=== PATIENT | female | born 1935 | race Caucasian/White ===

== ENCOUNTER 2017-11-06 09:04 | Inpatient (IN) | payer MEDICARE, OTHER, SELFPAY ==
[2017-11-06 09:06] VITALS: BP 115/71; PULSE 88; RESP 14; TEMP 36.4; O2SAT 100; BMI 20.5
--- NOTE | 2017-11-06 09:24 | US_ITS ---
STUDY: ABDOMINAL ULTRASOUND - RIGHT UPPER QUADRANT REASON FOR VISIT: Female, 82 years old. Epigastric pain. TECHNIQUE: Ultrasound evaluation of the right upper quadrant was performed with real-time and static spence-scale imaging. TECHNICAL QUALITY: Adequate. COMPARISON: Comparison is made with prior examination dated May 26, 2017. FINDINGS: Liver: The liver measures 14.2 cm. There is increased echogenicity consistent with fatty infiltration. The bile ducts are within normal limits. There is hepatic color flow. The direction of portal flow is hepatopetal. There is no demonstrated mass lesion. Gallbladder: Normal distended gallbladder. The gallbladder wall measures 1.8 mm. There is a negative sonographic Dahl's sign. There is no pericholecystic fluid. There are no gallstones. Common Bile Duct (C.B.D.): The common bile duct measures 2.1 mm. Pancreas: Normal size of the head, body and tail of the pancreas. There is normal echogenicity of the pancreas. There is no demonstrated pancreatic mass or cyst. Right Kidney: Normal size of the right kidney. The right kidney measures 10.2 cm x 4.7 cm x 4.2 cm. There is mild thinning of the renal cortex. The right cortex measures 0.9 cm. There is no demonstrated renal mass or cyst. There is no right hydronephrosis. US/Gallbladder IMPRESSION: Fatty infiltration of the liver. Electronically Signed: Clint Patrick MD at 10:41 EDT Tel [phone], Service support ,
--- NOTE | 2017-11-06 09:33 | ED.DCSUM_ITS ---
- ER Visit Summary Date of Service: 11/06/17 Chief Complaint: Abdominal pain History of Present Illness: The patient is a 82 F with epigastric and right upper quadrant abdominal pain for the past 3 weeks. Patient states she had similar episode last May and at that time she had multiple workups and was found to have mildly elevated lipase. Patient followed up with Dr. Cramer and it was felt that she likely had passed a small gallstone. Patient states symptoms recurred 3 weeks ago and had been waxing and waning since that time. She has had no vomiting or change in her stool. She has had no fever. She was seen by her PCP 4 days ago and states that her lipase was very mildly elevated at that time. She was advised that if she was not feeling better she should come to the emergency room for evaluation. Patient has had prior appendectomy and hysterectomy does still have her gallbladder. She has been seen by Dr. Adair in the past for EGD as well. Physical Examination: Vital signs are unremarkable. Patient is in no acute distress and is nontoxic appearing. Head and neck examination is unremarkable. Heart is regular rate and rhythm. Lung sounds are clear. Abdomen is soft with tenderness in the epigastric and right upper quadrant region. There is no rebound. She has hypoactive but present bowel sounds. There is no CVA tenderness. Test Results: CBC is unremarkable. Chemistry studies are significant for a BUN of 53 and a creatinine of 2.81. It appears her baseline creatinine is around 1.4. LFTs are unremarkable but lipase is elevated at 1033. Right upper quadrant ultrasound shows fatty infiltration of the liver. Normal gallbladder. Emergency Department Course and Treatment: Patient declined anything for pain or nausea here. She was given IV fluids. She will be admitted for further treatment and evaluation. Treatment Plan: [] Disposition: Admit Impression: 1. Pancreatitis 2. Acute on chronic renal failure This note was generated with [employer] dictation software. It may contain incorrect words, spelling, and punctuation that were not noted in review of the chart prior to signing ED Disposition - Plan for ED Patient: Chief Complaint: Abd Pain Referrals: Ngoc Bowling MD [Primary Care Provider] -
--- NOTE | 2017-11-06 09:38 | NURSING ---
NO LW OR POA
[2017-11-06 09:46] LABS: Absolute Neutrophil Count 6.9 X10^3/uL (2.0-7.7); Basophil# 0.03 X10^3/uL; Basophil% 0.3 % (0-1); Eosinophil# 0.49 X10^3/uL; Eosinophils% 5.1 % (0-5); Hematocrit 34.8 % (37-47); Hemoglobin 12.1 g/dl (12.0-15.0); Lymphocyte % 13.6 % (19-41); Mean Corp Hgb Conc 34.8 g/gl (32-36); Mean Corpuscular Hgb 31.8 pg (27.0-32.0); Mean Corpuscular Volume 91.6 fL (81-99); Mean Platelet Vol. 9.3 fl (6.2-12.0); Monocyte# 0.81 X10^3/uL; Monocyte% 8.5 % (0-10); Neutrophil # 6.94 X10^3/uL (2.7-7.7); Neutrophil % 72.4 % (47-70); POSITIVE COUNT NO; POSITIVE DIFFERENTIAL NO; POSITIVE MORPHOLOGY NO; Platelet Count 270 K/mm3 (150-450); RBC Distribution Width CV 12.9 % (11.6-14.6); RBC Distribution Width SD 42.7 fl (35.1-43.9); White Blood Count 9.6 K/mm3 (4.4-11.0)
[2017-11-06] MEDS: 0.9% Normal Saline 1,000 ML 150 ML IV ×3 (09:47→20:52)
[2017-11-06 10:01] LABS: AST(SGOT) 17 U/L (15-37); Alanine Aminotransfer ALT/SGPT 21 U/L (13-56); Albumin, Serum 4.2 g/dL (3.2-5.0); Alkaline Phosphatase 98 U/L (45-117); Anion Gap 12 (5-15); BUN 53 mg/dL (7-18); BUN/Creat Ratio 18.9 RATIO (10-20); Calcium,Total 9.3 mg/dL (8.5-10.1); Chloride 106 mmol/L (98-107); Creatinine, Serum 2.81 mg/dL (0.55-1.02); EST Glomerular Filtration Rate 17 mL/min (>60); Est Glom Filt Rate - Afr Amer 21 mL/min (>60); Estimated Creatinine Clearance 14.52 ml/min; Globulin 4.1 g/dL (2.2-4.2); Glucose 99 mg/dL (74-106); Lipase 1033 U/L (73-393); Potassium 4.6 mmol/L (3.5-5.1); Protein, Total 8.3 g/dL (6.4-8.2); Sodium Level 138 mmol/L (136-145)
[2017-11-06 11:09] VITALS: BP 128/60; PULSE 74; RESP 18; O2SAT 100
--- NOTE | 2017-11-06 11:09 | NURSING ---
DR YORK FOR DR THAKKAR
--- NOTE | 2017-11-06 11:21 | HP.PCM_ITS ---
Problem List (1) Recurrent acute pancreatitis Status: Acute (2) Acute on chronic renal failure Status: Acute (3) Prothrombin gene mutation Status: Chronic (4) Hyperhomocystinemia Status: Chronic (5) Hypothyroidism Status: Chronic (6) HTN (hypertension) Status: Chronic History of Present Illness Date of Admission: 11/06/17 Chief Complaint: abdominal pain The patient is a 82 year old F with a past medical history of pancreatitis, chronic renal failure, prothrombin gene mutation, hyper homocystinemia, hypothyroidism and hypertension who presented to the [facility] emergency department on 11/06/2017 complaining of abdominal pain. The pain started during the night and she tells me it is located in the RQ of the abd and the mid epigastric area. She had not been feeling well for the past 3 weeks and had no appetite and poor intake. She has lost about 7 pounds in the past 3 weeks. She recently saw Dr. Bowling in the office and her BP was low so the antihypertensives were decreased. She has not had any vomiting. She has never had PUD. She takes Advil sometimes at night. She was admitted to the hospital in May of [address] scan of the abdomen/ pelvis at that time showed no abnormalities other than mild diverticulosis of the distal colon. Vital signs in the ED were temperature 97.6, pulse rate 88, pressure 115/71, respiratory rate 14 and she was 100% saturated on room air. Blood cell count and differential were normal. Hemoglobin and platelets were normal. The CO2 was low at 20 and the BUN is 53 with a creatinine of 2.81. The baseline creatinine over the past 2 years has ranged from 1.26-1.49. She has been taking spironolactone. Lipase was elevated at 1033 and triglycerides are 95. The LFTs are unremarkable. A RUQ ultrasound showed fatty infiltration of the liver with a normal gallbladder, normal pancreas and no gallstones. She denies ETOH use. she has not taken any new medications recently and she has not been on any antibiotics. She was admitted to the hospital with a dx of recurrent acute pancreatitis. Past Medical History Past Medical History (Chronic Problems): Chronic Problems Prothrombin gene mutation (Chronic) Hyperhomocystinemia (Chronic) Hypothyroidism (Chronic) HTN (hypertension) (Chronic) Allergies diltiazem HCl [From Cardizem] Allergy (Verified 11/06/17 09:07) Itching miconazole nitrate [From Neosporin AF] Allergy (Verified 11/06/17 09:07) Laryngospasms morphine Allergy (Verified 11/06/17 09:07) Other MAKES ME CRAZY nitrofurantoin [From Macrobid] Allergy (Verified 11/06/17 09:07) Rash nitrofurantoin macrocrystalline [From Macrobid] Allergy (Verified 11/06/17 09:07 ) Rash bacitracin Adverse Reaction (Verified 11/06/17 09:07) Other codeine Adverse Reaction (Verified 11/06/17 09:07) Chest tightness lisinopril Adverse Reaction (Verified 11/06/17 09:07) Other loratadine [From Claritin] Adverse Reaction (Verified 11/06/17 09:07) Other Home Medications: Ambulatory Orders Medication Instructions Recorded Levothyroxine [Synthroid] 88 mcg PO DAILY 05/26/13 Losartan Potassium [Cozaar] 25 mg PO DAILY 05/26/13 Spironolactone [Aldactone] 50 mg PO DAILY 05/26/13 Timolol 0.5% [Timoptic] 1 drop EACH EYE QHS 09/27/15 Ascorbic Acid [Vitamin C] 1,000 mg PO DAILY 11/06/17 Omeprazole [Omeprazole] 20 mg PO DAILY 11/06/17 Surgical History: colectomy - for diverticular disease, hysterectomy - for DUB Psychiatric History: No pertinent psych hx 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 Denies: Chills, Fever Eyes: Denies: Blurred vision, Vision Change HEENT: Denies: Difficulty Swallowing, Head Aches, Sinus Congestion, Sinus Drainage Cardiovascular: Reports: Light Headedness. Denies: Chest Pain, Edema, Orthopnea , Palpitations, Syncope Respiratory: Denies: Cough, Shortness of Breath Gastrointestinal: Reports: Abdominal Pain - in the mid-epigastric and RUQ, Nausea. Denies: Diarrhea, Hematemesis, Hematochezia, Melena, Vomiting Genitourinary: Denies: Dysuria Gynecological: Denies: Vaginal discharge Musculoskeletal: Denies: Joint Pain, Joint Tenderness Skin: Denies: Jaundice, Rash, Wounds Neurological: Denies: Numbness, Tingling, Focal weakness Psychiatric: Denies: Anxiety, Depression, Homicidal Ideations, Suicidal Ideations Endocrine: Reports: Change in Body Habitus - has lost 7 lbs in the past 2 weeks Hematologic/ Lymphatic: Denies: Hx of blood clot VTE Information - Inpt Only VTE Present on Admission: No VTE Mechan Device Prophylaxis: SCD's, Knee High BEA Hose VTE Pharm Prophylaxis ordered?: Yes Patient Problems: Active and Suspected Problems Recurrent acute pancreatitis (Acute) Acute on chronic renal failure (Acute) - Physical Exam General: Alert, Oriented x3, Cooperative, No apparent distress, Well developed HEENT: Atraumatic, PERRLA, EOMI, Normocephalic Oral: No Gingival or Mucosal Lesions/ Ulcerations, Dry Mucosa Neck: Supple, No JVD, Negative Carotid Bruits, No Nodes, No Nuchal Rigidity, Trachea Midline Lungs: Clear to auscultation, Normal air movement Cardiovascular: Regular rate, Regular Rhythm, Normal S1, Normal S2, No murmurs, No Ectopic Activity, No rub noted, No Gallop Abdomen: Bowel Sounds Present, Soft, Non-Distended, No Hepato-splenomegaly, Tender - mostly oin the epigastric area and over the r lower ribs Extremities: No clubbing, No cyanosis, No edema, No Calf Tenderness Skin: No rashes, No breakdown Musculoskeletal: Arthritic Changes Neurological: Cranial nerves II-XII grossly intact, Neuro grossly intact Psych/Mental Status: Normal Affect, Appropriate Vital Signs Temp Pulse Resp BP Pulse Ox 97.6 F L 74 18 128/60 H 100 11/06/17 09:06 11/06/17 11:09 11/06/17 11:09 11/06/17 11:09 11/06/17 11:09 Oxygen Delivery Method Room Air Weight: 126 lb 15.78 oz Body Mass Index (BMI) 20.5 Laboratory Tests Past 24 Hrs 11/06/17 11/06/17 09:35 09:35 WBC 9.6 RBC 3.80 L Hgb 12.1 Hct 34.8 L MCV 91.6 MCH 31.8 MCHC 34.8 RDW 12.9 RDW Differential 42.7 Plt Count 270 MPV 9.3 Immature Gran % (Auto) 0.100 Neut % (Auto) 72.4 H Lymph % (Auto) 13.6 L [place] % (Auto) 8.5 Eos % (Auto) 5.1 H Baso % (Auto) 0.3 Absolute Neuts (auto) 6.9 Absolute Lymphs (auto) 1.30 Total Counted Not Reportable Sodium 138 Potassium 4.6 Chloride 106 Carbon Dioxide 20.0 L Anion Gap 12 BUN 53 H Creatinine 2.81 H Estim Creat Clear Calc 14.52 Est GFR (MDRD) Af Amer 21 L Est GFR (MDRD) Non-Af 17 L BUN/Creatinine Ratio 18.9 Glucose 99 Calcium 9.3 Total Bilirubin 0.30 Direct Bilirubin 0.10 AST 17 ALT 21 Alkaline Phosphatase 98 Total Protein 8.3 H Albumin 4.2 Globulin 4.1 Lipase 1033 H Assessment/Plan Active and Suspected Problems Recurrent acute pancreatitis (Acute) Acute on chronic renal failure (Acute) Impressions 1. acute recurrent pancreatitis in a pt with a normal GB and biliary tract and no ETOH consumption. Pancreatitis in May 2017 resolved very quickly and Dr. Cramer felt she likely passed a small stone. I am concerned about the loss of appetite and weight loss recently. will check an MRCP of the pancreas. If this is unremarkable consider a HIDA scan to evaluate for GB dysfunction 2. Acute kidney injury on chronic renal failure stage III 3. Dehydration 4. History of hypertension 5. Mild metabolic acidosis-likely secondary to acute on chronic renal failure 6. Prothrombin gene mutation history 7. Diverticulosis-status post partial colectomy 8. Hyperhomocystinemia 9. Hypothyroidism MRCP today Hydrate sips and chips only Pepcid 20 mg IV BID for GI prophylaxis Hold antihypertensives and spironolactone Heparin 5000 units subcu every 12 hours for DVT prophylaxis along with SCDs and BEA gooden Recheck lab in the a.m. Code Visit Inpatient E&M: 79851 Init Hosp L2
[2017-11-06 11:40] VITALS: BMI 20.5
[2017-11-06 12:07] LABS: Triglycerides 95 mg/dL
[2017-11-06 12:28] VITALS: BP 116/55; PULSE 80; RESP 16; TEMP 36.8; O2SAT 97
[2017-11-06 12:50] VITALS: O2SAT 100
--- NOTE | 2017-11-06 14:19 | MRI_ITS ---
STUDY: MR CHOLANGIOPANCREATOGRAPHY (MRCP) REASON FOR EXAM: Female, 82 years old. RUQ tenderness, H/O PANCREATITIS, RENAL FAILURE TECHNIQUE: Standard MRCP technique was utilized. COMPARISON: ct 05.24.17 FINDINGS: There are calcifications of the abdominal aorta. This is consistent for atherosclerotic disease. There is no abdominal aortic aneurysm. 6.6 mm T2 hyperintensity in the left kidney. Gall Bladder: Normal with no distention or demonstrated fixed intraluminal filling defect. Cystic duct: Normal with no demonstrated fixed filling defect. Intrahepatic ducts: Normal visualized intrahepatic ducts with no demonstrated fixed filling defect, dilation or stricture. Common hepatic duct: Normal with no demonstrated fixed filling defect, dilation or stricture. Common bile duct: Normal with no demonstrated fixed filling defect, dilation or stricture. Pancreatic duct: Normal with no demonstrated fixed filling defect, dilation or stricture. MRI/MRCP Abdomen without Contrast IMPRESSION: Normal MR Cholangiopancreatography (MRCP). Left renal cyst. Electronically Signed: Tushar Wilkinson MD at 22:30 EDT , Service support ,
[2017-11-06] MEDS: Acetaminophen 500 MG Tablet 1000 MG PO ×2 (14:41→21:41)
[2017-11-06 17:23] VITALS: BP 115/49; PULSE 77; RESP 16; TEMP 36.6; O2SAT 100
[2017-11-06] MEDS: 0.9% NaCl Peripheral Flush Adult/Peds IV (17:33)
[2017-11-06 21:26] VITALS: BP 125/61; PULSE 71; RESP 16; TEMP 36.8; O2SAT 100
[2017-11-06] MEDS: Heparin Injection (Vial) 5,000 UNIT/ML VIAL 5000 UNIT SC (21:40)
[2017-11-06] MEDS: Timolol 0.5% 5ML OPTH.BTL 1 DRP EACH EYE (21:41)
[2017-11-07] MEDS: 0.9% Normal Saline 1,000 ML 150 ML IV (03:41)
[2017-11-07 03:42] VITALS: BP 114/65; PULSE 65; RESP 16; TEMP 36.4; O2SAT 100
[2017-11-07] MEDS: Acetaminophen 500 MG Tablet 1000 MG PO (06:02)
[2017-11-07] MEDS: Levothyroxine 88 MCG Tablet PO (06:03)
[2017-11-07 06:13] LABS: Absolute Lymphocyte Count 1.56 X10^3/ul (0.83-4.51); Absolute Neutrophil Count 3.7 X10^3/uL (2.0-7.7); Basophil# 0.02 X10^3/uL; Basophil% 0.3 % (0-1); Eosinophil# 0.37 X10^3/uL; Eosinophils% 5.9 % (0-5); Hematocrit 27.3 % (37-47); Hemoglobin 9.3 g/dl (12.0-15.0); Lymphocyte # 1.56 X10^3/ul (4.0); Lymphocyte % 24.8 % (19-41); Mean Corp Hgb Conc 34.1 g/gl (32-36); Mean Corpuscular Hgb 32.3 pg (27.0-32.0); Mean Corpuscular Volume 94.8 fL (81-99); Mean Platelet Vol. 9.8 fl (6.2-12.0); Monocyte# 0.69 X10^3/uL; Neutrophil # 3.65 X10^3/uL (2.7-7.7); Platelet Count 197 K/mm3 (150-450); RBC Distribution Width CV 12.5 % (11.6-14.6); RBC Distribution Width SD 41.4 fl (35.1-43.9); Red Blood Count 2.88 M/mm3 (4.2-5.4); White Blood Count 6.3 K/mm3 (4.4-11.0)
[2017-11-07 06:18] LABS: POSITIVE COUNT NO; POSITIVE DIFFERENTIAL NO; POSITIVE MORPHOLOGY NO
[2017-11-07 06:35] LABS: ALB/GLOB Ratio 1.1 RATIO (0.9-2.4); AST(SGOT) 11 U/L (15-37); Alanine Aminotransfer ALT/SGPT 15 U/L (13-56); Albumin, Serum 3.1 g/dL (3.2-5.0); Alkaline Phosphatase 75 U/L (45-117); Anion Gap 11 (5-15); BUN 40 mg/dL (7-18); BUN/Creat Ratio 19.3 RATIO (10-20); Calcium,Total 8.3 mg/dL (8.5-10.1); Chloride 119 mmol/L (98-107); Cholesterol 105 mg/dL (200); Creatinine, Serum 2.07 mg/dL (0.55-1.02); EST Glomerular Filtration Rate 24 mL/min (>60); Est Glom Filt Rate - Afr Amer 30 mL/min (>60); Estimated Creatinine Clearance 19.71 ml/min; Globulin 2.9 g/dL (2.2-4.2); Glucose 75 mg/dL (74-106); High Density Lipoprotein 30 mg/dL; Lipase 625 U/L (73-393); Magnesium 1.8 mg/dL (1.6-2.6); Phosphorus 3.4 mg/dL (2.5-4.9); Potassium 4.6 mmol/L (3.5-5.1); Sodium Level 145 mmol/L (136-145); Triglycerides 86 mg/dL; Very Low Density Lipoprotein 17 mg/dL (5-40)
--- NOTE | 2017-11-07 06:39 | PCM.PROGNOTE ---
Subjective: 82-year-old female admitted to the hospital on 11/06/2017 with recurrent acute pancreatitis. Events of the past 24 hours have been reviewed. Afebrile since admission. Signs are stable. Balance since admission is +1798. She has had 680 cc of urine since admission. White blood cell count is again normal at 6.3 with a normal differential except for mildly increased eosinophils at 5.9. Hemoglobin is 9.3, down from 12.2 at admission. Platelets are within normal limits. Serum bicarb is decreased to 15 with a potassium of 4.6. BUN is down to 40 from 53 and the creatinine is 2.07 today, down from 2.81 at admission. Magnesium and phosphorus are within normal limits. Triglycerides were 86. Lipase today is 625, down from 1033 at admission. LDL is 58 with an HDL of 30. MRCP was normal. Objective: - Physical Exam General: Alert, Oriented x3, Cooperative, No apparent distress, Well developed, sitting in a chair when I entered the room and looks comfortable HEENT: Atraumatic, PERRLA, EOMI, Normocephalic Oral: No Gingival or Mucosal Lesions/ Ulcerations, Dry Mucosa Neck: Supple, No JVD, Negative Carotid Bruits, No Nodes, No Nuchal Rigidity, Trachea Midline Lungs: Clear to auscultation, Normal air movement Cardiovascular: Regular rate, Regular Rhythm, Normal S1, Normal S2, No murmurs, No Ectopic Activity, No rub noted, No Gallop Abdomen: Bowel Sounds Present, Soft, Non-Distended, No Hepato-splenomegaly, Tender - mostly in the epigastric area and over the r lower ribs Extremities: No clubbing, No cyanosis, No edema, No Calf Tenderness Skin: No rashes, No breakdown Musculoskeletal: Arthritic Changes Neurological: Cranial nerves II-XII grossly intact, Neuro grossly intact Psych/Mental Status: Normal Affect, Appropriate - Physical Exam Vital Signs Temp Pulse Resp BP Pulse Ox 97.6 F L 65 16 114/65 100 11/07/17 03:42 11/07/17 03:42 11/07/17 03:42 11/07/17 03:42 11/07/17 03:42 Oxygen Delivery Method Room Air Weight: 126 lb 15.78 oz Body Mass Index (BMI) 20.5 Intake and Output for Last 24 Hours 11/05/17 11/06/17 11/07/17 23:59 23:59 23:59 Intake Total 728 / 728 1900 / 1900 Output Total 550 / 550 280 / 280 Balance 178 / 178 1620 / 1620 Laboratory Tests Past 24 Hrs 11/07/17 11/07/17 05:30 05:30 WBC 6.3 RBC 2.88 L Hgb 9.3 L Hct 27.3 L MCV 94.8 MCH 32.3 H MCHC 34.1 RDW 12.5 RDW Differential 41.4 Plt Count 197 MPV 9.8 Immature Gran % (Auto) 0.000 Neut % (Auto) 58.0 Lymph % (Auto) 24.8 [place] % (Auto) 11.0 H Eos % (Auto) 5.9 H Baso % (Auto) 0.3 Absolute Neuts (auto) 3.7 Absolute Lymphs (auto) 1.56 Total Counted Not Reportable Sodium 145 Potassium 4.6 Chloride 119 H Carbon Dioxide 15.0 L Anion Gap 11 BUN 40 H Creatinine 2.07 H Estim Creat Clear Calc 19.71 Est GFR (MDRD) Af Amer 30 L Est GFR (MDRD) Non-Af 24 L BUN/Creatinine Ratio 19.3 Glucose 75 Calcium 8.3 L Phosphorus 3.4 Magnesium 1.8 Total Bilirubin 0.30 AST 11 L ALT 15 Alkaline Phosphatase 75 Total Protein 6.0 L Albumin 3.1 L Globulin 2.9 Albumin/Globulin Ratio 1.1 Triglycerides 86 Cholesterol 105 LDL Cholesterol 58 VLDL Cholesterol 17 HDL Cholesterol 30 L Lipase 625 H Medical Necessity - Tobacco Use Smoking Status: Never smoker Tobacco Use: Non-smoker Assessment/Plan Impressions 1. acute recurrent pancreatitis in a pt with a normal GB and biliary tract and no ETOH consumption. Pancreatitis in May 2017 resolved very quickly and Dr. Cramer felt she likely passed a small stone. I am concerned about the loss of appetite and weight loss recently. will check an MRCP of the pancreas. If this is unremarkable consider a HIDA scan to evaluate for GB dysfunction 2. Acute kidney injury on chronic renal failure stage III 3. Dehydration 4. History of hypertension 5. Mild metabolic acidosis-likely secondary to acute on chronic renal failure 6. Prothrombin gene mutation history 7. Diverticulosis-status post partial colectomy 8. Hyperhomocystinemia 9. Hypothyroidism HIDA IgG subclass 4 recheck lab in the AM continue hydration Consult Dr. Cramer Code Visit Inpatient E&M: 54965 Subs Hosp L2
--- NOTE | 2017-11-07 06:42 | NM_ITS ---
CLINICAL: 82-year-old female with reported history of right upper quadrant abdominal pain. RADIONUCLIDE HEPATOBILIARY SCINTIGRAPHY COMPARISON: Abdominal ultrasound report 11/06/2017, MRI of the abdomen report 11/06/2017 FINDINGS: Following the intravenous administration of 5.2 mCi of 99m Tc Mebrofenin, hepatobiliary images reveal: 1. Relatively prompt and homogeneous radiopharmaceutical concentration is noted by a normal sized liver. No parenchymal defects are identified. 2. Gallbladder activity is identified at 15 minutes post radiopharmaceutical administration. 3. Small intestinal tract is observed at 30 minutes following tracer injection. 4. Washout of the radiopharmaceutical by the hepatic parenchyma appears qualitatively normal. The patient was administered a fatty meal (8 ounces BOOST-30 grams fat). The post fatty meal consumption gallbladder ejection fraction calculated at 60 minutes was noted to be 41.0 % (normal greater than 30%). NM/Hepatobilliary Img w/Pharm Int IMPRESSION: 1. NORMAL 99m Tc Mebrofenin hepatobiliary imaging examination with fatty meal ingestion. A. A gallbladder ejection fraction calculated to be greater than 30% following the administration of a consumed fatty meal makes the probability of functional hepatobiliary disease (gallbladder and/or sphincter of Oddi dyskinesia) and/or organic hepatobiliary disease (chronic acalculous cholecystitis and/or cystic duct syndrome) to be low. (Katelyn and Fabricio, J Nucl Med 43: 1603, 2002). Electronically Signed: Ishan Alba DO at 9:27 EDT Tel , Service support ,
[2017-11-07 07:41] VITALS: BP 100/76; PULSE 74; RESP 16; TEMP 36.4; O2SAT 99
--- NOTE | 2017-11-07 11:57 | CON.PCM_ITS ---
- Consult Date of Consult: 11/07/17 - Reason for Consult Chief Complaint: abdominal pain, elevated lipase Gail Ramos is a 82 year old female is well known to me. She presents with findings of elevated serum lipase and history of epigastric abdominal pain. Workup of US gallbladder, MRCP, HIDA scan, all essentially negative. Denies fevers. Patient presently feels much improved. Denies abdominal pain. PAST MEDICAL HISTORY Allergic rhinitis, cause unspecified Allergic rhinitis Disorder of bone and cartilage, unspecified Diverticulosis of colon (without mention of hemorrhage) External hemorrhoids without mention of complication Internal hemorrhoids without mention of complication Moderate persistent asthma without complication 11/17/2015 + ISSA: 28% drop in FEV1 at 10 mg/mL of Methacholine. Other and unspecified hyperlipidemia Rosacea Sciatica Unspecified essential hypertension Unspecified hypothyroidism PAST SURGICAL HISTORY COLONOSCOP W/ OR W/O [facility] SPEC 06/11/12 Colonoscopy repeat 10 years EXCISION OF SKIN GRAFT 2002 [facility] skin excision LAP, SURG MOBIL SPLENIC FL DUR PTL COLECTOMY 06-05-13 LAPAROSCOPIC HEMICOLECTOMY 06-05-13 PAST SURGICAL HISTORY OF 06/01/15 and 07/07/15 bilateral cataract surgery TOTAL ABDOM HYSTERECTOMY 1981 and appe Hysterectomy, [facility] MEDICATIONS: omeprazole (PRILOSEC) 20 mg capsule Take 1 capsule by mouth daily before breakfast. 1/2 hr before meal. levothyroxine (SYNTHROID) 88 mcg tablet Take 1 tablet by mouth once daily. losartan (COZAAR) 25 mg tablet Take 1 tablet by mouth once daily. spironolactone (ALDACTONE) 25 mg tablet Take 1 tablet by mouth twice daily. fluticasone (FLONASE) 50 mcg/actuation nasal spray Use 1-2 Sprays in each nostril once daily. levobunolol 0.5 % ophthalmic solution Use 1 Drop in both eyes daily at bedtime. Biotin 5 mg ORAL Cap Take one(1) tablet daily. (Dr. Chambers) ALLERGIES: Bactrim [Sulfamethoxazole-Trimethoprim]; Cardizem [Diltiazem Hcl]; Claritin [Loratadine]; Codeine; Lisinopril; Macrobid [Nitrofurantoin Monohyd/M- Cryst]; Morphine; Neosporin [Ujziwugm-Iimpbzqsir-Zxdslkzge]; Environmental [ Other] PERSONAL HISTORY: Social History Marital status: Spouse name: Years of education: Number of children: Occupational History Occupation Employer Comment [employer]. [employer]. Retired 2011 Social History Main Topics Smoking status: Never Smoker Smokeless status: Never Used Comment: Parents and spouse smoked in home. Spouse quit years ago. Alcohol use: No Drug use: No FAMILY HISTORY Heart Mother CHF Cancer Maternal Grandmother Stomach Hypertension Brother 2 brothers Cancer Brother Throat cancer, smoker REVIEW OF SYSTEMS: General - denies fevers Cardiovascular - denies chest pain Pulmonary - denies shortness of breath Gastrointestinal - denies abdominal pain at present, see HPI, had colonoscopy in 2013, does have acid reflux occasionally Neurological - denies seizures Genitourinary - denies burning with urination Hematological - denies spontaneous/prolonged bleeding Skin - denies nonhealing skin wounds Musculoskeletal - denies chronic joint/back pain Endocrine - denies diabetes Psychological denies hallucinations PHYSICAL EXAMINATION: General: The patient is 82 year old female, well nourished, well hydrated in no acute distress. The patient is oriented to time, place, and person. VITALS: Blood pressure 114/54, pulse 84, weight 58.5 kg (129 lb). Body mass index is 21.23 kg/(m^2). Head Normocephalic. EOM intact with sclera clear and no icterus noted. Mouth with mucus membranes moist. Neck - supple with no jugular venous distention noted. Trachea is midline. Lungs clear to auscultation. Normal breath sounds. No rales/rhonchi/wheezing noted. No labored breathing noted, such as retractions. Heart normal S1 and S2 auscultated. No rubs/clicks/murmurs noted. Regular rate. Abdomen soft and benign. Normal bowel sounds. No abdominal bruits noted. No distention or tympany noted. No masses noted. Extremities no calf tenderness noted. Skin normal skin integrity. Neurological gait normal, no focal deficits noted. Psych calm and appropriate LABORATORY VALUES: As Noted RADIOLOGIC STUDIES: As Noted IMPRESSION: elevated serum lipase, abdominal pain Discussion/Plan: I have discussed the above with the patient. Can consider lap jeanette as outpatient in future. Patient feeling hungry and much improved. will start regular diet can d/c to home wiht follow up with me as outpatient I have answered all questions to the patients satisfaction and the patient has no further questions. Greater than 50% of this patient encounter was dedicated to face to face discussion with the patient.
--- NOTE | 2017-11-07 12:36 | CASEMGMT ---
See RN CM Assessment link for details. DC Plan: home on discharge. -Intro role of CM to patient. Pt does not use DME, is independent, drives. No dc concerns identified or voiced by pt. Dorinda RAHMANN RN ACM
[2017-11-07 15:04] VITALS: BP 118/48; PULSE 77; RESP 16; TEMP 36.8; O2SAT 100
--- NOTE | 2017-11-07 15:55 | DCINST_ITS ---
- Discharge Diagnoses Current Active Problems: Current Active and Chronic Problems Recurrent acute pancreatitis (Acute) Acute on chronic renal failure (Acute) You will use the following diet at home:: Other - low fat diet Your food should be the consistency of: Regular Your liquids should be the consistency of: Regular/Thin Discharge Activity: - - take it easy for a few days and do not over do! Call your doctor if you observe: Fever of 101 or Higher, - - nausea, recurrent abdominal pain, vomiting Additional Instructions: You had acute on chronic kidney failure at admisison to the hospital. the kidney function is better today but, not back to baseline. Do NOT take spironolactone. It is a diuretic and it is likely that dehydration lead to the acute kidney failure. You should be drinking enough water to keep your urine a pale yellow. I think you should have repeat lab work in the next 5-7 days to make sure the kidney function is back to normal. The blood pressure at the time of DC from the hospital is 118/48. We have not been giving you any hypertensives so I think you should stay off the BP meds until you see Dr. Bowling again. Pending Tests on Discharge: IgG subclass 4 (this is a test for autoimmune hepatitis) Allergies/Adverse Reactions: Allergies diltiazem HCl [From Cardizem] Allergy (Verified 11/06/17 09:07) Itching miconazole nitrate [From Neosporin AF] Allergy (Verified 11/06/17 09:07) Laryngospasms morphine Allergy (Verified 11/06/17 09:07) Other MAKES ME CRAZY nitrofurantoin [From Macrobid] Allergy (Verified 11/06/17 09:07) Rash nitrofurantoin macrocrystalline [From Macrobid] Allergy (Verified 11/06/17 09:07 ) Rash bacitracin Adverse Reaction (Verified 11/06/17 09:07) Other codeine Adverse Reaction (Verified 11/06/17 09:07) Chest tightness lisinopril Adverse Reaction (Verified 11/06/17 09:07) Other loratadine [From Claritin] Adverse Reaction (Verified 11/06/17 09:07) Other Medications to take at Discharge Levothyroxine [Synthroid] 88 mcg PO DAILY 05/26/13 Losartan Potassium [Cozaar] 25 mg PO DAILY 11/25/13 Timolol 0.5% [Timoptic] 1 drop EACH EYE QHS 09/27/15 Ascorbic Acid [Vitamin C] 1,000 mg PO DAILY 11/06/17 Omeprazole 20 mg PO DAILY 11/06/17 Primary Care Physician: Ngoc Bowling MD [Primary Care Provider] - Please follow up with your Primary Care Physician in: 5 days Please Follow Up With: Puja Cramer MD When: call her for an appt or to schedule the surgery Proposed Discharge Date: 11/07/17
--- NOTE | 2017-11-07 16:06 | PCM.DC.SUM ---
Discharge Date and Diagnosis Date of Admission: 11/06/17 Date of Discharge: 11/07/17 - Primary Discharge Diagnosis Active and Suspected Problems Recurrent acute pancreatitis (Acute) Acute on chronic renal failure (Acute) Dehydration - Secondary Discharge Diagnosis Chronic Problems Glaucoma (Chronic) Prothrombin gene mutation (Chronic) Hyperhomocystinemia (Chronic) Hypothyroidism (Chronic) HTN (hypertension) (Chronic) Hospital Course and Treatment Imaging Results: Clinical Impression(s) from Imaging Studies Gallbladder Ultrasound 11/06/17 09:24 IMPRESSION: Fatty infiltration of the liver. Electronically Signed: Clint Patrick MD at 10:41 EDT Tel [phone], Service support , MRCP 11/06/17 14:19 IMPRESSION: Normal MR Cholangiopancreatography (MRCP). Left renal cyst. Electronically Signed: Tushar Wilkinson MD at 22:30 EDT , Service support , Laboratory Results - last 24 hr 11/07/17 11/07/17 05:30 05:30 WBC 6.3 RBC 2.88 L Hgb 9.3 L Hct 27.3 L MCV 94.8 MCH 32.3 H MCHC 34.1 RDW 12.5 RDW Differential 41.4 Plt Count 197 MPV 9.8 Immature Gran % (Auto) 0.000 Neut % (Auto) 58.0 Lymph % (Auto) 24.8 [place] % (Auto) 11.0 H Eos % (Auto) 5.9 H Baso % (Auto) 0.3 Absolute Neuts (auto) 3.7 Absolute Lymphs (auto) 1.56 Total Counted Not Reportable Sodium 145 Potassium 4.6 Chloride 119 H Carbon Dioxide 15.0 L Anion Gap 11 BUN 40 H Creatinine 2.07 H Estim Creat Clear Calc 19.71 Est GFR (MDRD) Af Amer 30 L Est GFR (MDRD) Non-Af 24 L BUN/Creatinine Ratio 19.3 Glucose 75 Calcium 8.3 L Phosphorus 3.4 Magnesium 1.8 Total Bilirubin 0.30 AST 11 L ALT 15 Alkaline Phosphatase 75 Total Protein 6.0 L Albumin 3.1 L Globulin 2.9 Albumin/Globulin Ratio 1.1 Triglycerides 86 Cholesterol 105 LDL Cholesterol 58 VLDL Cholesterol 17 HDL Cholesterol 30 L Lipase [address] Puja Cramer - [facility] General Surgery Operations: None, - - Laparoscopic sigmoid colectomy with mobilization of the splenic flexure Procedures: None Summary of Care Provided: The patient is an 82 year old F with a past medical history of pancreatitis, chronic renal failure, prothrombin gene mutation, hyperhomocystinemia, hypothyroidism and hypertension who presented to the [facility] emergency department on 11/06/2017 complaining of abdominal pain. The pain started during the night and she tells me it is located in the RUQ of the abd and the mid epigastric area. She had not been feeling well for the past 3 weeks and had no appetite and poor intake. She had lost about 7 pounds in the past 3 weeks. She recently saw Dr. Bowling in the office and her BP was low so the antihypertensives were decreased. She has not had any vomiting. She has never had PUD. She takes Advil sometimes at night. She was admitted to the hospital in May of 2017 for acute [address]. CT scan of the abdomen/pelvis at that time showed no abnormalities other than mild diverticulosis of the distal colon. She was seen by Dr. Cramer at that visit and Dr. Cramer felt that she likely passed a small stone. Vital signs in the ED were temperature 97.6, pulse rate 88, pressure 115/71, respiratory rate 14 and she was 100% saturated on room air. White blood cell count and differential were normal. Hemoglobin and platelets were normal. The CO2 was low at 20 and the BUN was 53 with a creatinine of 2.81. The baseline creatinine over the past 2 years has ranged from 1.26-1.49. She had been taking spironolactone. Lipase was elevated at 1033 and triglycerides were 95. The LFTs were unremarkable. A RUQ ultrasound showed fatty infiltration of the liver with a normal gallbladder, normal pancreas and no gallstones. She denied ETOH use. She had not taken any new medications recently and she had not been on any antibiotics. She was admitted to the hospital with a dx of recurrent acute pancreatitis. She was made NPO and IV fluids were ordered. A HIDA scan was done and was unremarkable. MRCP was normal. She does have a left renal cyst. IgG subclass 4 was within normal limits making autoimmune pancreatitis unlikely. On 11/07/2017 she denied nausea and had scant abdominal pain. Her diet was advanced to regular by Dr. Cramer which she tolerated without recurrence of abdominal pain, nausea or emesis. She was discharged home and will follow up with Dr. Cramer as an outpatient for becky reid. She was instructed to follow-up with Dr. Bowling in 5 days. She will resume her previous medications with the exception of Spironolactone which was discontinued due to acute renal failure at admission. On the date of discharge her serum creatinine was 2.07 and she was instructed to increase her fluid intake. LFTs were normal and the lipase had decreased to 625. Would recheck a BMP at the time of her next office visit to insure that the creatinine has returned to baseline. HGB dropped to 9.3 with hydration so would also consider a CBC at that time. This note was generated with [employer] software. It may contain incorrect words, spelling, and punctuation that were not noted in checking the note before signing. Discharge Activity: - - take it easy for a few days and do not over do! Call your doctor if you observe: Fever of 101 or Higher, - - nausea, recurrent abdominal pain, vomiting Home Medications: Medications to take at Discharge Levothyroxine [Synthroid] 88 mcg PO DAILY 05/26/13 Losartan Potassium [Cozaar] 25 mg PO DAILY 05/26/13 Timolol 0.5% [Timoptic] 1 drop EACH EYE QHS 09/27/15 Ascorbic Acid [Vitamin C] 1,000 mg PO DAILY 11/06/17 Omeprazole 20 mg PO DAILY 11/06/17 Biotin 5 mg PO DAILY 11/13/17 Cholecalciferol (Vitamin D3) [Vitamin D3] 2,000 unit PO DAILY 11/13/17 Primary Care Physician: Ngoc Bowling MD [Primary Care Provider] - Please follow up with your Primary Care Physician in: 5 days Please Follow Up With: Puaj Cramer MD When: call her for an appt or to schedule the surgery Disposition: Home Minutes spent on discharge:: 30 Patient Condition:: Good Medical Necessity - Tobacco Use Smoking Status: Never smoker Tobacco Use: Non-smoker Meaningful Use Info Meaningful Use Diagnoses (Choose all that apply): None applicable
--- NOTE | 2017-11-07 16:09 | DS.PCM_ITS ---
Discharge Date and Diagnosis Date of Admission: 11/06/17 Date of Discharge: 11/07/17 - Primary Discharge Diagnosis Active and Suspected Problems Recurrent acute pancreatitis (Acute) Acute on chronic renal failure (Acute) Dehydration - Secondary Discharge Diagnosis Chronic Problems Glaucoma (Chronic) Prothrombin gene mutation (Chronic) Hyperhomocystinemia (Chronic) Hypothyroidism (Chronic) HTN (hypertension) (Chronic) Hospital Course and Treatment Imaging Results: Clinical Impression(s) from Imaging Studies Gallbladder Ultrasound 11/06/17 09:24 IMPRESSION: Fatty infiltration of the liver. Electronically Signed: Clint Patrick MD at 10:41 EDT Tel [phone], Service support , MRCP 11/06/17 14:19 IMPRESSION: Normal MR Cholangiopancreatography (MRCP). Left renal cyst. Electronically Signed: Tushar Wilkinson MD at 22:30 EDT , Service support , Laboratory Results - last 24 hr 11/07/17 11/07/17 05:30 05:30 WBC 6.3 RBC 2.88 L Hgb 9.3 L Hct 27.3 L MCV 94.8 MCH 32.3 H MCHC 34.1 RDW 12.5 RDW Differential 41.4 Plt Count 197 MPV 9.8 Immature Gran % (Auto) 0.000 Neut % (Auto) 58.0 Lymph % (Auto) 24.8 [place] % (Auto) 11.0 H Eos % (Auto) 5.9 H Baso % (Auto) 0.3 Absolute Neuts (auto) 3.7 Absolute Lymphs (auto) 1.56 Total Counted Not Reportable Sodium 145 Potassium 4.6 Chloride 119 H Carbon Dioxide 15.0 L Anion Gap 11 BUN 40 H Creatinine 2.07 H Estim Creat Clear Calc 19.71 Est GFR (MDRD) Af Amer 30 L Est GFR (MDRD) Non-Af 24 L BUN/Creatinine Ratio 19.3 Glucose 75 Calcium 8.3 L Phosphorus 3.4 Magnesium 1.8 Total Bilirubin 0.30 AST 11 L ALT 15 Alkaline Phosphatase 75 Total Protein 6.0 L Albumin 3.1 L Globulin 2.9 Albumin/Globulin Ratio 1.1 Triglycerides 86 Cholesterol 105 LDL Cholesterol 58 VLDL Cholesterol 17 HDL Cholesterol 30 L Lipase [address] Puja Cramer - [facility] General Surgery Operations: None, - - Laparoscopic sigmoid colectomy with mobilization of the splenic flexure Procedures: None Summary of Care Provided: The patient is an 82 year old F with a past medical history of pancreatitis, chronic renal failure, prothrombin gene mutation, hyperhomocystinemia, hypothyroidism and hypertension who presented to the [facility] emergency department on 11/06/2017 complaining of abdominal pain. The pain started during the night and she tells me it is located in the RUQ of the abd and the mid epigastric area. She had not been feeling well for the past 3 weeks and had no appetite and poor intake. She had lost about 7 pounds in the past 3 weeks. She recently saw Dr. Bowling in the office and her BP was low so the antihypertensives were decreased. She has not had any vomiting. She has never had PUD. She takes Advil sometimes at night. She was admitted to the hospital in May of 2017 for acute pancreatitis. CT scan of the abdomen/ pelvis at that time showed no abnormalities other than mild diverticulosis of the distal colon. She was seen by Dr. Cramer at that visit and Dr. Cramer felt that she likely passed a small stone. Vital signs in the ED were temperature 97.6, pulse rate 88, pressure 115/71, respiratory rate 14 and she was 100% saturated on room air. White blood cell count and differential were normal. Hemoglobin and platelets were normal. The CO2 was low at 20 and the BUN was 53 with a creatinine of 2.81. The baseline creatinine over the past 2 years has ranged from 1.26-1.49. She had been taking spironolactone. Lipase was elevated at 1033 and triglycerides were 95. The LFTs were unremarkable. A RUQ ultrasound showed fatty infiltration of the liver with a normal gallbladder, normal pancreas and no gallstones. She denied ETOH use. She had not taken any new medications recently and she had not been on any antibiotics. She was admitted to the hospital with a dx of recurrent acute pancreatitis. She was made NPO and IV fluids were ordered. A HIDA scan was done and was unremarkable. MRCP was normal. She does have a left renal cyst. IgG subclass 4 was within normal limits making autoimmune pancreatitis unlikely. On 11/07/2017 she denied nausea and had scant abdominal pain. Her diet was advanced to regular by Dr. Cramer which she tolerated without recurrence of abdominal pain, nausea or emesis. She was discharged home and will follow up with Dr. Cramer as an outpatient for becky reid. She was instructed to follow-up with Dr. Bowling in 5 days. She will resume her previous medications with the exception of Spironolactone which was discontinued due to acute renal failure at admission. On the date of discharge her serum creatinine was 2.07 and she was instructed to increase her fluid intake. LFTs were normal and the lipase had decreased to 625. Would recheck a BMP at the time of her next office visit to insure that the creatinine has returned to baseline. HGB dropped to 9.3 with hydration so would also consider a CBC at that time. This note was generated with [employer] software. It may contain incorrect words, spelling, and punctuation that were not noted in checking the note before signing. Discharge Activity: - - take it easy for a few days and do not over do! Call your doctor if you observe: Fever of 101 or Higher, - - nausea, recurrent abdominal pain, vomiting Home Medications: Medications to take at Discharge Levothyroxine [Synthroid] 88 mcg PO DAILY 05/26/13 Losartan Potassium [Cozaar] 25 mg PO DAILY 05/26/13 Timolol 0.5% [Timoptic] 1 drop EACH EYE QHS 09/27/15 Ascorbic Acid [Vitamin C] 1,000 mg PO DAILY 11/06/17 Omeprazole 20 mg PO DAILY 11/06/17 Biotin 5 mg PO DAILY 11/13/17 Cholecalciferol (Vitamin D3) [Vitamin D3] 2,000 unit PO DAILY 11/13/17 Primary Care Physician: Ngoc Bowling MD [Primary Care Provider] - Please follow up with your Primary Care Physician in: 5 days Please Follow Up With: Puja Cramer MD When: call her for an appt or to schedule the surgery Disposition: Home Minutes spent on discharge:: 30 Patient Condition:: Good Medical Necessity - Tobacco Use Smoking Status: Never smoker Tobacco Use: Non-smoker Meaningful Use Info Meaningful Use Diagnoses (Choose all that apply): None applicable
[2017-11-09 03:08] LABS: IgG, Quant 879 mg/dL (700-1600); Immunoglobulin G, Subclass 1 538 mg/dL (248-810); Immunoglobulin G, Subclass 2 221 mg/dL (130-555); Immunoglobulin G, Subclass 3 68 mg/dL (15-102)
[2017-11-09 11:30] LABS: Immunoglobulin G, Subclass 4 49 mg/dL (2-96)
== END 2017-11-07 16:19 | disposition home or self-care (01) | DRG 439 ==
LOC: ED 09:36 → MS2 11:23
PROVIDERS: Admitting Provider Internal Medicine; Emergency Provider Emergency Medicine; Family Provider Internal Medicine; PCP Internal Medicine; Visit Provider Internal Medicine
DX: K85.90 Acute pancreatitis without necrosis or infection, unspecified (principal); D68.52 Prothrombin gene mutation; N17.9 Acute kidney failure, unspecified; E03.9 Hypothyroidism, unspecified; I12.9 Hypertensive chronic kidney disease with stage 1 through stage 4 chronic kidney disease, or unspecified chronic kidney disease; N18.3 Chronic kidney disease, stage 3 (moderate)
CPT/HCPCS: 36415; 74181; 76705; 78227; 80048; 80053; 80061; 80076; 82784; 82787; 83690; 83735; 84100; 84478; 85025; 97802; 99284; A9537; J7030; J7040; A4216

== ENCOUNTER → 2017-11-13 10:54 | Outpatient (CLI) | payer MEDICARE, OTHER, SELFPAY ==
[2017-11-13 11:12] LABS: Lipase 656 U/L (73-393)
== END ==
PROVIDERS: Family Provider Internal Medicine; PCP Internal Medicine; Visit Provider Internal Medicine
DX: K85.00 Idiopathic acute pancreatitis without necrosis or infection (principal)
CPT/HCPCS: 83690

== ENCOUNTER 2017-11-14 06:01 | Day surgery (SDC) | payer MEDICARE, OTHER, SELFPAY ==
--- NOTE | 2017-11-14 06:09 | EKG12_ITS ---
Test Reason : PRE OP Blood Pressure : / mmHG Vent. 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
[2017-11-14 06:22] VITALS: BP 115/68; PULSE 71; RESP 16; TEMP 37.2; O2SAT 99; BMI 20.9
--- NOTE | 2017-11-14 07:14 | PCM.IMDPSTOP ---
Immediate Post-Op Note Date of Procedure: 11/14/17 Primary Surgeon/Physician: Puja Cramer quick service technician: Ana Maria Garcia Pre-Operative Diagnosis: intermittant elevated lipase, intermittant epigastric abdominal pain Post-Operative Diagnosis: same Surgery/Procedure Performed:: laparoscopic cholecystectomy with cholangiograms Description of Surgical Findings:: normal intraoperative cholangiogram, some omental adhesions to free surface of gallbladder Estimated Blood Loss: < 5 ml Specimen's removed: gallbladder and contents Type of Anesthesia:: General ASA Class: ASA2 Mod Systematic Disease - Admit VTE Documentation VTE Present on Admission: Yes VTE Mechan Device Prophylaxis: SCD's
--- NOTE | 2017-11-14 07:16 | PCM.DC.GB ---
Discharge Diet: No Restrictions - drink plenty of fluids, avoid carbonated beverages for a couple of days Discharge Activity: Return to Normal Activity, May not drive while taking narcotic pain medications. Lifting Restrictions: no lifting greater than 20 pounds for 2 weeks Call your doctor if your incision/area has: Continuous Slow Oozing, Foul Smelling Discharge Call your doctor if you observe: Fever of 101 or Higher Additional Dressing/Incision Instructions:: Leave dressings in place. May get wet in shower. Do not soak- no tub baths/swimming Allergies/Adverse Reactions: Allergies diltiazem HCl [From Cardizem] Allergy (Verified 11/13/17 11:46) Itching miconazole nitrate [From Neosporin AF] Allergy (Verified 11/13/17 11:46) Laryngospasms morphine Allergy (Verified 11/13/17 11:46) Other MAKES ME CRAZY nitrofurantoin [From Macrobid] Allergy (Verified 11/13/17 11:46) Rash nitrofurantoin macrocrystalline [From Macrobid] Allergy (Verified 11/13/17 11:46) Rash bacitracin Adverse Reaction (Verified 11/13/17 11:46) Other codeine Adverse Reaction (Verified 11/13/17 11:46) Chest tightness lisinopril Adverse Reaction (Verified 11/13/17 11:46) Other loratadine [From Claritin] Adverse Reaction (Verified 11/13/17 11:46) Other Medications to take at Discharge Levothyroxine [Synthroid] 88 mcg PO DAILY 05/26/13 Losartan Potassium [Cozaar] 25 mg PO DAILY 05/26/13 Timolol 0.5% [Timoptic] 1 drop EACH EYE QHS 09/27/15 Ascorbic Acid [Vitamin C] 1,000 mg PO DAILY 11/06/17 Omeprazole 20 mg PO DAILY 11/06/17 Biotin 5 mg PO DAILY 11/13/17 Cholecalciferol (Vitamin D3) [Vitamin D3] 2,000 unit PO DAILY 11/13/17 Hydrocodone Bitart/Apap 5-325 [[place] 5MG-325MG] 1 tab PO Q6H PRN PRN 3 Days #12 tab 11/14/17 traMADol [Ultram] 50 mg PO Q6H PRN PRN #10 tab 05/16/18 The following prescriptions were given: Hydrocodone Bitart/Apap 5-325 [[place] 5MG-325MG] 1 tab PO Q6H PRN PRN 3 Days #12 tab PRN Reason: Pain traMADol [Ultram] 50 mg PO Q6H PRN PRN #10 tab PRN Reason: Pain Please Follow Up With: Puja Cramer MD - call When: to be see in 7-10 days, please call for date and time, thank you
--- NOTE | 2017-11-14 07:30 | RAD_ITS ---
STUDY: INTRAOPERATIVE CHOLANGIOGRAM. REASON FOR EXAM: Female, 82 years old. Laparoscopic cholecystectomy. FLUOROSCOPY TIME (if supplied): (0:06) minutes/seconds TECHNIQUE: An intraoperative cholangiogram was performed by the surgeon. Imaging was submitted. COMPARISON: None. FINDINGS: The common bile duct is opacified. No intraluminal filling defect is seen. There is free flow of contrast into the duodenum. RAD/Cholangiogram/ O R,Initial IMPRESSION: Unremarkable intraoperative cholangiogram. Electronically Signed: Clint Patrick MD at 9:25 EDT Tel [phone], Service support ,
--- NOTE | 2017-11-14 07:30 | GALL_PTH ---
PATIENT: BHASKAR FREY LOC: [facility] U#:[id number] AGE/SX: 82/F ROOM: RE11/14/[address]: Dr. Puja Cramer MD : [id number] BED: DIS: 11/14/2017 SPEC #: [id number] RECD: 11/14/17 08:10 STATUS: JAGRUTI FLORES #: [id number] TRISTON: 11/14/17 07:[address]: Puja Cramer DEPT: SURGICAL PATHOLOGY RECD BY: Gabriel Chavez ENTERED: 11/14/17 09:01 SP TYPE: KASH MEDINA DR: Dr. Ngoc Bowling MD Tissues: Gallbladder, NOS Procedures: Surgery Specimen Level III HEADER OPERATION: Laparoscopic cholecystectomy with intraoperative cholangiogram PRE-OP DIAGNOSIS: Intermittently elevated serum lipase, episodes of epigastric abdominal pain TISSUE SUBMITTED: Gallbladder MICROSCOPIC DIAGNOSIS Gallbladder: Chronic cholecystitis and cholesterolosis. No stones are identified in the container or in the gallbladder. KEVYN:maurilio 11/15/17 MICROSCOPIC DESCRIPTION Slides are reviewed. GROSS DESCRIPTION Received is one container labeled with the patient's name and designated gallbladder. The specimen consists of a gallbladder measuring 6.5 cm in length and up to 3 cm in diameter. The external surface is pink-richards, smooth and glistening for the most part. Focally it is granular, hemorrhagic and contains cautery artifact. The gallbladder contains green-yellow mucoid bile. No stones are identified in the container or in the gallbladder. The mucosa is bile-stained and without any mass lesions. The gallbladder wall measures 0.2 cm in thickness. The mucosa also shows several yellowish streaks consistent with cholesterolosis. Hedis Analyst sections from the gallbladder and the cystic duct are submitted in one cassette. / KEVYN:maurilio 11/14/17 TC:3 CPT: 08510
[2017-11-14] MEDS: Ondansetron 4 MG/2 ML Vial (08:00)
--- NOTE | 2017-11-14 08:02 | OP.PCM_ITS ---
Report of Operation Date of Procedure: 11/14/17 Pre-Operative Diagnosis: intermittant elevated lipase, intermittant epigastric abdominal pain Post-Operative Diagnosis: same Surgery/Procedure Performed:: laparoscopic cholecystectomy with cholangiograms Description of Surgical Findings:: normal intraoperative cholangiogram, some omental adhesions to free surface of gallbladder racetrack steward: Ana Maria Garcia Type of Anesthesia:: General Anesthesiologist: Arthur Bates Specimen's removed: gallbladder and contents Estimated Blood Loss (mL): < 5 ml Fluids Replaced: 1000 ml RL Description of Procedure: After informed consent was given, the patient was brought to the Operating Room and placed in the supine position. Appropriate time out protocol was followed. The patient was then placed under general endotracheal anesthesia. The abdomen was then prepped with a sterile surgical skin preparation and sterile surgical drapes were placed. The infraumbilical skin fold was grasped with penetrating clamps and the skin and subcutaneous tissues were infiltrated with local anesthetic. A skin incision was then made with a 15 blade scalpel. The anterior abdominal wall was elevated and a Veress needle was carefully inserted into the intraabdominal cavity. It was checked to be in the proper position with a normal saline drop test. A CO2 pneumoperitoneum was then created. Once this was achieved, then the Veress needle was removed and an 11mm trocar was placed in its stead. A 10mm laparoscope was then inserted into the trocar and careful attention was directed to the intraabdominal contents. There was no evidence of injury to any intraabdominal organs from insertion of the Veress needle or the trocar. Under direct visualization, a 5mm subxiphoid trocar and two lateral 5mm right subcostal trocars were placed. The skin and subcutaneous tissues at these sites were infiltrated with local anethetic prior to placement of these trocars. Attention was then directed to the right upper quadrant of the abdomen. Graspers were placed in the lateral trocars to grasp the distal aspect of the gallbladder and direct it cephalad and to grasp the gallbladder at Jones?s pouch and direct it laterally. There were omental adhesions to the free surface of the gallbladder. These were taken down by electrocautery. Dissection then began on the proximal gallbladder continuing down to the area of the triangle of Calot to bluntly dissect out the cystic duct. The neck of the gallbladder was identified and blunt dissection continued to dissect out a segment of the cystic duct. A clip was then placed on the neck of the gallbladder. A small ductotomy was then made. A Ranfac catheter was brought in through a separate skin incision and placed into the cystic duct. An intraoperative cholangiogram was performed under fluoroscopy. The xray revealed no lesions in the common bile duct, arborization of the biliary tree, and good flow into the duodenum. The Ranfac catheter was then removed and two clips were placed proximal to the ductotomy and the cystic duct was then transected. The cystic artery was visualized and bluntly isolated and then two clips were placed proximally and one clip distally and then it was transected between the proximal and distal clips. The gallbladder was then from the liver bed using electrocautery and thus able to be brought out of the umbilical port. It was then forwarded to pathology for analysis. The liver bed was carefully examined. There was no evidence of bile leakage or bleeding. The cystic duct stump and cystic artery stump had their clips intact and there was no evidence of bile leakage or bleeding. The remainder of the abdomen was grossly normal. The CO2 was released and all trocars removed intact. The periumbilical fascia was approximated with a [id number] 0 vicryl suture. All skin incision were closed with 4-0 monocryl in a subdermal fashion. Cavilol and Steristrips were used to reinforce the skin closure. Sterile dressings were applied to all wounds. The patient was extubated and brought to the Recovery Room in stable condition. - Complications none noted - Admit VTE Documentation VTE Present on Admission: Yes VTE Mechan Device Prophylaxis: SCD's
[2017-11-14 08:24] VITALS: BP 115/68; BP 160/82; PULSE 79; RESP 18; TEMP 36.8; O2SAT 100
[2017-11-14 08:30] VITALS: BP 115/68; BP 146/76; PULSE 71; RESP 18; O2SAT 100
[2017-11-14 08:45] VITALS: BP 115/68; BP 125/83; PULSE 72; RESP 18; TEMP 36.9; O2SAT 99
[2017-11-14 09:19] VITALS: BP 115/68
== END 2017-11-14 10:37 | disposition home or self-care (01) ==
LOC: SDC 06:02 → AC 06:03
PROVIDERS: Family Provider Internal Medicine; PCP Internal Medicine; Visit Provider Surgery
PROC: (CPT 47610; principal; 2017-11-14 07:10)
DX: K81.1 Chronic cholecystitis (principal); R74.8 Abnormal levels of other serum enzymes; R10.13 Epigastric pain; K66.0 Peritoneal adhesions (postprocedural) (postinfection); I10 Essential (primary) hypertension; E78.5 Hyperlipidemia, unspecified; E03.9 Hypothyroidism, unspecified
CPT/HCPCS: 00790; 47563; 74300; 76000; 88304; 93005; J7050; J7120; J2405

== ENCOUNTER → 2018-01-09 12:37 | Outpatient (CLI) | payer MEDICARE, OTHER, SELFPAY ==
--- NOTE | 2018-01-09 12:41 | US_ITS ---
STUDY: RENAL ULTRASOUND - COMPLETE REASON FOR EXAM: Female, 82 years old. Stage V chronic kidney disease. TECHNIQUE: Ultrasound evaluation of the kidneys was performed with real-time and static horowitz-scale imaging. COMPARISON: None. FINDINGS: RIGHT KIDNEY: with mild renal atrophy. The right kidney measures 7.7 cm x 4.5 cm x 3.6 cm. There is diffuse thinning of the renal cortex. The renal cortex measures 0.8 cm. There is no right renal mass or cyst. There are no right renal calculi. There is no right hydronephrosis. DISTAL RIGHT URETER: There is non-visualization of the distal right ureter. There is no demonstrated right ureterovesical junction calculus. There is no demonstrated right ureteral jet. LEFT KIDNEY: Normal location of the left kidney, which is normal in size. The left kidney measures 10.2 cm x 4.8 cm x 4.3 cm. There is a normal cortex of the left kidney. The renal cortex measures 1.3 cm. There is no left renal mass or cyst. There are no left renal calculi. There is no left hydronephrosis. DISTAL LEFT URETER: There is non-visualization of the distal left ureter. There is no demonstrated left ureterovesical junction calculus. There is no demonstrated left ureteral jet. BLADDER: The distended urinary bladder has a volume of 50 ml. There is a normal wall thickness of the distended urinary bladder. There is no demonstrated mass within the urinary bladder. There are no demonstrated bladder calculi. US/Kidney and Bladder IMPRESSION: Atrophy of the right kidney. Electronically Signed: Clint Patrick MD at 14:12 EDT Tel [phone], Service support ,
[2018-01-09 13:09] LABS: Bacteria 0 SEEN /hpf (None Seen); Mucous, Urine 0 SEEN /hpf (<or=2+); Red Blood Cells-Urine 0 SEEN /hpf (0-5); Squamous Epithelial Cells - UA 0 SEEN /hpf (5-10); White Blood Cells 0 SEEN /hpf (0-5)
[2018-01-09 14:10] LABS: Albumin, Serum 4.2 g/dL (3.2-5.0); BUN 27 mg/dL (7-18); Calcium,Total 9.5 mg/dL (8.5-10.1); Chloride 103 mmol/L (98-107); Creatinine, Serum 2.08 mg/dL (0.55-1.02); EST Glomerular Filtration Rate 24 mL/min (>60); Est Glom Filt Rate - Afr Amer 29 mL/min (>60); Glucose 85 mg/dL (74-106); Phosphorus 3.1 mg/dL (2.5-4.9); Sodium Level 136 mmol/L (136-145)
[2018-01-09 14:12] LABS: Color, Urine Straw (Yellow); Glucose, Dipstick Normal (Normal); Ketone-Dipstick Negative (Negative); Leukocyte Esterase-Dipstick Negative /ul (Negative); Nitrite-Dipstick Negative (Negative); Occult Blood-Urine Negative /ul (Negative); Protein-Dipstick Negative (Negative); Specific Gravity, Urine 1.005 (1.002-1.030); Urine Bilirubin Dipstick Negative (Negative); Urine Clarity Clear (Clear); Urine Urobilinogen Normal (Normal)
[2018-01-09 14:39] LABS: Microalbumin,Random Urine 16.5 mg/L (NO RANGE EST.); Microalbumin:Creatinine Ratio 99.4 mg/g CRE (<30 mg/g CRE); Protein, Urine (Random) < 6.0 mg/dL (<11.9)
[2018-01-10 14:55] LABS: ANTINUCLEAR ANTIBODIES DIRECT Negative (Negative)
[2018-01-11 14:09] LABS: Cytoplasmic Ab (C-ANCA) <1:20 titer (Neg:<1:20); PROEL- A/G Ratio 1.4 (0.7-1.7); PROEL- Albumin 4.1 g/dL (2.9-4.4); PROEL- Alpha-1 Globulin 0.2 g/dL (0.0-0.4); PROEL- Alpha-2 Globulin 0.7 g/dL (0.4-1.0); PROEL- Beta Globulin 1.1 g/dL (0.7-1.3); PROEL- TOTAL PROTEIN 7.1 g/dL (6.0-8.5)
[2018-01-11 14:23] LABS: Complement C3 103 mg/dL (82-167); Perinuclear Ab (P-ANCA) <1:20 titer (Neg:<1:20)
[2018-01-11 16:11] LABS: PROELU- Albumin, Urine 53.6 % (.); PROELU- Alpha-1-Globulin,Ur 1.5 % (.); PROELU- Alpha-2-Globulin,Ur 6.9 % (.); PROELU- Beta Globulin, Ur 21.3 % (.); PROELU- Gamma Globulin, Ur 16.6 % (.); Total Protein, Ur 4.1 mg/dL (Not Estab.)
== END ==
PROVIDERS: Family Provider Internal Medicine; PCP Internal Medicine; Visit Provider Internal Medicine Nephrology
DX: N18.5 Chronic kidney disease, stage 5 (principal); E21.3 Hyperparathyroidism, unspecified
CPT/HCPCS: 36415; 76770; 80069; 81001; 82043; 82570; 83970; 84156; 84165; 84166; 86038; 86160; 86256

== ENCOUNTER → 2018-03-18 09:58 | Outpatient (CLI) | payer MEDICARE, OTHER, SELFPAY ==
--- NOTE | 2018-03-18 10:00 | ECHOD_ITS ---
Reason For Study: Palpitations Procedure This was a 2D Doppler, Color Flow transthoracic echocardiogram. Exam performed in department. Left Ventricle Normal LV size. Left ventricular systolic function is normal. The estimated ejection fraction is 65 %. Transmitral diastolic flow velocities suggest moderate (stage 2) diastolic dysfunction (pseudonormal pattern). No regional wall motion abnormalities noted. Right Ventricle Normal RV size. Normal systolic function. Atria Normal left atrium. Normal right atrium. No doppler evidence for ASD. Mitral Valve There is no mitral annular calcification. Anterior leaflet diffuse mitral valve thickening. Trivial mitral valve insufficiency. Tricuspid Valve Normal tricuspid valve. Mild tricuspid valve insufficiency. Right ventricular systolic pressure estimated to be 40 mmHg. Aortic Valve Trisinus/trileaflet aortic valve. Normal aortic valve. Pulmonic Valve The pulmonic valve is not well visualized. Trivial pulmonic valve insufficiency. Great Vessels Normal sized aortic root. Pericardium/Pleural No pericardial effusion. MMode/2D Measurements & Calculations LVIDd: 3.6 cm IVSd: 1.1 cm Ao root diam: 3.3 cm LVIDs: 1.9 cm LVPWd: 0.88 cm LA dimension: 3.1 cm RVDd: 3.6 cm FS: 48.6 % LAV(MOD-sp4): 32.0 ml LA A4 area: 14.4 cm2 RA A4 area: 15.6 cm2 Time Measurements MV dec time: 0.23 sec Doppler Measurements & Calculations MV E max jacinto: 85.1 cm/sec Lat Peak E' Jacinto: 9.2 cm/sec Med Peak E' Jacinto: 8.4 cm/sec MV A max jacinto: 63.7 cm/sec E/E' lat: 9.3 E/E' med: 10.1 MV E/A: 1.3 MV V2 max: 125.2 cm/sec MV P1/2t max jacinto: 125.2 cm/sec Ao V2 max: 111.6 cm/sec MV max P.3 mmHg MV P1/2t: 111.4 msec Ao max P.0 mmHg MV V2 mean: 67.4 cm/sec MV dec slope: 329.2 cm/sec2 Ao V2 mean: 74.5 cm/sec MV mean P.2 mmHg MVA(P1/2t): 2.0 cm2 Ao mean P.6 mmHg MV V2 VTI: 34.6 cm Ao V2 VTI: 24.6 cm LV V1 max: 92.9 cm/sec PA V2 max: 95.3 cm/sec TR max jacinto: 303.9 cm/sec LV V1 max P.4 mmHg TR max P.9 mmHg LV V1 mean P.7 mmHg LV V1 mean: 61.4 cm/sec LV V1 VTI: 20.7 cm Interpretation Summary Left ventricular systolic function is normal. The estimated ejection fraction is 65 %. Anterior leaflet diffuse mitral valve thickening. Trivial mitral valve insufficiency. Mild tricuspid valve insufficiency. Trivial pulmonic valve insufficiency. Right ventricular systolic pressure estimated to be 40 mmHg. Transmitral diastolic flow velocities suggest diastolic dysfunction (pseudonormal pattern). Ordering Physician: Irvin Cavazos Referring Physician: Irvin Cavazos Performed By: Ross Joseph RCS
== END ==
PROVIDERS: Family Provider Internal Medicine; PCP Internal Medicine; Visit Provider Internal Medicine Cardiovascular Disease
DX: R00.2 Palpitations (principal)
CPT/HCPCS: 93306

== ENCOUNTER → 2018-04-03 13:21 | Outpatient (CLI) | payer MEDICARE, OTHER, SELFPAY ==
[2018-04-03 17:26] LABS: Albumin, Serum 4.3 g/dL (3.2-5.0); BUN 38 mg/dL (7-18); BUN/Creat Ratio 19.5 RATIO (10-20); Calcium,Total 9.9 mg/dL (8.5-10.1); Chloride 100 mmol/L (98-107); Creatinine, Serum 1.95 mg/dL (0.55-1.02); EST Glomerular Filtration Rate 26 mL/min (>60); Est Glom Filt Rate - Afr Amer 32 mL/min (>60); Glucose 79 mg/dL (74-106); Phosphorus 3.4 mg/dL (2.5-4.9); Potassium 4.5 mmol/L (3.5-5.1); Sodium Level 136 mmol/L (136-145)
== END ==
PROVIDERS: Family Provider Internal Medicine; PCP Internal Medicine; Visit Provider Internal Medicine Nephrology
DX: N18.4 Chronic kidney disease, stage 4 (severe) (principal)
CPT/HCPCS: 36415; 80069

== ENCOUNTER → 2018-05-20 12:59 | Outpatient (CLI) | payer MEDICARE, OTHER, SELFPAY ==
[2018-05-20 14:07] LABS: Hematocrit 35.3 % (37-47); Hemoglobin 11.8 g/dl (12.0-15.0); Mean Corp Hgb Conc 33.4 g/gl (32-36); Mean Corpuscular Volume 95.7 fL (81-99); Mean Platelet Vol. 10.3 fl (6.2-12.0); Platelet Count 239 K/mm3 (150-450); RBC Distribution Width SD 43.1 fl (35.1-43.9); Red Blood Count 3.69 M/mm3 (4.2-5.4); White Blood Count 9.3 K/mm3 (4.4-11.0)
[2018-05-20 14:08] LABS: Scan Indicated on CBC? Y/N NO
[2018-05-20 14:30] LABS: Albumin, Serum 4.2 g/dL (3.2-5.0); BUN 36 mg/dL (7-18); BUN/Creat Ratio 19.5 RATIO (10-20); Calcium,Total 9.5 mg/dL (8.5-10.1); Chloride 103 mmol/L (98-107); Creatinine, Serum 1.85 mg/dL (0.55-1.02); EST Glomerular Filtration Rate 28 mL/min (>60); Est Glom Filt Rate - Afr Amer 34 mL/min (>60); Glucose 79 mg/dL (74-106); Phosphorus 3.7 mg/dL (2.5-4.9); Potassium 4.2 mmol/L (3.5-5.1); Sodium Level 139 mmol/L (136-145)
[2018-05-20 14:39] LABS: PTHIN 102.9 pg/mL (18.4-80.1)
== END ==
PROVIDERS: Family Provider Internal Medicine; PCP Internal Medicine; Referring Provider Internal Medicine Nephrology; Visit Provider Internal Medicine Nephrology
DX: N18.4 Chronic kidney disease, stage 4 (severe) (principal); E83.52 Hypercalcemia
CPT/HCPCS: 36415; 80069; 83970; 85027

== ENCOUNTER → 2018-08-27 10:31 | Outpatient (CLI) | payer MEDICARE, OTHER, SELFPAY ==
[2018-04-26 14:06] VITALS: BMI 21.1
[2018-08-27 11:15] LABS: Hematocrit 38.1 % (37-47); Hemoglobin 12.2 g/dl (12.0-15.0); Mean Corpuscular Hgb 30.7 pg (27.0-32.0); Mean Platelet Vol. 10.1 fl (6.2-12.0); Platelet Count 222 K/mm3 (150-450); RBC Distribution Width CV 12.9 % (11.6-14.6); RBC Distribution Width SD 44.3 fl (35.1-43.9); Red Blood Count 3.97 M/mm3 (4.2-5.4); Scan Indicated on CBC? Y/N NO; White Blood Count 7.4 K/mm3 (4.4-11.0)
[2018-08-27 11:45] LABS: Albumin, Serum 3.9 g/dL (3.2-5.0); BUN 37 mg/dL (7-18); BUN/Creat Ratio 20.9 RATIO (10-20); Calcium,Total 9.2 mg/dL (8.5-10.1); Chloride 104 mmol/L (98-107); Creatinine, Serum 1.77 mg/dL (0.55-1.02); EST Glomerular Filtration Rate 29 mL/min (>60); Est Glom Filt Rate - Afr Amer 35 mL/min (>60); Glucose 92 mg/dL (74-106); Phosphorus 3.9 mg/dL (2.5-4.9); Potassium 4.5 mmol/L (3.5-5.1); Sodium Level 136 mmol/L (136-145)
[2018-08-27 11:54] LABS: PTHIN 101.2 pg/mL (18.4-80.1)
[2018-08-27 12:31] LABS: Creat.Clear Total Volume 1950 mL; Creatinine Clearance 22 ml/min (100-200); Creatinine Serum Creat 1.8 mg/dL (0.6-1.0); Creatinine Urine 29.2 mg/dL (NO RANGE EST.); EST Glomerular Filtration Rate 29 mL/min (>60); Est Glom Filt Rate - Afr Amer 35 mL/min (>60)
[2018-08-27 12:32] LABS: 24HR. UA Prot. Total Volume 1950 mL; Urine Protein (24 Hour) < 6.0 mg/dL (<11.9)
== END ==
LOC: LABSPEC 10:36 → LAB 10:44
PROVIDERS: Family Provider Internal Medicine; PCP Internal Medicine; Referring Provider Internal Medicine Nephrology; Visit Provider Internal Medicine Nephrology
DX: N17.9 Acute kidney failure, unspecified (principal)
CPT/HCPCS: 80069; 82575; 83970; 84156; 85027

== ENCOUNTER → 2018-10-11 13:57 | Outpatient (CLI) | payer MEDICARE, OTHER, SELFPAY | PROVIDERS: Family Provider Internal Medicine; PCP Internal Medicine; Referring Provider Nurse Practitioner Family; Visit Provider Nurse Practitioner Family | DX: R00.2 Palpitations (principal) | CPT/HCPCS: 93225; 93226 ==

== ENCOUNTER → 2018-12-30 09:18 | Outpatient (CLI) | payer MEDICARE, OTHER, SELFPAY ==
[2018-12-30 10:13] LABS: Hematocrit 37.7 % (37-47); Hemoglobin 12.9 g/dl (12.0-15.0); Mean Corp Hgb Conc 34.2 g/gl (32-36); Mean Corpuscular Hgb 31.2 pg (27.0-32.0); Mean Corpuscular Volume 91.3 fL (81-99); Platelet Count 229 K/mm3 (150-450); RBC Distribution Width CV 12.7 % (11.6-14.6); RBC Distribution Width SD 41.5 fl (35.1-43.9); Red Blood Count 4.13 M/mm3 (4.2-5.4); White Blood Count 7.7 K/mm3 (4.4-11.0)
[2018-12-30 10:15] LABS: Scan Indicated on CBC? Y/N NO
[2018-12-30 10:31] LABS: Albumin, Serum 4.2 g/dL (3.2-5.0); BUN 28 mg/dL (7-18); BUN/Creat Ratio 17.4 RATIO (10-20); Calcium,Total 9.5 mg/dL (8.5-10.1); Chloride 101 mmol/L (98-107); Creatinine, Serum 1.61 mg/dL (0.55-1.02); EST Glomerular Filtration Rate 33 mL/min (>60); Est Glom Filt Rate - Afr Amer 39 mL/min (>60); Glucose 91 mg/dL (74-106); Phosphorus 3.5 mg/dL (2.5-4.9); Sodium Level 135 mmol/L (136-145)
[2018-12-30 10:48] LABS: PTHIN 121.5 pg/mL (18.4-80.1)
[2018-12-30 10:49] LABS: Vitamin D,25 Hydroxy 23.4 ng/mL (29.95-100.01)
== END ==
PROVIDERS: Family Provider Internal Medicine; PCP Internal Medicine; Referring Provider Internal Medicine Nephrology; Visit Provider Internal Medicine Nephrology
DX: N18.4 Chronic kidney disease, stage 4 (severe) (principal)
CPT/HCPCS: 36415; 80069; 82306; 83970; 85027

== ENCOUNTER 2019-05-13 08:49 | Observation (INO) | payer MEDICARE, OTHER, SELFPAY ==
[2019-05-13] VITALS (14 sets, daily range): BP systolic 100–188; BP diastolic 59–88; PULSE 54–75; RESP 16–18; TEMP 36.4–36.8; O2SAT 95–100; BMI 22.1; BMI 21.8
--- NOTE | 2019-05-13 08:56 | CT_ITS ---
STUDY: CTA CHEST REASON FOR EXAM: Female, 84 years old. Chest pain. History of prior pulmonary emboli. RADIATION DOSAGE (If Supplied By Facility): CTDIvol = ( 5.81 ) mGy, DLP = ( 149.62 ) mGycm TECHNIQUE: The examination was performed with the intravenous administration of IV Isovue 300 75CC. Post-processing of the angiographic images was performed, with multiplanar reformation and 3D reconstruction. Individualized dose optimization techniques were used for this CT. COMPARISON: Comparison is made with prior examination dated September 27, 2015. FINDINGS: Normal enhancement of the main pulmonary artery and right and left pulmonary arteries. Normal enhancement of the bilateral peripheral pulmonary arteries. There is no demonstrated pulmonary embolism. There is atherosclerotic calcification of the aortic arch and descending thoracic aorta. There is no demonstrated aortic dissection. Normal heart and pericardium. Normal mediastinum. Normal hilar regions. Normal visualized trachea and bronchi. The lungs are well expanded. Stable calcified granuloma in the right lower lobe. Once again, linear scarring is seen in the lingular segment of the left upper lobe. Normal pleura. Normal chest wall structures. There are degenerative changes of thoracic spine. Normal visualized upper abdomen. CT/CTA Chest W/WO Contrast IMPRESSION: Stable calcified granuloma in the right lower lobe. Stable scarring in the lingular segment of the left upper lobe. There is no evidence of pulmonary embolism. Electronically Signed: Clint Patrick, at 9:59 EST , Service support ,
--- NOTE | 2019-05-13 08:56 | EKG12_ITS ---
Test Reason : AM EKG Blood Pressure : / mmHG Vent. Rate : 057 BPM Atrial Rate : 057 BPM P-R Int : 214 ms QRS Dur : 072 ms QT Int : 426 ms P-R-T Axes : 083 -41 085 degrees QTc Int : 414 ms Sinus bradycardia with 1st degree A-V block Left axis deviation Septal infarct , age undetermined Abnormal ECG When compared with ECG of 13-MAY-2019 11:35, MANUAL COMPARISON REQUIRED, DATA IS UNCONFIRMED Confirmed by SILVIO DURHAM, JOHN ([id number]), sound editor VELASQUEZ CURRY ([id number]) on 05/20/2019 1:40:21 PM Referred By: GABRIELA Confirmed By:HINA ANGUIANO MD
--- NOTE | 2019-05-13 09:01 | ED.DCSUM_ITS ---
- ER Visit Summary Date of Service: 05/13/19 Chief Complaint: Chest pain History of Present Illness: The patient is a 84 F who complains of retrosternal chest pain. The pain started around 2 AM. It woke her up. She thought it might be acid reflux and took some Tums, it helped somewhat, but she continues to feel not normal. No other associated symptoms. She was told that she had a heart attack remotely based on her EKG, but never underwent further testing. She also reports a history of PEs which were provoked by surgery. She is not currently on anticoagulation. Denies any history of aortic disease. She has not taken her morning medication. Physical Examination: Afebrile and vital signs unremarkable except blood pressure 188/88. Patient is alert and oriented. No acute distress. Skin normal in color without diaphoresis or pallor. Heart regular rate and rhythm. Lungs clear. Pulses strong and equal. Calves soft and supple. Test Results: EKG shows sinus rhythm. Age-indeterminate changes concerning for prior septal infarct. Nothing acute. Labs and CTA pending. Emergency Department Course and Treatment: Patient treated with GI cocktail and aspirin while awaiting results. Will monitor. Will recheck blood pressure. EKG as above. Will proceed with imaging, CTA given her history. We will also check labs. Labs are all fairly unremarkable. CTA shows stable chronic changes. No evide nce of PE. Aorta shows calcifications. Patient has a heart score of 4. Will contact the hospitalist for admission. Treatment Plan: As above Disposition: PCU observation. Impression: 1. Chest pain This note was generated with Smart[employer] dictation software. It may contain incorrect words, spelling, and punctuation that were not noted in review of the chart prior to signing ED Disposition - Plan for ED Patient: Referrals: Ngoc Bowling MD [Primary Care Provider] -
[2019-05-13 09:06] LABS: Absolute Lymphocyte Count 2.19 X10^3/uL (0.83-4.51); Absolute Neutrophil Count 5.6 X10^3/uL (2.0-7.7); Basophil# 0.06 X10^3/uL; Basophil% 0.6 % (0-1); Eosinophil# 0.42 X10^3/uL; Eosinophils% 4.5 % (0-5); Hemoglobin 13.2 g/dL (12.0-15.0); Lymphocyte # 2.19 X10^3/ul (4.0); Lymphocyte % 23.6 % (19-41); Mean Corpuscular Hgb 31.2 pg (27.0-32.0); Mean Corpuscular Volume 94.6 fL (81-99); Mean Platelet Vol. 9.9 fl (6.2-12.0); Monocyte# 1.04 X10^3/uL; Monocyte% 11.2 % (0-10); NRBC Flagged by Analyzer 0 % (0-5); Neutrophil # 5.55 X10^3/uL (2.7-7.7); Neutrophil % 59.9 % (47-70); Platelet Count 231 K/mm3 (150-450); RBC Distribution Width CV 13.2 % (11.6-14.6); RBC Distribution Width SD 44.9 fl (35.1-43.9); Red Blood Count 4.23 M/mm3 (4.2-5.4); White Blood Count 9.3 K/mm3 (4.4-11.0)
[2019-05-13] MEDS: Mag Hydrox/Al Hydrox/Simeth 30 ML UDC PO (09:08)
[2019-05-13 09:24] LABS: Anion Gap 4 (5-15); BUN 23 mg/dL (7-18); BUN/Creat Ratio 14.9 RATIO (10-20); Calcium,Total 9.7 mg/dL (8.5-10.1); Chloride 103 mmol/L (98-107); Creatinine, Serum 1.54 mg/dL (0.55-1.02); EST Glomerular Filtration Rate 34 mL/min (>60); Est Glom Filt Rate - Afr Amer 41 mL/min (>60); Estimated Creatinine Clearance 26.37 ml/min; Glucose 107 mg/dL (74-106); Potassium 3.9 mmol/L (3.5-5.1); Sodium Level 136 mmol/L (136-145)
--- NOTE | 2019-05-13 11:09 | HP.PCM_ITS ---
Problem List (1) CKD (chronic kidney disease) stage 4, GFR 15-29 ml/min Status: Chronic (2) Essential hypertension Status: Chronic (3) Hypothyroidism Status: Chronic History of Present Illness Date of Admission: 05/13/19 Chief Complaint: Chest pain. The patient is a 84 year old F with past medical history as mentioned above presented to the emergency room because of chest pain. Her symptoms started around 2 AM this morning awakened her up from sleep, started having chest pain, retrosternal pain, described as burning pain, 9 out of 10 in severity, radiates to her back, somewhat relieved by Tums and there was no aggravating or relieving factors. Her pain improved and she was able to go back to sleep. She woke up again at 7 AM and she was having the same pain and she decided to come to the emergency department. She does have a history of GERD and she used to take Prilosec which was discontinued by her doctor. She denies associated shortness of breath, palpitation, dizziness, lightheadedness, syncope or presyncope. She denies nausea or vomiting. She denied hematemesis, hematochezia or melena. In the emergency department, her blood pressure was slightly elevated but improved, other vital signs were stable. Her routine blood work was remarkable for BUN of 23, creatinine of 1.54, otherwise normal. Troponin was negative. EKG revealed normal sinus rhythm without evidence of acute ischemic changes. CTA chest showed no PE or dissection, no other acute findings. She is being admitted for chest pain for evaluation. Past Medical History Past Medical History (Chronic Problems): Chronic Problems (Last Updated 05/13/19 @ 11:09 by Irene Rivera MD) CKD (chronic kidney disease) stage 4, GFR 15-29 ml/min (Chronic) Essential hypertension (Chronic) CKD (chronic kidney disease) (Chronic) Glaucoma (Chronic) Prothrombin gene mutation (Chronic) Hyperhomocystinemia (Chronic) Hypothyroidism (Chronic) Medical History: Medical History (Last Updated 05/13/19 @ 11:09 by Irene Rivera MD) Essential hypertension (Chronic) I10 CKD (chronic kidney disease) (Chronic) N18.9 Glaucoma (Chronic) H40.9 Prothrombin gene mutation (Chronic) D68.59 Hyperhomocystinemia (Chronic) E72.11 Hypothyroidism (Chronic) E03.9 Asthma J45.909 Allergies diltiazem HCl [From Cardizem] Allergy (Verified 05/13/19 08:52) Itching miconazole nitrate [From Neosporin AF] Allergy (Verified 05/13/19 08:52) Laryngospasms morphine Allergy (Verified 05/13/19 08:52) Other MAKES ME CRAZY nitrofurantoin [From Macrobid] Allergy (Verified 05/13/19 08:52) Rash nitrofurantoin macrocrystalline [From Macrobid] Allergy (Verified 05/13/19 08:52) Rash bacitracin Adverse Reaction (Verified 05/13/19 08:52) Other codeine Adverse Reaction (Verified 05/13/19 08:52) Chest tightness lisinopril Adverse Reaction (Verified 05/13/19 08:52) Other loratadine [From Claritin] Adverse Reaction (Verified 05/13/19 08:52) Other Home Medications: Ambulatory Orders Medication Instructions Recorded Levothyroxine [Synthroid] 88 mcg PO DAILY 05/26/13 Timolol 0.5% [Timoptic] 1 drp EACH EYE QHS 16 Cholecalciferol (Vitamin D3) 1,000 unit PO DAILY 05/13/19 [Vitamin D3] Metoprolol Tartrate [Lopressor 25 mg PO BID 05/13/19 (Beta Gloria)] Surgical History: Surgical History (Last Reviewed 02/27/18 @ 11:23 by Juana Baldwin) History of cholecystectomy Z90.49 History of colectomy Z90.49 History of total hysterectomy Z90.710 Surgical History: cholecystectomy, colectomy - for diverticular disease, hysterectomy - for DUB Psychiatric History: No pertinent psych hx [employer] OFFICER History: No pertinent [employer] OFFICER history Lives: Spouse/ Significant Other Smoking Status: Never smoker Alcohol: None Drugs: None - *Family History Maternal Family History: Family History (Last Reviewed 02/27/18 @ 11:23 by Juana Baldwin) Mother Heart disease Father Heart disease History Items: Heart Disease Paternal Family History: Family History (Last Reviewed 02/27/18 @ 11:23 by Juana Baldwin) Mother Heart disease Father Heart disease History Items: Heart Disease Review of Systems Constitutional: Denies: Anorexia, Chills, Fever, Weakness Eyes: Denies: Blurred vision, Double vision, Drainage, Redness HEENT: Denies: Difficulty Hearing, Ear Pain, Eye Pain, Nasal Congestion, Sore Throat Cardiovascular: Reports: Chest Pain. Denies: Chest Pressure, Edema, Heaviness, Light Headedness, Orthopnea, Paroxysmal Noc. Dyspnea, Syncope Respiratory: Denies: Cough, Pleuritic Pain, Shortness of Breath, Sputum production Gastrointestinal: Reports: Dyspepsia. Denies: Abdominal Pain, Constipation, Diarrhea, Hematochezia, Nausea, Melena, Vomiting Genitourinary: Denies: Dysuria, Frequency, Hematuria Musculoskeletal: Denies: Arm Pain, Back Pain, Foot Pain Skin: Denies: Dryness, Rash Neurological: Denies: Balance problems, Double vision, Slurred speech, Confusion, Headaches, Incoordination Psychiatric: Denies: Anxiety, Depression Endocrine: Denies: Change in Body Habitus, Polydipsia, Polyuria VTE Information - Inpt Only VTE Present on Admission: No VTE Mechan Device Prophylaxis: None VTE Pharm Prophylaxis ordered?: Yes - Physical Exam Vitals/I&O's: Vital Signs Temp Pulse Resp BP Pulse Ox 97.9 F 57 L 17 136/62 H 97 05/13/19 08:53 05/13/19 10:17 05/13/19 10:17 05/13/19 10:17 05/13/19 10:17 Oxygen Delivery Method Room Air Weight: 137 lb 9.095 oz Body Mass Index (BMI) 22.1 General: Alert, Oriented x3, Cooperative, No apparent distress HEENT: Atraumatic, PERRLA, EOMI, Normocephalic Oral: Moist Mucosa, No Gingival or Mucosal Lesions/ Ulcerations Neck: Supple, No JVD, Negative Carotid Bruits, Trachea Midline, Thyroid Normal Size and Texture Lungs: Clear to auscultation, Normal air movement, No rhonchi, No wheeze, No rales Cardiovascular: Regular rate, Regular Rhythm, Normal S1, Normal S2, PMI Normal Abdomen: Bowel Sounds Present, Soft, Non-Distended, No Hepato-splenomegaly, - - Epigastric tenderness. Extremities: No clubbing, No cyanosis, No edema Skin: No rashes, No breakdown Lymphatic: No Cervical, Supraclavicular, or Inguinal Adenopathy Neurological: Cranial nerves II-XII grossly intact, Motor Exam 5/5 strength throughout Psych/Mental Status: Normal Affect, Appropriate, Alert and oriented to time, place, person, mood and affect Laboratory Results 05/13/19 08:26: WBC 9.3, RBC 4.23, Hgb 13.2, Hct 40.0, MCV 94.6, MCH 31.2, MCHC 33.0, RDW Std Deviation 44.9 H, RDW Coeff of Joaquin 13.2, Plt Count 231, MPV 9.9, Immature Gran % (Auto) 0.200, Neut % (Auto) 59.9, Lymph % (Auto) 23.6, [place] % (Auto) 11.2 H, Eos % (Auto) 4.5, Baso % (Auto) 0.6, Absolute Neuts (auto) 5.6, Absolute Lymphs (auto) 2.19, Nucleated RBC % 0 05/13/19 08:26: Sodium 136, Potassium 3.9, Chloride 103, Carbon Dioxide 29.0, Anion Gap 4 L, BUN 23 H, Creatinine 1.54 H, Estim Creat Clear Calc 26.37, Est GFR (MDRD) Af Amer 41 L, Est GFR (MDRD) Non-Af 34 L, BUN/Creatinine Ratio 14.9, Glucose 107 H, Calcium 9.7, Troponin I < 0.015 Clinical Impression(s) from Imaging Studies Chest CTA 05/13/19 08:56 IMPRESSION: Stable calcified granuloma in the right lower lobe. Stable scarring in the lingular segment of the left upper lobe. There is no evidence of pulmonary embolism. Electronically Signed: Clint Darnell, at 9:59 EST , Service support , Assessment/Plan This is an 84 years old female patient presented to the emergency room because of atypical chest pain and she is being admitted for evaluation. #1 atypical chest pain: According to the patient, her pain is atypical and could be due to GERD. Risk factors are age, hypertension and family history of CAD. No premature family history of CAD. EKG revealed no acute ischemic changes. First troponin is negative. CTA chest was negative for PE or dissection, no acute findings. Plan: Admit to PCU for observation, cardiac monitoring, serial cardiac enzymes, repeat EKG tomorrow morning, will check serum lipase and LFT as patient has a history of pancreatitis and her pain is radiating to her back, IV fluids for hydration, start Protonix twice daily and Mylanta as needed, nuclear stress test tomorrow morning if cardiac enzymes are negative, repeat BMP, liver profile tomorrow morning. #2 hypertension: Blood pressure stable, continue metoprolol. #3 stage IV chronic kidney disease: Baseline creatinine has been fluctuating anywhere between 1.4 to 2 mg/dL. Admission creatinine is 1.54, stable at baseline. Plan for gentle IV fluids for hydration, repeat BMP tomorrow morning. #5 hypothyroidism: Stable, continue levothyroxine. #6 glaucoma: Continue timolol eyedrops. #7 DVT prophylaxis: Subcu heparin. This note was generated with [employer] dictation software. It may contain incorrect words, spelling, and punctuation that were not noted in checking the note before signing. Code Visit OBSV E&M: 96511 Initial observation care L2
--- NOTE | 2019-05-13 11:30 | EKG12_ITS ---
Test Reason : CP ADMISSION Blood Pressure : / mmHG Vent. Rate : 058 BPM Atrial Rate : 058 BPM P-R Int : 206 ms QRS Dur : 074 ms QT Int : 412 ms P-R-T Axes : 088 -38 089 degrees QTc Int : 404 ms Sinus bradycardia Left axis deviation Septal infarct , age undetermined Abnormal ECG Confirmed by SILVIO DURHAM, JOHN ([id number]), copy editor VELASQUEZ CURRY ([id number]) on 05/20/2019 1:39:42 PM Referred By: JESICA Confirmed By:HINA ANGUIANO MD
[2019-05-13 11:53] LABS: AST(SGOT) 20 U/L (15-37); Alanine Aminotransfer ALT/SGPT 21 U/L (13-56); Albumin, Serum 4.2 g/dL (3.2-5.0); Alkaline Phosphatase 86 U/L (45-117); Bilirubin, Direct 0.12 mg/dL (0.00-0.30); Globulin 3.6 g/dL (2.2-4.2); Lipase 302 U/L (73-393); Protein, Total 7.8 g/dL (6.4-8.2)
[2019-05-13] MEDS: 0.9% Normal Saline 1,000 ML 75 ML IV (11:56)
--- NOTE | 2019-05-13 12:12 | CASEMGMT ---
Patient has a Healthcare POA and Healthcare LW in e-chart. SW printed documents and placed them in patient's paper chart. Thao DHILLON MSW
[2019-05-13] MEDS: Pantoprazole Sodium 40 MG Tablet PO ×2 (12:55→21:02)
[2019-05-13] MEDS: Metoprolol Tartrate 25 MG Tablet PO ×2 (12:55→21:02)
[2019-05-13] MEDS: Heparin Injection (Vial) 5,000 UNIT/ML VIAL 5000 UNIT SC ×2 (14:35→21:02)
--- NOTE | 2019-05-13 15:45 | NURSING ---
This RN taking over care at this time.
[2019-05-13] MEDS: Timolol 0.5% 5ML OPTH.BTL 1 DRP EACH EYE (21:01)
[2019-05-14 03:07] VITALS: PULSE 58
[2019-05-14 03:30] VITALS: BP 118/50; PULSE 59; RESP 12; TEMP 36.7; O2SAT 95
[2019-05-14] MEDS: 0.9% Saline Lock 10 ML Syringe IV (04:57)
[2019-05-14] MEDS: Aspirin E.C. 81 MG Tablet PO (05:00)
[2019-05-14] MEDS: Levothyroxine 88 MCG Tablet PO (05:00)
--- NOTE | 2019-05-14 05:55 | EKG12_ITS ---
Test Reason : CP Blood Pressure : / mmHG Vent. Rate : 064 BPM Atrial Rate : 064 BPM P-R Int : 206 ms QRS Dur : 072 ms QT Int : 386 ms P-R-T Axes : 074 -47 086 degrees QTc Int : 398 ms Normal sinus rhythm Left axis deviation Septal infarct (cited on or before 26-MAY-2013) Abnormal ECG Confirmed by JACK CARMICHAEL ([id number]), desk editor FÉLIX ARIZA ([id number]) on 05/16/2019 11:22:20 AM Referred By: TABATHA Confirmed By:JACK CARMICHAEL
[2019-05-14 06:12] LABS: Anion Gap 7 (5-15); BUN 37 mg/dL (7-18); BUN/Creat Ratio 18.6 RATIO (10-20); Calcium,Total 8.8 mg/dL (8.5-10.1); Chloride 108 mmol/L (98-107); Cholesterol 213 mg/dL (200); Creatinine, Serum 1.99 mg/dL (0.55-1.02); EST Glomerular Filtration Rate 26 mL/min (>60); Est Glom Filt Rate - Afr Amer 31 mL/min (>60); Glucose 94 mg/dL (74-106); High Density Lipoprotein 46 mg/dL; Potassium 4.5 mmol/L (3.5-5.1); Sodium Level 141 mmol/L (136-145); Triglycerides 139 mg/dL; Very Low Density Lipoprotein 28 mg/dL (5-40)
[2019-05-14 08:14] VITALS: PULSE 73
[2019-05-14 09:19] VITALS: BP 136/62; PULSE 61
[2019-05-14] MEDS: Metoprolol Tartrate 25 MG Tablet PO (09:19)
[2019-05-14] MEDS: Pantoprazole Sodium 40 MG Tablet PO (09:19)
[2019-05-14 09:22] VITALS: BP 136/62; PULSE 61; RESP 18; TEMP 36.6; O2SAT 100
--- NOTE | 2019-05-14 10:07 | STRESSREP ---
Stress Test Report Date: 05-14-19 Procedure: Pharmacologic stress nuclear imaging study Indications: Chest pain Consent: Per the patient Procedure: The patient underwent pharmacologic (Regadenoson) evaluation with a peak heart rate of 102 beats per minute (73 %predicted maximal heart rate) and a peak blood pressure of 162/80 mmHg. The baseline ECG demonstrated normal sinus rhythm. The peak pharmacologic ECG demonstrated no obvious ECG changes. There were no cardiac dysrhythmias pretest, during pharmacologic infusion, or recovery. There was no complaint of chest discomfort during pharmacologic infusion or recovery. The examination was discontinued secondary to completion of protocol. Impression: 1. Pharmacologic (Regadenoson) evaluation 2. Peak pharmacologic ECG with no obvious ECG changes. 3. There were no cardiac dysrhythmias pretest, during pharmacologic infusion, or recovery. 4. Nuclear images pending Myocardial perfusion imaging study: Technique: The patient was injected with 12.0 millicuries of technetium 99m Cardiolite and subsequently rest SPECT Cardiolite nuclear imaging was obtained in the horizontal long, vertical long, and short axis views. The patient underwent pharmacologic (Regadenoson) evaluation with a peak heart rate of 102 beats per minute (73 % percent predicted maximal heart rate) and a peak blood pressure of 162/80 mmHg. The patient was injected with 36.0 millicuries of technetium 99m Cardiolite and subsequently stress SPECT Cardiolite nuclear imaging was obtained in the horizontal long, vertical long, and short axis views. A gated Cardiolite study at peak stress was obtained. Interpretation: Rest and stress SPECT Cardiolite nuclear imaging status post realignment, normalization, and attenuation correction demonstrate relative uniform tracer uptake and myocardial perfusion appearing within normal limits. There is end systolic thickening and brightening. The gated Cardiolite study demonstrates myocardial thickening and inward wall motion. The reported LVEF is 94 %. Impression: 1. Rest and stress SPECT Cardiolite nuclear imaging demonstrate relative uniform tracer uptake and myocardial perfusion appearing within normal limits. 2. The gated Cardiolite study reports an LVEF of 94 %. This note was generated with [employer] software. It may contain incorrect words, spelling, and punctuation that were not noted in checking the note before signing.
--- NOTE | 2019-05-14 10:37 | DCINST_ITS ---
You will use the following diet at home:: Cardiac Your food should be the consistency of: Regular Discharge Activity: Return to Normal Activity Weight Bearing Status: Weight bearing as tolerated Call your doctor if you observe: Fever of 101 or Higher, Shortness of breath, Dizziness, Fainting spells, Chest pain, Increased palpitations (irregular heartbeat), Uncontrolled pain Instructions: Gastroesophageal Reflux Disease (GERD) Allergies/Adverse Reactions: Allergies diltiazem HCl [From Cardizem] Allergy (Verified 05/13/19 08:52) Itching miconazole nitrate [From Neosporin AF] Allergy (Verified 05/13/19 08:52) Laryngospasms morphine Allergy (Verified 05/13/19 08:52) Other MAKES ME CRAZY nitrofurantoin [From Macrobid] Allergy (Verified 05/13/19 08:52) Rash nitrofurantoin macrocrystalline [From Macrobid] Allergy (Verified 05/13/19 08:52) Rash bacitracin Adverse Reaction (Verified 05/13/19 08:52) Other codeine Adverse Reaction (Verified 05/13/19 08:52) Chest tightness lisinopril Adverse Reaction (Verified 05/13/19 08:52) Other loratadine [From Claritin] Adverse Reaction (Verified 05/13/19 08:52) Other Medications to take at Discharge Levothyroxine [Synthroid] 88 mcg PO DAILY 05/26/13 Timolol 0.5% [Timoptic] 1 drp EACH EYE QHS 16 Cholecalciferol (Vitamin D3) [Vitamin D3] 1,000 unit PO DAILY 05/13/19 Metoprolol Tartrate [Lopressor (beta jolly)] 25 mg PO BID 05/13/19 Pantoprazole Sodium [Protonix] 40 mg PO DAILY #30 tab 05/14/19 The following prescriptions were given: Pantoprazole Sodium [Protonix] 40 mg PO DAILY #30 tab Transmission Status: Pending to [id number] Primary Care Physician: Ngoc Bowling MD [Primary Care Provider] - Please follow up with your Primary Care Physician in: 2-4 weeks. Test Results: Test results from this visit will be discussed in further detail at your follow- up appointment, if applicable.
--- NOTE | 2019-05-14 11:00 | PHA.DC.MC ---
Pharmacy Service has performed discharge medication reconciliation and counseling for this patient. 1. PANTOPRAZOLE 40MG PO DAILY The patient's discharge medication list was reviewed for discrepancies and discrepancies were resolved. Home Medications Levothyroxine [Synthroid] 88 mcg PO DAILY 05/26/13 Timolol 0.5% [Timoptic] 1 drp EACH EYE QHS 09/27/15 Cholecalciferol (Vitamin D3) [Vitamin D3] 1,000 unit PO DAILY 05/13/19 Metoprolol Tartrate [Lopressor (beta jolly)] 25 mg PO BID 05/13/19 Pantoprazole Sodium [Protonix] 40 mg PO DAILY #30 tab 05/14/19 The patient was counseled on the following discharge medications and changes in medications for homegoing were reviewed. The Reason for Use, instructions for use, and potential side effects were reviewed for all new medications. The patient's questions regarding all of their medications were answered. The patient was able to verbally demonstrate an understanding of their discharge medications.
--- NOTE | 2019-05-14 11:12 | PCM.DC.SUM ---
Discharge Date and Diagnosis Date of Admission: 05/13/19 Date of Discharge: 05/14/19 - Primary Discharge Diagnosis Atypical chest pain, ACS ruled out, attributed to GERD. - Secondary Discharge Diagnosis Chronic Problems (Last Updated 05/13/19 @ 11:09 by Irene Rivera MD) CKD (chronic kidney disease) stage 4, GFR 15-29 ml/min (Chronic) Essential hypertension (Chronic) CKD (chronic kidney disease) (Chronic) Glaucoma (Chronic) Prothrombin gene mutation (Chronic) Hyperhomocystinemia (Chronic) Hypothyroidism (Chronic) Hospital Course and Treatment Imaging Results: 05/14/19 05:55 Nuclear Stress Test - Chemical [NM] AM (NON MEDS) Clinical Impression(s) from Imaging Studies Chest CTA 05/13/19 08:56 IMPRESSION: Stable calcified granuloma in the right lower lobe. Stable scarring in the lingular segment of the left upper lobe. There is no evidence of pulmonary embolism. Electronically Signed: Clint Patrick, at 9:59 EST , Service support , Operations: None, - - Laparoscopic sigmoid colectomy with mobilization of the splenic flexure Procedures: EKG, Stress test Summary of Care Provided: Patient seen and examined on the day of discharge and appeared to be stable to be discharged home. She denies any more chest pain. She underwent nuclear stress test this morning. Her vital signs are stable. The patient is a 84 year old F patient presented to the emergency room because of atypical chest pain and she was admitted for evaluation. Patient did have a history of significant GERD and she was on PPI but she was taken off PPI in the last several months. Her risk factors were age, hypertension and family history of CAD although there was no family history of premature CAD. Her EKG revealed no acute ischemic changes. Troponin was negative x3. CTA chest done and that was negative for PE or dissection. Because she had a history of pancreatitis, LFT and lipase were done and were normal. Patient was treated with Protonix and Mylanta which seemed to help. She underwent nuclear stress test that was negative for stress-induced myocardial ischemia. ACS ruled out. Her symptoms attributed to GERD. Patient did have a history of hiatal hernia as well. Patient discharged home in a stable medical condition, discharged on Protonix 40 mg p.o. daily, continued on her previous home medications without any changes, recommended follow-up with PCP in 2 to 4 weeks and recommended follow-up with Dr. Cramer as outpatient who has been seeing her for her hiatal hernia. - Physical Exam Vitals/I&O's: Vital Signs Temp Pulse Resp BP Pulse Ox 97.8 F 61 18 136/62 H 100 05/14/19 09:22 05/14/19 09:22 05/14/19 09:22 05/14/19 09:22 05/14/19 09:22 Oxygen Delivery Method Room Air Weight: 135 lb 2.294 oz Body Mass Index (BMI) 21.8 Intake and Output for Last 24 Hours 05/12/19 05/13/19 05/14/19 23:59 23:59 23:59 Intake Total 680 / 680 1022.5 / 1022.5 Balance 680 / 680 1022.5 / 1022.5 General: Alert, Oriented x3, Cooperative, No apparent distress HEENT: Atraumatic, PERRLA, EOMI, Normocephalic Oral: Moist Mucosa, No Gingival or Mucosal Lesions/ Ulcerations Neck: Supple, No JVD, Negative Carotid Bruits, Trachea Midline, Thyroid Normal Size and Texture Lungs: Clear to auscultation, Normal air movement, No rhonchi, No wheeze, No rales Cardiovascular: Regular rate, Regular Rhythm, Normal S1, Normal S2 Abdomen: Bowel Sounds Present, Soft, Non Tender, Non-Distended, No Hepato-splenomegaly Extremities: No clubbing, No cyanosis, No edema Skin: No rashes, No breakdown Lymphatic: No Cervical, Supraclavicular, or Inguinal Adenopathy Neurological: Cranial nerves II-XII grossly intact, Neuro grossly intact Psych/Mental Status: Normal Affect, Appropriate Laboratory Results 05/13/19 08:26: Total Bilirubin 0.70, Direct Bilirubin 0.12, AST 20, ALT 21, Alkaline Phosphatase 86, Total Protein 7.8, Albumin 4.2, Globulin 3.6, Lipase 302 05/13/19 11:52: Troponin I < 0.015 05/13/19 14:15: Troponin I < 0.015 05/14/19 05:30: Sodium 141, Potassium 4.5, Chloride 108 H, Carbon Dioxide 26.0, Anion Gap 7, BUN 37 H, Creatinine 1.99 H, Estim Creat Clear Calc 20.40, Est GFR (MDRD) Af Amer 31 L, Est GFR (MDRD) Non-Af 26 L, BUN/Creatinine Ratio 18.6, Glucose 94, Calcium 8.8, Triglycerides 139, Cholesterol 213 H, LDL Cholesterol 139 H, VLDL Cholesterol 28, HDL Cholesterol 46 Current Medications Acetaminophen (Tylenol) 650 mg PO Q6H PRN PRN PRN Reason: Pain Score 1-3/Temp > 100.7 F Al Hydroxide/Mg Hydroxide (Mylanta Ii) 30 ml PO Q6H PRN PRN PRN Reason: Heartburn, indigestion Aspirin (Ecotrin) 81 mg PO DAILY@0800 [facility] Last Admin: 05/14/19 05:00 Dose: 81 mg Documented by: Heparin Sodium (Porcine) (Heparin Na) 5,000 unit SC Q8 [facility] Last Admin: 05/14/19 00:53 Dose: Not Given Documented by: Sodium Chloride () 250 mls @ 15 mls/hr IV .[id number] PRN PRN Reason: Saline Flush Levothyroxine Sodium (Synthroid) 88 mcg PO DAILY@0600 [facility] Last Admin: 05/14/19 05:00 Dose: 88 mcg Documented by: Metoprolol Tartrate (Lopressor (Beta Gloria)) 25 mg PO BID [facility] Last Admin: 05/14/19 09:19 Dose: 25 mg Documented by: Nitroglycerin (Nitrostat) 0.4 mg SUBLINGUAL Q5M PRN PRN Reason: CHEST PAIN Ondansetron HCl (Zofran) 4 mg IV Q8H PRN PRN PRN Reason: NAUSEA/VOMITING Pantoprazole Sodium (Protonix) 40 mg PO BID [facility] Last Admin: 05/14/19 09:19 Dose: 40 mg Documented by: Sodium Chloride () 10 - 40 ml IV UD PRN PRN Reason: SALINE FLUSH Last Admin: 05/14/19 04:57 Dose: 10 ml Documented by: Timolol Maleate (Timoptic) 1 drop EACH EYE QHS [facility] Last Admin: 05/13/19 21:01 Dose: 1 drop Documented by: Discharge Activity: Return to Normal Activity Weight Bearing Status: Weight bearing as tolerated Call your doctor if you observe: Fever of 101 or Higher, Shortness of breath, Dizziness, Fainting spells, Chest pain, Increased palpitations (irregular heartbeat), Uncontrolled pain Home Medications: Medications to take at Discharge Levothyroxine [Synthroid] 88 mcg PO DAILY 05/26/13 Timolol 0.5% [Timoptic] 1 drp EACH EYE QHS 09/27/15 Cholecalciferol (Vitamin D3) [Vitamin D3] 1,000 unit PO DAILY 05/13/19 Metoprolol Tartrate [Lopressor (beta gloria)] 25 mg PO BID 05/13/19 Pantoprazole Sodium [Protonix] 40 mg PO DAILY #30 tab 05/14/19 Following Prescrptions Were Given to Patient: Pantoprazole Sodium [Protonix] 40 mg PO DAILY #30 tab [id number] Primary Care Physician: Ngoc Bowling MD [Primary Care Provider] - Please follow up with your Primary Care Physician in: 2-4 weeks. Patient Instructions: Gastroesophageal Reflux Disease (GERD) Disposition: Home Minutes spent on discharge:: 25 Patient Condition:: Stable Medical Necessity - Tobacco Use Smoking Status: Never smoker Meaningful Use Info Meaningful Use Diagnoses (Choose all that apply): None applicable Code Visit OBSV E&M: 55508 Observation care discharge
--- NOTE | 2019-05-14 13:31 | NURSING ---
Read and reviewed SN documentation
== END 2019-05-14 10:38 | disposition home or self-care (01) ==
LOC: ED 09:13 → PCU 11:03
PROVIDERS: Admitting Provider Hospitalist; Emergency Provider Emergency Medicine; Family Provider Internal Medicine; PCP Internal Medicine; Visit Provider Hospitalist
DX: R07.89 Other chest pain (principal); E03.9 Hypothyroidism, unspecified; I12.9 Hypertensive chronic kidney disease with stage 1 through stage 4 chronic kidney disease, or unspecified chronic kidney disease; N18.4 Chronic kidney disease, stage 4 (severe); K21.9 Gastro-esophageal reflux disease without esophagitis; D68.52 Prothrombin gene mutation; J45.909 Unspecified asthma, uncomplicated; H40.9 Unspecified glaucoma; K44.9 Diaphragmatic hernia without obstruction or gangrene; Z86.718 Personal history of other venous thrombosis and embolism; Z79.899 Other long term (current) drug therapy
CPT/HCPCS: 36415; 71275; 78452; 80048; 80061; 80076; 83690; 84484; 85025; 93005; 93017; 96360; 96361; 96372; 97802; 99218; 99285; A9500; J7030; Q9967; A4216; G0378; J2785

== ENCOUNTER 2019-05-27 10:30 | Outpatient (RCR) | payer MEDICARE, OTHER, SELFPAY ==
[2019-05-20 08:27] VITALS: BMI 22.1
[2019-05-20 09:22] VITALS: BP 144/75; PULSE 61; RESP 16; TEMP 36.9; BMI 21.7
--- NOTE | 2019-05-20 13:22 | PCM.WC.HP ---
(1) Leg wound, left Status: Acute Current Visit: Yes Qualifiers: Encounter type: initial encounter Qualified Code(s): S81.802A - Unspecified open wound, left lower leg, initial encounter Code(s): S81.802A - Unspecified open wound, left lower leg, initial encounter (2) Squamous cell carcinoma of left lower leg Status: Acute Current Visit: Yes Code(s): C44.729 - Squamous cell carcinoma of skin of left lower limb, including hip (3) Diverticular disease Status: Chronic Current Visit: No Code(s): K57.90 - Diverticulosis of intestine, part unspecified, without perforation or abscess without bleeding (4) GERD (gastroesophageal reflux disease) Status: Chronic Current Visit: No Code(s): K21.9 - Gastro-esophageal reflux disease without esophagitis (5) Hiatal hernia Status: Acute Current Visit: Yes Code(s): K44.9 - Diaphragmatic hernia without obstruction or gangrene (6) Nonhealing surgical wound Status: Acute Current Visit: Yes Qualifiers: Encounter type: initial encounter Qualified Code(s): T81.89XA - Other complications of procedures, not elsewhere classified, initial encounter Code(s): T81.89XA - Other complications of procedures, not elsewhere classified, initial encounter (7) CKD (chronic kidney disease) stage 4, GFR 15-29 ml/min Status: Chronic Current Visit: No Code(s): N18.4 - Chronic kidney disease, stage 4 (severe) (8) Essential hypertension Status: Chronic Current Visit: No Code(s): I10 - Essential (primary) hypertension (9) Glaucoma Status: Chronic Current Visit: No Code(s): H40.9 - Unspecified glaucoma (10) Prothrombin gene mutation Status: Chronic Current Visit: No Code(s): D68.59 - Other primary thrombophilia (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 Tyrel Avila. 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 The patient underwent reexcision on May 01, 2019. The excisional site has failed to heal. She has been using Vaseline topically. She was referred to our wound healing facility for definitive care. The patient denies swelling in her lower extremities. She claims to be active. It appears as though the squamous cell cancer has been completely excised with margins. Incidentally, the patient has recently been admitted to [facility] overnight 1 week ago for assessment of atypical chest pain. Records have been reviewed. After thorough evaluation, it was concluded that her chest pain was due to gastroesophageal reflux disease. A stress test performed during that hospitalization was negative for stress-induced myocardial ischemia. She was discharged on Protonix 40 mg p.o. daily. Past Medical History Past Medical History: Chronic Problems (Last Updated 05/13/19 @ 11:09 by Irene Rivera MD) CKD (chronic kidney disease) stage 4, GFR 15-29 ml/min (Chronic) Diverticular disease (Chronic) GERD (gastroesophageal reflux disease) (Chronic) Essential hypertension (Chronic) CKD (chronic kidney disease) (Chronic) Glaucoma (Chronic) Prothrombin gene mutation (Chronic) Hyperhomocystinemia (Chronic) Hypothyroidism (Chronic) Past Medical History: Patient's history is negative for diabetes mellitus, cerebrovascular accident, and congestive heart failure. She has a history of chronic kidney disease, stage IV. She suffers from asthma, hypertension, glaucoma, hypothyroidism, prothrombin gene mutation, and hyper homocystinemia. She also has a remote history of myocardial infarction. Patient suffered a pulmonary embolism following colectomy for diverticular disease. She also has a history of basal cell cancer excision from her face in the past. Surgical History: cholecystectomy, colectomy - for diverticular disease, hysterectomy - for DUB, - - The patient is a G1, P1 Ab0 Allergies/Adverse Reactions: Allergies diltiazem HCl [From Cardizem] Allergy (Verified 05/13/19 08:52) Itching miconazole nitrate [From Neosporin AF] Allergy (Verified 05/13/19 08:52) Laryngospasms morphine Allergy (Verified 05/13/19 08:52) Other MAKES ME CRAZY nitrofurantoin [From Macrobid] Allergy (Verified 11/12/19 08:52) Rash nitrofurantoin macrocrystalline [From Macrobid] Allergy (Verified 05/13/19 08:52) Rash bacitracin Adverse Reaction (Verified 05/13/19 08:52) Other codeine Adverse Reaction (Verified 05/13/19 08:52) Chest tightness lisinopril Adverse Reaction (Verified 05/13/19 08:52) Other loratadine [From Claritin] Adverse Reaction (Verified 05/13/19 08:52) Other Home Medications: Ambulatory Orders Medication Instructions Recorded Levothyroxine [Synthroid] 88 mcg PO DAILY 05/26/13 Timolol 0.5% [Timoptic] 1 drp EACH EYE QHS 09/27/15 Cholecalciferol (Vitamin D3) 1,000 unit PO DAILY 05/13/19 [Vitamin D3] Metoprolol Tartrate [Lopressor 25 mg PO BID 05/13/19 (beta jolly)] Pantoprazole Sodium [Protonix] 40 mg PO DAILY #30 tab 05/14/19 - Family History Maternal Family History: Family History (Last Reviewed 02/27/18 @ 11:23 by Juana Baldwin) Mother Heart disease Father Heart disease Heart Disease Paternal Family History: Family History (Last Reviewed 02/27/18 @ 11:23 by Juana Baldwin) Mother Heart disease Father Heart disease Heart Disease Social History: The patient is a . She denies use of alcohol and tobacco products. 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 Lives: Alone Smoking Status: Never smoker Tobacco Use: Non-smoker Alcohol: None Drugs: None Review of Systems Constitutional: Denies: Chills, Fever, Weight Change Eyes: Denies: Pain, Vision Change HEENT: Denies: Difficulty Hearing, Difficulty Swallowing, Sinus Congestion Cardiovascular: Denies: Chest Pain, Palpitations Respiratory: Denies: Cough, Shortness of Breath Gastrointestinal: Denies: Diarrhea, Nausea, Vomiting Genitourinary: Denies: Dysuria, Hematuria Endocrine: Denies: Heat/ Cold Intolerance, Polydipsia, Polyuria Hematologic/ Lymphatic: Denies: Easy Bruising, Easy Bleeding - Physical Exam Vital Signs Temp Pulse Resp BP 98.4 F 61 16 144/75 H 05/20/19 09:22 05/20/19 09:22 05/20/19 09:22 05/20/19 09:22 General: Alert, Oriented x3, Cooperative, No apparent distress, Well developed, Well nourished HEENT: Atraumatic, PERRLA, EOMI, Normocephalic Oral: Moist Mucosa Neck: Supple, No JVD, Negative Carotid Bruits, Negative Hepatojugular Reflux, No Nodes, No Nuchal Rigidity, Trachea Midline Lungs: Clear to auscultation, Normal air movement, No rhonchi, No wheeze, No rales Cardiovascular: Regular rate, Regular Rhythm, Normal S1, Normal S2, No murmurs Abdomen: Soft, Non Tender, Non-Distended Extremities: No clubbing, No cyanosis, No edema, No Calf Tenderness, - - An open wound is noted on the left medial supra-malleolar area. This is a non-healing surgical wound, the site of a recent squamous cell cancer excision, thought to have been completely excised. There is no sign of infection or cellulitis. Dimensions are documented elsewhere. There is a mild to moderate amount of bioburden and nonviable tissue present. Skin: No rashes Wound Measurements and Assessment WC - Nurse 1 - General Ulcer Measurement Start: 05/20/19 09:02 Freq: Status: Active Protocol: Activity Type Activity Date Activity User E-Sign Co-Sign Detail Recorded Client Recorded Date Recorded By Document 05/20/19 09:22 DV [id number] 05/20/19 09:35 DV 05/20/19 09:22 Wound Center Nurse 1 [Ulcer Assessment] #1 Medial Left Ankle -Combined with other wound No -Current Size (cm) - Length 1.0 -Current Size (cm) - Width 1.0 -Current Size (cm) - Depth 0.1 -Total Square Cm 1.00 -Date of Last Picture (Recall this 05/20/19 field) -Photo Taken Yes -Epithelialization None Present -Tunneling No -Undermining/Tunneling No -Circular Undermining No -Classification - Thickness Full Thickness without Exposed Support Structure -Exudate Amt Medium -Exudate Type Serosanguineous -Wound Margin Flat & Intact -Granulation Amt Small (1-33%) -Granulation Quality Portis -Slough/Fibrin Yes -Necrosis Amt Large (67-100%) -Necrotic Tissue Type Adherent Slough -Structure Exposed None/Limited to Skin Breakdown -Texture (Patricia-wound Skin Appearance) Assessed, Scarring -Moisture (Patricia-wound Skin Appearance Assessed, ) Maceration, Weeping -Color (Patricia-wound Skin Appearance) Assessed, Erythema -Temperature (Patricia-wound Skin No Abnormality Appearance) (Pt Warm) -Tenderness on Palpation (Patricia-wound Yes Skin Appearance) -Ulcer Cleansing Rinsed/ Irrigated with Saline -Foul Odor after Cleansing No -Anesthetic Used 4% Lidocaine Solution [Edema Assessment] -Lower Limb Edema Present No -Right Calf (cm) 32.0 -Right Ankle (cm) 20.9 -Left Calf (cm) 33.0 -Left Ankle (cm) 21.2 WC - Nurse 2 - General Ulcer CM Notes Start: 05/20/19 09:02 Freq: Status: Active Protocol: Activity Type Activity Date Activity User E-Sign Co-Sign Detail Recorded Client Recorded Date Recorded By Document 05/20/19 10:11 [id number] 05/20/19 10:27 05/20/19 10:11 Wound Center Nurse 2 [Procedure/Treatment] #1 Medial Left Ankle -Time 10:25 -Correct Patient Yes -Correct Side, Site, Position Yes -Correct Procedure Yes -Procedure Performed Yes -Type of Procedure Debridement -Clinical Debridement Subcutaneous -Post Debridement Size (cm) - Length 1 -Post Debridement Size (cm) - Width 0.6 -Post Debridement Size (cm) - Depth 0.1 -Total Square Cm 0.6 -Wound/Ulcer Outcome Not Healed -Ulcer Cleansing Rinsed/ Irrigated with Saline -Foul Odor after Cleansing No -Bioengineered Tissue No -Bleeding Controlled with Pressure -Treatment Response Procedure Tolerated Well [See Physician Procedure note for Specifics] Musculoskeletal: No Muscle Wasting Neurological: Cranial nerves II-XII grossly intact, Neuro grossly intact Psych/Mental Status: Normal Affect, Appropriate, Alert and oriented to time, place, person, mood and affect Debridement Note Post-Debridement Measurements/Treatment WC - Nurse 2 - General Ulcer CM Notes Start: 05/20/19 09:02 Freq: Status: Active Protocol: Activity Type Activity Date Activity User E-Sign Co-Sign Detail Recorded Client Recorded Date Recorded By Document 05/20/19 10:11 [id number] 05/20/19 10:27 05/20/19 10:11 Wound Center Nurse 2 #1 Medial Left Ankle -Time 10:25 -Correct Patient Yes -Correct Side, Site, Position Yes -Correct Procedure Yes -Procedure Performed Yes -Type of Procedure Debridement -Clinical Debridement Subcutaneous -Post Debridement Size (cm) - Length 1 -Post Debridement Size (cm) - Width 0.6 -Post Debridement Size (cm) - Depth 0.1 -Total Square Cm 0.6 -Wound/Ulcer Outcome Not Healed -Ulcer Cleansing Rinsed/ Irrigated with Saline -Foul Odor after Cleansing No -Bioengineered Tissue No -Bleeding Controlled with Pressure -Treatment Response Procedure Tolerated Well Laterality: Left - Medial supra-malleolar area Type of Debridement: Excisional debridement Anesthesia Used: 5% Lidocaine Gel Depth: Down to and including healthy tissue, in the subcutaneous layer Percentage of wound debrided: 100 Instrument Used: 5mm curette Tissue Removed: Bioburden and nonviable tissue Severity: Fat Layer Exposed Amount of bleeding with debridement: Mild Bleeding Controlled with: Compression and gauze Patient tolerated procedure well Assessment/Plan Active Problems (Last Updated 05/13/19 @ 11:09 by Irene Rivera MD) Leg wound, left (Acute) Squamous cell carcinoma of left lower leg (Acute) Hiatal hernia (Acute) Nonhealing surgical wound (Acute) Assessment: This is an 84-year-old female who presents status-post excision of a squamous cell carcinoma from the distal aspect of her left medial calf. The excisional site has failed to heal appropriately. It appears as though the squamous cell carcinoma has been completely excised. The patient has been using Vaseline topically on her open wound. She suffers from multiple pre-existing medical problems, which are detailed above. Laboratory studies were obtained at the patient's recent inpatient hospitalization, 1 week ago, and are as follows: White blood count 9.3, hemoglobin 13.2, hematocrit 40.0, platelets 231,000, sodium 141, potassium 4.5, chloride 108, BUN 37, creatinine 1.99, glucose 94, calcium 8.8, total bilirubin 0.70, AST 20, ALT 21, alkaline phosphatase 86, total protein 7.8, albumin 4.2. Plan: We are to implement the use of Analilia applied topically to the patient's open surgical wound. This will be applied topically on a daily basis. The patient has been instructed in the appropriate means of application. Patient's laboratory results do not suggest any impediments to healing. Nutritionally, she appears to be adequate. Patient has been encouraged to take a well-balanced diet. We will obtain a noninvasive lower extremity arterial study, to assess the arterial status of the patient's lower extremities. Patient is to follow-up in 1 week for reassessment. Influenza vaccine was not administered today. The patient is not a smoker. Patient weighs 135 pounds. She stands 5 feet 6 inches tall. Her BMI is 21.7, which is normal.
--- NOTE | 2019-05-27 09:03 | ART_ITS ---
Reason For Study: PVD Procedure A bilateral lower extremity continuous wave Doppler with analog waveform analysis,segmental pressures,and ankle brachial indexes without exercise. Left Segmental Pressures Left brachial= 143mmHg. Left posterior tibial artery = 166mmHg. Left dorsalis pedis artery = 161mmHg. Left digit = 117 mmHg. The left dorsalis pedis waveforms are triphasic. The left posterior tibial artery waveforms are triphasic. Right Segmental Pressures Right brachial= 143mmHg. Right posterior tibial artery = 167mmHg. Right dorsalis pedis artery = 159mmHg. Right digit = 118 mmHg. The right dorsalis pedis waveforms are triphasic. The right posterior tibial artery waveforms are triphasic. Indices The right ankle brachial index by the dorsalis pedis is 1.11. The right ankle brachial index by the posterior tibial artery is 1.17. The right digital-brachial index is .83. The left ankle brachial index by the dorsalis pedis is 1.13. The left ankle brachial index by the posterior tibial artery is 1.16. The left digital-brachial index is .82. Interpretation Summary Triphasic Doppler waveforms are noted at ankle level bilaterally. Pulse-volume recordings appear satisfactory at all levels bilaterally. Resting ankle-brachial indices are normal bilaterally. Digital-brachial indices are normal bilaterally. There is no evidence of significant arterial occlusive disease in the lower extremities bilaterally. Ordering Physician: Remi Singh Performed By: [facility]ANNAH WATTS [facility]
[2019-05-27 11:06] VITALS: BP 142/82; PULSE 64; RESP 16; TEMP 36.6; BMI 21.7
== END 2019-05-31 23:59 ==
LOC: WC 10:30
PROVIDERS: Family Provider Internal Medicine; PCP Internal Medicine; Referring Provider Surgery; Visit Provider Surgery
DX: I73.9 Peripheral vascular disease, unspecified (principal); K21.9 Gastro-esophageal reflux disease without esophagitis; C44.729 Squamous cell carcinoma of skin of left lower limb, including hip; N18.4 Chronic kidney disease, stage 4 (severe); I12.9 Hypertensive chronic kidney disease with stage 1 through stage 4 chronic kidney disease, or unspecified chronic kidney disease; D68.52 Prothrombin gene mutation; E03.9 Hypothyroidism, unspecified; Z79.899 Other long term (current) drug therapy; J45.909 Unspecified asthma, uncomplicated; T81.89XA Other complications of procedures, not elsewhere classified, initial encounter; Y83.8 Other surgical procedures as the cause of abnormal reaction of the patient, or of later complication, without mention of misadventure at the time of the procedure
CPT/HCPCS: 11042; 93923; 99212; G0463

== ENCOUNTER 2019-06-10 11:00 | Outpatient (RCR) | payer MEDICARE, OTHER, SELFPAY ==
[2019-06-01 01:19] VITALS: BP 142/82; PULSE 64; RESP 16; TEMP 36.6
[2019-06-03 09:22] VITALS: BP 128/68; PULSE 64; RESP 18; TEMP 36.3; BMI 21.7
--- NOTE | 2019-06-03 10:47 | HP.PCM_ITS ---
(1) CKD (chronic kidney disease) stage 4, GFR 15-29 ml/min Status: Chronic Current Visit: No Code(s): N18.4 - Chronic kidney disease, stage 4 (severe) (2) Leg wound, left Status: Acute Current Visit: Yes Qualifiers: Encounter type: subsequent encounter Qualified Code(s): S81.802D - Unspecified open wound, left lower leg, subsequent encounter Code(s): S81.802A - Unspecified open wound, left lower leg, initial encounter (3) Squamous cell carcinoma of left lower leg Status: Acute Current Visit: Yes Code(s): C44.729 - Squamous cell carcinoma of skin of left lower limb, including hip (4) Diverticular disease Status: Chronic Current Visit: No Code(s): K57.90 - Diverticulosis of intestine, part unspecified, without perforation or abscess without bleeding (5) GERD (gastroesophageal reflux disease) Status: Chronic Current Visit: No Code(s): K21.9 - Gastro-esophageal reflux disease without esophagitis (6) Hiatal hernia Status: Acute Current Visit: No Code(s): K44.9 - Diaphragmatic hernia without obstruction or gangrene (7) Nonhealing surgical wound Status: Acute Current Visit: Yes Qualifiers: Encounter type: subsequent encounter Qualified Code(s): T81.89XD - Other complications of procedures, not elsewhere classified, subsequent encounter Code(s): T81.89XA - Other complications of procedures, not elsewhere classified, initial encounter (8) Essential hypertension Status: Chronic Current Visit: No Code(s): I10 - Essential (primary) hypertension (9) CKD (chronic kidney disease) Status: Chronic Current Visit: No Code(s): N18.9 - Chronic kidney disease, unspecified (10) Glaucoma Status: Chronic Current Visit: No Code(s): H40.9 - Unspecified glaucoma (11) Prothrombin gene mutation Status: Chronic Current Visit: No Code(s): D68.59 - Other primary thrombophilia (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 Tyrel Avila. 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 The patient underwent reexcision on May 01, 2019. The excisional site has failed to heal. She had been using Vaseline topically. She was referred to our wound healing facility for definitive care. The patient denies swelling in her lower extremities. She claims to be active. It appears as though the squamous cell cancer has been completely excised with margins. Incidentally, the patient has recently been admitted to [facility] overnight 1 week ago for assessment of atypical chest pain. Records have been reviewed. After thorough evaluation, it was concluded that her chest pain was due to gastroesophageal reflux disease. A stress test performed during that hospitalization was negative for stress-induced myocardial ischemia. She was discharged on Protonix 40 mg p.o. daily. Past Medical History Past Medical History: Chronic Problems (Last Updated 05/13/19 @ 11:09 by Irene Rivera MD) CKD (chronic kidney disease) stage 4, GFR 15-29 ml/min (Chronic) Diverticular disease (Chronic) GERD (gastroesophageal reflux disease) (Chronic) Essential hypertension (Chronic) CKD (chronic kidney disease) (Chronic) Glaucoma (Chronic) Prothrombin gene mutation (Chronic) Hyperhomocystinemia (Chronic) Hypothyroidism (Chronic) Surgical History: cholecystectomy, colectomy - for diverticular disease, hysterectomy - for DUB, - - The patient is a G1, P1 Ab0 Allergies/Adverse Reactions: Allergies diltiazem HCl [From Cardizem] Allergy (Verified 05/13/19 08:52) Itching miconazole nitrate [From Neosporin AF] Allergy (Verified 05/13/19 08:52) Laryngospasms morphine Allergy (Verified 05/13/19 08:52) Other MAKES ME CRAZY nitrofurantoin [From Macrobid] Allergy (Verified 05/13/19 08:52) Rash nitrofurantoin macrocrystalline [From Macrobid] Allergy (Verified 05/13/19 08:52) Rash bacitracin Adverse Reaction (Verified 05/13/19 08:52) Other codeine Adverse Reaction (Verified 05/13/19 08:52) Chest tightness lisinopril Adverse Reaction (Verified 05/13/19 08:52) Other loratadine [From Claritin] Adverse Reaction (Verified 05/13/19 08:52) Other Home Medications: Ambulatory Orders Medication Instructions Recorded Levothyroxine [Synthroid] 88 mcg PO DAILY 05/26/13 Timolol 0.5% [Timoptic] 1 drp EACH EYE QHS 09/27/15 Cholecalciferol (Vitamin D3) 1,000 unit PO DAILY 05/13/19 [Vitamin D3] Metoprolol Tartrate [Lopressor 25 mg PO BID 05/13/19 (beta jolly)] Pantoprazole Sodium [Protonix] 40 mg PO DAILY #30 tab 05/14/19 - Family History Maternal Family History: Family History (Last Reviewed 02/27/18 @ 11:23 by Juana Baldiwn) Mother Heart disease Father Heart disease Heart Disease Paternal Family History: Family History (Last Reviewed 02/27/18 @ 11:23 by Juana Baldwin) Mother Heart disease Father Heart disease Heart Disease Smoking Status: Never smoker Tobacco Use: Non-smoker Review of Systems Constitutional: Denies: Chills, Fever, Weight Change Eyes: Denies: Pain, Vision Change HEENT: Denies: Difficulty Hearing, Difficulty Swallowing, Sinus Congestion Cardiovascular: Denies: Chest Pain, Palpitations Respiratory: Denies: Cough, Shortness of Breath Gastrointestinal: Denies: Diarrhea, Nausea, Vomiting Genitourinary: Denies: Dysuria, Hematuria Endocrine: Denies: Heat/ Cold Intolerance, Polydipsia, Polyuria Hematologic/ Lymphatic: Denies: Easy Bruising, Easy Bleeding - Physical Exam Vital Signs Temp Pulse Resp BP 97.3 F L 64 18 128/68 H 06/03/19 09:22 06/03/19 09:22 06/03/19 09:22 06/03/19 09:22 General: Alert, Oriented x3, Cooperative, No apparent distress, Well developed, Well nourished HEENT: Atraumatic, PERRLA, EOMI, Normocephalic Oral: Moist Mucosa Neck: No JVD Lungs: Normal air movement Abdomen: Non-Distended Extremities: No clubbing, No cyanosis, No edema, No Calf Tenderness, - - There is no significant swelling or edema in the left lower extremity. The surgical wound in the left medial supramalleolar area is markedly improved, and smaller in size. Dimensions are documented elsewhere. There is no sign of infection or cellulitis. There is a small amount of bioburden. Skin: No rashes Wound Measurements and Assessment WC - Nurse 1 - General Ulcer Measurement Start: 06/03/19 09:22 Freq: Status: Active Protocol: Activity Type Activity Date Activity User E-Sign Co-Sign Detail Recorded Client Recorded Date Recorded By Document 06/03/19 09:22 DL [id number] 06/03/19 09:26 DL 06/03/19 09:22 Wound Center Nurse 1 [Ulcer Assessment] #1 Medial Left Ankle -Current Size (cm) - Length 0.3 -Current Size (cm) - Width 0.4 -Current Size (cm) - Depth 0.1 -Total Square Cm 0.12 -Photo Taken No -Exudate Amt None Present -Wound Margin Thickened -Granulation Amt Small (1-33%) -Granulation Quality [place] -Necrosis Amt Small (1-33%) -Necrotic Tissue Type Adherent Slough -Structure Exposed N/A -Texture (Patricia-wound Skin Appearance) No Abnormality -Moisture (Patricia-wound Skin Appearance No Abnormality ) -Color (Patricia-wound Skin Appearance) No Abnormality -Temperature (Patricia-wound Skin No Abnormality Appearance) (Pt Warm) -Tenderness on Palpation (Patricia-wound No Skin Appearance) -Ulcer Cleansing Rinsed/ Irrigated with Saline -Foul Odor after Cleansing No -Anesthetic Used 4% Lidocaine Solution WC - Nurse 2 - General Ulcer CM Notes Start: 06/03/19 09:22 Freq: Status: Active Protocol: Activity Type Activity Date Activity User E-Sign Co-Sign Detail Recorded Client Recorded Date Recorded By Document 06/03/19 10:34 DV [id number] 06/03/19 10:37 DV 06/03/19 10:34 Wound Center Nurse 2 [Procedure/Treatment] -Time 10:35 -Correct Patient Yes -Correct Side, Site, Position Yes -Correct Procedure Yes -Procedure Performed Yes -Type of Procedure Debridement -Clinical Debridement Subcutaneous -Post Debridement Size (cm) - Length 0.5 -Post Debridement Size (cm) - Width 0.1 -Post Debridement Size (cm) - Depth 0.1 -Total Square Cm 0.05 -Wound/Ulcer Outcome Not Healed [See Physician Procedure note for Specifics] Musculoskeletal: No Muscle Wasting Neurological: Cranial nerves II-XII grossly intact, Neuro grossly intact Psych/Mental Status: Normal Affect, Appropriate, Alert and oriented to time, place, person, mood and affect Debridement Note Post-Debridement Measurements/Treatment WC - Nurse 2 - General Ulcer CM Notes Start: 06/03/19 09:22 Freq: Status: Active Protocol: Activity Type Activity Date Activity User E-Sign Co-Sign Detail Recorded Client Recorded Date Recorded By Document 06/03/19 10:34 DV [id number] 06/03/19 10:37 DV 06/03/19 10:34 Wound Center Nurse 2 #1 Medial Left Ankle -Time 10:35 -Correct Patient Yes -Correct Side, Site, Position Yes -Correct Procedure Yes -Procedure Performed Yes -Type of Procedure Debridement -Clinical Debridement Subcutaneous -Post Debridement Size (cm) - Length 0.5 -Post Debridement Size (cm) - Width 0.1 -Post Debridement Size (cm) - Depth 0.1 -Total Square Cm 0.05 -Wound/Ulcer Outcome Not Healed Laterality: Left - Medial supramalleolar area Type of Debridement: Excisional debridement Anesthesia Used: 5% Lidocaine Gel Depth: Down to and including healthy tissue, in the subcutaneous layer Percentage of wound debrided: 100 Instrument Used: 5mm curette Tissue Removed: Bioburden and nonviable tissue Severity: Fat Layer Exposed Amount of bleeding with debridement: Mild Bleeding Controlled with: Compression and gauze Patient tolerated procedure well Assessment/Plan Active Problems (Last Updated 05/13/19 @ 11:09 by Irene Rivera MD) Leg wound, left (Acute) Squamous cell carcinoma of left lower leg (Acute) Nonhealing surgical wound (Acute) Assessment: This is an 84-year-old female who presented status-post excision of a squamous cell carcinoma from the distal aspect of her left medial calf. The excisional site has failed to heal appropriately. It appears as though the squamous cell carcinoma has been completely excised. The patient had been using Vaseline topically on her open wound. She suffers from multiple pre-existing medical problems, which are detailed above. Laboratory studies were obtained at the patient's recent inpatient hospitalization, 1 week ago, and are as follows: White blood count 9.3, hemoglobin 13.2, hematocrit 40.0, platelets 231,000, sodium 141, potassium 4.5, chloride 108, BUN 37, creatinine 1.99, glucose 94, calcium 8.8, total bilirubin 0.70, AST 20, ALT 21, alkaline phosphatase 86, total protein 7.8, albumin 4.2. Recent noninvasive lower extremity arterial study reveals no evidence of significant arterial occlusive disease in either lower extremity. Plan: We are to incision to the use of collagen hydrogel topically on a daily basis. Patient has shown significant improvement up until this date. The patient is to be instructed in the appropriate means of applying the collagen hydrogel. This will be applied topically on a daily basis. The patient's laboratory results do not suggest any impediments to healing. Nutritionally, she appears to be adequate. Patient has been encouraged to take a well-balanced diet. Patient is to follow-up in 1 week for reassessment. Influenza vaccine was not administered today. The patient is not a smoker. Patient weighs 135 pounds. She stands 5 feet 6 inches tall. Her BMI is 21.7, which is normal.
[2019-06-10 11:03] VITALS: BP 128/74; PULSE 66; RESP 16; TEMP 35.4; BMI 21.7
--- NOTE | 2019-06-10 13:09 | PCM.WC.HP ---
(1) CKD (chronic kidney disease) stage 4, GFR 15-29 ml/min Status: Chronic Current Visit: No Code(s): N18.4 - Chronic kidney disease, stage 4 (severe) (2) Leg wound, left Status: Acute Current Visit: Yes Qualifiers: Encounter type: subsequent encounter Qualified Code(s): S81.802D - Unspecified open wound, left lower leg, subsequent encounter Code(s): S81.802A - Unspecified open wound, left lower leg, initial encounter (3) Squamous cell carcinoma of left lower leg Status: Acute Current Visit: Yes Code(s): C44.729 - Squamous cell carcinoma of skin of left lower limb, including hip (4) Diverticular disease Status: Chronic Current Visit: No Code(s): K57.90 - Diverticulosis of intestine, part unspecified, without perforation or abscess without bleeding (5) GERD (gastroesophageal reflux disease) Status: Chronic Current Visit: No Code(s): K21.9 - Gastro-esophageal reflux disease without esophagitis (6) Hiatal hernia Status: Acute Current Visit: No Code(s): K44.9 - Diaphragmatic hernia without obstruction or gangrene (7) Nonhealing surgical wound Status: Acute Current Visit: Yes Qualifiers: Encounter type: subsequent encounter Qualified Code(s): T81.89XD - Other complications of procedures, not elsewhere classified, subsequent encounter Code(s): T81.89XA - Other complications of procedures, not elsewhere classified, initial encounter (8) Essential hypertension Status: Chronic Current Visit: No Code(s): I10 - Essential (primary) hypertension (9) CKD (chronic kidney disease) Status: Chronic Current Visit: No Code(s): N18.9 - Chronic kidney disease, unspecified (10) Glaucoma Status: Chronic Current Visit: No Code(s): H40.9 - Unspecified glaucoma (11) Prothrombin gene mutation Status: Chronic Current Visit: No Code(s): D68.59 - Other primary thrombophilia (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 Tyrel Avila. 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 The patient underwent reexcision on May 01, 2019. The excisional site has failed to heal. She had been using Vaseline topically. She was referred to our wound healing facility for definitive care. The patient denies swelling in her lower extremities. She claims to be active. It appears as though the squamous cell cancer has been completely excised with margins. Incidentally, the patient has recently been admitted to [facility] overnight 1 week ago for assessment of atypical chest pain. Records have been reviewed. After thorough evaluation, it was concluded that her chest pain was due to gastroesophageal reflux disease. A stress test performed during that hospitalization was negative for stress-induced myocardial ischemia. She was discharged on Protonix 40 mg p.o. daily. Past Medical History Past Medical History: Chronic Problems (Last Updated 05/13/19 @ 11:09 by Irene Rivera MD) CKD (chronic kidney disease) stage 4, GFR 15-29 ml/min (Chronic) Diverticular disease (Chronic) GERD (gastroesophageal reflux disease) (Chronic) Essential hypertension (Chronic) CKD (chronic kidney disease) (Chronic) Glaucoma (Chronic) Prothrombin gene mutation (Chronic) Hyperhomocystinemia (Chronic) Hypothyroidism (Chronic) Surgical History: cholecystectomy, colectomy - for diverticular disease, hysterectomy - for DUB, - - The patient is a G1, P1 Ab0 Allergies/Adverse Reactions: Allergies diltiazem HCl [From Cardizem] Allergy (Verified 05/13/19 08:52) Itching miconazole nitrate [From Neosporin AF] Allergy (Verified 05/13/19 08:52) Laryngospasms morphine Allergy (Verified 05/13/19 08:52) Other MAKES ME CRAZY nitrofurantoin [From Macrobid] Allergy (Verified 05/13/19 08:52) Rash nitrofurantoin macrocrystalline [From Macrobid] Allergy (Verified 05/13/19 08:52) Rash bacitracin Adverse Reaction (Verified 05/13/19 08:52) Other codeine Adverse Reaction (Verified 05/13/19 08:52) Chest tightness lisinopril Adverse Reaction (Verified 05/13/19 08:52) Other loratadine [From Claritin] Adverse Reaction (Verified 05/13/19 08:52) Other Home Medications: Ambulatory Orders Medication Instructions Recorded Levothyroxine [Synthroid] 88 mcg PO DAILY 05/26/13 Timolol 0.5% [Timoptic] 1 drp EACH EYE QHS 09/27/15 Cholecalciferol (Vitamin D3) 1,000 unit PO DAILY 05/13/19 [Vitamin D3] Metoprolol Tartrate [Lopressor 25 mg PO BID 05/13/19 (beta jolly)] Pantoprazole Sodium [Protonix] 40 mg PO DAILY #30 tab 05/14/19 - Family History Maternal Family History: Family History (Last Reviewed 02/27/18 @ 11:23 by Juana Baldwin) Mother Heart disease Father Heart disease Heart Disease Paternal Family History: Family History (Last Reviewed 02/27/18 @ 11:23 by Juana Baldwin) Mother Heart disease Father Heart disease Heart Disease Smoking Status: Never smoker Tobacco Use: Non-smoker Review of Systems Constitutional: Denies: Chills, Fever, Weight Change Eyes: Denies: Pain, Vision Change HEENT: Denies: Difficulty Hearing, Difficulty Swallowing, Sinus Congestion Cardiovascular: Denies: Chest Pain, Palpitations Respiratory: Denies: Cough, Shortness of Breath Gastrointestinal: Denies: Diarrhea, Nausea, Vomiting Genitourinary: Denies: Dysuria, Hematuria Endocrine: Denies: Heat/ Cold Intolerance, Polydipsia, Polyuria Hematologic/ Lymphatic: Denies: Easy Bruising, Easy Bleeding - Physical Exam Vital Signs Temp Pulse Resp BP 95.7 F L 66 16 128/74 H 06/10/19 11:03 06/10/19 11:03 06/10/19 11:03 06/10/19 11:03 General: Alert, Oriented x3, Cooperative, No apparent distress, Well developed, Well nourished HEENT: Atraumatic, PERRLA, EOMI, Normocephalic Oral: Moist Mucosa Neck: No JVD Lungs: Normal air movement Abdomen: Non-Distended Extremities: No clubbing, No cyanosis, No edema, Capillary Refill Less than 3 Seconds, No Calf Tenderness, - - The surgical excisional site on the medial aspect of the left supramalleolar area is now completely healed and epithelialized. Skin: No rashes, No breakdown Wound Measurements and Assessment WC - Nurse 1 - General Ulcer Measurement Start: 06/03/19 09:22 Freq: Status: Active Protocol: Activity Type Activity Date Activity User E-Sign Co-Sign Detail Recorded Client Recorded Date Recorded By Document 06/10/19 11:03 [facility] [id number] 06/10/19 11:06 [facility] 06/10/19 11:03 Wound Center Nurse 1 [Ulcer Assessment] #1 Medial Left Ankle -Combined with other wound No -Current Size (cm) - Length 0.1 -Current Size (cm) - Width 0.1 -Current Size (cm) - Depth 0.1 -Total Square Cm 0.01 -Epithelialization Large 67-100% -Tunneling No -Undermining/Tunneling No -Circular Undermining No -Texture (Patricia-wound Skin Appearance) Assessed, Scarring -Moisture (Patricia-wound Skin Appearance Assessed,Dry/ ) Scaly -Color (Patricia-wound Skin Appearance) Assessed -Temperature (Patricia-wound Skin No Abnormality Appearance) (Pt Warm) -Tenderness on Palpation (Patricia-wound No Skin Appearance) -Ulcer Cleansing Rinsed/ Irrigated with Saline -Foul Odor after Cleansing No WC - Nurse 2 - General Ulcer CM Notes Start: 06/03/19 09:22 Freq: Status: Active Protocol: Activity Type Activity Date Activity User E-Sign Co-Sign Detail Recorded Client Recorded Date Recorded By Document 06/10/19 11:40 [id number] 06/10/19 11:42 06/10/19 11:40 Wound Center Nurse 2 [Procedure/Treatment] -Time 11:40 -Correct Patient Yes -Correct Side, Site, Position Yes -Correct Procedure No -Procedure Performed No -Post Debridement Size (cm) - Length 0 -Post Debridement Size (cm) - Width 0 -Post Debridement Size (cm) - Depth 0 -Total Square Cm 0 -Wound/Ulcer Outcome Healed- Epithelialized [See Physician Procedure note for Specifics] Pain Scale: 0-10 Numeric [Pain] -Is Patient Pain Free? Yes Musculoskeletal: No Muscle Wasting Neurological: Cranial nerves II-XII grossly intact, Neuro grossly intact Psych/Mental Status: Normal Affect, Appropriate, Alert and oriented to time, place, person, mood and affect Debridement Note Post-Debridement Measurements/Treatment WC - Nurse 2 - General Ulcer CM Notes Start: 06/03/19 09:22 Freq: Status: Active Protocol: Activity Type Activity Date Activity User E-Sign Co-Sign Detail Recorded Client Recorded Date Recorded By Document 06/03/19 10:34 DV [id number] 06/03/19 10:37 DV Document 06/10/19 11:40 DV [id number] 06/10/19 11:42 DV 06/03/19 06/10/19 10:34 11:40 Wound Center Nurse 2 #1 Medial Left Ankle -Time 10:35 11:40 -Correct Patient Yes Yes -Correct Side, Site, Position Yes Yes -Correct Procedure Yes No -Procedure Performed Yes No -Type of Procedure Debridement -Clinical Debridement Subcutaneous -Post Debridement Size (cm) - Length 0.5 0 -Post Debridement Size (cm) - Width 0.1 0 -Post Debridement Size (cm) - Depth 0.1 0 -Total Square Cm 0.05 0 -Wound/Ulcer Outcome Not Healed Healed- Epithelialized Pain Scale: 0-10 Numeric Is Patient Pain Free? Yes No debridement was completed today - The patient's wound is completely healed and epithelialized. Assessment/Plan Active Problems (Last Updated 05/13/19 @ 11:09 by Irene Rivera MD) Leg wound, left (Acute) Squamous cell carcinoma of left lower leg (Acute) Nonhealing surgical wound (Acute) Assessment: This is an 84-year-old female who presented status-post excision of a squamous cell carcinoma from the distal aspect of her left medial calf. The excisional site has failed to heal appropriately. It appears as though the squamous cell carcinoma has been completely excised. The patient had been using Vaseline topically on her open wound. She suffers from multiple pre-existing medical problems, which are detailed above. Laboratory studies were obtained at the patient's recent inpatient hospitalization, 1 week ago, and are as follows: White blood count 9.3, hemoglobin 13.2, hematocrit 40.0, platelets 231,000, sodium 141, potassium 4.5, chloride 108, BUN 37, creatinine 1.99, glucose 94, calcium 8.8, total bilirubin 0.70, AST 20, ALT 21, alkaline phosphatase 86, total protein 7.8, albumin 4.2. Recent noninvasive lower extremity arterial study reveals no evidence of significant arterial occlusive disease in either lower extremity. Plan: The patient appears to be completely healed and epithelialized. Therefore, she will be discharged at this time. She will follow-up henceforth on an as-needed basis. Influenza vaccine was not administered today. The patient is not a smoker. Patient weighs 135 pounds. She stands 5 feet 6 inches tall. Her BMI is 21.7, which is normal.
== END 2019-07-01 23:59 ==
LOC: WC 11:00
PROVIDERS: Family Provider Internal Medicine; PCP Internal Medicine; Referring Provider Surgery; Visit Provider Surgery
DX: I73.9 Peripheral vascular disease, unspecified (principal); C44.729 Squamous cell carcinoma of skin of left lower limb, including hip; T81.89XA Other complications of procedures, not elsewhere classified, initial encounter; I12.9 Hypertensive chronic kidney disease with stage 1 through stage 4 chronic kidney disease, or unspecified chronic kidney disease; K21.9 Gastro-esophageal reflux disease without esophagitis; N18.4 Chronic kidney disease, stage 4 (severe); Y83.8 Other surgical procedures as the cause of abnormal reaction of the patient, or of later complication, without mention of misadventure at the time of the procedure; D68.52 Prothrombin gene mutation; E03.9 Hypothyroidism, unspecified; Z79.899 Other long term (current) drug therapy
CPT/HCPCS: 11042; 99212; G0463

== ENCOUNTER → 2019-07-22 11:29 | Outpatient (CLI) | payer MEDICARE, OTHER, SELFPAY ==
[2019-07-22 12:44] LABS: Hematocrit 32.1 % (37-47); Hemoglobin 10.7 g/dL (12.0-15.0); Mean Corp Hgb Conc 33.3 g/dL (32-36); Mean Corpuscular Hgb 31.2 pg (27.0-32.0); Mean Corpuscular Volume 93.6 fL (81-99); Mean Platelet Vol. 10.6 fl (6.2-12.0); Platelet Count 206 K/mm3 (150-450); RBC Distribution Width CV 13.2 % (11.6-14.6); RBC Distribution Width SD 44.2 fl (35.1-43.9); Red Blood Count 3.43 M/mm3 (4.2-5.4); White Blood Count 8.2 K/mm3 (4.4-11.0)
[2019-07-22 13:06] LABS: Albumin, Serum 3.9 g/dL (3.2-5.0); BUN 36 mg/dL (7-18); BUN/Creat Ratio 12.1 RATIO (10-20); Chloride 110 mmol/L (98-107); Creatinine, Serum 2.97 mg/dL (0.55-1.02); EST Glomerular Filtration Rate 16 mL/min (>60); Est Glom Filt Rate - Afr Amer 19 mL/min (>60); Glucose 130 mg/dL (74-106); Phosphorus 3.5 mg/dL (2.5-4.9); Potassium 3.3 mmol/L (3.5-5.1); Sodium Level 136 mmol/L (136-145)
[2019-07-22 13:13] LABS: PTHIN 199.2 pg/mL (18.4-80.1)
== END ==
LOC: LAB.FUTURE 11:34 → LAB 11:36
PROVIDERS: Family Provider Internal Medicine; PCP Internal Medicine; Referring Provider Internal Medicine Nephrology; Visit Provider Internal Medicine Nephrology
DX: N18.4 Chronic kidney disease, stage 4 (severe) (principal)
CPT/HCPCS: 36415; 80069; 83970; 85027

== ENCOUNTER → 2019-07-29 13:35 | Outpatient (CLI) | payer MEDICARE, OTHER, SELFPAY ==
[2019-07-29 17:05] LABS: Albumin, Serum 3.9 g/dL (3.2-5.0); BUN 29 mg/dL (7-18); BUN/Creat Ratio 11.4 RATIO (10-20); Calcium,Total 9.1 mg/dL (8.5-10.1); Chloride 110 mmol/L (98-107); Creatinine, Serum 2.55 mg/dL (0.55-1.02); EST Glomerular Filtration Rate 19 mL/min (>60); Est Glom Filt Rate - Afr Amer 23 mL/min (>60); Glucose 112 mg/dL (74-106); Phosphorus 2.9 mg/dL (2.5-4.9); Potassium 3.6 mmol/L (3.5-5.1); Sodium Level 138 mmol/L (136-145)
== END ==
PROVIDERS: PCP Internal Medicine; Visit Provider Internal Medicine Nephrology
DX: N17.9 Acute kidney failure, unspecified (principal)
CPT/HCPCS: 36415; 80069

== ENCOUNTER → 2019-08-20 09:35 | Outpatient (CLI) | payer MEDICARE, OTHER, SELFPAY ==
[2019-08-20 10:29] LABS: Hematocrit 35.6 % (37-47); Hemoglobin 11.5 g/dL (12.0-15.0); Mean Corp Hgb Conc 32.3 g/dL (32-36); Mean Corpuscular Hgb 31.1 pg (27.0-32.0); Mean Corpuscular Volume 96.2 fL (81-99); Mean Platelet Vol. 10.1 fl (6.2-12.0); Platelet Count 268 K/mm3 (150-450); RBC Distribution Width CV 13.4 % (11.6-14.6); RBC Distribution Width SD 46.5 fl (35.1-43.9); White Blood Count 8.9 K/mm3 (4.4-11.0)
[2019-08-20 11:17] LABS: Albumin, Serum 4.2 g/dL (3.2-5.0); BUN 26 mg/dL (7-18); BUN/Creat Ratio 13.8 RATIO (10-20); Calcium,Total 10.2 mg/dL (8.5-10.1); Chloride 106 mmol/L (98-107); Creatinine, Serum 1.89 mg/dL (0.55-1.02); EST Glomerular Filtration Rate 27 mL/min (>60); Est Glom Filt Rate - Afr Amer 33 mL/min (>60); Ferritin 196 ng/mL (8-252); Glucose 97 mg/dL (74-106); Iron 102 ug/dL (50-170); Iron Binding Capacity,Total 306 ug/dL (250-450); Phosphorus 3.5 mg/dL (2.5-4.9); Potassium 4.3 mmol/L (3.5-5.1); Sodium Level 137 mmol/L (136-145)
[2019-08-20 11:39] LABS: PTHIN 165.9 pg/mL (18.4-80.1)
== END ==
PROVIDERS: PCP Internal Medicine; Referring Provider Internal Medicine Nephrology; Visit Provider Internal Medicine Nephrology
DX: N18.4 Chronic kidney disease, stage 4 (severe) (principal); N25.81 Secondary hyperparathyroidism of renal origin; D64.9 Anemia, unspecified
CPT/HCPCS: 36415; 80069; 82728; 83540; 83550; 83970; 85027

== ENCOUNTER → 2020-03-17 10:24 | Outpatient (CLI) | payer MEDICARE, OTHER, SELFPAY ==
[2020-03-12 08:13] VITALS: BMI 21.7
[2020-03-17 11:35] LABS: Hematocrit 36.1 % (37-47); Hemoglobin 11.8 g/dL (12.0-15.0); Mean Corp Hgb Conc 32.7 g/dL (32-36); Mean Corpuscular Hgb 31.1 pg (27.0-32.0); Mean Corpuscular Volume 95.3 fL (81-99); Mean Platelet Vol. 10.1 fl (6.2-12.0); Platelet Count 222 K/mm3 (150-450); RBC Distribution Width SD 44.2 fl (35.1-43.9); Red Blood Count 3.79 M/mm3 (4.2-5.4); White Blood Count 7.9 K/mm3 (4.4-11.0)
[2020-03-17 11:46] LABS: BUN 26 mg/dL (7-18); BUN/Creat Ratio 15.2 RATIO (10-20); Calcium,Total 9.3 mg/dL (8.5-10.1); Chloride 102 mmol/L (98-107); Creatinine, Serum 1.71 mg/dL (0.55-1.02); EST Glomerular Filtration Rate 30 mL/min (>60); Est Glom Filt Rate - Afr Amer 37 mL/min (>60); Glucose 98 mg/dL (74-106); Potassium 3.8 mmol/L (3.5-5.1); Sodium Level 136 mmol/L (136-145)
== END ==
PROVIDERS: PCP Internal Medicine; Visit Provider Internal Medicine Nephrology
DX: D64.9 Anemia, unspecified (principal); N17.9 Acute kidney failure, unspecified; E55.9 Vitamin D deficiency, unspecified
CPT/HCPCS: 36415; 80069; 82306; 85027

== ENCOUNTER → 2020-04-06 08:53 | Outpatient (CLI) | payer MEDICARE, OTHER, SELFPAY ==
[2020-03-12 08:13] VITALS: BMI 21.7
[2020-03-31 10:59] VITALS: BMI 21.7
--- NOTE | 2020-04-06 08:54 | RDU_ITS ---
Reason For Study: Atrophy of kidney Right Renal Artery Left Renal Artery Right renal artery ostium Left renal artery ostium 60.9/13 214.1/35.3 RSV/EDV. PSV/EDV. Right renal artery proximal Left renal artery proximal PSV/EDV 273.1/65.1 PSV/EDV. 75.7/13 . Right renal artery mid 221.9/48.2 Left renal artery mid 86.7/16.7 PSV/EDV. PSV/EDV . Right renal artery distal Left renal artery distal 56.4/14.6 136.3/30.3 PSV/EDV. PSV/EDV. Right RAR 3.20. Left RAR 1.02. Right Renal Parenchyma Left Renal Parenchyma Upper Pole Medula 21.1/5 PSV/EDV. Left upper pole medulla 22/6.1 Right upper pole medulla EDR 0.24 . PSV/EDV . Right upper pole medulla R.I. Left upper pole medulla EDR 0.28 . 0.76 . Left upper pole medulla R.I. 0.72 . Upper Tommy Cortx 16.3/5 PSV/EDV. UP Cortex 16.5/6.1 PSV/EDV. Right upper pole cortex EDR 0.31 . Left upper pole cortex EDR 0.37 . Right upper pole cortex R.I. 0.69 . Left upper pole cortex R.I. 0.63 . Right lower Pole medulla 19.7/6 Left lower Pole medulla 19.6/6.1 PSV/EDV . PSV/EDV . Right lower pole medulla EDR 0.30 . Left lower pole medulla EDR 0.31 . Right lower pole medulla R.I. Left lower pole medulla R.I. 0.69 . 0.70 . Lower Pole Cortx 13.5/4.9 PSV/EDV. Lower Pole Cortex 13/4.5 PSV/EDV. Left lower pole cortex EDR 0.36 . Right lower pole cortex EDR 0.35 . Left lower pole cortex R.I. 0.64 . Right lower pole cortex R.I. 0.65 . Left Renal Hilar Right Renal Hilar LT Hilar avg 26.3/7.3 PSV/EDV . Right Hilar avg 26.3/6.4 PSV/EDV. Left hilar acceleration time 50 Right hilar acceleration time 60 m/sec. m/sec. Left Renal Dimensions Right Renal Dimensions Left kidney size 9.58 cm . Right kidney size 8.4 cm . Left cortical dimension 0.74 cm . Right cortical dimension 0.71 cm . Aorta Proximal abdominal aorta 1.46 x 1.46 cm . Proximal abdominal aorta peak systolic velocity is 42.4 cm/sec . Distal abdominal aorta 1.23 x 1.23 cm . Distal abdominal aorta peak systolic velocity is 85.3 cm/sec . 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
== END ==
PROVIDERS: PCP Internal Medicine; Referring Provider Internal Medicine Nephrology; Visit Provider Internal Medicine Nephrology
DX: I70.1 Atherosclerosis of renal artery (principal); N26.1 Atrophy of kidney (terminal)
CPT/HCPCS: 93975

== ENCOUNTER 2020-07-22 09:00 | Outpatient (RCR) | payer MEDICARE, OTHER, SELFPAY ==
[2020-06-22 10:05] VITALS: BMI 22.2
== END 2020-07-22 23:59 ==
LOC: IMMUN 09:00
PROVIDERS: PCP Internal Medicine; Visit Provider Family Medicine
DX: Z23 Encounter for immunization (principal)
CPT/HCPCS: 0011A; 0012A; 91301

== ENCOUNTER → 2020-09-01 12:25 | Outpatient (CLI) | payer MEDICARE, OTHER, SELFPAY ==
[2020-06-22 10:05] VITALS: BMI 22.2
--- NOTE | 2020-09-01 12:28 | EKG12_ITS ---
Test Reason : ARRHYTHMIA Blood Pressure : / mmHG Vent. 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
== END ==
PROVIDERS: PCP Internal Medicine; Referring Provider Internal Medicine; Visit Provider Internal Medicine
DX: I49.9 Cardiac arrhythmia, unspecified (principal)
CPT/HCPCS: 93005

== ENCOUNTER → 2020-10-01 09:16 | Outpatient (CLI) | payer MEDICARE, OTHER, SELFPAY ==
[2020-06-22 10:05] VITALS: BMI 22.2
[2020-10-01 12:06] LABS: Absolute Lymphocyte Count 2.03 X10^3/uL (0.83-4.51); Basophil# 0.06 X10^3/uL; Basophil% 0.7 % (0-1); Eosinophil# 0.42 X10^3/uL; Eosinophils% 4.9 % (0-5); Hematocrit 41.2 % (37-47); Hemoglobin 13.4 g/dL (12.0-15.0); Lymphocyte # 2.03 X10^3/ul (4.0); Lymphocyte % 23.9 % (19-41); Mean Corp Hgb Conc 32.5 g/dL (32-36); Mean Corpuscular Hgb 31.7 pg (27.0-32.0); Mean Corpuscular Volume 97.4 fL (81-99); Mean Platelet Vol. 10.4 fl (6.2-12.0); Monocyte# 0.98 X10^3/uL; Monocyte% 11.5 % (0-10); NRBC Flagged by Analyzer 0 % (0-5); Neutrophil # 4.98 X10^3/uL (2.7-7.7); Neutrophil % 58.6 % (47-70); Platelet Count 266 K/mm3 (150-450); RBC Distribution Width CV 13.2 % (11.6-14.6); RBC Distribution Width SD 45.7 fl (35.1-43.9); Red Blood Count 4.23 M/mm3 (4.2-5.4); White Blood Count 8.5 K/mm3 (4.4-11.0)
[2020-10-01 12:31] LABS: Vitamin D,25 Hydroxy 35.8 ng/mL
[2020-10-01 12:40] LABS: ALB/GLOB Ratio 1.2 RATIO (0.9-2.4); AST(SGOT) 17 U/L (15-37); Alanine Aminotransfer ALT/SGPT 27 U/L (13-56); Albumin, Serum 4.2 g/dL (3.2-5.0); Alkaline Phosphatase 86 U/L (45-117); Anion Gap 4 (5-15); BUN 30 mg/dL (7-18); BUN/Creat Ratio 19.9 RATIO (10-20); Calcium,Total 9.6 mg/dL (8.5-10.1); Chloride 103 mmol/L (98-107); Cholesterol 233 mg/dL (200); Creatinine, Serum 1.51 mg/dL (0.55-1.02); EST Glomerular Filtration Rate 35 mL/min (>60); Est Glom Filt Rate - Afr Amer 42 mL/min (>60); Globulin 3.5 g/dL (2.2-4.2); Glucose 98 mg/dL (74-106); High Density Lipoprotein 50 mg/dL; Potassium 4.6 mmol/L (3.5-5.1); Protein, Total 7.7 g/dL (6.4-8.2); Sodium Level 135 mmol/L (136-145); Triglycerides 146 mg/dL; Very Low Density Lipoprotein 29 mg/dL (5-40)
== END ==
PROVIDERS: PCP Internal Medicine; Referring Provider Internal Medicine; Visit Provider Internal Medicine
DX: N18.4 Chronic kidney disease, stage 4 (severe) (principal); I12.9 Hypertensive chronic kidney disease with stage 1 through stage 4 chronic kidney disease, or unspecified chronic kidney disease; K21.9 Gastro-esophageal reflux disease without esophagitis; E03.9 Hypothyroidism, unspecified; E55.9 Vitamin D deficiency, unspecified; R09.89 Other specified symptoms and signs involving the circulatory and respiratory systems
CPT/HCPCS: 36415; 80053; 80061; 82306; 84443; 85025

== ENCOUNTER → 2021-03-31 12:21 | Outpatient (CLI) | payer MEDICARE, OTHER, SELFPAY ==
[2021-03-31 15:14] LABS: Absolute Lymphocyte Count 1.82 X10^3/uL (0.83-4.51); Absolute Neutrophil Count 6.4 X10^3/uL (2.0-7.7); Basophil# 0.05 X10^3/uL; Basophil% 0.5 % (0-1); Eosinophil# 0.52 X10^3/uL; Eosinophils% 5.3 % (0-5); Hematocrit 39.2 % (37-47); Hemoglobin 12.9 g/dL (12.0-15.0); Lymphocyte # 1.82 X10^3/ul (0.83-4.51); Lymphocyte % 18.4 % (19-41); Mean Corp Hgb Conc 32.9 g/dL (32-36); Mean Corpuscular Hgb 31.9 pg (27.0-32.0); Mean Platelet Vol. 10.1 fl (6.2-12.0); Monocyte# 1.07 X10^3/uL; Monocyte% 10.8 % (0-10); NRBC Flagged by Analyzer 0 % (0-5); Neutrophil # 6.39 X10^3/uL (2.7-7.7); Neutrophil % 64.8 % (47-70); Platelet Count 281 K/mm3 (150-450); RBC Distribution Width CV 12.9 % (11.6-14.6); RBC Distribution Width SD 45.3 fl (35.1-43.9); Red Blood Count 4.04 M/mm3 (4.2-5.4); White Blood Count 9.9 K/mm3 (4.4-11.0)
[2021-03-31 15:36] LABS: ALB/GLOB Ratio 1.1 RATIO (0.9-2.4); AST(SGOT) 20 U/L (15-37); Alanine Aminotransfer ALT/SGPT 23 U/L (13-56); Albumin, Serum 4.2 g/dL (3.2-5.0); Alkaline Phosphatase 83 U/L (45-117); Anion Gap 6 (5-15); BUN 22 mg/dL (7-18); BUN/Creat Ratio 14.8 RATIO (10-20); Calcium,Total 10.2 mg/dL (8.5-10.1); Chloride 101 mmol/L (98-107); Creatinine, Serum 1.49 mg/dL (0.55-1.02); EST Glomerular Filtration Rate 35 mL/min (>60); Est Glom Filt Rate - Afr Amer 43 mL/min (>60); Globulin 3.7 g/dL (2.2-4.2); Glucose 92 mg/dL (74-106); Potassium 4.6 mmol/L (3.5-5.1); Protein, Total 7.9 g/dL (6.4-8.2); Sodium Level 135 mmol/L (136-145); Thyroid Stim Hormone (TSH) 4.13 uIU/mL (0.358-3.74)
[2021-03-31 15:37] LABS: Vitamin D,25 Hydroxy 30.6 ng/mL
[2021-04-01 09:53] LABS: PTHIN 43.2 pg/mL (18.4-80.1)
[2021-04-01 16:20] LABS: Free T3 2.5 pg/mL (2.18-3.98); T4 Free Direct 1.25 ng/dL (0.76-1.46)
== END ==
PROVIDERS: PCP Internal Medicine; Referring Provider Internal Medicine; Visit Provider Internal Medicine
DX: I12.9 Hypertensive chronic kidney disease with stage 1 through stage 4 chronic kidney disease, or unspecified chronic kidney disease (principal); N18.4 Chronic kidney disease, stage 4 (severe); E78.5 Hyperlipidemia, unspecified; E03.9 Hypothyroidism, unspecified
CPT/HCPCS: 36415; 80053; 82306; 83970; 84439; 84443; 84481; 85025

== ENCOUNTER → 2021-04-02 08:39 | Outpatient (CLI) | payer MEDICARE, OTHER, SELFPAY | PROVIDERS: PCP Internal Medicine; Referring Provider Physician Assistant Surgical; Visit Provider Physician Assistant Surgical | DX: R30.0 Dysuria (principal) | CPT/HCPCS: 87077; 87086; 87088; 87186 ==

== ENCOUNTER → 2021-04-28 10:40 | Outpatient (CLI) | payer MEDICARE, OTHER, SELFPAY | PROVIDERS: PCP Internal Medicine; Referring Provider Dermatology; Visit Provider Dermatology | DX: L30.9 Dermatitis, unspecified (principal); Z48.02 Encounter for removal of sutures | CPT/HCPCS: 36415 ==

== ENCOUNTER → 2021-06-01 09:33 | Outpatient (CLI) | payer MEDICARE, OTHER, SELFPAY ==
[2021-06-01 11:18] LABS: Free T3 2.1 pg/mL (2.18-3.98); Lipase 294 U/L (73-393); T4 Free Direct 1.21 ng/dL (0.76-1.46); Thyroid Stim Hormone (TSH) 4.27 uIU/mL (0.358-3.74)
== END ==
PROVIDERS: PCP Internal Medicine; Referring Provider Internal Medicine; Visit Provider Internal Medicine
DX: R79.89 Other specified abnormal findings of blood chemistry (principal); K85.90 Acute pancreatitis without necrosis or infection, unspecified; E03.9 Hypothyroidism, unspecified
CPT/HCPCS: 36415; 83690; 84439; 84443; 84481

== ENCOUNTER 2021-08-30 10:41 | Outpatient (CLI) | payer MEDICARE, OTHER, SELFPAY ==
[2021-08-30 13:13] LABS: Free T3 1.9 pg/mL (2.18-3.98); T4 Free Direct 1.34 ng/dL (0.76-1.46); Thyroid Stim Hormone (TSH) 2.24 uIU/mL (0.358-3.74)
== END 2021-08-30 23:59 | disposition home or self-care (01) ==
LOC: BIMLAB 10:43
PROVIDERS: PCP Internal Medicine; Referring Provider Internal Medicine; Visit Provider Internal Medicine
DX: E03.9 Hypothyroidism, unspecified (principal)
CPT/HCPCS: 36415; 84439; 84443; 84481

== ENCOUNTER 2021-09-16 18:17 | Outpatient (CLI) | payer MEDICARE, OTHER, SELFPAY ==
[2021-09-16 18:18] LABS: Mucous, Urine 0 SEEN /hpf (<or=2+); Squamous Epithelial Cells - UA 0 SEEN /hpf (5-10)
[2021-09-16 18:23] LABS: Color, Urine Yellow (Yellow); Glucose, Dipstick Normal (Normal); Ketone-Dipstick Negative (Negative); Leukocyte Esterase-Dipstick 500 /ul (Negative); Nitrite-Dipstick Negative (Negative); Occult Blood-Urine 150 /ul (Negative); Protein-Dipstick 15 mg/dl (Negative); Urine Bilirubin Dipstick Negative (Negative); Urine Clarity Clear (Clear); Urine Urobilinogen Normal (Normal)
[2021-09-16 18:31] LABS: Bacteria 1+ /hpf (None Seen)
[2021-09-16 18:32] LABS: Red Blood Cells-Urine 0-5 SEEN /hpf (0-5); White Blood Cells 50-100 SEEN /hpf (0-5)
[2021-09-16 18:33] LABS: Transitional Epithelial - Ur 0-5 SEEN /hpf (0-5)
== END 2021-09-16 23:59 | disposition home or self-care (01) ==
PROVIDERS: PCP Internal Medicine; Visit Provider Physician Assistant Surgical
DX: N39.0 Urinary tract infection, site not specified (principal)
CPT/HCPCS: 81001; 87077; 87086; 87088; 87186

== ENCOUNTER 2021-09-29 11:38 | Outpatient (CLI) | payer MEDICARE, OTHER, SELFPAY ==
[2021-09-29 12:39] LABS: Absolute Lymphocyte Count 1.43 X10^3/uL (0.83-4.51); Absolute Neutrophil Count 6.6 X10^3/uL (2.0-7.7); Basophil# 0.04 X10^3/uL; Basophil% 0.4 % (0-1); Eosinophils% 2.2 % (0-5); Hematocrit 39.2 % (37-47); Hemoglobin 13.1 g/dL (12.0-15.0); Lymphocyte # 1.43 X10^3/ul (0.83-4.51); Lymphocyte % 15.7 % (19-41); Mean Corp Hgb Conc 33.4 g/dL (32-36); Mean Corpuscular Hgb 31.6 pg (27.0-32.0); Mean Corpuscular Volume 94.5 fL (81-99); Mean Platelet Vol. 10.1 fl (6.2-12.0); Monocyte# 0.79 X10^3/uL; Monocyte% 8.7 % (0-10); NRBC Flagged by Analyzer 0 % (0-5); Neutrophil % 72.7 % (47-70); Platelet Count 247 K/mm3 (150-450); RBC Distribution Width CV 12.8 % (11.6-14.6); RBC Distribution Width SD 43.2 fl (35.1-43.9); Red Blood Count 4.15 M/mm3 (4.2-5.4); White Blood Count 9.1 K/mm3 (4.4-11.0)
[2021-09-29 12:40] LABS: Erythrocyte Sedimentation Rate 12 mm/hr (0-30)
[2021-09-29 13:00] LABS: ALB/GLOB Ratio 1.3 RATIO (0.9-2.4); AST(SGOT) 36 U/L (15-37); Alanine Aminotransfer ALT/SGPT 34 U/L (13-56); Albumin, Serum 4.2 g/dL (3.2-5.0); Alkaline Phosphatase 76 U/L (45-117); Anion Gap 5 (5-15); BUN 17 mg/dL (7-18); BUN/Creat Ratio 11.9 RATIO (10-20); CRP 4.88 mg/L (0.0-3.0); Calcium,Total 9.1 mg/dL (8.5-10.1); Chloride 101 mmol/L (98-107); Creatinine, Serum 1.43 mg/dL (0.55-1.02); EST Glomerular Filtration Rate 37 mL/min (>60); Est Glom Filt Rate - Afr Amer 45 mL/min (>60); Globulin 3.2 g/dL (2.2-4.2); Glucose 105 mg/dL (74-106); Potassium 4.2 mmol/L (3.5-5.1); Protein, Total 7.4 g/dL (6.4-8.2); Sodium Level 131 mmol/L (136-145)
== END 2021-09-29 23:59 | disposition home or self-care (01) ==
LOC: BIMLAB 11:43
PROVIDERS: PCP Internal Medicine; Referring Provider Internal Medicine; Visit Provider Internal Medicine
DX: K57.92 Diverticulitis of intestine, part unspecified, without perforation or abscess without bleeding (principal); E03.9 Hypothyroidism, unspecified
CPT/HCPCS: 36415; 80053; 85025; 85652; 86140

== ENCOUNTER 2021-09-29 11:58 | Outpatient (CLI) | payer MEDICARE, OTHER, SELFPAY ==
--- NOTE | 2021-09-29 14:32 | CT_ITS ---
STUDY: CT ABDOMEN AND PELVIS WITHOUT CONTRAST REASON FOR EXAM: Female, 86 years old. Diverticulitis. RADIATION DOSAGE (If Supplied By Facility): CTDIvol = ( 6.86 ) mGy, DLP = ( 322.30 ) mGycm TECHNIQUE: Transaxial images were obtained from the dome of the diaphragm to the symphysis pubis without oral contrast, and without intravenous contrast. Sagittal and coronal images were reconstructed. Individualized dose optimization techniques were used for this CT. COMPARISON: Comparison is made with prior examination dated 05/24/2017. FINDINGS: Stable minimal scarring/atelectasis of the lung bases. The visualized portions of the heart are within normal limits. Normal liver. There are surgical clips in the gallbladder fossa consistent with a prior cholecystectomy. Normal spleen. Normal pancreas. Normal bilateral adrenal glands. Normal right kidney. Normal left kidney. There is a small hiatal hernia. Normal small intestine. There are scattered colonic diverticula consistent with diverticulosis. The appendix is visualized and appears normal. There is diffuse atherosclerotic calcification of the abdominal aorta and its major visceral branches, without a demonstrated aneurysm. Normal inferior vena cava. Normal retroperitoneum. Normal urinary bladder. There is absence of the uterus consistent with a prior hysterectomy. Normal abdominal wall. There are mild degenerative changes of the visualized lumbar spine. CT/Abdomen/Pel W ORAL Cont Only IMPRESSION: No acute sigmoid diverticulitis is seen. Small hiatal hernia. Electronically Signed: Clint Patirck MD at 14:53 EDT ,
== END 2021-09-29 23:59 | disposition home or self-care (01) ==
PROVIDERS: PCP Internal Medicine; Referring Provider Internal Medicine; Visit Provider Internal Medicine
DX: K57.92 Diverticulitis of intestine, part unspecified, without perforation or abscess without bleeding (principal); E03.9 Hypothyroidism, unspecified
CPT/HCPCS: 36415; 74176; 80053; 85025; 85652; 86140

== ENCOUNTER 2021-10-18 20:49 | Emergency (ER) | payer MEDICARE, OTHER, SELFPAY ==
[2021-10-18 20:51] VITALS: BP 227/110; PULSE 72; RESP 14; TEMP 36.8; O2SAT 98; BMI 22.2
[2021-10-18 21:11] VITALS: BP 163/120; PULSE 75; RESP 15; O2SAT 99
--- NOTE | 2021-10-18 21:18 | EDS_ITS ---
HPI History of Present Illness Chief Complaint: Hypertension Informant: patient Onset/Context/Timing Onset: Weeks (1) Context: Gradual Onset Timing: Intermittent Quality: elevated BP, see below Current Severity: Severe Maximum Severity: Severe Worsened by: unk Relieved by: nothing Associated Symptoms Associated Symptoms: nervous and feeling hyper Narrative Narrative: Patient states she periodically checks her blood pressure as she did last week and it was in the 160s which is not uncommon for her. She had a couple readings in the 140s and today it was 191 which is what made her concerned enough to come to the emergency department. She actually saw her PCP today, she usually is on losartan 25 mg daily, they increased her losartan to 50 mg twice daily and ordered fasting blood work to be obtained tomorrow morning. States she has been feeling hyper off and on lately which she attributes to her blood pressure being up, she denies any illness, injury, or any focal symptoms. No chest pain, shortness of breath, lightheadedness, palpitations, heat intolerance, diarrhea, or abnormal urine output. She has been compliant with her medication and has not missed any doses. [facility] Medical History Asthma Bruit of right carotid artery CKD (chronic kidney disease) Essential hypertension GERD (gastroesophageal reflux disease) Glaucoma History of skin cancer HLD (hyperlipidemia) Hyperhomocystinemia Hypothyroidism Pancreatitis Premature atrial contraction Premature ventricular contraction Prothrombin gene mutation Pruritus of skin Right carotid bruit Home Medications timolol maleate 1 drp EACH EYE QHS 09/27/15 [History Last Taken 05/12/19] multivitamin 1 tab PO DAILY 06/22/20 [History Last Taken Unknown] levothyroxine 100 mcg tablet 100 mcg PO DAILY #90 tab 06/03/21 [Rx Last Taken Unknown] famotidine 20 mg tablet 20 mg PO DAILY #90 tab 09/07/21 [Rx Last Taken Unknown] losartan 50 mg tablet 50 mg PO BID #60 tab 10/18/21 [Rx Last Taken Unknown] vit C 250 mg-vit E 90 mg-zinc 40 mg-copper 1 gl-ddiaym-jniauk capsule 1 tab PO BID 10/18/21 [History Last Taken Unknown] Allergy/AdvReac Type Severity Reaction Status Date / Time ceramide combination no.1 Allergy Intermediate rash Verified 10/18/21 20:50 (1,3,6-II) [From CeraVe] diltiazem HCl [From Cardizem] Allergy Itching Verified 10/18/21 20:50 miconazole nitrate Allergy Laryngospas Verified 10/18/21 20:50 [From Neosporin AF] ms morphine Allergy Other Verified 10/18/21 20:50 nitrofurantoin Allergy Rash Verified 10/18/21 20:50 [From Macrobid] nitrofurantoin Allergy Rash Verified 10/18/21 20:50 macrocrystalline [From Macrobid] bacitracin AdvReac Other Verified 10/18/21 20:50 codeine AdvReac Chest Verified 10/18/21 20:50 tightness lisinopril AdvReac Other Verified 10/18/21 20:50 loratadine [From Claritin] AdvReac Other Verified 10/18/21 20:50 Family History Mother Heart disease Father Heart disease Brother Heart disease Hypertension Cancer Surgical History History of bilateral cataract extraction History of cholecystectomy History of colectomy History of total hysterectomy S/P laparoscopic cholecystectomy Social History Smoking Status: Never smoker alcohol intake: never substance use type: does not use caffeine: No what type of physical activity do you participate in: yoga frequency: 3-4 times per week ROS ROS ED Constitutional Constitutional ED: Denies chills or fever(s) Eyes Eyes: Denies change in vision or diplopia ENT ENT ED: Denies rhinorrhea or sore throat Cardiovascular Cardiovascular: Denies chest pain or palpitations Respiratory/Chest Respiratory/Chest: Denies cough or dyspnea Gastrointestinal Gastrointestinal: Denies abdominal pain, diarrhea, nausea or vomiting Genitourinary Genitourinary ED: Denies dysuria or hematuria Musculoskeletal Musculoskeletal: Denies back pain or neck pain Integumentary Denies abscess or rash Neurologic Neurologic: Denies headache(s), paresthesias or weakness Psychiatric Psychiatric: Reports anxiety; Denies suicidal thoughts EXAM Physical Exam Const Vital Signs: 10/18/21 20:51 10/18/21 21:11 10/18/21 21:54 Temperature 98.2 F Temperature Source Temporal Pulse Rate 72 75 65 Respiratory Rate 14 15 19 H Respiratory Effort Normal Respiratory Pattern Normal Blood Pressure 227/110 H 163/120 H 189/87 H Blood Pressure Mean 149 134 121 Pulse Ox 98 99 99 Oxygen Delivery Method Room Air Room Air Positive well nourished and well developed General Appearance ED: well developed and NAD HEENT Reports moist mucous membranes normocephalic and atraumatic Eyes PERRL and EOMs intact bilaterally Neck full ROM and supple Resp normal respiratory effort and clear to auscultation bilaterally Cardio regular rate, regular rhythm and no murmurs Rate: Negative for tachycardic GI non-tender and non-distended Auscultation: normoactive bowel sounds Palpation: soft Back/Spine no CVA tenderness General Back: other FROM Extremity normal to inspection General Extremety ED: Negative for edema, pulses abnormal or tenderness General Extremity: Negative for edema or pulses abnormal Neuro oriented x3, CN's II-XII intact bilaterally and no sensory deficits noted Sensorium / Orientation: awake and alert Motor Exam: strength 5/5 throughout Psych mental status grossly normal, thought process normal, cooperative, affect normal and speech normal Skin no rashes or lesions noted and no wounds MDM MDM MDM Narrative Medical decision making narrative: BMP was obtained, creatinine similar to prior readings, she was given IV hydralazine 10 mg in addition to clonidine 0.1 mg orally. She was observed for a while and on reevaluation her pressure gradually came down to 143/69. She feels well and does not feel lightheaded or near syncopal. She is reassured, I think she can continue to follow-up and take the new dosing of her losartan, we discussed reasons to return she is comfortable with that plan. Lab Data Attestation: I reviewed the patient's lab results. Labs: Laboratory Results - last 24 hr 10/18/21 21:26 Sodium 137 Potassium 3.7 Chloride 105 Carbon Dioxide 27.0 Anion Gap 5 BUN 18 Creatinine 1.40 H Estim Creat Clear Calc 28.00 Est GFR (MDRD) Af Amer 46 L Est GFR (MDRD) Non-Af 38 L BUN/Creatinine Ratio 12.9 Glucose 123 H Calcium 9.6 Discharge Plan Triage Chief Complaint: Hypertension ED Provider: Flash Chew Dx/Rx/DC Orders Clinical Impression: Accelerated hypertension Instructions: Controlling High Blood Pressure, Blood Pressure Check Steps Prescriptions: Continued multivitamin Tablet 1 tab PO DAILY RF: 0 PreserVision AREDS-2 250-90-40-1 mg capsule 1 tab PO BID RF: 0 losartan 50 mg tablet 50 mg PO BID Qty: 60 RF: 6 timolol maleate 1 DROP drops 1 drp EACH EYE QHS RF: 0 levothyroxine 100 mcg tablet 100 mcg PO DAILY Qty: 90 RF: 1 famotidine 20 mg tablet 20 mg PO DAILY Qty: 90 RF: 3 Primary Care Provider: Cat Artis Referrals: Cat Artis MD [Primary Care Provider] - 3-5 Days if not improving Disposition Disposition: Home, Self Care
[2021-10-18] MEDS: cloNIDine HCl 0.1 MG Tablet PO (21:53)
[2021-10-18] MEDS: hydrALAZINE 20 MG/ML Vial 10 MG IV (21:53)
[2021-10-18 21:54] VITALS: BP 189/87; PULSE 65; RESP 19; O2SAT 99
[2021-10-18 21:55] LABS: Anion Gap 5 (5-15); BUN 18 mg/dL (7-18); BUN/Creat Ratio 12.9 RATIO (10-20); Calcium,Total 9.6 mg/dL (8.5-10.1); Chloride 105 mmol/L (98-107); EST Glomerular Filtration Rate 38 mL/min (>60); Est Glom Filt Rate - Afr Amer 46 mL/min (>60); Glucose 123 mg/dL (74-106); Potassium 3.7 mmol/L (3.5-5.1); Sodium Level 137 mmol/L (136-145)
[2021-10-18 23:40] VITALS: BP 146/68; PULSE 74; RESP 16
== END 2021-10-18 23:45 | disposition home or self-care (01) ==
PROVIDERS: Emergency Provider Emergency Medicine; PCP Internal Medicine; Visit Provider Emergency Medicine
DX: I12.9 Hypertensive chronic kidney disease with stage 1 through stage 4 chronic kidney disease, or unspecified chronic kidney disease (principal); E78.5 Hyperlipidemia, unspecified; N18.9 Chronic kidney disease, unspecified; E03.9 Hypothyroidism, unspecified; K21.9 Gastro-esophageal reflux disease without esophagitis
CPT/HCPCS: 80048; 99283; A4216

== ENCOUNTER 2021-10-19 10:09 | Outpatient (CLI) | payer MEDICARE, OTHER, SELFPAY ==
[2021-10-19 11:11] LABS: AST(SGOT) 19 U/L (15-37); Alanine Aminotransfer ALT/SGPT 24 U/L (13-56); Albumin, Serum 4.1 g/dL (3.2-5.0); Alkaline Phosphatase 77 U/L (45-117); Anion Gap 5 (5-15); BUN 15 mg/dL (7-18); BUN/Creat Ratio 11.3 RATIO (10-20); Bilirubin, Direct 0.17 mg/dL (0.00-0.30); Calcium,Total 9.9 mg/dL (8.5-10.1); Chloride 107 mmol/L (98-107); Cholesterol 220 mg/dL (200); Creatinine, Serum 1.33 mg/dL (0.55-1.02); EST Glomerular Filtration Rate 40 mL/min (>60); Est Glom Filt Rate - Afr Amer 49 mL/min (>60); Free T3 2.7 pg/mL (2.18-3.98); Globulin 3.4 g/dL (2.2-4.2); Glucose 101 mg/dL (74-106); High Density Lipoprotein 51 mg/dL; Protein, Total 7.5 g/dL (6.4-8.2); Sodium Level 141 mmol/L (136-145); T4 Free Direct 1.42 ng/dL (0.76-1.46); Thyroid Stim Hormone (TSH) 0.76 uIU/mL (0.358-3.74); Triglycerides 111 mg/dL; Very Low Density Lipoprotein 22 mg/dL (5-40)
== END 2021-10-19 23:59 | disposition home or self-care (01) ==
PROVIDERS: PCP Internal Medicine; Referring Provider Nurse Practitioner Gerontology; Visit Provider Nurse Practitioner Gerontology
DX: I10 Essential (primary) hypertension (principal); R00.2 Palpitations; E78.5 Hyperlipidemia, unspecified
CPT/HCPCS: 36415; 80048; 80061; 80076; 84439; 84443; 84481

== ENCOUNTER → 2021-11-03 | Outpatient (CLI) | payer MEDICARE, OTHER, SELFPAY ==
--- NOTE | 2021-11-03 08:57 | RDU_ITS ---
Reason For Study: Elevated BP Right Renal Artery Left Renal Artery Right renal artery ostium Left renal artery ostium 106.4/15.8 209.9/35.2 RSV/EDV. PSV/EDV. Right renal artery proximal Left renal artery proximal PSV/EDV 239/70.2 PSV/EDV. 1711.1/32 . Right renal artery mid 270.4/50.6 Left renal artery mid 145.2/25.6 PSV/EDV. PSV/EDV . Right renal artery distal Left renal artery distal 114.6/26.8 131.5/26.1 PSV/EDV. PSV/EDV. Right Renal Parenchyma Left Renal Parenchyma Upper Pole Medula 17.7/7.3 PSV/EDV. Left upper pole medulla 21.6/6.9 Right upper pole medulla EDR 0.41 . PSV/EDV . Right upper pole medulla R.I. Left upper pole medulla EDR 0.32 . 0.59 . Left upper pole medulla R.I. 0.68 . Upper Tommy Cortx 12/4.9 PSV/EDV. UP Cortex 13.8/4.5 PSV/EDV. Right upper pole cortex EDR 0.41 . Left upper pole cortex EDR 0.33 . Right upper pole cortex R.I. 0.59 . Left upper pole cortex R.I. 0.67 . Right lower Pole medulla 19.2/6.5 Left lower Pole medulla 18.2/5.6 PSV/EDV . PSV/EDV . Right lower pole medulla EDR 0.34 . Left lower pole medulla EDR 0.31 . Right lower pole medulla R.I. Left lower pole medulla R.I. 0.69 . 0.66 . Lower Pole Cortx 12.7/5.1 PSV/EDV. Lower Pole Cortex 15.9/5.4 PSV/EDV. Left lower pole cortex EDR 0.40 . Right lower pole cortex EDR 0.34 . Left lower pole cortex R.I. 0.60 . Right lower pole cortex R.I. 0.66 . Left Renal Hilar Right Renal Hilar LT Hilar avg 55.2/14.5 PSV/EDV . Right Hilar avg 39.5/14.2 PSV/EDV. Left hilar acceleration time 50 Right hilar acceleration time 50 m/sec. m/sec. Left Renal Dimensions Right Renal Dimensions Left kidney size 9.6 cm . Right kidney size 8.39 cm . Left cortical dimension 1.09 cm . Right cortical dimension 1.01 cm . Aorta Proximal abdominal aorta 1.72 x 1.74 cm . Proximal abdominal aorta peak systolic velocity is 62.5 cm/sec . Distal abdominal aorta 1.10 x 1.08 cm . Distal abdominal aorta peak systolic velocity is 113.1 cm/sec . VL/Renal Artery Duplex Ultrasound Interpretation Summary Maximal aortic diameter proximally at 1.72 x 1.74 cm in diameter with normal fl ow rate of 62.5 cm/s Findings suggest greater than 60% stenosis of the right mid renal artery Right renal length diminished at 8.39 cm Less than 60% stenosis left renal artery Left renal length maintained at 9.6 cm Findings seem similar to the previous examination of April 06, 2020 Ordering Physician: Cat Artis Referring Physician: Cat Artis Performed By: Regine Funez RVT
== END | disposition home or self-care (01) ==
LOC: CVS 08:55
PROVIDERS: PCP Internal Medicine; Referring Provider Internal Medicine; Visit Provider Internal Medicine
DX: I12.9 Hypertensive chronic kidney disease with stage 1 through stage 4 chronic kidney disease, or unspecified chronic kidney disease (principal); N18.4 Chronic kidney disease, stage 4 (severe)
CPT/HCPCS: 93975

== ENCOUNTER → 2021-12-22 | Outpatient (CLI) | payer MEDICARE, OTHER, SELFPAY ==
[2021-12-22 16:09] LABS: Bacteria 0 SEEN /hpf (None Seen); Mucous, Urine 0 SEEN /hpf (<or=2+); Red Blood Cells-Urine 0 SEEN /hpf (0-5); Squamous Epithelial Cells - UA 0 SEEN /hpf (5-10)
[2021-12-22 16:56] LABS: Absolute Lymphocyte Count 1.79 X10^3/uL (0.83-4.51); Absolute Neutrophil Count 8.7 X10^3/uL (2.0-7.7); Basophil# 0.05 X10^3/uL; Basophil% 0.4 % (0-1); Eosinophil# 0.26 X10^3/uL; Eosinophils% 2.2 % (0-5); Hemoglobin 12.1 g/dL (12.0-15.0); Lymphocyte # 1.79 X10^3/ul (0.83-4.51); Lymphocyte % 15.1 % (19-41); Mean Corp Hgb Conc 32.7 g/dL (32-36); Mean Corpuscular Hgb 31.4 pg (27.0-32.0); Mean Corpuscular Volume 96.1 fL (81-99); Mean Platelet Vol. 10.2 fl (6.2-12.0); Monocyte# 1.05 X10^3/uL; Monocyte% 8.9 % (0-10); NRBC Flagged by Analyzer 0 % (0-5); Neutrophil # 8.68 X10^3/uL (2.7-7.7); Neutrophil % 73.1 % (47-70); Platelet Count 224 K/mm3 (150-450); RBC Distribution Width CV 12.9 % (11.6-14.6); RBC Distribution Width SD 44.2 fl (35.1-43.9); Red Blood Count 3.85 M/mm3 (4.2-5.4); White Blood Count 11.9 K/mm3 (4.4-11.0)
[2021-12-22 17:09] LABS: Color, Urine Yellow (Yellow); Glucose, Dipstick Normal (Normal); Ketone-Dipstick Negative (Negative); Leukocyte Esterase-Dipstick 500 /ul (Negative); Nitrite-Dipstick Negative (Negative); Occult Blood-Urine 10 /ul (Negative); Protein-Dipstick Negative (Negative); Urine Bilirubin Dipstick Negative (Negative); Urine Clarity Clear (Clear); Urine Urobilinogen Normal (Normal); Urine pH 6.5 (5.0 - 8.0)
[2021-12-22 17:17] LABS: White Blood Cells 0-5 SEEN /hpf (0-5)
[2021-12-22 17:30] LABS: ALB/GLOB Ratio 1.1 RATIO (0.9-2.4); AST(SGOT) 20 U/L (15-37); Alanine Aminotransfer ALT/SGPT 20 U/L (13-56); Albumin, Serum 3.8 g/dL (3.2-5.0); Alkaline Phosphatase 75 U/L (45-117); Anion Gap 6 (5-15); BUN 23 mg/dL (7-18); BUN/Creat Ratio 16.1 RATIO (10-20); Calcium,Total 9.1 mg/dL (8.5-10.1); Chloride 101 mmol/L (98-107); Creatinine, Serum 1.43 mg/dL (0.55-1.02); EST Glomerular Filtration Rate 37 mL/min (>60); Est Glom Filt Rate - Afr Amer 45 mL/min (>60); Globulin 3.4 g/dL (2.2-4.2); Glucose 147 mg/dL (74-106); Potassium 3.8 mmol/L (3.5-5.1); Protein, Total 7.2 g/dL (6.4-8.2); Sodium Level 133 mmol/L (136-145)
== END | disposition home or self-care (01) ==
PROVIDERS: PCP Internal Medicine; Referring Provider Physician Assistant; Visit Provider Physician Assistant
DX: R35.0 Frequency of micturition (principal); R10.9 Unspecified abdominal pain
CPT/HCPCS: 36415; 80053; 81001; 85025; 87086

== ENCOUNTER → 2021-12-26 | Outpatient (CLI) | payer MEDICARE, OTHER, SELFPAY ==
[2021-12-26 15:05] LABS: Mucous, Urine 0 SEEN /hpf (<or=2+); Red Blood Cells-Urine 0 SEEN /hpf (0-5); Squamous Epithelial Cells - UA 0 SEEN /hpf (5-10); White Blood Cells 0 SEEN /hpf (0-5)
[2021-12-26 15:28] LABS: Color, Urine Straw (Yellow); Glucose, Dipstick Normal (Normal); Ketone-Dipstick Negative (Negative); Leukocyte Esterase-Dipstick Negative /ul (Negative); Nitrite-Dipstick Negative (Negative); Occult Blood-Urine Negative /ul (Negative); Protein-Dipstick Negative (Negative); Urine Bilirubin Dipstick Negative (Negative); Urine Clarity Clear (Clear); Urine Urobilinogen Normal (Normal); Urine pH 6.5 (5.0 - 8.0)
[2021-12-26 15:37] LABS: Bacteria RARE /hpf (None Seen)
== END | disposition home or self-care (01) ==
LOC: LABSPEC 15:04
PROVIDERS: PCP Internal Medicine; Referring Provider Internal Medicine; Visit Provider Internal Medicine
DX: R35.0 Frequency of micturition (principal)
CPT/HCPCS: 81001

== ENCOUNTER → 2022-03-17 | Outpatient (CLI) | payer MEDICARE, OTHER, SELFPAY ==
[2022-03-17 12:19] LABS: Erythrocyte Sedimentation Rate 15 mm/hr (0-30)
[2022-03-17 12:22] LABS: Absolute Lymphocyte Count 1.29 X10^3/uL (0.83-4.51); Absolute Neutrophil Count 6.2 X10^3/uL (2.0-7.7); Basophil# 0.04 X10^3/uL; Basophil% 0.5 % (0-1); Eosinophil# 0.23 X10^3/uL; Eosinophils% 2.7 % (0-5); Hematocrit 39.8 % (37-47); Hemoglobin 13.2 g/dL (12.0-15.0); Lymphocyte # 1.29 X10^3/ul (0.83-4.51); Lymphocyte % 15.2 % (19-41); Mean Corp Hgb Conc 33.2 g/dL (32-36); Mean Corpuscular Hgb 32.1 pg (27.0-32.0); Mean Corpuscular Volume 96.8 fL (81-99); Monocyte# 0.78 X10^3/uL; Monocyte% 9.2 % (0-10); NRBC Flagged by Analyzer 0 % (0-5); Neutrophil # 6.15 X10^3/uL (2.7-7.7); Neutrophil % 72.2 % (47-70); Platelet Count 248 K/mm3 (150-450); RBC Distribution Width CV 12.6 % (11.6-14.6); RBC Distribution Width SD 43.8 fl (35.1-43.9); Red Blood Count 4.11 M/mm3 (4.2-5.4); White Blood Count 8.5 K/mm3 (4.4-11.0)
[2022-03-17 13:08] LABS: ALB/GLOB Ratio 1.1 RATIO (0.9-2.4); AST(SGOT) 21 U/L (15-37); Alanine Aminotransfer ALT/SGPT 22 U/L (13-56); Alkaline Phosphatase 77 U/L (45-117); Anion Gap 10 (5-15); BUN 20 mg/dL (7-18); BUN/Creat Ratio 14.7 RATIO (10-20); CRP 4.92 mg/L (0.0-3.0); Calcium,Total 9.8 mg/dL (8.5-10.1); Chloride 102 mmol/L (98-107); Creatinine, Serum 1.36 mg/dL (0.55-1.02); EST Glomerular Filtration Rate 39 mL/min (>60); Est Glom Filt Rate - Afr Amer 48 mL/min (>60); Globulin 3.5 g/dL (2.2-4.2); Glucose 97 mg/dL (74-106); Potassium 4.1 mmol/L (3.5-5.1); Protein, Total 7.5 g/dL (6.4-8.2); Sodium Level 137 mmol/L (136-145)
== END | disposition home or self-care (01) ==
LOC: BIMLAB 10:47
PROVIDERS: PCP Internal Medicine; Referring Provider Physician Assistant; Visit Provider Physician Assistant
DX: K57.92 Diverticulitis of intestine, part unspecified, without perforation or abscess without bleeding (principal)
CPT/HCPCS: 36415; 80053; 85025; 85652; 86140

== ENCOUNTER 2022-04-28 06:25 | Day surgery (SDC) | payer MEDICARE, OTHER, SELFPAY ==
[2022-04-28] MEDS: Lactated Ringers 1,000 ML 15 ML IV (06:50)
--- NOTE | 2022-04-28 06:50 | HP.PCM_ITS ---
History and Physical Date of Admission: 04/28/22 Visit Reasons:?DIVERTICULITIS Chief Complaint: diverticulitis Oracle R12 Developer Required: No Is patient in pain?: No Allergies ceramide combination no.1 (1,3,6-II) [From CeraVe] Allergy (Intermediate, Verified 04/12/22 13:53) rashdiltiazem HCl [From Cardizem] Allergy (Verified 04/12/22 13:53) Itchingmiconazole nitrate [From Neosporin AF] Allergy (Verified 04/12/22 13:53) Laryngospasmsmorphine Allergy (Verified 04/12/22 13:53) Othernitrofurantoin [From Macrobid] Allergy (Verified 04/12/22 13:53) Rashnitrofurantoin macrocrystalline [From Macrobid] Allergy (Verified 04/12/22 13:53) Rashbacitracin Adverse Reaction (Verified 04/12/22 13:53) Othercodeine Adverse Reaction (Verified 04/12/22 13:53) Chest tightnesslisinopril Adverse Reaction (Verified 04/12/22 13:53) Otherloratadine [From Claritin] Adverse Reaction (Verified 04/12/22 13:53) Othermetoprolol Adverse Reaction (Verified 04/12/22 13:53) fatigue Medications timolol maleate 0.5 % eye drops 1 drp [facility] 09/27/15 [History Confirmed 04/12/22] multivitamin 1 tab PO DAILY 06/22/20 [History Confirmed 04/12/22] famotidine 20 mg tablet 20 mg PO DAILY #90 tabs 09/07/21 [Rx Confirmed 04/12/22] vit C 250 mg-vit E 90 mg-zinc 40 mg-copper 1 [id number] capsule (PreserVision AREDS-2) 1 tab PO BID 10/18/21 [History Confirmed 04/12/22] levothyroxine 100 mcg tablet 100 mcg PO DAILY #90 tabs 11/22/21 [Rx Confirmed 04/12/22] losartan 50 mg tablet 25 mg PO ONCE 12/22/21 [History Confirmed 04/12/22] [facility] Medical History? Asthma Bruit of right carotid artery CKD (chronic kidney disease) Essential hypertension GERD (gastroesophageal reflux disease) Glaucoma History of skin cancer HLD (hyperlipidemia) Hyperhomocystinemia Hypothyroidism Leg wound, left Nonhealing surgical wound Pancreatitis Premature atrial contraction Premature ventricular contraction Prothrombin gene mutation Pruritus of skin Right carotid bruit Squamous cell carcinoma of left lower leg Urinary tract infection Surgical History? History of bilateral cataract extraction History of cholecystectomy History of colectomy History of total hysterectomy S/P laparoscopic cholecystectomy Family History? Mother Heart diseaseFather Heart diseaseBrother Heart disease Hypertension Cancer Social History? Smoking Status:? Never smoker alcohol intake:? never substance use type:? does not use caffeine:? No what type of physical activity do you participate in:? yoga frequency:? 3-4 times per week HPI HPI HPI: 87-year-old female who is being referred by Dr. Cat Artis for surgical consultation regarding suspected recurrent sigmoid diverticulitis.? A written compromise surgical consult and recommendations will return to him.? There is concern that she has had 3 bouts of diverticulitis over the past year.? She is required 3 courses of antibiotics.? I had assisted the patient on June 05, 2013 with a laparoscopic sigmoid colectomy for recurrent diverticular disease.? The pathology at that time demonstrated a 17 cm length of bowel with diverticular disease.? No other pathology.? Multiple diverticula were iden tified.? Her most recent imaging that I can review is September 29, 2021 which was a abdominal pelvic CT scan without contrast.? This suggested surgical clips in the gallbladder fossa with absent gallbladder.? Scattered colonic diverticula consistent with diverticulosis.? Appendix appeared to be normal.? There was no evidence of that time of acute sigmoid diverticulitis.? Small hiatal hernia noted. I have additional notation from a previous CT scan done May 24, 2017.? That also was done at the [facility] for complaint of abdominal pain.? No acute pathology was identified at that time either On March 17, 2022 her white blood cell count was 8.5 with 72% neutrophils.? On December 22, 2021 her white blood cell count was 11.9 with 73% neutrophils. Urine culture from December 22, 2021 was negative.? Urine culture from September 16, 2021 had Proteus species greater than 100,000 and urine culture from April 02, 2021 had E. coli with greater than 100,000 The patient states that from 2012 perhaps as long as exchanged 2016 that she was well with no abdominal pain.? She states about 2017 she was seen in the ER and thinks it was close that times that she had an elevated lipase level and therefore underwent laparoscopic cholecystectomy by Dr. Puja Cramer.? The patient states that she has not had any pancreatitis at that time. The episodes of pain that she has is a low suprapubic pain.? She states that she becomes distended and has gas.? No fever but feels chilly.? She uses a hot water bottle that makes things better.? 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 As noted above she has had 2 documented urinary tract infections but she states that she was treated with appropriate antibiotic for those without resolution and only had resolution when she was placed on ciprofloxacin and metronidazole. She states that the only imaging study she would have had would be now at the [facility].? She does not believe that she had previous imaging per Dr. Ngoc Bowling at the [facility]. She has forwarded the ongoing diagnosis of diverticulitis based upon abdominal pain bloating and distention but we do not have imaging that has confirmed this.? She states that she continues to pass stool and sometimes has somewhat explosive gas and stool.? No blood or mucus. She did denies pneumaturia or any feculent urinary material ROS General General: No weight change, appetite, fatigue, colon cancer, breast cancer or weakness HEENT HEENT: No difficulty swallowing, eye injury, eye surgery, swollen glands or hoarseness Endo Endocrine: Yes thyroid disease; No diabetes mellitus, thyroid cancer, Hair loss, heat intolerance or cold intolerance Skin Skin: No rash or changing moles Breast Breast: No left breast lump, right breast lump, nipple discharge, breast pain, abnormal mammogram, abnormal US or breast enlargement Musc Musculoskeletal: No back problems, arthritis, rheumatoid arthritis, gout or joint pain Cardio Cardiovascular: Yes high blood pressure; No murmur, pacemaker, heart disease, atrial fibrillation, heart attack, heart stent, palpitations, shortness of breat with exertion or chest pain Psych Psychiatric: No depression, anxiety or hearing voices Resp Respiratory: No shortness of breath, No sleep apnea, No cough, No COPD, No asthma, No emphysema and No wheezing Gastro Gastrointestinal: No abdominal pain, No nausea or vomiting, No diarrhea, No constipation, No blood in stool, Yes acid reflux, No hemorrhoids, No ulcers, No gallbladder problem and No black,tarry stools Froy Hematologic: No blood thinners, No blood disorders, No bleeding, No anemia and No blood clots Neuro Neurologic: No system reviewed and no additional complaints, except as documented, No as per HPI, No abnormal gait, No abnormal hearing, No abnormal movements, No abnormal speech, No behavioral changes, No burning sensations, No confusion, No convulsions, No disequilibrium, No dizziness, No localized weakness, No frequent falls, No headache(s), No lack of coordination, No loss of vision, No memory loss, No numbness, No other visual disturbances, No radicular pain, No restless legs, No sensory deficit, No syncope, No tingling, No tremor(s), No weakness and No other Exam Const General: cooperative, healthy appearing, comfortable and no acute distress [facility] Head: normal to inspection Eyes General: appearance normal, both eyes and all related structures Neck Neck: normal visual inspection Chest Chest palpation & inspection: normal inspection of the chest Resp Effort & Inspection: normal respiratory effort Auscultation: clear to auscultation bilaterally Cardio Rate: regular rate Rhythm: regular rhythm GI Inspection: normal to inspection Palpation: no hepatosplenomegaly Auscultation: normal bowel sounds Other: Nontender, no mass, normal bowel sounds Musc Cervical Spine: normal cervical lordosis Skin General: no rashes or lesions noted Neuro General: patient alert, patient awake and patient oriented x3 Extrem General: no calf tenderness Psych Appearance: grossly normal Assessment and Plan Assessment and Plan (1) Abdominal pain: ?Status:?Acute ?Plan: 87-year-old female who has had repetitive bouts of abdominal pain.? She is convinced that this represents recurrent diverticulitis.? We have no imaging however that documents this.? As noted above the imaging that we have available included a CAT scan May 24, 2017 and a more recent CAT scan of September 29, 2021 neither which demonstrates acute sigmoid diverticulitis.? The patient has had documented urinary tract infections 1 with Proteus and 1 with E. coli.? She complains of a low retropubic pain.? She complains of abdominal distention and gas cramping with sometimes forceful flatus expulsion.? I have described to her that although this could represent recurrent diverticulitis that she could have other colitis or urinary tract infection with subsequent ileus or partial small bowel obstruction.? It is not immediately definitive to me that we have proven that she has recurrent sigmoid diverticulitis With that in mind I do recommend to her a colonoscopy with possible biopsy or polypectomy as indicated. I have also recommended to her that on the next occasion of pain that she immediately drop back to a clear liquid diet and that she notify this office as soon as possible so we can get a fully orally contrasted and rectally contrasted CT scan.? Appropriate laboratory including a complete metabolic profile, lipase amylase, CBC with differential, and urinalysis and culture if appropriate be obtained at that same setting.? The patient claims that she is previously always been placed on a course of antibiotics prior to proceeding with imaging. She has had an opportunity to ask and have questions answered.? I appreciate the opportunity of assisting with her surgical care. Copy: Dr. Cat Julian M.D., F.A.C.S. I have examined the patient and the H&P has been reviewed. There are no clinical changes since date of exam. David Julian M.D., F.A.C.S.
[2022-04-28 06:52] VITALS: BP 152/76; PULSE 79; RESP 17; TEMP 36.9; O2SAT 98; BMI 20.7
[2022-04-28 07:50] VITALS: BP 115/92; BP 152/76; PULSE 66; RESP 14; TEMP 36.7; O2SAT 99
--- NOTE | 2022-04-28 07:52 | OP.COLON_ITS ---
Patient Name: Gail Ramos Procedure Date: 04/28/2022 7:25 AM Date of : 1935 Age: 87 Procedure: Colonoscopy Indications: Abdominal pain in the left lower quadrant Providers: David Julian MD Medicines: See the Anesthesia note for documentation of the administered medications Patient Profile: Last Colonoscopy: 2012. Complications: No immediate complications. Procedure: Pre-Anesthesia Assessment: - Prior to the procedure, a History and Physical was performed, and patient medications and allergies were reviewed. The patient's tolerance of previous anesthesia was also reviewed. The risks and benefits of the procedure and the sedation options and risks were discussed with the patient. All questions were answered, and informed consent was obtained. Prior Anticoagulants: The patient has taken no previous anticoagulant or antiplatelet agents. ASA Grade Assessment: II - A patient with mild systemic disease. After reviewing the risks and benefits, the patient was deemed in satisfactory condition to undergo the procedure. After I obtained informed consent, the scope was passed under direct vision. Throughout the procedure, the patient's blood pressure, pulse, and oxygen saturations were monitored continuously. The colonoscope was introduced through the anus and advanced to the cecum, identified by appendiceal orifice and ileocecal valve. The colonoscopy was performed without difficulty. The patient tolerated the procedure well. The quality of the bowel preparation was good. The ileocecal valve was photographed. Scope In: 7:33:54 AM Scope Withdrawal Time 0 hours 5 minutes 31 seconds Scope Out: 7:45:07 AM Total Procedure Duration Time 0 hours 11 minutes 13 seconds Findings: Hemorrhoids were found on perianal exam. Scattered diverticula were found in the sigmoid colon. There was evidence of a prior end-to-end colo-rectal anastomosis in the recto-sigmoid colon. This was patent and was characterized by healthy appearing mucosa. The exam was otherwise without abnormality. Impression: - Hemorrhoids found on perianal exam. - Diverticulosis in the sigmoid colon. Remaining sigmoid/descending colon very supple with no signs of inflammation - Patent end-to-end colo-rectal anastomosis, characterized by healthy appearing mucosa. Approximately 10cm. - The examination was otherwise normal. - No specimens collected. Recommendation: - Discharge patient to home. - Resume previous diet. - Continue present medications. - Repeat colonoscopy is not recommended due to current age (66 years or older) for screening purposes. No findings to suggest stricture or acute inflammation or induration or fistula Recommend CT imaging at next time of patient abdominal pain complaint Procedure Code(s): --- Professional --- 33733, Colonoscopy, flexible; diagnostic, including collection of specimen(s) by brushing or washing, when performed (separate procedure) Diagnosis Code(s): --- Professional --- K64.9, Unspecified hemorrhoids Z98.0, Intestinal bypass and anastomosis status R10.32, Left lower quadrant pain K57.30, Diverticulosis of large intestine without perforation or abscess without bleeding CPT copyright 2017 [employer]. All rights reserved. The codes documented in this report are preliminary and upon regional maintenance manager review may be revised to meet current compliance requirements. David Julian MD 04/28/2022 7:52:14 AM This report has been signed electronically. Number of Addenda: 0 Note Initiated On: 04/28/2022 7:25 AM
--- NOTE | 2022-04-28 07:53 | OP.CCLET_ITS ---
04/28/2022 Cat Artis [facility] [address] [place] [address] Re : Colonoscopy procedure for Gail Ramos Dear Dr. Artis This procedure was performed on Thursday, April 28, 2022. My impressions and recommendations are as follows: Impressions : - Hemorrhoids found on perianal exam. - Diverticulosis in the sigmoid colon. Remaining sigmoid/descending colon very supple with no signs of inflammation - Patent end-to-end colo-rectal anastomosis, characterized by healthy appearing mucosa. Approximately 10cm. - The examination was otherwise normal. - No specimens collected. Recommendations : - Discharge patient to home. - Resume previous diet. - Continue present medications. - Repeat colonoscopy is not recommended due to current age (66 years or older) for screening purposes. No findings to suggest stricture or acute inflammation or induration or fistula Recommend CT imaging at next time of patient abdominal pain complaint My findings are described in the full procedure note, which is enclosed. If I can be of further assistance, please feel free to contact me at Doctor phone number(s): Work: . Sincerely, David Julian MD 04/28/2022 7:52:14 AM This report has been signed electronically.
[2022-04-28 07:55] VITALS: BP 107/55; BP 152/76; PULSE 68; RESP 14; O2SAT 96
[2022-04-28 08:00] VITALS: BP 117/70; BP 152/76; PULSE 70; RESP 14; O2SAT 99
[2022-04-28 08:04] VITALS: BP 148/69; BP 152/76; PULSE 66; RESP 14; TEMP 36.3; O2SAT 100
[2022-04-28 08:22] VITALS: BP 152/76
== END 2022-04-28 08:31 | disposition home or self-care (01) ==
LOC: EN 06:26 → AC 06:27
PROVIDERS: PCP Internal Medicine; Referring Provider Internal Medicine; Visit Provider Surgery
PROC: 0DJD8ZZ Inspection of Lower Intestinal Tract, Via Natural or Artificial Opening Endoscopic (ICD-10-PCS; CPT 45378; principal; 2022-04-28 07:25)
DX: R10.32 Left lower quadrant pain (principal); Z90.49 Acquired absence of other specified parts of digestive tract; K44.9 Diaphragmatic hernia without obstruction or gangrene; K64.9 Unspecified hemorrhoids; K57.30 Diverticulosis of large intestine without perforation or abscess without bleeding; E03.9 Hypothyroidism, unspecified; E78.5 Hyperlipidemia, unspecified; I12.9 Hypertensive chronic kidney disease with stage 1 through stage 4 chronic kidney disease, or unspecified chronic kidney disease; N18.9 Chronic kidney disease, unspecified; K21.9 Gastro-esophageal reflux disease without esophagitis
CPT/HCPCS: 45378; J7120

== ENCOUNTER → 2022-08-21 | Outpatient (CLI) | payer MEDICARE, OTHER, SELFPAY ==
[2022-08-21 12:44] LABS: Anion Gap 6 (5-15); BUN 32 mg/dL (7-18); BUN/Creat Ratio 18.5 RATIO (10-20); Calcium,Total 10.4 mg/dL (8.5-10.1); Chloride 92 mmol/L (98-107); Creatinine, Serum 1.73 mg/dL (0.55-1.02); EST Glomerular Filtration Rate 30 mL/min (>60); Est Glom Filt Rate - Afr Amer 36 mL/min (>60); Glucose 101 mg/dL (74-106); Magnesium 2.2 mg/dL (1.6-2.6); Potassium 4.2 mmol/L (3.5-5.1); Sodium Level 130 mmol/L (136-145)
== END | disposition home or self-care (01) ==
LOC: BIMLAB 09:13
PROVIDERS: PCP Internal Medicine; Referring Provider Internal Medicine; Visit Provider Internal Medicine
DX: N18.4 Chronic kidney disease, stage 4 (severe) (principal)
CPT/HCPCS: 36415; 80048; 83735

== ENCOUNTER 2022-08-28 10:50 | Emergency (ER) | payer MEDICARE, OTHER, SELFPAY ==
[2022-08-28 10:51] VITALS: BP 190/92; PULSE 72; RESP 18; TEMP 35.7; O2SAT 100; BMI 22.1
--- NOTE | 2022-08-28 11:20 | EKG12_ITS ---
Test Reason : Blood Pressure : / mmHG Vent. Rate : 068 BPM Atrial Rate : 068 BPM P-R Int : 192 ms QRS Dur : 088 ms QT Int : 396 ms P-R-T Axes : 083 -49 090 degrees QTc Int : 421 ms Normal sinus rhythm Left axis deviation Septal infarct , age undetermined Abnormal ECG Confirmed by TASHA DURHAM, SILVIA ([id number]), pictures editor SELWYN GARCIA ([id number]) on 08/29/2022 9:55:11 AM Referred By: DIMITRI Confirmed By:SILVIA CORDOVA MD
--- NOTE | 2022-08-28 11:21 | RAD_ITS ---
STUDY: X-RAY CHEST REASON FOR EXAM: Female, 87 years old. Chest pain TECHNIQUE: Single AP portable view of the chest. COMPARISON: Comparison is made with prior study dated 08/22/2013. FINDINGS: EKG electrodes are seen. Hyperinflation. The lungs are clear. There is no demonstrated pleural abnormality. Normal size heart. Normal mediastinum and kiel. Normal visualized pulmonary arteries. There is atherosclerotic calcification of the aortic arch with tortuosity. Normal visualized thoracic spine. Normal visualized ribs, clavicles, and shoulders. There is no demonstrated abnormality of the visualized soft tissue structures of the upper abdomen. RAD/Chest 1 View (Portable) IMPRESSION: Hyperinflation. The lungs are clear. Electronically Signed: Clint Patrick MD at 11:32 EST ,
[2022-08-28 11:33] LABS: Absolute Neutrophil Count 6.7 X10^3/uL (2.0-7.7); Basophil# 0.05 X10^3/uL; Basophil% 0.5 % (0-1); Eosinophil# 0.25 X10^3/uL; Eosinophils% 2.7 % (0-5); Hematocrit 36.4 % (37-47); Hemoglobin 12.4 g/dL (12.0-15.0); Lymphocyte % 16.1 % (19-41); Mean Corp Hgb Conc 34.1 g/dL (32-36); Mean Corpuscular Hgb 31.6 pg (27.0-32.0); Mean Corpuscular Volume 92.9 fL (81-99); Mean Platelet Vol. 9.6 fl (6.2-12.0); Monocyte# 0.82 X10^3/uL; Monocyte% 8.8 % (0-10); NRBC Flagged by Analyzer 0 % (0-5); Neutrophil # 6.68 X10^3/uL (2.7-7.7); Neutrophil % 71.7 % (47-70); Platelet Count 226 K/mm3 (150-450); RBC Distribution Width CV 12.4 % (11.6-14.6); RBC Distribution Width SD 41.6 fl (35.1-43.9); Red Blood Count 3.92 M/mm3 (4.2-5.4); White Blood Count 9.3 K/mm3 (4.4-11.0)
[2022-08-28 11:55] LABS: Anion Gap 7 (5-15); BUN 23 mg/dL (7-18); BUN/Creat Ratio 17.7 RATIO (10-20); Calcium,Total 10.5 mg/dL (8.5-10.1); Chloride 95 mmol/L (98-107); EST Glomerular Filtration Rate 41 mL/min (>60); Est Glom Filt Rate - Afr Amer 50 mL/min (>60); Estimated Creatinine Clearance 28.47 ml/min; Glucose 124 mg/dL (74-106); Potassium 3.6 mmol/L (3.5-5.1); Sodium Level 132 mmol/L (136-145); Troponin-I HS 9 pg/mL (3.0-54.0)
--- NOTE | 2022-08-28 11:57 | EDS_ITS ---
HPI History of Present Illness Chief Complaint: Chest Pain Detail of Chief Complaint: Epigastric abdominal pain and mid back pain. Informant: patient Onset/Context/Timing Onset: Today Activity at onset: sudden Quality: Positive for Aching Current Severity: Mild Maximum Severity: Mild Worsened By: Movement of Torso Relieved By: Nothing Associated Symptoms: Negative for Nausea, Vomiting, Diaphoresis, Dyspnea, Cough, Fever, Lightheadedness, Acid Reflux or Palpitations Narrative Narrative: 87-year-old female history of chronic kidney disease, hypertension, pancreatitis and prior cholecystectomy. Said around 3:00 this morning she was awoken from sleep with epigastric abdominal pain eventually radiated into her back. She thought it might be reflux or something associated with her hiatal hernia history. She took 2 Tums walked around she said the abdominal pain got better she still has the back pain which she states is reproducible. She denies any weakness to her arms or legs. No chest pain or shortness of breath. No dysuria. No change in her bowel movements. No nausea, vomiting, diarrhea fever or chills. Prior Similar Symptoms: No Recent Illness/Hospitalization: No CVD Risk Factors: Positive for Hypertension PE Risk Factors: Negative for Recent Travel/Surgery, Recent Immobilization, Prior DVT or PE, Cancer or OCP + Smoking + >/=35 TAD Risk Factors: Negative for Marfan's Syndrome [facility] Medical History Asthma Bruit of right carotid artery Cancer Cardiology follow-up encounter CKD (chronic kidney disease) Essential hypertension Gastric reflux GERD (gastroesophageal reflux disease) Glaucoma History of diverticulitis History of echocardiogram History of hiatal hernia History of Holter monitoring History of skin cancer History of stress test HLD (hyperlipidemia) Hyperhomocystinemia Hypothyroidism Leg wound, left Nonhealing surgical wound Pancreatitis Post-menopausal Premature atrial contraction Premature ventricular contraction Prothrombin gene mutation Pruritus of skin Pulmonary embolism Right carotid bruit Squamous cell carcinoma of left lower leg Thyroid disease Urinary tract infection Wears contact lenses Wears glasses Home Medications timolol maleate 0.5 % eye drops 1 drp EACH EYE [facility] eye health 09/27/15 [History Last Taken 05/12/19] multivitamin 1 tab PO DAILY 06/22/20 [History Last Taken Unknown] vit C 250 mg-vit E 90 mg-zinc 40 mg-copper 1 [id number] capsule (PreserVision AREDS-2) 1 tab PO BID 10/18/21 [History Last Taken Unknown] famotidine 20 mg tablet 20 mg PO DAILY #90 tabs 07/31/22 [Rx Last Taken Unknown] losartan 50 mg tablet 25 mg PO ONCE #45 tabs 07/31/22 [Rx Last Taken Unknown] levothyroxine 100 mcg tablet 100 mcg PO DAILY #90 tabs 08/02/22 [Rx Last Taken Unknown] hydrochlorothiazide 12.5 mg tablet 12.5 mg PO DAILY #30 tabs 08/21/22 [Rx Last Taken Unknown] Allergy/AdvReac Type Severity Reaction Status Date / Time ceramide combination no.1 Allergy Intermediate rash Verified 08/28/22 10:51 (1,3,6-II) [From CeraVe] diltiazem HCl [From Cardizem] Allergy Itching Verified 08/28/22 10:51 miconazole nitrate Allergy Laryngospas Verified 08/28/22 10:51 [From Neosporin AF] ms morphine Allergy Other Verified 08/28/22 10:51 nitrofurantoin Allergy Rash Verified 08/28/22 10:51 [From Macrobid] nitrofurantoin Allergy Rash Verified 08/28/22 10:51 macrocrystalline [From Macrobid] bacitracin AdvReac Other Verified 08/28/22 10:51 codeine AdvReac Chest Verified 08/28/22 10:51 tightness lisinopril AdvReac Other Verified 08/28/22 10:51 loratadine [From Claritin] AdvReac Other Verified 08/28/22 10:51 metoprolol AdvReac fatigue Verified 08/28/22 10:51 Family History Mother Heart disease Father Heart disease Brother Heart disease Hypertension Cancer Surgical History History of bilateral cataract extraction History of cholecystectomy History of colectomy History of total hysterectomy Social History Smoking Status: Never smoker alcohol intake: never substance use type: does not use caffeine: No what type of physical activity do you participate in: yoga frequency: 3-4 times per week ROS ROS ED ROS Narrative Epigastric pain resolved. Back pain. Review of Systems ROS Unobtainable: Denies due to encephalopathy Constitutional Constitutional ED: Denies chills or fever(s) Eyes Eyes: Reports none ENT ENT ED: Denies ear pain Cardiovascular Cardiovascular: Denies as per HPI, chest pain or palpitations Respiratory/Chest Respiratory/Chest: Denies cough or dyspnea Gastrointestinal Gastrointestinal: Reports abdominal pain; Denies constipation, diarrhea, melena, nausea or vomiting Genitourinary Genitourinary ED: Denies dysuria or hematuria Musculoskeletal Musculoskeletal: Denies arthralgias Integumentary Denies abscess Neurologic Neurologic: Denies headache(s) Psychiatric Psychiatric: Denies anxiety Endocrine Endocrinology: Denies cold intolerance Hematologic/Lymphatic Hematologic/Lymphatic: Denies easy bleeding Allergic/Immunologic Allergic/Immunologic ED: Denies mouth swelling or tongue swelling EXAM Physical Exam Narrative Exam Narrative: 87-year-old female no acute distress. Vital signs stable afebrile. Initial blood pressure 190/92. Pulse ox 100% room air no signs hypoxia. She is in no distress. Sitting upright in bed. H EENT exam unremarkable. Neck nontender. Lungs clear to auscultation bilaterally. Heart regular rate and rhythm rate ab out 70 no murmur. Abdomen is soft, nontender, nondistended normal bowel sounds no peritoneal signs. No pulsatile mass. Right upper and right lower quadrants are unremarkable. There is no reproducible abdominal pain. Moving all 4 extremities. Neurovascular intact. 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 Dorsi plantarflexion intact. Normal sensation. Back she has reproducible parathoracic soft tissue tenderness on the left midportion of her back. There is no ecchymosis or bruising or signs of trauma. No redness or warmth. The spine itself is nontender. This is parathoracic. Neurologically she is awake alert with no focal motor deficits. Benign exam. Const Vital Signs: 08/28/22 10:51 08/28/22 10:57 08/28/22 11:21 Temperature 96.2 F L Temperature Source Temporal Pulse Rate 72 Respiratory Rate 18 Respiratory Effort Normal Non-Labored Respiratory Pattern Normal Blood Pressure 190/92 H Blood Pressure Mean 124 Pulse Ox 100 Oxygen Delivery Method Room Air Room Air 08/28/22 12:05 08/28/22 13:15 Temperature Temperature Source Pulse Rate 62 60 Respiratory Rate 14 14 Respiratory Effort Respiratory Pattern Blood Pressure 140/87 H 132/74 H Blood Pressure Mean 104 93 Pulse Ox 98 98 Oxygen Delivery Method Room Air Positive well nourished and well developed; Negative for obese, cachectic, contractures or unkempt General Appearance ED: well developed and NAD; Negative for unkempt, cachectic, contractures or pallor Nutritional Appearance: Negative for cachectic or obese HEENT Reports moist mucous membranes normocephalic and atraumatic; Negative for trauma or tenderness Eyes PERRL and EOMs intact bilaterally General Eye ED: Negative for pale conjunctiva, scleral icterus or other Neck no lymphadenopathy, supple and no JVD General: Negative for tenderness Chest Wall inspection of chest normal and palpation of chest normal Chest: Negative for tenderness Resp normal respiratory effort and clear to auscultation bilaterally Effort and Inspection: Negative for respiratory distress Auscultation: Negative for rales, rhonchi or wheezes Cardio regular rate, regular rhythm, S1 normal heart sound, S2 normal heart sound and no murmurs Rate: Negative for bradycardia, tachycardic or other Rhythm: Negative for abnormal rhythm Peripheral Pulses: pulses 2+ throughout GI normal to inspection, nondistended, normoactive bowel sounds, soft to palpation, non-tender, non-distended and no masses Auscultation: Negative for hyperactive bowel sounds Palpation: Negative for splenomegaly or mass Back/Spine no CVA tenderness and no thoracic nor lumbar tenderness Back/Spine Narrative: Left knee mid parathoracic soft tissue tenderness. No signs of trauma. No redness or warmth. No spine tenderness. General Back: Negative for CVA tenderness Cervical Spine: Negative for cervical spine tenderness Extremity normal to inspection General Extremety ED: Negative for edema or pulses abnormal General Extremity: Negative for edema or pulses abnormal Neuro oriented x3 and CN's II-XII intact bilaterally Sensorium / Orientation: awake, alert, oriented to person and oriented to place; Negative for oriented to time, confused, lethargic or stuporous Motor Exam: strength 5/5 throughout Psych mental status grossly normal Appearance: Negative for unkempt Attitude: No agitated Mood & Affect: Negative for depressed, anxious or tearful Skin no rashes or lesions noted and no wounds General Skin Exam: Negative for jaundice or pallor Rashes: No rashes noted Trauma: Negative for abrasion or laceration MDM MDM MDM Narrative Medical decision making narrative: 87-year-old with left parathoracic soft tissue tenderness and epigastric pain that is resolved. Differential includes pancreatitis clinically and only because of the dissection. Atypical chest pain which I do not think this is cardiac. She has no falls or trauma. This could be secondary to reflux but the reproducible back pain seems more like musculoskeletal etiology. She has had no trauma at all, I do not think she needs imaging at this time. Repeat exam patient is doing well at 2 PM. Her abdomen is completely benign. She has similar parathoracic reproducible soft tissue tenderness. Its not red, warm nor there are any signs of trauma. She and I went over all of her test results. She has 0 abdominal pain at this time and no reproducible abdominal pain. Comfortable with her being discharged home. We discussed but she deferred on a muscle relaxant which I think is very reasonable. Tylenol and Motrin for pain. Hot shower, warm bath and massage. Follow-up with her doctor if not improving or return if worse. Lab Data Attestation: I reviewed the patient's lab results. Lab results narrative: CBC White count 9.3. H&H 12.4 and 36. Platelets 226. Electrolytes sodium 132. Gap of 7. BUN 23 creatinine 1.3. Glucose 124. Troponin of 9. Chest x-ray no acute process. Normal cardiac silhouette and mediastinum. Liver enzymes are normal. Lipase is 285. Labs: Laboratory Results - last 24 hr 08/28/22 08/28/22 08/28/22 11:15 11:15 11:15 WBC 9.3 RBC 3.92 L Hgb 12.4 Hct 36.4 L MCV 92.9 MCH 31.6 MCHC 34.1 RDW Std Deviation 41.6 RDW Coeff of Joaquin 12.4 Plt Count 226 MPV 9.6 Immature Gran % (Auto) 0.200 Neut % (Auto) 71.7 H Lymph % (Auto) 16.1 L [place] % (Auto) 8.8 Eos % (Auto) 2.7 Baso % (Auto) 0.5 Absolute Neuts (auto) 6.7 Absolute Lymphs (auto) 1.50 Nucleated RBC % 0 Sodium 132 L Potassium 3.6 Chloride 95 L Carbon Dioxide 30.0 Anion Gap 7 BUN 23 H Creatinine 1.30 H Estim Creat Clear Calc 28.47 Est GFR (MDRD) Af Amer 50 L Est GFR (MDRD) Non-Af 41 L BUN/Creatinine Ratio 17.7 Glucose 124 H Calcium 10.5 H Total Bilirubin 0.70 Direct Bilirubin 0.15 AST 23 ALT 23 Alkaline Phosphatase 78 Troponin I High Sens 9 Total Protein 7.4 Albumin 4.1 Globulin 3.3 Lipase 08/28/22 11:15 WBC RBC Hgb Hct MCV MCH MCHC RDW Std Deviation RDW Coeff of Joaquin Plt Count MPV Immature Gran % (Auto) Neut % (Auto) Lymph % (Auto) [place] % (Auto) Eos % (Auto) Baso % (Auto) Absolute Neuts (auto) Absolute Lymphs (auto) Nucleated RBC % Sodium Potassium Chloride Carbon Dioxide Anion Gap BUN Creatinine Estim Creat Clear Calc Est GFR (MDRD) Af Amer Est GFR (MDRD) Non-Af BUN/Creatinine Ratio Glucose Calcium Total Bilirubin Direct Bilirubin AST ALT Alkaline Phosphatase Troponin I High Sens Total Protein Albumin Globulin Lipase 285 Radiography Chest X-Ray - ED: 1 View, Read by ED Physician, Read by Radiologist, Heart, Lungs, Mediastinum, Bony Structures, No Acute Disease and Chronic Changes Diagnostic Testing: Clinical Impression(s) from Imaging Studies Chest X-Ray 08/28/22 11:21 IMPRESSION: Hyperinflation. The lungs are clear. Electronically Signed: Clint Patrick MD at 11:32 EST , Chest x-ray, portable, single view shows no acute abnormality. Normal cardiac silhouette. Normal mediastinum. Rhythm Strip Rhythm Strip: Sinus Rhythm Rate: 68 Ectopy: None EKG Initial EKG: Attestation: I personally reviewed and interpreted this EKG as follows: Interpretation: Sinus Rhythm and No Acute Injury Pattern Comments: Normal sinus rhythm rate of 68 no acute signs of CO, ischemia or dysrhythmia. Prior EKG tracings: not available for review Discharge Plan Triage Chief Complaint: Chest Pain ED Provider: Yohannes Rincon Dx/Rx/DC Orders Clinical Impression: Back muscle spasm, History of hypertension, History of pancreatitis Instructions: ED Back Spasm, No Trauma Prescriptions: No Action multivitamin Tablet 1 tab PO DAILY Label Comments: 3 days a week PreserVision AREDS-2 250-90-40-1 mg capsule 1 tab PO BID timolol maleate 1 DROP drops 1 drp EACH EYE [facility] Label Comments: eye health losartan 50 mg tablet 25 mg PO ONCE Qty: 45 3RF famotidine 20 mg tablet 20 mg PO DAILY Qty: 90 3RF levothyroxine 100 mcg tablet 100 mcg PO DAILY Qty: 90 3RF hydrochlorothiazide 12.5 mg tablet 12.5 mg PO DAILY Qty: 30 3RF Rx Instructions: Take 1/2 tab to equal 6.25 mg daily Primary Care Provider: Cat Artis Referrals: Cat Artis MD [Primary Care Provider] - 3-5 Days if not improving Activity Restrictions/Additional Instructions: Hot shower, warm bath and massage. It appears you have some muscle spasm in the mid left side of your back. Have someone massage this to help relax the muscle. Motrin 400 mg twice a day. Tylenol for pain also. Follow-up with your doctor if not improving. Return if a lot worse or you develop chest or abdominal pain again. Disposition Disposition: Home, Self Care
[2022-08-28 12:05] VITALS: BP 140/87; PULSE 62; RESP 14; O2SAT 98
[2022-08-28 12:26] LABS: Lipase 285 U/L (73-393)
[2022-08-28 12:31] LABS: AST(SGOT) 23 U/L (15-37); Alanine Aminotransfer ALT/SGPT 23 U/L (13-56); Albumin, Serum 4.1 g/dL (3.2-5.0); Alkaline Phosphatase 78 U/L (45-117); Bilirubin, Direct 0.15 mg/dL (0.00-0.30); Globulin 3.3 g/dL (2.2-4.2); Protein, Total 7.4 g/dL (6.4-8.2)
[2022-08-28 13:15] VITALS: BP 132/74; PULSE 60; RESP 14; O2SAT 98
[2022-08-28 14:23] VITALS: BP 168/91; PULSE 68; RESP 18; O2SAT 98
== END 2022-08-28 14:24 | disposition home or self-care (01) ==
PROVIDERS: Emergency Provider Emergency Medicine; PCP Internal Medicine; Visit Provider Emergency Medicine
DX: M62.830 Muscle spasm of back (principal); R10.13 Epigastric pain; E78.5 Hyperlipidemia, unspecified; I12.9 Hypertensive chronic kidney disease with stage 1 through stage 4 chronic kidney disease, or unspecified chronic kidney disease; N18.9 Chronic kidney disease, unspecified; R07.9 Chest pain, unspecified; Z87.19 Personal history of other diseases of the digestive system
CPT/HCPCS: 71045; 80048; 80076; 83690; 84484; 85025; 93005; 99284; A4216

== ENCOUNTER → 2022-09-12 | Outpatient (CLI) | payer MEDICARE, OTHER, SELFPAY ==
[2022-09-12 12:34] LABS: Anion Gap 9 (5-15); BUN 27 mg/dL (7-18); BUN/Creat Ratio 17.6 RATIO (10-20); Calcium,Total 10.7 mg/dL (8.5-10.1); Chloride 97 mmol/L (98-107); Creatinine, Serum 1.53 mg/dL (0.55-1.02); EST Glomerular Filtration Rate 34 mL/min (>60); Est Glom Filt Rate - Afr Amer 41 mL/min (>60); Glucose 101 mg/dL (74-106); Magnesium 2.2 mg/dL (1.6-2.6); Potassium 3.9 mmol/L (3.5-5.1); Sodium Level 133 mmol/L (136-145)
== END | disposition home or self-care (01) ==
LOC: BIMLAB 09:34
PROVIDERS: PCP Internal Medicine; Referring Provider Internal Medicine; Visit Provider Internal Medicine
DX: I12.9 Hypertensive chronic kidney disease with stage 1 through stage 4 chronic kidney disease, or unspecified chronic kidney disease (principal); N18.4 Chronic kidney disease, stage 4 (severe)
CPT/HCPCS: 36415; 80048; 83735

== ENCOUNTER → 2022-09-30 | Outpatient (CLI) | payer MEDICARE, OTHER, SELFPAY ==
--- NOTE | 2022-09-30 09:42 | US_ITS ---
STUDY: ABDOMINAL ULTRASOUND - RIGHT UPPER QUADRANT REASON FOR VISIT: Female, 87 years old. ABDOMEN PAIN pain -- h/o pancreatitis. -- attention to common bile duct and pancreas TECHNIQUE: Ultrasound evaluation of the right upper quadrant was performed with real-time and static spence-scale imaging. Study performed 09.30.22 but is only now available for review. TECHNICAL QUALITY: Adequate. COMPARISON: 09.29.21 ct FINDINGS: Liver: There is normal echogenicity of the liver. The bile ducts are within normal limits. There is hepatic color flow. The direction of portal flow is hepatopetal. There is no demonstrated mass lesion. Gallbladder: The patient is status post cholecystectomy. Common Bile Duct (C.B.D.): The common bile duct measures ( in mm): 3 Pancreas: Normal size of the head, body of the pancreas. There is normal echogenicity of the pancreas. There is no demonstrated pancreatic mass or cyst. Right Kidney: Normal size of the right kidney. The right kidney measures 9.1 cm. . Normal renal cortex. There is no demonstrated renal mass or cyst. There is no right hydronephrosis. Aorta: It is not visualized. There is too much overlying bowel gas. . US/Abdomen Limited IMPRESSION: No acute findings. Note: Renal size measurements and size measurements of other organs etc may vary depending on modality and grapple skidder operator dependent variations in measurements. (i.e. Measuring a kidney on an US does not correlate with an exact same measurement on a CT.) Electronically Signed: Tushar Wilkinson MD at 14:48 EDT ,
== END | disposition home or self-care (01) ==
LOC: US 09:39
PROVIDERS: PCP Internal Medicine; Referring Provider Surgery; Visit Provider Surgery
DX: K21.9 Gastro-esophageal reflux disease without esophagitis (principal); K44.9 Diaphragmatic hernia without obstruction or gangrene; R10.9 Unspecified abdominal pain
CPT/HCPCS: 76705

== ENCOUNTER 2022-10-03 10:27 | Day surgery (SDC) | payer MEDICARE, OTHER, SELFPAY ==
[2022-10-03] VITALS (7 sets, daily range): BP systolic 111–148; BP diastolic 58–84; PULSE 68–79; RESP 16; TEMP 36.1–36.5; O2SAT 98–100; BMI 21.0
[2022-10-03] MEDS: Lactated Ringers 1,000 ML 15 ML IV (10:53)
--- NOTE | 2022-10-03 10:55 | HP.PCM_ITS ---
History and Physical Date of Admission: 10/03/22 Visit Reasons:?SELF REFERRED HIATAL HERNIA Chief Complaint: self referred hiatal hernia Is patient in pain?: No Allergies ceramide combination no.1 (1,3,6-II) [From CeraVe] Allergy (Intermediate, Verified 09/27/22 08:06) rashdiltiazem HCl [From Cardizem] Allergy (Verified 09/27/22 08:06) Itchingmiconazole nitrate [From Neosporin AF] Allergy (Verified 09/27/22 08:06) Laryngospasmsmorphine Allergy (Verified 09/27/22 08:06) Othernitrofurantoin [From Macrobid] Allergy (Verified 09/27/22 08:06) Rashnitrofurantoin macrocrystalline [From Macrobid] Allergy (Verified 09/27/22 08:06) Rashbacitracin Adverse Reaction (Verified 09/27/22 08:06) Othercodeine Adverse Reaction (Verified 09/27/22 08:06) Chest tightnesslisinopril Adverse Reaction (Verified 09/27/22 08:06) Otherloratadine [From Claritin] Adverse Reaction (Verified 09/27/22 08:06) Othermetoprolol Adverse Reaction (Verified 09/27/22 08:06) fatigue Medications timolol maleate 0.5 % eye drops 1 drp EACH EYE [facility] eye health 09/27/15 [History Confirmed 08/02/22] multivitamin 1 tab PO DAILY 06/22/20 [History Confirmed 08/02/22] vit C 250 mg-vit E 90 mg-zinc 40 mg-copper 1 fs-[id number]-pvrool capsule (PreserVision AREDS-2) 1 tab PO BID 10/18/21 [History Confirmed 08/02/22] levothyroxine 100 mcg tablet 100 mcg PO DAILY #90 tabs 08/02/22 [Rx] hydrochlorothiazide 12.5 mg tablet 12.5 mg PO DAILY #30 tabs 08/21/22 [Rx] PFSH Medical History? Asthma Bruit of right carotid artery Cancer Cardiology follow-up encounter CKD (chronic kidney disease) Essential hypertension Gastric reflux GERD (gastroesophageal reflux disease) Glaucoma History of diverticulitis History of echocardiogram History of hiatal hernia History of Holter monitoring History of skin cancer History of stress test HLD (hyperlipidemia) Hyperhomocystinemia Hypothyroidism Leg wound, left Nonhealing surgical wound Pancreatitis Post-menopausal Premature atrial contraction Premature ventricular contraction Prothrombin gene mutation Pruritus of skin Pulmonary embolism Right carotid bruit Squamous cell carcinoma of left lower leg Thyroid disease Urinary tract infection Wears contact lenses Wears glasses Surgical History? History of bilateral cataract extraction History of cholecystectomy History of colectomy History of total hysterectomy Family History? Mother Heart diseaseFather Heart diseaseBrother Heart disease Hypertension Cancer Social History? Smoking Status:? Never smoker alcohol intake:? never substance use type:? does not use caffeine:? No what type of physical activity do you participate in:? yoga frequency:? 3-4 times per week HPI HPI HPI: 87-year-old female presents to discuss a hiatal hernia.? Her primary care physician is Dr. Cat Artis.? I have a report dated January 25, [address] Jerad Adair who performed an upper endoscopy at that time showing a small sliding hiatal hernia with no evidence of Boo's.? There is some erythema of the antrum noted.? The patient was to remain on proton pump inhibitors.? Pathology of the stomach showed gastritis.? It is noted that currently she is on famotidine 20 mg daily. I have helped her most recently April 28, 2022 with a colonoscopy with her concerns about left lower quadrant abdominal pain.Scattered diverticula were noted in the sigmoid colon there was evidence of a prior and an colorectal anastomosis.? This appeared to be patent.? All findings appear to be healthy and the patient was reassured.? If she were to have further bouts of abdominal pain then CT imaging would be recommended. The patient presents on her own volition.? She is complaining of now 2 episodes of severe epigastric pain with radiation to her back.? Prior to her remote cholecystectomy she had pancreatitis and Dr. Puja Cramer the laparoscopic cholecystectomy for her.? 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 The problem is that the patient has had now 2 episode of epi gastric retrosternal pain.? She went to the emergency room on August 28, 2022 because of this.? Liver function tests were normal at that time.? Lipase was elevated at 285.? Chest x-ray was obtained.? Hyperinflation clear lungs.? Abdominal imaging was not obtained. Incomplete diagnosis. Getting a clear history regarding the patient's reflux disease is very challe nging.? Going back to 2016 she had reflux disease was placed on initially pantoprazole by Dr. Adair before but that was switched at that time by Dr. Bowling to the omeprazole.? The patient was on omeprazole for an undetermined period of time and then parent was off of it for a while but then because of reflux symptoms was placed on famotidine per Dr. Cat Artis.? Timeline for that is unclear. The patient more recently has had skin disruptions that Dr. Tyrel Avila's been assisting from dermatology.? He initially had the patient's stop her losartan and then more recently asked her to stop the famotidine.? It is of note that the patient is still getting intermittent blister eruptions.? Etiology at this time has not been clarified.? Unfortunately 5 days ago she had onset again of a seco nd episode of epigastric pain with radiation to her back.? She cut down on her diet.? That pain lasted for 3 days prior to resolving.? She points to the high epigastric retrosternal area stating it went straight through to her back.? She did not return to the emergency room at that time and her primary care physician was not immediately available. She has made appointment to see me and an attempt to try to diagnose this discomfort. As best as I can decipher her first episode August 28 when she went to emergency room she was still on the famotidine.? Currently at Dr. Avila's recommendation she is off the famotidine.? There is concerned that this could be leading to her skin disruptions ROS General General: No weight change, appetite, fatigue, colon cancer, breast cancer or weakness HEENT HEENT: No difficulty swallowing, eye injury, eye surgery, swollen glands or hoarseness Endo Endocrine: Yes thyroid disease; No diabetes mellitus, thyroid cancer, Hair loss, heat intolerance or cold intolerance Skin Skin: No rash or changing moles Musc Musculoskeletal: No back problems, arthritis, rheumatoid arthritis, gout or joint pain Cardio Cardiovascular: Yes atrial fibrillation, high blood pressure and heart attack; No murmur, pacemaker, heart disease, heart stent, palpitations, shortness of breat with exertion or chest pain Psych Psychiatric: Yes anxiety; No depression or hearing voices Resp Respiratory: No shortness of breath, No sleep apnea, Yes cough, No COPD, No asthma, No emphysema and No wheezing Gastro Gastrointestinal: Yes abdominal pain, Yes nausea or vomiting, No diarrhea, No constipation, No blood in stool, Yes acid reflux, No hemorrhoids, No ulcers, No gallbladder problem and No black,tarry stools Froy Hematologic: No blood thinners, No blood disorders, No bleeding, No anemia and Yes blood clots Additional Details: h/o blood clots in lungs in 2013 Neuro Neurologic: No system reviewed and no additional complaints, except as documented, No as per HPI, No abnormal gait, No abnormal hearing, No abnormal movements, No abnormal speech, No behavioral changes, No burning sensations, No confusion, No convulsions, No disequilibrium, No dizziness, No localized weakness, No frequent falls, No headache(s), No lack of coordination, No loss of vision, No memory loss, No numbness, No other visual disturbances, No radicular pain, No restless legs, No sensory deficit, No syncope, No tingling, No tremor(s), No weakness and No other Exam Const General: cooperative, comfortable and no acute distress [facility] Head: normal to inspection Eyes General: appearance normal, both eyes and all related structures Neck Neck: normal visual inspection Chest Chest palpation & inspection: normal inspection of the chest Resp Effort & Inspection: normal respiratory effort Auscultation: clear to auscultation bilaterally Cardio Rate: regular rate Rhythm: regular rhythm GI Palpation: soft and no hepatosplenomegaly Auscultation: normal bowel sounds Musc Cervical Spine: normal cervical lordosis Skin General: no rashes or lesions noted Neuro General: patient alert and patient awake Extrem General: no calf tenderness Psych Appearance: grossly normal Assessment and Plan Assessment and Plan (1) GERD (gastroesophageal reflux disease): ?Status:?Chronic (2) Hiatal hernia: ?Status:?Acute ?Plan: It is not clear to me whether the patient August 28, 2022 he might of had about of microcrystalline or retained stone pancreatitis or whether that episode was reflux esophagitis.? Her current and second episode lasted 3 days.? Did not seem to be improved with food in fact she cut down on her diet.? She states that acetaminophen was not as assisting at all with the discomfort and she find the took Advil. At this point cannot decipher whether this is active gastritis or reflux disease or whether this potentially was an episode of acute pancreatitis I recommend to her a right upper quadrant ultrasound with attention to the common bile duct and pancreas.? I also recommend to that we will pursue an esophagogastroduodenoscopy with possible biopsy or polypectomy. The patient currently is not in distress so I do not believe that repeating laboratory or getting CT imaging at this very moment would be beneficial.? The patient has been instructed however that if she were to have recurrent pain that lab work and CT imaging of the abdomen would be pertinent at that time. She has had an opportunity to ask and have questions answered.? We will schedule and expedite her care. Copy: Dr. Cat Julian M.D., F.A.C.S I have examined the patient and the H&P has been reviewed. There are no clinical changes since date of exam. David Julian M.D., F.A.C.S.
--- NOTE | 2022-10-03 11:30 | IMM_PTH ---
PATIENT: BHASKAR FREY LOC: EN U#:[id number] AGE/SX: 87/F ROOM: RE10/03/[address]: Dr. David Julian MD : 1935 BED: DIS: 10/03/2022 SPEC #: [id number] RECD: 10/03/22 13:40 STATUS: JAGRUTI REScottie #: [id number] TRISTON: 10/03/22 11:[address]: David Julian DEPT: IMMUNOHISTOCHEMISTRY RECD BY: Yvrose Nava ENTERED: 10/03/22 13:41 SP TYPE: IMMUNO OTHR DR: Dr. Cat Artis MD Tissues: B - Stomach, NOS Procedures: H Pylori (initial) PHYSICIAN & [place] [id number] SPECIMEN INFORMATION: Tissue Source: B ? Gastric antrum biopsy Clinical Info: GERD, hiatal hernia Specimen Number: [id number] CPT code: 90802 METHODOLOGY: Deparaffinized sections of prefer/formalin-fixed tissue or PAP/DQ stained slides are incubated with monoclonal/polyclonal antibodies/oligonucleotide probes. Localization is made via biotin free immunoperoxidase method. Appropriate controls are performed and reacted as expected. Results on target cell population are indicated in the following table: RESULTS: ANTIBODY / CLONE RESULT Block B H Pylori (polyclonal) negative These tests were developed and their performance characteristics determined by [facility]. They may not have been cleared or approved by the U.S. Food and Drug Administration. The FDA has determined that such clearance or approval is not necessary. The above immunohistochemical/dualISH markers are ordered and reviewed by the Pathologist. INTERPRETATION: B. Gastric antrum, biopsy: Negative for Helicobacter pylori organisms. AM:maurilio 10/04/2022
--- NOTE | 2022-10-03 11:30 | EGD_PTH ---
PATIENT: BHASKAR FREY LOC: EN U#:[id number] AGE/SX: 87/F ROOM: RE10/03/[address]: Dr. David Julian MD : 1935 BED: DIS: 10/03/2022 SPEC #: [id number] RECD: 10/03/22 11:57 STATUS: JAGRUTI SANDRA #: [id number] TRISTON: 10/03/22 11:[address]: David Julian DEPT: SURGICAL PATHOLOGY RECD BY: Mary Johnston ENTERED: 10/03/22 12:44 SP TYPE: EGD BIOPSY OT DR: Dr. Cat Artis MD Tissues: A - Duodenum, NOS B - Gastric mucous membrane C - Esophagus, NOS Procedures: Special Stain Group II Surgery Specimen Level IV Alcian Blue/PAS (control) HEADER OPERATION: EGD ([facility]), biopsy PRE-OP DIAGNOSIS: GERD, hiatal hernia TISSUE SUBMITTED: A ? Biopsy duodenum, B ? Biopsy gastric antrum, H. pylori and path, C ? Biopsy distal esophagus MICROSCOPIC DIAGNOSIS A. Duodenum, biopsy: Mild nonspecific chronic inflammation. B. Gastric antrum, biopsy: Chronic gastritis. See comment. C. Distal esophagus, biopsy: Gastroesophageal junctional mucosa with chronic inflammation. No evidence of goblet cell metaplasia. See comment. AM:maurilio 10/04/2022 COMMENT B. The results of immunohistochemistry for Helicobacter pylori will be reported separately ([id number]). C. Alcian blue/PAS stain with matched control supports the above diagnosis. MICROSCOPIC DESCRIPTION Slides are reviewed. GROSS DESCRIPTION A - Received in fixative is one container labeled with the patient's name and designated biopsy duodenum. The specimen consists of two irregular fragments of light richards soft tissue that in aggregate measure 0.5 x 0.2 x 0.1 cm. The specimen is totally submitted in one cassette. B - Received in fixative is one container labeled with the patient's name and designated biopsy gastric antrum. The specimen consists of one irregular fragment of light richards soft tissue that measures 0.3 x 0.3 x 0.1 cm. The specimen is totally submitted in one cassette. C - Received in fixative is one container labeled with the patient's name and designated biopsy distal esophagus. The specimen consists of two irregular fragments of light richards soft tissue that in aggregate measure 0.8 x 0.5 x 0.1 cm. The specimen is totally submitted in one cassette. / SJ:rg 10/03/2022 TC:3 CPT: 73947 x3, 68516
--- NOTE | 2022-10-03 11:46 | OP.EGD_ITS ---
Patient Name: Gail Ramos Procedure Date: 10/03/2022 11:23 AM Date of : 1935 Age: 87 Procedure: Upper GI endoscopy Indications: Epigastric abdominal pain Providers: David Julian MD Medicines: See the Anesthesia note for documentation of the administered medications Complications: No immediate complications. Procedure: Pre-Anesthesia Assessment: - Prior to the procedure, a History and Physical was performed, and patient medications and allergies were reviewed. The patient's tolerance of previous anesthesia was also reviewed. The risks and benefits of the procedure and the sedation options and risks were discussed with the patient. All questions were answered, and informed consent was obtained. Prior Anticoagulants: The patient has taken no previous anticoagulant or antiplatelet agents. ASA Grade Assessment: II - A patient with mild systemic disease. After reviewing the risks and benefits, the patient was deemed in satisfactory condition to undergo the procedure. After obtaining informed consent, the endoscope was passed under direct vision. Throughout the procedure, the patient's blood pressure, pulse, and oxygen saturations were monitored continuously. The gastroscope was introduced through the mouth, and advanced to the second part of duodenum. The upper GI endoscopy was accomplished without difficulty. The patient tolerated the procedure well. Scope In: 11:34:07 AM Scope Out: 11:40:18 AM Total Procedure Duration Time 0 hours 6 minutes 11 seconds Findings: Esophagitis with no bleeding was found 36 cm from the incisors. Biopsies were taken with a cold forceps for histology. A small hiatal hernia was present. Diffuse mild inflammation was found in the gastric antrum. Biopsies were taken with a cold forceps for histology. Diffuse mildly erythematous mucosa without active bleeding and with no stigmata of bleeding was found in the duodenal bulb. Biopsies were taken with a cold forceps for histology. Impression: - Reflux esophagitis. Biopsied. - Small hiatal hernia. - Gastritis. Biopsied. - Erythematous duodenopathy. Biopsied. Recommendation: - Discharge patient to home. - Resume previous diet. - Continue present medications. - Use Prilosec (omeprazole) 20 mg PO daily. - Telephone my office for pathology results in 1 week. The degree of antral gastritis and duodenitis could correlate with the patient's complaint of epigastric pain. We will await pathology reports and provide additional recommendations. Procedure Code(s): --- Professional --- 63729, Esophagogastroduodenoscopy, flexible, transoral; with biopsy, single or multiple Diagnosis Code(s): --- Professional --- K21.0, Gastro-esophageal reflux disease with esophagitis K44.9, Diaphragmatic hernia without obstruction or gangrene K29.70, Gastritis, unspecified, without bleeding K31.89, Other diseases of stomach and duodenum R10.13, Epigastric pain CPT copyright 2017 [employer]. All rights reserved. The codes documented in this report are preliminary and upon improvement coordinator review may be revised to meet current compliance requirements. David Julian MD 10/03/2022 11:45:54 AM This report has been signed electronically. Number of Addenda: 0 Note Initiated On: 10/03/2022 11:23 AM
--- NOTE | 2022-10-03 11:47 | OP.CCLET_ITS ---
10/03/2022 Cat Artis [facility] [address] [place] [address] Re : Upper GI endoscopy procedure for Gail Ramos Dear Dr. Artis This procedure was performed on Monday, October 03, 2022. My impressions and recommendations are as follows: Impressions : - Reflux esophagitis. Biopsied. - Small hiatal hernia. - Gastritis. Biopsied. - Erythematous duodenopathy. Biopsied. Recommendations : - Discharge patient to home. - Resume previous diet. - Continue present medications. - Use Prilosec (omeprazole) 20 mg PO daily. - Telephone my office for pathology results in 1 week. The degree of antral gastritis and duodenitis could correlate with the patient's complaint of epigastric pain. We will await pathology reports and provide additional recommendations. My findings are described in the full procedure note, which is enclosed. If I can be of further assistance, please feel free to contact me at Doctor phone number(s): Work: . Sincerely, David Julian MD 10/03/2022 11:45:54 AM This report has been signed electronically.
== END 2022-10-03 12:38 | disposition home or self-care (01) ==
LOC: EN 10:29 → AC 10:30
PROVIDERS: PCP Internal Medicine; Referring Provider Surgery; Visit Provider Surgery
PROC: 0DJ08ZZ Inspection of Upper Intestinal Tract, Via Natural or Artificial Opening Endoscopic (ICD-10-PCS; CPT 43235; principal; 2022-10-03 11:25)
DX: K57.30 Diverticulosis of large intestine without perforation or abscess without bleeding (principal); K44.9 Diaphragmatic hernia without obstruction or gangrene; K21.00 Gastro-esophageal reflux disease with esophagitis, without bleeding; R74.8 Abnormal levels of other serum enzymes; K31.89 Other diseases of stomach and duodenum; R10.13 Epigastric pain; K29.50 Unspecified chronic gastritis without bleeding
CPT/HCPCS: 43239; 88305; 88313; 88342; J7120; J2405

== ENCOUNTER → 2022-10-26 | Outpatient (CLI) | payer MEDICARE, OTHER, SELFPAY ==
[2022-10-26 12:59] LABS: PTHIN 118.1 pg/mL (18.4-80.1)
[2022-10-26 13:08] LABS: Anion Gap 7 (5-15); BUN 81 mg/dL (7-18); BUN/Creat Ratio 18.2 RATIO (10-20); Chloride 103 mmol/L (98-107); Creatinine, Serum 4.46 mg/dL (0.55-1.02); EST Glomerular Filtration Rate 10 mL/min (>60); Est Glom Filt Rate - Afr Amer 12 mL/min (>60); Free T3 2.1 pg/mL (2.18-3.98); Glucose 110 mg/dL (74-106); Potassium 3.8 mmol/L (3.5-5.1); Sodium Level 131 mmol/L (136-145); T4 Free Direct 1.58 ng/dL (0.76-1.46); Thyroid Stim Hormone (TSH) 0.36 uIU/mL (0.358-3.74)
== END | disposition home or self-care (01) ==
LOC: LAB 12:23
PROVIDERS: PCP Internal Medicine; Referring Provider Internal Medicine; Visit Provider Internal Medicine
DX: I12.9 Hypertensive chronic kidney disease with stage 1 through stage 4 chronic kidney disease, or unspecified chronic kidney disease (principal); N18.4 Chronic kidney disease, stage 4 (severe); R10.13 Epigastric pain; K21.9 Gastro-esophageal reflux disease without esophagitis; E03.9 Hypothyroidism, unspecified
CPT/HCPCS: 36415; 80048; 83970; 84439; 84443; 84481

== ENCOUNTER → 2022-10-31 | Outpatient (CLI) | payer MEDICARE, OTHER, SELFPAY ==
[2022-10-31 10:00] LABS: Anion Gap 11 (5-15); BUN 60 mg/dL (7-18); BUN/Creat Ratio 20.5 RATIO (10-20); Calcium,Total 10.1 mg/dL (8.5-10.1); Chloride 103 mmol/L (98-107); Creatinine, Serum 2.93 mg/dL (0.55-1.02); EST Glomerular Filtration Rate 16 mL/min (>60); Est Glom Filt Rate - Afr Amer 20 mL/min (>60); Glucose 119 mg/dL (74-106); Potassium 3.4 mmol/L (3.5-5.1); Sodium Level 136 mmol/L (136-145)
== END | disposition home or self-care (01) ==
LOC: LAB 09:07
PROVIDERS: PCP Internal Medicine; Referring Provider Internal Medicine; Visit Provider Internal Medicine
DX: N18.4 Chronic kidney disease, stage 4 (severe) (principal)
CPT/HCPCS: 36415; 80048

== ENCOUNTER → 2022-11-07 | Outpatient (CLI) | payer MEDICARE, OTHER, SELFPAY ==
[2022-11-07 11:22] LABS: Hematocrit 35.7 % (37-47); Hemoglobin 11.9 g/dL (12.0-15.0); Mean Corp Hgb Conc 33.3 g/dL (32-36); Mean Corpuscular Hgb 31.8 pg (27.0-32.0); Mean Corpuscular Volume 95.5 fL (81-99); Platelet Count 267 K/mm3 (150-450); RBC Distribution Width CV 12.5 % (11.6-14.6); RBC Distribution Width SD 42.6 fl (35.1-43.9); Red Blood Count 3.74 M/mm3 (4.2-5.4); White Blood Count 10.7 K/mm3 (4.4-11.0)
[2022-11-07 11:58] LABS: Albumin, Serum 4.1 g/dL (3.2-5.0); BUN 34 mg/dL (7-18); Calcium,Total 9.8 mg/dL (8.5-10.1); Chloride 108 mmol/L (98-107); EST Glomerular Filtration Rate 25 mL/min (>60); Est Glom Filt Rate - Afr Amer 30 mL/min (>60); Glucose 95 mg/dL (74-106); Phosphorus 3.1 mg/dL (2.5-4.9); Potassium 3.9 mmol/L (3.5-5.1); Sodium Level 139 mmol/L (136-145)
== END | disposition home or self-care (01) ==
PROVIDERS: PCP Internal Medicine; Referring Provider Internal Medicine Nephrology; Visit Provider Internal Medicine Nephrology
DX: N17.9 Acute kidney failure, unspecified (principal); N18.4 Chronic kidney disease, stage 4 (severe)
CPT/HCPCS: 80069; 85027

== ENCOUNTER → 2022-12-14 | Outpatient (CLI) | payer MEDICARE, OTHER, SELFPAY ==
[2022-12-14 10:30] LABS: PTHIN 140.8 pg/mL (18.4-80.1)
[2022-12-14 10:33] LABS: Vitamin D,25 Hydroxy 39.6 ng/mL
[2022-12-14 10:53] LABS: BUN 30 mg/dL (7-18); BUN/Creat Ratio 19.1 RATIO (10-20); Calcium,Total 9.7 mg/dL (8.5-10.1); Chloride 107 mmol/L (98-107); Creatinine, Serum 1.57 mg/dL (0.55-1.02); EST Glomerular Filtration Rate 33 mL/min (>60); Est Glom Filt Rate - Afr Amer 40 mL/min (>60); Glucose 100 mg/dL (74-106); Phosphorus 3.7 mg/dL (2.5-4.9); Potassium 4.6 mmol/L (3.5-5.1); Sodium Level 137 mmol/L (136-145)
== END | disposition home or self-care (01) ==
LOC: LAB 09:20
PROVIDERS: PCP Internal Medicine; Referring Provider Internal Medicine Nephrology; Visit Provider Internal Medicine Nephrology
DX: N17.9 Acute kidney failure, unspecified (principal); N25.81 Secondary hyperparathyroidism of renal origin
CPT/HCPCS: 36415; 80069; 82306; 83970

== ENCOUNTER → 2022-12-22 | Outpatient (CLI) | payer MEDICARE, OTHER, SELFPAY ==
[2022-12-22 15:29] LABS: Absolute Lymphocyte Count 1.56 X10^3/uL (0.83-4.51); Absolute Neutrophil Count 9.6 X10^3/uL (2.0-7.7); Basophil# 0.05 X10^3/uL; Basophil% 0.4 % (0-1); Eosinophil# 0.14 X10^3/uL; Eosinophils% 1.1 % (0-5); Hematocrit 38.4 % (37-47); Hemoglobin 12.2 g/dL (12.0-15.0); Lymphocyte # 1.56 X10^3/ul (0.83-4.51); Lymphocyte % 12.4 % (19-41); Mean Corp Hgb Conc 31.8 g/dL (32-36); Mean Corpuscular Hgb 31.3 pg (27.0-32.0); Mean Corpuscular Volume 98.5 fL (81-99); Mean Platelet Vol. 10.8 fl (6.2-12.0); Monocyte# 1.17 X10^3/uL; Monocyte% 9.3 % (0-10); NRBC Flagged by Analyzer 0 % (0-5); Neutrophil % 76.3 % (47-70); Platelet Count 263 K/mm3 (150-450); RBC Distribution Width CV 14.1 % (11.6-14.6); RBC Distribution Width SD 50.3 fl (35.1-43.9); White Blood Count 12.6 K/mm3 (4.4-11.0)
[2022-12-22 15:39] LABS: ALB/GLOB Ratio 1.2 RATIO (0.9-2.4); AST(SGOT) 24 U/L (15-37); Alanine Aminotransfer ALT/SGPT 24 U/L (13-56); Albumin, Serum 4.3 g/dL (3.2-5.0); Alkaline Phosphatase 90 U/L (45-117); Anion Gap 8 (5-15); BUN 25 mg/dL (7-18); BUN/Creat Ratio 16.7 RATIO (10-20); Calcium,Total 9.8 mg/dL (8.5-10.1); Chloride 102 mmol/L (98-107); EST Glomerular Filtration Rate 35 mL/min (>60); Est Glom Filt Rate - Afr Amer 42 mL/min (>60); Globulin 3.6 g/dL (2.2-4.2); Glucose 94 mg/dL (74-106); Potassium 4.3 mmol/L (3.5-5.1); Protein, Total 7.9 g/dL (6.4-8.2); Sodium Level 135 mmol/L (136-145); Uric Acid 5.6 mg/dL (2.6-6.0)
[2022-12-22 16:52] LABS: CRYSTALS, BODY FLUID MONOSODIUM URATE; Source- Body Fluid SYNOVIAL
[2022-12-22 16:53] LABS: Body Fluid QC Type(s) BF3Q
[2022-12-25 12:53] LABS: Pathologist Review Reviewed
== END | disposition home or self-care (01) ==
PROVIDERS: PCP Internal Medicine; Referring Provider Podiatrist; Visit Provider Podiatrist
DX: M10.9 Gout, unspecified (principal)
CPT/HCPCS: 36415; 80053; 84550; 85025; 87070; 87075; 87205; 89060

== ENCOUNTER → 2023-04-12 | Outpatient (CLI) | payer MEDICARE, OTHER, SELFPAY ==
[2023-04-12 10:04] LABS: Absolute Neutrophil Count 5.8 X10^3/uL (2.0-7.7); Basophil# 0.04 X10^3/uL; Basophil% 0.5 % (0-1); Eosinophil# 0.34 X10^3/uL; Eosinophils% 4.1 % (0-5); Hematocrit 41.1 % (37-47); Hemoglobin 13.3 g/dL (12.0-15.0); Lymphocyte % 14.4 % (19-41); Mean Corp Hgb Conc 32.4 g/dL (32-36); Mean Corpuscular Hgb 31.3 pg (27.0-32.0); Mean Corpuscular Volume 96.7 fL (81-99); Mean Platelet Vol. 10.4 fl (6.2-12.0); Monocyte# 0.97 X10^3/uL; Monocyte% 11.6 % (0-10); NRBC Flagged by Analyzer 0 % (0-5); Neutrophil # 5.77 X10^3/uL (2.7-7.7); Neutrophil % 69.2 % (47-70); Platelet Count 227 K/mm3 (150-450); RBC Distribution Width CV 12.6 % (11.6-14.6); RBC Distribution Width SD 43.8 fl (35.1-43.9); Red Blood Count 4.25 M/mm3 (4.2-5.4); White Blood Count 8.3 K/mm3 (4.4-11.0)
[2023-04-12 10:16] LABS: Vitamin D,25 Hydroxy 28.1 ng/mL
[2023-04-12 10:34] LABS: ALB/GLOB Ratio 1.1 RATIO (0.9-2.4); AST(SGOT) 16 U/L (15-37); Alanine Aminotransfer ALT/SGPT 19 U/L (13-56); Alkaline Phosphatase 94 U/L (45-117); Anion Gap 4 (5-15); BUN 26 mg/dL (7-18); BUN/Creat Ratio 17.1 RATIO (10-20); Calcium,Total 9.9 mg/dL (8.5-10.1); Chloride 105 mmol/L (98-107); Cholesterol 219 mg/dL (200); Creatinine, Serum 1.52 mg/dL (0.55-1.02); EST Glomerular Filtration Rate 34 mL/min (>60); Est Glom Filt Rate - Afr Amer 42 mL/min (>60); Free T3 2.2 pg/mL (2.18-3.98); Globulin 3.6 g/dL (2.2-4.2); Glucose 108 mg/dL (74-106); High Density Lipoprotein 49 mg/dL; Magnesium 2.4 mg/dL (1.6-2.6); Potassium 4.5 mmol/L (3.5-5.1); Protein, Total 7.6 g/dL (6.4-8.2); Sodium Level 136 mmol/L (136-145); T4 Free Direct 1.28 ng/dL (0.76-1.46); Thyroid Stim Hormone (TSH) 2.27 uIU/mL (0.358-3.74); Triglycerides 136 mg/dL; Very Low Density Lipoprotein 27 mg/dL (5-40)
== END | disposition home or self-care (01) ==
LOC: LAB 09:23
PROVIDERS: PCP Internal Medicine; Referring Provider Internal Medicine; Visit Provider Internal Medicine
DX: E03.9 Hypothyroidism, unspecified (principal); N18.4 Chronic kidney disease, stage 4 (severe); R10.13 Epigastric pain; K21.9 Gastro-esophageal reflux disease without esophagitis; I12.9 Hypertensive chronic kidney disease with stage 1 through stage 4 chronic kidney disease, or unspecified chronic kidney disease
CPT/HCPCS: 36415; 80053; 80061; 82306; 83735; 84439; 84443; 84481; 85025

== ENCOUNTER → 2023-06-05 | Outpatient (CLI) | payer MEDICARE, OTHER, SELFPAY | END | disposition home or self-care (01) | PROVIDERS: PCP Internal Medicine; Referring Provider Dermatology; Visit Provider Dermatology | DX: L12.0 Bullous pemphigoid (principal) | CPT/HCPCS: 36415 ==

== ENCOUNTER → 2023-07-18 | Outpatient (CLI) | payer MEDICARE, OTHER, SELFPAY ==
--- OUTSIDE RECORDS SUMMARY | 2023-07-18 11:38 | XMS RPT_ITS | CCD ---
Author Name Unknown Address [address] [place], [place] [address] Organization [facility] Clinical Note 09-13-2021 Note Date & Type Note Facility 09-13-2021 Note Patient Outreach (IN TMWS) SHANTEBHASKAR ([id number]) 1935 F Date Time Provider Department 09/13/21 MARGY GALEANO INTTRESA During your visit today, we recorded the following information about you: Jose Enrique Jules Ma 09/13/2021 8:47 AM Signed Care Gap Reviewed: Follow-up appointment Phone call placed to patient. Pt identified by name and : YES, via phone Outreach Outcome/Action: Unable to reach patient: Left message, Need to confirm if still seeing Dr. Galeano as PCP and schedule if so Jose Enrique Jules Ma Allergies As of Date: 09/13/2021 Noted Allergy Reaction BACTRIM (SULFAMETHOXAZOLE-TRIMETH*05/12/2005 14 - Other: See Comments Comments: Generalized weakness. Resolved on cessation. CARDIZEM (DILTIAZEM HCL) 04/11/2005 9 - Itching CLARITIN (LORATADINE) 04/15/2010 5 - Intolerance Comments: Insomnia--keot her up; not sure if was plain or had decongestant CODEINE 08/29/2013 14 - Other: See Comments Comments: Rapid heart beat environmental [Other] 03/21/2005 LISINOPRIL 03/08/2010 5 - Intolerance Comments: Leg cramping, heaviness. Resolved on cessation. MACROBID (NITROFURANTOIN MONOHYD/*11/26/2008 2 - Rash Comments: Legs and thighs. MORPHINE 05/01/2014 1 - Mental Status Change 5 - Intolerance NEOSPORIN (INMSATBN-KZYTRAKVKW-SC*04/11/2005 2 - Rash Comments: Dermatitis at application site. Date Reviewed: 01/26/2020 Reviewed by: Ayla Browning LPN - Fully Assessed Reason for Visit: PHMA/Care Gap Outreach [3605] Prescriptions as of 09/13/2021 - pantoprazole DR (PROTONIX) 40 mg tablet Take 1 tablet by mouth once daily. - levothyroxine (SYNTHROID) 88 mcg tablet Take 1 tablet by mouth once daily. - Cholecalciferol, Vitamin D3, (VITAMIN D) 25 mcg (1,000 unit) cap Take 2 capsules by mouth once daily. - timolol maleate (TIMOPTIC) 0.5 % ophthalmic solution Use 1 Drop in both eyes once daily. 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] ACTINIC KERATOSIS [L57.0] 05/28/2006 CAPILLARY DIS NEC/NOS [I78.9] 05/28/2006 NEVUS, NON-NEOPLASTIC [I78.1] 05/28/2006 SCAR AND FIBROSIS OF SKIN [L90.5] 05/28/2006 PERS HX SKIN MALIGNANCY NEC [Z85.828] 05/28/2006 SEBORRHEIC KERATOSIS INFLAMED [L82.0] 05/13/2007 VIRAL WARTS NOS [B07.9] 05/13/2007 CHR SOLAR SKIN DAMAGE NOS [L57.8] 05/13/2007 DYSCHROMIA OTHER///solar lentigenes [L81.9] 06/09/2008 Trochanteric bursitis of right hip [M70.61] 08/29/2011 Trochanteric bursitis of left hip [M70.62] 08/29/2011 Pain in joint, pelvic region and thigh [M25.559]09/27/2011 Other seborrheic keratosis [L82.1] 10/25/2011 Actinic skin damage [L57.8] 10/25/2011 Solar lentigo [L81.4] 10/25/2011 Diverticulitis [K57.92] 05/12/2013 Other pulmonary embolism and infarction [I26.99]08/29/2013 04/03/2014 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] 05/08/2014 Moderate persistent asthma without complication*11/17/2015 Status post left hemicolectomy [Z90.49] 12/19/2016 CKD (chronic kidney disease) stage 3, GFR 30-59*12/15/2017 Anemia [D64.9] 12/15/2017 CKD (chronic kidney disease) stage 4, GFR 15-29*05/17/2018 Hyperparathyroidism (HCC) [E21.3] 11/30/2018 Symptomatic PVCs [I49.3] 11/30/2018 PAC (premature atrial contraction) [I49.1] 11/30/2018 Vitamin D deficiency [E55.9] 02/22/2020 IFG (impaired fasting glucose) [R73.01] 02/22/2020 Essential hypertension [I10] 02/22/2020 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 Author Type: ? Type: Progress Notes Filed: 09/13/2021 8:47 AM Note Text: Care Gap Reviewed: Follow-up appointment Phone call placed to patient. Pt identified by name and : YES, via phone Outreach Outcome/Action: Unable to reach patient: Left message, Need to confirm if still seeing Dr. Galeano as PCP and schedule if so Jose Enrique Jules Ma [facility] Summary Purpose Family History No Family History Records Found Advance Directives No Advanced Directives Records Found Additional Source Comments INFORMATION SOURCE (unrecogn ized section and content) FOR RECORDS PERTAINING TO PATIENTS WHO ARE OR HAVE BEEN ENROLLED IN A CHEMICAL DEPENDENCY/SUBSTANCEABUSE PROGRAM, SOME INFORMATION MAY BE OMITTED. This clinical summary was aggregated from multiple sources. Caution should be exercised in using it in the provision of clinical care. This summary normalizes information from multiple sources, and as a consequence, information in this document may materially change the coding, format and clinical context of patient data. In addition, data may be omitted in some cases. CLINICAL DECISIONS SHOULD BE BASED ON THE PRIMARY CLINICAL RECORDS. [facility] [employer] provides no warranty or guarantee of the accuracy or completeness of information in this document.
[2023-07-18 13:13] LABS: BUN 24 mg/dL (7-18); BUN/Creat Ratio 17.4 RATIO (10-20); Calcium,Total 9.7 mg/dL (8.5-10.1); Chloride 105 mmol/L (98-107); Creatinine, Serum 1.38 mg/dL (0.55-1.02); EST Glomerular Filtration Rate 39 mL/min (>60); Est Glom Filt Rate - Afr Amer 47 mL/min (>60); Glucose 105 mg/dL (74-106); Phosphorus 3.8 mg/dL (2.5-4.9); Potassium 3.9 mmol/L (3.5-5.1); Sodium Level 136 mmol/L (136-145)
== END | disposition home or self-care (01) ==
LOC: POLAB3 11:07
PROVIDERS: PCP Internal Medicine; Visit Provider Internal Medicine Nephrology
DX: N18.32 Chronic kidney disease, stage 3b (principal)
CPT/HCPCS: 36415; 80069

== ENCOUNTER → 2023-07-26 | Outpatient (CLI) | payer MEDICARE, OTHER, SELFPAY ==
[2023-07-26 10:21] LABS: Uric Acid 5.7 mg/dL (2.6-6.0)
== END | disposition home or self-care (01) ==
LOC: POLAB3 09:38
PROVIDERS: PCP Internal Medicine; Visit Provider Internal Medicine Nephrology
DX: M10.9 Gout, unspecified (principal)
CPT/HCPCS: 36415; 84550

== ENCOUNTER → 2023-09-06 | Outpatient (CLI) | payer MEDICARE, OTHER, SELFPAY ==
--- OUTSIDE RECORDS SUMMARY | 2023-09-06 09:27 | XMS RPT_ITS | CCD ---
Author Name Unknown Address [address] [place], [place] [id number] Organization [facility] [place] Clinical Note 09-13-2021 Note Date & Type Note Facility 09-13-2021 Note Patient Outreach (IN TMWS) SHANTEBHASKAR Najma ([id number]) 1935 F Date Time Provider Department 09/13/21 [...] Mental Status Change 5 - Intolerance NEOSPORIN ([id number]*04/11/2005 2 - Rash Comments: Dermatitis at application [...] by JOSE ENRIQUE JULES MA on 09/13/21 [facility] Progress note 09-13-2021 Note Date & Type Note Facility 09-13-2021 Note HNO ID: [id number] Author: Jose Enrique Jules Ma Service: ? [...] schedule if so Jose Enrique Jules Ma [facility] Summary Purpose Family History No Family [...] BE BASED ON THE PRIMARY CLINICAL RECORDS. [facility] [employer] provides no warranty or guarantee of the accuracy or completeness of information in this document.
[2023-09-06 10:17] LABS: Albumin, Serum 4.2 g/dL (3.2-5.0); BUN 27 mg/dL (7-18); BUN/Creat Ratio 17.9 RATIO (10-20); Chloride 103 mmol/L (98-107); Creatinine, Serum 1.51 mg/dL (0.55-1.02); EST Glomerular Filtration Rate 35 mL/min (>60); Est Glom Filt Rate - Afr Amer 42 mL/min (>60); Glucose 100 mg/dL (74-106); Phosphorus 3.6 mg/dL (2.5-4.9); Potassium 4.4 mmol/L (3.5-5.1); Sodium Level 137 mmol/L (136-145)
[2023-09-06 10:52] LABS: PTHIN 92.4 pg/mL (18.4-80.1)
== END | disposition home or self-care (01) ==
LOC: LAB 08:57
PROVIDERS: PCP Internal Medicine; Referring Provider Internal Medicine Nephrology; Visit Provider Internal Medicine Nephrology
DX: N18.32 Chronic kidney disease, stage 3b (principal); N25.81 Secondary hyperparathyroidism of renal origin
CPT/HCPCS: 36415; 80069; 83970

== ENCOUNTER → 2023-10-12 | Outpatient (CLI) | payer MEDICARE, OTHER, SELFPAY ==
[2023-10-12 09:52] LABS: Absolute Lymphocyte Count 1.58 X10^3/uL (0.83-4.51); Absolute Neutrophil Count 5.3 X10^3/uL (2.0-7.7); Basophil# 0.07 X10^3/uL; Basophil% 0.9 % (0-1); Eosinophil# 0.37 X10^3/uL; Eosinophils% 4.6 % (0-5); Hematocrit 38.9 % (37-47); Hemoglobin 12.5 g/dL (12.0-15.0); Lymphocyte # 1.58 X10^3/ul (0.83-4.51); Lymphocyte % 19.5 % (19-41); Mean Corp Hgb Conc 32.1 g/dL (32-36); Mean Corpuscular Hgb 30.9 pg (27.0-32.0); Monocyte# 0.83 X10^3/uL; Monocyte% 10.2 % (0-10); NRBC Flagged by Analyzer 0 % (0-5); Neutrophil # 5.25 X10^3/uL (2.7-7.7); Neutrophil % 64.7 % (47-70); Platelet Count 242 K/mm3 (150-450); RBC Distribution Width SD 44.8 fl (35.1-43.9); Red Blood Count 4.05 M/mm3 (4.2-5.4); White Blood Count 8.1 K/mm3 (4.4-11.0)
[2023-10-12 10:33] LABS: Vitamin D,25 Hydroxy 31.4 ng/mL
[2023-10-12 10:50] LABS: ALB/GLOB Ratio 1.2 RATIO (0.9-2.4); AST(SGOT) 20 U/L (15-37); Alanine Aminotransfer ALT/SGPT 20 U/L (13-56); Alkaline Phosphatase 76 U/L (45-117); Anion Gap 4 (5-15); BUN 24 mg/dL (7-18); BUN/Creat Ratio 17.3 RATIO (10-20); Calcium,Total 9.6 mg/dL (8.5-10.1); Chloride 105 mmol/L (98-107); Cholesterol 228 mg/dL (200); Creatinine, Serum 1.39 mg/dL (0.55-1.02); EST Glomerular Filtration Rate 38 mL/min (>60); Est Glom Filt Rate - Afr Amer 46 mL/min (>60); Free T3 2.5 pg/mL (2.18-3.98); Globulin 3.3 g/dL (2.2-4.2); Glucose 98 mg/dL (74-106); High Density Lipoprotein 49 mg/dL; Potassium 4.1 mmol/L (3.5-5.1); Protein, Total 7.3 g/dL (6.4-8.2); Sodium Level 135 mmol/L (136-145); T4 Free Direct 1.29 ng/dL (0.76-1.46); Thyroid Stim Hormone (TSH) 2.41 uIU/mL (0.358-3.74); Triglycerides 124 mg/dL; Very Low Density Lipoprotein 25 mg/dL (5-40)
== END | disposition home or self-care (01) ==
LOC: LAB 08:54
PROVIDERS: PCP Internal Medicine; Referring Provider Internal Medicine; Visit Provider Internal Medicine
DX: Z13.220 Encounter for screening for lipoid disorders (principal); I12.9 Hypertensive chronic kidney disease with stage 1 through stage 4 chronic kidney disease, or unspecified chronic kidney disease; K21.9 Gastro-esophageal reflux disease without esophagitis; E78.5 Hyperlipidemia, unspecified; E03.9 Hypothyroidism, unspecified; E55.9 Vitamin D deficiency, unspecified; N18.9 Chronic kidney disease, unspecified; H40.9 Unspecified glaucoma
CPT/HCPCS: 36415; 80053; 80061; 82306; 84439; 84443; 84481; 85025

== ENCOUNTER → 2023-11-19 | Outpatient (CLI) | payer MEDICARE, OTHER, SELFPAY ==
[2023-11-19 10:21] LABS: Anion Gap 4 (5-15); BUN 25 mg/dL (7-18); BUN/Creat Ratio 16.7 RATIO (10-20); Calcium,Total 9.5 mg/dL (8.5-10.1); Chloride 105 mmol/L (98-107); EST Glomerular Filtration Rate 35 mL/min (>60); Est Glom Filt Rate - Afr Amer 42 mL/min (>60); Glucose 101 mg/dL (74-106); Potassium 4.1 mmol/L (3.5-5.1); Sodium Level 136 mmol/L (136-145)
== END | disposition home or self-care (01) ==
LOC: LAB 09:12
PROVIDERS: PCP Internal Medicine; Visit Provider Internal Medicine
DX: I12.9 Hypertensive chronic kidney disease with stage 1 through stage 4 chronic kidney disease, or unspecified chronic kidney disease (principal); N18.4 Chronic kidney disease, stage 4 (severe); M10.9 Gout, unspecified
CPT/HCPCS: 36415; 80048; 84550

== ENCOUNTER → 2023-12-03 | Outpatient (CLI) | payer MEDICARE, OTHER, SELFPAY ==
[2023-12-03 09:52] LABS: Anion Gap 5 (5-15); BUN 22 mg/dL (7-18); BUN/Creat Ratio 16.5 RATIO (10-20); Calcium,Total 9.4 mg/dL (8.5-10.1); Chloride 106 mmol/L (98-107); Creatinine, Serum 1.33 mg/dL (0.55-1.02); EST Glomerular Filtration Rate 40 mL/min (>60); Est Glom Filt Rate - Afr Amer 49 mL/min (>60); Glucose 99 mg/dL (74-106); Potassium 3.9 mmol/L (3.5-5.1); Sodium Level 136 mmol/L (136-145); Uric Acid 4.7 mg/dL (2.6-6.0)
== END | disposition home or self-care (01) ==
LOC: LAB 08:51
PROVIDERS: PCP Internal Medicine; Referring Provider Internal Medicine; Visit Provider Internal Medicine
DX: M10.9 Gout, unspecified (principal); N18.4 Chronic kidney disease, stage 4 (severe)
CPT/HCPCS: 36415; 80048; 84550

== ENCOUNTER → 2024-01-08 | Outpatient (CLI) | payer MEDICARE, OTHER, SELFPAY ==
[2024-01-08 10:18] LABS: Anion Gap 6 (5-15); BUN 24 mg/dL (7-18); BUN/Creat Ratio 15.2 RATIO (10-20); Calcium,Total 9.5 mg/dL (8.5-10.1); Chloride 104 mmol/L (98-107); Creatinine, Serum 1.58 mg/dL (0.55-1.02); EST Glomerular Filtration Rate 33 mL/min (>60); Est Glom Filt Rate - Afr Amer 40 mL/min (>60); Glucose 99 mg/dL (74-106); Potassium 4.2 mmol/L (3.5-5.1); Sodium Level 136 mmol/L (136-145); Uric Acid 4.6 mg/dL (2.6-6.0)
== END | disposition home or self-care (01) ==
PROVIDERS: PCP Internal Medicine; Referring Provider Internal Medicine; Visit Provider Internal Medicine
DX: M10.9 Gout, unspecified (principal)
CPT/HCPCS: 36415; 80048; 84550

== ENCOUNTER → 2024-02-12 | Outpatient (CLI) | payer MEDICARE, OTHER, SELFPAY | END | disposition home or self-care (01) | LOC: LABSPEC 09:33 | PROVIDERS: PCP Internal Medicine; Referring Provider Physician Assistant; Visit Provider Physician Assistant | DX: R31.9 Hematuria, unspecified (principal) | CPT/HCPCS: 87086; 87088 ==

== ENCOUNTER → 2024-02-29 | Outpatient (CLI) | payer MEDICARE, OTHER, SELFPAY ==
[2024-02-29 10:40] LABS: Anion Gap 7 (5-15); BUN 26 mg/dL (7-18); BUN/Creat Ratio 17.8 RATIO (10-20); Calcium,Total 10.3 mg/dL (8.5-10.1); Chloride 105 mmol/L (98-107); Creatinine, Serum 1.46 mg/dL (0.55-1.02); EST Glomerular Filtration Rate 36 mL/min (>60); Est Glom Filt Rate - Afr Amer 44 mL/min (>60); Glucose 104 mg/dL (74-106); Potassium 4.2 mmol/L (3.5-5.1); Sodium Level 136 mmol/L (136-145); Uric Acid 5.6 mg/dL (2.6-6.0)
[2024-02-29 10:55] LABS: Erythrocyte Sedimentation Rate 5 mm/hr (0-30)
== END | disposition home or self-care (01) ==
LOC: MTLAB 08:54
PROVIDERS: PCP Internal Medicine; Referring Provider Internal Medicine; Visit Provider Internal Medicine
DX: M10.9 Gout, unspecified (principal); N18.4 Chronic kidney disease, stage 4 (severe)
CPT/HCPCS: 36415; 80048; 84550; 85652

== ENCOUNTER → 2024-03-25 | Outpatient (CLI) | payer MEDICARE, OTHER, SELFPAY ==
[2024-03-25 07:43] LABS: Bacteria 0 SEEN /hpf (None Seen); Mucous, Urine 0 SEEN /hpf (<or=2+); Red Blood Cells-Urine 0 SEEN /hpf (0-5)
[2024-03-25 07:51] LABS: Color, Urine Yellow (Yellow); Glucose, Dipstick Normal (Normal); Ketone-Dipstick Negative (Negative); Leukocyte Esterase-Dipstick 500 /ul (Negative); Nitrite-Dipstick Negative (Negative); Occult Blood-Urine 25 /ul (Negative); Protein-Dipstick Negative (Negative); Specific Gravity, Urine 1.005 (1.002-1.030); Urine Bilirubin Dipstick Negative (Negative); Urine Clarity Clear (Clear); Urine Urobilinogen Normal (Normal)
[2024-03-25 08:00] LABS: Squamous Epithelial Cells - UA 0-5 SEEN /hpf (5-10); White Blood Cells 0-5 SEEN /hpf (0-5)
== END | disposition home or self-care (01) ==
LOC: LABSPEC 07:42
PROVIDERS: PCP Internal Medicine; Visit Provider Internal Medicine
DX: N39.0 Urinary tract infection, site not specified (principal)
CPT/HCPCS: 81001; 87086; 87088

== ENCOUNTER → 2024-04-03 | Outpatient (CLI) | payer MEDICARE, OTHER, SELFPAY ==
--- NOTE | 2024-04-03 08:04 | CT_ITS ---
EXAM: CT ABDOMEN AND PELVIS WITHOUT INTRAVENOUS CONTRAST CLINICAL INDICATION: Diverticulitis TECHNIQUE: Helically acquired images were obtained of the abdomen and pelvis without intravenous contrast. This CT exam was performed using one or more of the following dose reduction techniques: automated exposure control, adjustment of the mA and/or kV according to patient size, and/or use of iterative reconstruction technique. CONTRAST: Oral Readi-Cat RADIATION DOSE: CTDIvol = 6.85 mGy, DLP = 327.07 mGy-cm COMPARISON: CTA chest with contrast 09/27/2015. FINDINGS: LOWER THORAX: Mild cardiomegaly. Normal pericardium. Minimal linear atelectatic changes in the lung bases. Dense calcified plaques in the lower thoracic aorta. ABDOMEN: LIVER: Unremarkable. Homogeneous. GALLBLADDER AND BILE DUCTS: Unremarkable. No visible gallbladder presumably from laparoscopic cholecystectomy. No intrahepatic or extrahepatic biliary ductal dilatation. PANCREAS: Unremarkable. No focal cystic mass. SPLEEN: Unremarkable. Normal size without focal cystic or solid mass. ADRENALS: Unremarkable. No nodules. KIDNEYS AND URETERS: Unremarkable. Normal renal size and position. No hydronephrosis. STOMACH AND BOWEL: No suspicious abnormality of the contrast-filled stomach, contrast-filled small bowel, contrast-filled cecum and ascending colon. Few diverticula in the sigmoid colon without diverticulitis. PELVIS: APPENDIX: Nonvisualization of the appendix but no secondary signs of acute appendicitis. BLADDER: Unremarkable. REPRODUCTIVE: Unremarkable as visualized. No mass. ABDOMEN and PELVIS: INTRAPERITONEAL SPACE: Unremarkable. No ascites or other fluid collection. No free air. BONES/JOINTS: Unremarkable. No suspicious lytic or blastic abnormality. SOFT TISSUES: Unremarkable. No discrete abdominal or pelvic wall hernia. VASCULATURE: Dense calcified plaques along the tortuous abdominal aorta and iliac arteries. LYMPH NODES: Unremarkable. No enlarged lymph nodes. CT/Abdomen/Pel W ORAL Cont Only IMPRESSION: 1. Few sigmoid diverticulosis without diverticulitis. 2. No acute abnormality in the abdomen and pelvis. Electronically Signed: Riley Keenan MD at 8:48 EDT ,
== END | disposition home or self-care (01) ==
PROVIDERS: PCP Internal Medicine; Referring Provider Internal Medicine; Visit Provider Internal Medicine
DX: N39.0 Urinary tract infection, site not specified (principal); K57.90 Diverticulosis of intestine, part unspecified, without perforation or abscess without bleeding; K57.92 Diverticulitis of intestine, part unspecified, without perforation or abscess without bleeding
CPT/HCPCS: 74176

== ENCOUNTER → 2024-04-10 | Outpatient (CLI) | payer MEDICARE, OTHER, SELFPAY ==
[2024-04-10 10:44] LABS: PTHIN 57.3 pg/mL (18.4-80.1)
[2024-04-10 11:05] LABS: ALB/GLOB Ratio 1.2 RATIO (0.9-2.4); AST(SGOT) 20 U/L (15-37); Alanine Aminotransfer ALT/SGPT 21 U/L (13-56); Alkaline Phosphatase 80 U/L (45-117); Anion Gap 6 (5-15); BUN 26 mg/dL (7-18); BUN/Creat Ratio 18.4 RATIO (10-20); Calcium,Total 10.2 mg/dL (8.5-10.1); Chloride 104 mmol/L (98-107); Cholesterol 208 mg/dL (200); Creatinine, Serum 1.41 mg/dL (0.55-1.02); EST Glomerular Filtration Rate 38 mL/min (>60); Est Glom Filt Rate - Afr Amer 45 mL/min (>60); Globulin 3.3 g/dL (2.2-4.2); Glucose 103 mg/dL (74-106); High Density Lipoprotein 49 mg/dL; Magnesium 2.2 mg/dL (1.6-2.6); Potassium 3.9 mmol/L (3.5-5.1); Protein, Total 7.3 g/dL (6.4-8.2); Sodium Level 136 mmol/L (136-145); Triglycerides 135 mg/dL; Very Low Density Lipoprotein 27 mg/dL (5-40)
== END | disposition home or self-care (01) ==
LOC: MTLAB 09:05
PROVIDERS: PCP Internal Medicine; Referring Provider Internal Medicine; Visit Provider Internal Medicine
DX: N39.0 Urinary tract infection, site not specified (principal); N18.4 Chronic kidney disease, stage 4 (severe); I12.9 Hypertensive chronic kidney disease with stage 1 through stage 4 chronic kidney disease, or unspecified chronic kidney disease; E03.9 Hypothyroidism, unspecified; Z13.220 Encounter for screening for lipoid disorders
CPT/HCPCS: 36415; 80053; 80061; 83735; 83970

== ENCOUNTER → 2024-05-09 | Outpatient (CLI) | payer MEDICARE, OTHER, SELFPAY ==
[2024-05-09 10:46] LABS: Albumin, Serum 4.2 g/dL (3.2-5.0); BUN 25 mg/dL (7-18); Calcium,Total 9.6 mg/dL (8.5-10.1); Chloride 104 mmol/L (98-107); Creatinine, Serum 1.47 mg/dL (0.55-1.02); EST Glomerular Filtration Rate 36 mL/min (>60); Est Glom Filt Rate - Afr Amer 43 mL/min (>60); Glucose 101 mg/dL (74-106); Phosphorus 3.4 mg/dL (2.5-4.9); Sodium Level 136 mmol/L (136-145); Uric Acid 4.7 mg/dL (2.6-6.0)
== END | disposition home or self-care (01) ==
LOC: MTLAB 08:42
PROVIDERS: PCP Internal Medicine; Referring Provider Internal Medicine Nephrology; Visit Provider Internal Medicine Nephrology
DX: N18.32 Chronic kidney disease, stage 3b (principal); M10.9 Gout, unspecified
CPT/HCPCS: 36415; 80069; 84550

== ENCOUNTER 2024-07-07 10:12 | Emergency (ER) | payer MEDICARE, OTHER, SELFPAY ==
[2024-07-07 10:13] VITALS: BP 244/121; PULSE 93; RESP 16; TEMP 36.5; O2SAT 95; BMI 22.1
--- NOTE | 2024-07-07 10:37 | EDS_ITS ---
HPI History of Present Illness Chief Complaint: Hypertension Informant: patient Onset/Context/Timing Onset: Weeks (1) Context: Gradual Onset Timing: Continuous Quality: Stiffness Location: Right side of neck and right trapezius area Worsened by: Movement Relieved by: Nothing Narrative Narrative: Patient presents with elevated blood pressure that has been getting worse over the past week. Patient states she was raking some leaves last week and started having some pain in her neck and right shoulder. Patient states that her pain has caused her blood pressure to increase. Patient states she has been taking her blood pressure medications as prescribed. Patient states that her pain feels like a stiffness over the right side of her neck. Patient states it is worse with movement. Patient states nothing seems to help with it. Patient states that she contacted her primary care physician today and was referred to the emergency department. [facility] Medical History Diverticulitis Urinary tract infection Hematuria Fixed drug eruption Wears glasses Wears contact lenses Post-menopausal Cancer Thyroid disease Pulmonary embolism History of hiatal hernia History of diverticulitis Gastric reflux History of Holter monitoring History of echocardiogram History of stress test Cardiology follow-up encounter HLD (hyperlipidemia) Bruit of right carotid artery Pruritus of skin History of skin cancer GERD (gastroesophageal reflux disease) Pancreatitis Premature ventricular contraction Premature atrial contraction Right carotid bruit Nonhealing surgical wound Squamous cell carcinoma of left lower leg Leg wound, left Essential hypertension CKD (chronic kidney disease) Asthma Glaucoma Prothrombin gene mutation Hyperhomocystinemia Hypothyroidism Home Medications ?Medication ?Instructions ?Recorded ?Last Taken ?Type timolol maleate 0.5 % eye drops 1 drp EACH EYE [facility] eye health 09/27/15 05/12/19 History vit C 250 mg-vit E 90 mg-zinc 40 1 tab PO BID 10/18/21 Unknown History mg-copper 1 [id number] capsule (PreserVision AREDS-2) levothyroxine 88 mcg tablet 88 mcg PO DAILY #90 tabs 01/09/24 Unknown Rx allopurinol 100 mg tablet 100 mg PO DAILY #90 tabs 06/19/24 Unknown Rx hydralazine 10 mg tablet 10 mg PO 4X/DAY High blood 07/07/24 Unknown Rx pressure #180 tabs Allergy/AdvReac Type Severity Reaction Status Date / Time ceramide combination no.1 Allergy Intermediate rash Verified 07/07/24 10:13 (1,3,6-II) (From CeraVe) diltiazem HCl (From Cardizem) Allergy Itching Verified 07/07/24 10:13 losartan Allergy Itching Verified 07/07/24 10:13 SEVERE AND BLISTER miconazole nitrate (From Allergy Laryngospas Verified 07/07/24 10:13 Neosporin AF) ms morphine Allergy Other Verified 07/07/24 10:13 nitrofurantoin (From Allergy Rash Verified 07/07/24 10:13 Macrobid) nitrofurantoin Allergy Rash Verified 07/07/24 10:13 macrocrystalline (From Macrobid) bacitracin AdvReac Other Verified 07/07/24 10:13 codeine AdvReac Chest Verified 07/07/24 10:13 tightness lisinopril AdvReac Other Verified 07/07/24 10:13 loratadine (From Claritin) AdvReac Other Verified 07/07/24 10:13 metoprolol AdvReac fatigue Verified 07/07/24 10:13 Family History Mother Heart disease Father Heart disease Brother Heart disease Hypertension Cancer Surgical History History of bilateral cataract extraction History of cholecystectomy History of colectomy History of total hysterectomy Social History Smoking Status: Never smoker alcohol intake: never substance use type: does not use caffeine: No what type of physical activity do you participate in: yoga frequency: 3-4 times per week ROS ROS ED Constitutional Constitutional ED: Denies chills or fever(s) Eyes Eyes: Denies blurry vision or change in vision ENT ENT ED: Denies rhinorrhea or sore throat Cardiovascular Cardiovascular: Denies chest pain or palpitations Respiratory/Chest Respiratory/Chest: Reports cough; Denies dyspnea Gastrointestinal Gastrointestinal: Denies nausea or vomiting Genitourinary Genitourinary ED: Denies dysuria or hematuria Musculoskeletal Musculoskeletal: Reports neck pain; Denies back pain Integumentary Denies abscess or rash Neurologic Neurologic: Denies headache(s) or weakness Allergic/Immunologic Allergic/Immunologic ED: Denies mouth swelling or urticaria EXAM Physical Exam Const Vital Signs: 07/07/24 10:13 07/07/24 12:07 07/07/24 14:00 Temperature 97.7 F L Temperature Source Oral Pulse Rate 93 74 79 Respiratory Rate 16 18 18 Blood Pressure 244/121 H 182/81 H 198/85 H Blood Pressure Mean 162 114 122 Pulse Ox 95 95 98 Oxygen Delivery Method Room Air Room Air Positive well nourished and well developed General Appearance ED: well developed and NAD HEENT Reports moist mucous membranes Neck supple and no JVD Neck Narrative: There is tenderness over the right cervical paraspinal muscles. There is mild midline tenderness. There is no bony crepitance or step-off. There is also tenderness and spasm of the right trapezius muscle. Range of motion was limited in all motions of the cervical spine secondary to pain. General: tenderness Chest Wall palpation of chest normal Resp normal respiratory effort and clear to auscultation bilaterally Cardio regular rate and regular rhythm GI non-tender and non-distended Palpation: soft Extremity normal to inspection General Extremety ED: Negative for edema or tenderness General Extremity: Negative for edema Neuro oriented x3, CN's II-XII intact bilaterally and no sensory deficits noted Sensorium / Orientation: alert Motor Exam: strength 5/5 throughout Psych mental status grossly normal MDM MDM MDM Narrative Medical decision making narrative: Differential diagnosis includes hypertensive urgency, hypertensive emergency, accelerated hypertension, cardiac dysrhythmia, cardiac ischemia, pneumonia, pneumothorax, cervical strain, spondylolisthesis, and anxiety. EKG will be obtained to assess for cardiac dysrhythmia and cardiac ischemia. CT scan of the cervical spine will be obtained to assess for spondylolisthesis and degenerative arthritis. Chest x-ray will be obtained to assess for pneumonia and widened mediastinum. CBC will be obtained to assess for leukocytosis and anemia. Basic metabolic profile will be obtained to assess for electrolyte abnormality and renal function. High-sensitivity troponin will be obtained to assess for cardiac ischemia. Lab Data Attestation: I reviewed the patient's lab results. Lab results narrative: CBC was reviewed and was within normal limits. Basic metabolic profile was reviewed. BUN was 30 and creatinine was 2.03. This was slightly increased from previous result. High-sensitivity troponin was reviewed and was normal at 16. Urinalysis was reviewed. There is no evidence of urinary tract infection or hematuria. Labs: Laboratory Results - last 24 hr 07/07/24 07/07/24 10:55 11:39 WBC 8.4 RBC 4.13 L Hgb 13.1 Hct 39.3 MCV 95.2 MCH 31.7 MCHC 33.3 RDW Std Deviation 47.4 H RDW Coeff of Joaquin 14.0 Plt Count 193 MPV 9.8 Immature Gran % (Auto) 0.400 Neut % (Auto) 74.9 H Lymph % (Auto) 13.4 L [place] % (Auto) 8.4 Eos % (Auto) 2.4 Baso % (Auto) 0.5 Absolute Neuts (auto) 6.3 Absolute Lymphs (auto) 1.12 Nucleated RBC % 0 Sodium 135 L Potassium 4.4 Chloride 102 Carbon Dioxide 27.0 Anion Gap 6 BUN 30 H Creatinine 2.03 H Estim Creat Clear Calc 17.57 Est GFR (MDRD) Af Amer 30 L Est GFR (MDRD) Non-Af 25 L BUN/Creatinine Ratio 14.8 Glucose 102 Calcium 10.1 Troponin I High Sens 16 Urine Color Yellow Urine Clarity Clear Urine pH 7.0 Ur Specific [place] 1.005 Urine Protein 100 H Urine Glucose (UA) Normal Urine Ketones Negative Urine Occult Blood Negative Urine Nitrite Negative Urine Bilirubin Negative Urine Urobilinogen Normal Ur Leukocyte Esterase Negative Urine RBC 0 SEEN Urine WBC 0 SEEN Ur Squamous Epith Cells 0 SEEN Urine Bacteria 0 SEEN Urine Mucus 0 SEEN Radiography Diagnostic Testing: Clinical Impression(s) from Imaging Studies Chest X-Ray 07/07/24 10:44 IMPRESSION: Hyperexpanded lungs, no superimposed acute pulmonary process Electronically Signed: Walker Perez MD at 12:04 EST , Cervical Spine CT 07/07/24 10:47 IMPRESSION: Multilevel degenerative changes, as described above. Electronically Signed: Walker Perez MD at 11:50 EST , PA and lateral chest x-ray was obtained. There are 2 views. On my independent interpretation, lung olivera are clear. There is normal cardiac silhouette. Bony thorax is normal. There is no acute process noted. Radiologist also interpreted the x-ray and agrees. CT scan of the cervical spine was obtained. There are degenerative changes. There is no acute fracture or spondylolisthesis. This was interpreted by the radiologist and was also independently reviewed by myself. EKG Initial EKG: Attestation: I personally reviewed and interpreted this EKG as follows: Interpretation: Sinus Rhythm (With first-degree AV block with a rate of 76) and Non-Specific ST Changes Comments: EKG was obtained. On my independent interpretation, shows a sinus rhythm with a first-degree AV block with a rate of 76. TX interval was prolonged at 214 ms. QRS interval was normal at 82 ms. QTc interval was normal at 456 ms. There is left axis deviation at -54. There are nonspecific ST-T wave changes. Prior EKG tracings: available for review Prior: Unchanged (08/28/2022) Management Discussion w/another healthcare provider: PCP Treatment and Re-Evaluation :: Patient was given a dose of labetalol here. Patient's blood pressure improved to 182/81. However, it started to go back up to 203 systolic. Patient was given a dose of hydralazine. Patient was given a dose of oxycodone here. Case was discussed with Dr. Guidry. They discussed the case with him. He is agreeable to adjusting the hydralazine. Patient states she has intolerances to several other blood pressure medications and has difficulty with them. He will follow-up with the patient as an outpatient. Patient understood and was agreeable with plan. All questions were answered. Discharge Plan Triage Chief Complaint: Hypertension ED Provider: Carson Medina Dx/Rx/DC Orders Clinical Impression: Hypertension, Acute cervical myofascial strain Instructions: ED Hypertension, Established, ED Neck Sprain or Strain Prescriptions: Changed hydralazine 10 mg tablet 10 mg PO 4X/DAY Qty: 180 1RF No Action PreserVision AREDS-2 250-90-40-1 mg capsule 1 tab PO BID timolol maleate 1 DROP drops 1 drp EACH EYE [facility] Patient Comments: eye health levothyroxine 88 mcg tablet 88 mcg PO DAILY Qty: 90 3RF allopurinol 100 mg tablet 100 mg PO DAILY Qty: 90 1RF Primary Care Provider: Cat Artis Referrals: Cat Artis MD [Primary Care Provider] - 5-7 Days Print Language: Nigerian Disposition Disposition: Home, Self Care
--- NOTE | 2024-07-07 10:44 | RAD_ITS ---
STUDY: X-RAY CHEST REASON FOR EXAM: Female, 89 years old. Chest pain, hypertension TECHNIQUE: PA and lateral views of the chest. COMPARISON: 08/28/2022 FINDINGS: EKG leads overlie the chest Lungs are hyperexpanded with chronic interstitial changes, no superimposed acute pulmonary process Normal size heart. Normal mediastinum and kiel. Normal visualized pulmonary arteries. Normal visualized aortic arch and descending thoracic aorta. Normal visualized thoracic spine. Normal visualized ribs, clavicles, and shoulders. There is no demonstrated abnormality of the visualized soft tissue structures of the upper abdomen. RAD/Chest PA and Lateral IMPRESSION: Hyperexpanded lungs, no superimposed acute pulmonary process Electronically Signed: Walker Perez MD at 12:04 EST ,
--- NOTE | 2024-07-07 10:47 | CT_ITS ---
STUDY: CT CERVICAL SPINE WITHOUT CONTRAST REASON FOR EXAM: Female, 89 years old. Neck pain and headache RADIATION DOSAGE (If Supplied By Facility): CTDIvol = ( 12.60 ) mGy, DLP = ( 284.08 ) mGycm TECHNIQUE: High resolution transaxial imaging was performed without contrast material. Sagittal and coronal images were reconstructed. Individualized dose optimization techniques were used for this CT. COMPARISON: None FINDINGS: Normal craniovertebral junction. Normal anterior atlantoaxial articulation. Normal odontoid process. There is straightening of the normal cervical lordosis. Bones are demineralized. C2-3: Normal endplates. Disc space narrowing.. Normal central canal, right neural foramen is widely patent, left is narrowed due to facet joint hypertrophy C3-4: Normal endplates. Disc space narrowing.. Normal central canal and intervertebral neuroforamina. C4-5: Normal endplates. Disc space narrowing.. Normal central canal and intervertebral neuroforamina. C5-6: Normal endplates. Disc space narrowing with posterior uncovertebral spurs. No central canal narrowing, bilateral foraminal narrowing due to facet joint hypertrophy. C6-7: Normal endplates. Disc space narrowing with posterior uncovertebral spurs. No central canal narrowing, bilateral foraminal narrowing due to facet joint hypertrophy. C7-T1: Normal endplates. Normal disc height and morphology. Normal central canal and intervertebral neuroforamina. Dense peripheral calcifications noted in the carotid artery bulbs. No airway narrowing or deviation. Thyroid gland is unremarkable, lung apices are clear CT/Spine Cervical without Contras IMPRESSION: Multilevel degenerative changes, as described above. Electronically Signed: Walker Perez MD at 11:50 EST ,
[2024-07-07 11:02] LABS: Absolute Lymphocyte Count 1.12 X10^3/uL (0.83-4.51); Absolute Neutrophil Count 6.3 X10^3/uL (2.0-7.7); Basophil# 0.04 X10^3/uL; Basophil% 0.5 % (0-1); Eosinophils% 2.4 % (0-5); Hematocrit 39.3 % (37-47); Hemoglobin 13.1 g/dL (12.0-15.0); Lymphocyte # 1.12 X10^3/ul (0.83-4.51); Lymphocyte % 13.4 % (19-41); Mean Corp Hgb Conc 33.3 g/dL (32-36); Mean Corpuscular Hgb 31.7 pg (27.0-32.0); Mean Corpuscular Volume 95.2 fL (81-99); Mean Platelet Vol. 9.8 fl (6.2-12.0); Monocyte% 8.4 % (0-10); NRBC Flagged by Analyzer 0 % (0-5); Neutrophil # 6.29 X10^3/uL (2.7-7.7); Neutrophil % 74.9 % (47-70); Platelet Count 193 K/mm3 (150-450); RBC Distribution Width SD 47.4 fl (35.1-43.9); Red Blood Count 4.13 M/mm3 (4.2-5.4); White Blood Count 8.4 K/mm3 (4.4-11.0)
[2024-07-07 11:46] LABS: Bacteria 0 SEEN /hpf (None Seen); Mucous, Urine 0 SEEN /hpf (<or=2+); Red Blood Cells-Urine 0 SEEN /hpf (0-5); Squamous Epithelial Cells - UA 0 SEEN /hpf (5-10); White Blood Cells 0 SEEN /hpf (0-5)
[2024-07-07 11:47] LABS: Color, Urine Yellow (Yellow); Glucose, Dipstick Normal (Normal); Ketone-Dipstick Negative (Negative); Leukocyte Esterase-Dipstick Negative /ul (Negative); Nitrite-Dipstick Negative (Negative); Occult Blood-Urine Negative /ul (Negative); Protein-Dipstick 100 mg/dl (Negative); Specific Gravity, Urine 1.005 (1.002-1.030); Urine Bilirubin Dipstick Negative (Negative); Urine Clarity Clear (Clear); Urine Urobilinogen Normal (Normal)
[2024-07-07 11:48] LABS: Anion Gap 6 (5-15); BUN 30 mg/dL (7-18); BUN/Creat Ratio 14.8 RATIO (10-20); Calcium,Total 10.1 mg/dL (8.5-10.1); Chloride 102 mmol/L (98-107); Creatinine, Serum 2.03 mg/dL (0.55-1.02); EST Glomerular Filtration Rate 25 mL/min (>60); Est Glom Filt Rate - Afr Amer 30 mL/min (>60); Estimated Creatinine Clearance 17.57 ml/min; Glucose 102 mg/dL (74-106); Potassium 4.4 mmol/L (3.5-5.1); Sodium Level 135 mmol/L (136-145); Troponin-I HS 16 pg/mL (3.0-54.0)
[2024-07-07 12:07] VITALS: BP 182/81; PULSE 74; RESP 18; O2SAT 95
--- NOTE | 2024-07-07 12:32 | CM.ED ---
Social work This SW identified need to validate patient's advance directives. Patient's advance directives both found on file in the e-chart. Patient's documents both name patient's daughter, Eri. Eri's address has changed since completion of documents, but patient confirmed Eri's phone number remains the same. Denise Ball, PI[employer]O MECH[employer]IC, CASE FINISHER
--- NOTE | 2024-07-07 12:36 | CM.ED ---
Social work Reason for referral: validation of advance directives Referral source: case find This SW identified patient's need for advance directives to be validated. This SW entered patient's room, introducing self and role at [facility]. Patient sitting up in bed, alert and oriented. Patient stated feeling fine, but becoming anxious every time patient takes patient's blood pressure. Patient states needing to speak with patient's PCP about patient's anxiety due to the anxiety causing further issues the older patient gets. Patient denied need for counseling and/or psychiatric resources at this time, stating patient would talk more seriously to patient's PCP about the need for anxiety medication. Patient stated patient counsels herself when needed and is able to talk herself down when patient is experiencing anxiety. Active listening and empathic support provided throughout conversation. Patient's advance directives both found on file in the e-chart. Patient's documents both name patient's daughter, Eri; patient confirmed. Eri's address has changed since completion of documents, but patient confirmed Eri's phone number remains the same. Patient denied further needs at this time. Denise Ball, president [place], WELL CLEANER
[2024-07-07] MEDS: hydrALAZINE 20 MG/ML Vial 5 MG IV ×2 (13:05→14:26)
--- NOTE | 2024-07-07 13:41 | EKG12_ITS ---
Test Reason : HTN Blood Pressure : */* mmHG Vent. Rate : 76 BPM Atrial Rate : 76 BPM P-R Int : 214 ms QRS Dur : 82 ms QT Int : 406 ms P-R-T Axes : 91 -54 90 degrees QTcB Int : 456 ms Sinus rhythm with 1st degree A-V block Left axis deviation Septal infarct , age undetermined Nonspecific ST & T wave changes Abnormal ECG Confirmed by Alexander Morrell ([id number]), supervising editor trailer SELWYN GARCIA ([id number]) on 07/08/2024 1:23:32 PM Referred By: Confirmed By: Alexander Morrell
[2024-07-07 14:00] VITALS: BP 198/85; PULSE 79; RESP 18; O2SAT 98
[2024-07-07] MEDS: Acetaminophen 500 MG Tablet 1000 MG PO (14:24)
[2024-07-07 15:29] VITALS: BP 176/88; PULSE 78; RESP 18; TEMP 36.8; O2SAT 98
== END 2024-07-07 15:40 | disposition home or self-care (01) ==
PROVIDERS: Emergency Provider Emergency Medicine; PCP Internal Medicine; Visit Provider Emergency Medicine
DX: I12.9 Hypertensive chronic kidney disease with stage 1 through stage 4 chronic kidney disease, or unspecified chronic kidney disease (principal); S16.1XXA Strain of muscle, fascia and tendon at neck level, initial encounter; N18.9 Chronic kidney disease, unspecified; E78.5 Hyperlipidemia, unspecified; M25.511 Pain in right shoulder; R05.9 Cough, unspecified; Z90.49 Acquired absence of other specified parts of digestive tract; Z90.710 Acquired absence of both cervix and uterus; E03.9 Hypothyroidism, unspecified; K21.9 Gastro-esophageal reflux disease without esophagitis; X50.1XXA Overexertion from prolonged static or awkward postures, initial encounter; Y93.H1 Activity, digging, shoveling and raking
CPT/HCPCS: 71046; 72125; 80048; 81001; 84484; 85025; 93005; 96374; 96375; 96376; 99284; A4216

== ENCOUNTER 2024-07-25 13:00 | Outpatient (RCR) | payer MEDICARE, OTHER, SELFPAY ==
--- NOTE | 2024-07-25 14:04 | HP.PTEVAL_ITS ---
Patient's Visit Information Visit Information Visit Information: BHASKAR FREY is a 89 year old F referred to Physical Therapy by Dr. Cat Artis MD with a diagnosis of STRAIN OF MUSCLE ,FASCIA AND TENDONAT NECK. Date of Evaluation: 07/25/24 Physical Therapist: Woodrow Brito, PT, Cert MDT, OCS Visit Plan Frequency: 2x /Week Duration: 4 Weeks Plan: PT INTERVENTIONS CERVICAL ROM ,MANUAL THERAPY STM ,POSTURAL EX'S AND STRENGTHENING AND MODALITIES Subjective Subjective: This 89 y/o female presents to physical therapy with cervical pain . Patient has had cervical pain Jul 01 with acute pain lifting heavy leaves and carry garbage bags. Patient developed neck pain and UT . Patient seen DR recommended PT and chiropractor made symptoms worse. Tried US /estim and manipulator. Patient was in hospital and CT scan showed DDD. Patient aggravating factors lifting OH ,turning . Alleviating factors heat. Patient denies MORRISSEY /tinnitus/nausea. Denies paresthesia/tingling. Patient sleeping okay.Neck feels weak. Patient condition affects QOL and function/housework tasks. Patient goal to decrease pain SOCIAL: VOCATION: retired Pain Bilateral Neck: Pain Intensity (Out of 10): 1 Pain Intensity Range: 10 Objective Objective: POSTURE: mild forward posture PALAPTION: tender UT /levator/scalenes/occiput and paraspinals NEURO: denies paresthesia/tingling ,reflexes C5-6-7 3/3 BUE AROM: WFL MMT: BUE grossly 4/5 CERVICAL ROM: flexion min loss ,extension mod/severe loss ,lateral flexion /rotation mod/severe loss Special Tests C/S Radiculapathy - Left Upper limb tension test: Negative C/S Radiculapathy - Right Upper limb tension test: Negative C/S Radiculapathy - Left Spurlings: Positive C/S Radiculapathy - Right Spurlings: Positive C/S Radiculapathy - Left Cervical distraction: Negative C/S Radiculapathy - Right Cervical distraction: Negative C/S Radiculapathy - Left Relief test: Negative C/S Radiculapathy - Right Relief test: Negative C/S Radiculapathy - Valsalva: Negative Sharp Sona: Negative Vertebral Artery Test: Negative Alar Ligament Test: Negative Balance/Special Test Scores Oswestry Neck Score: 22 Goals Goal 1:: Patient to be I with cervical spine Goal Time Frame: 4-6 Weeks Goal 2:: Patient to improve cervical ROM of function of recovery for driving Goal Time Frame: 4-6 Weeks Goal 3:: Patient to demonstrate 50 % improvement with less pain and improved function Goal Time Frame: 4-6 Weeks Goal 4:: Patient improve quick dash by 5 points to improve QOL Goal Time Frame: 4-6 Weeks Goal 5:: Patient to improve ability for housework tasks and ADLS with min limitations Goal Time Frame: 4-6 Weeks Rehabilitation Potential Physical Therapy Diagnosis: This patient has cervical pain with pain with positioning and motion testing all direction tender throughout upper quarter of cervical ,decrease cervical ROM all planes of motion thus benefit from skilled PT Rehabilitation Potential: Good Anticipated Interventions Patient/Client Instruction: Educate patient on: Condition and Plan of Care For the Purpose of:: To decrease pain, To increase ROM, To improve ability to perform ADL's, To increase tolerance to activity/condition/position, To improve ability of physical actions for home/community/work/leisure, To improve health of tissue, To decrease soft tissue restriction, To increase flexibility/ROM, To reduce risk of recurrence, To prevent re-injury and To improve tolerance to A DL's Therapeutic Exercise to Include: Strength training, Postural training, Flexibilty training, Active ROM and Scapular Strength/Stabilization For the Purpose of:: To decrease pain, To increase ROM, To improve muscle performance and motor function, To improve ability to perform ADL's, To increase tolerance to activity/condition/position, To improve ability of physical actions for home/community/work/leisure, To improve health of tissue, To decrease soft tissue restriction, To increase flexibility/ROM and To improve tolerance to ADL's Manual Therapy Techniques to Include: Mobilization and Soft tissue mobilization Comment: CERVICAL For the Purpose of:: To decrease pain, To increase ROM, To improve muscle performance and motor function, To improve ability to perform ADL's, To increase tolerance to activity/condition/position, To improve ability of physical actions for home/community/work/leisure, To improve health of tissue, To decrease soft tissue restriction and To increase flexibility/ROM TENS: Yes IF ES: Yes Cryotherapy (ice pack, ice massage): Yes Thermo therapy (hot pack): Yes Ultrasound (thermal/non thermal): Yes For the Purpose of:: To decrease pain, To increase ROM, To improve nutrient delivery to tissue, To increase oxygenation perfusion, To improve muscle performance and motor function, To improve health of tissue and To decrease soft tissue restriction Text: Thank you for the opportunity to evaluate your patient. For Medicare and Medicare HMO plans, please review the plan of care and approve it. It will need to be FAXED BACK to us at [phone] for Medicare purposes. For Medicare only, by signing this I certify the plan of care. Please let me know if there are questions or concerns regarding this plan of care. Physician Signature: Date:
== END 2024-07-25 19:00 | disposition home or self-care (01) ==
LOC: PT 13:00
PROVIDERS: PCP Internal Medicine; Visit Provider Internal Medicine
DX: S16.1XXD Strain of muscle, fascia and tendon at neck level, subsequent encounter (principal)
CPT/HCPCS: 97140; 97162

== ENCOUNTER 2024-07-26 18:37 | Inpatient (IN) | payer MEDICARE, OTHER, SELFPAY ==
[2024-07-26] VITALS (7 sets, daily range): BP systolic 170–241; BP diastolic 99–119; PULSE 69–93; RESP 16–18; TEMP 36.8; O2SAT 94–99; BMI 22.1; BMI 21.2
--- NOTE | 2024-07-26 19:02 | RAD_ITS ---
INDICATION: pain EXAMINATION/TECHNIQUE: X-RAY - RIGHT XR Knee Complete 4 Views or More COMPARISON: None. FINDINGS: No acute fracture or malalignment. Mild tricompartmental joint space narrowing and osteophytosis. No joint effusion. The soft tissues are unremarkable. RAD/Knee 4 or More Views IMPRESSION: No acute fracture or malalignment. 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 Electronically Signed: Obi Worley MD at 22:29 EST ,
--- NOTE | 2024-07-26 19:05 | EX.ED.DYSGE1 ---
HPI <JOHNNA Hamm - Last Filed: 07/26/24 21:55> History of Present Illness Chief Complaint: Weakness Narrative Narrative: 89-year-old female states she went outside to clean her dryer vent and was down on 1 knee and then was unable to get up. She was sitting on the ground and both legs felt too weak to stand up. She held onto the AC unit to try and stand up but fell backwards. She states she was wearing a large down coat and did not hit her head or lose consciousness or sustain any injuries. She crawled to her garage entrance and called for help and a passing neighbor outside assisted her into her home. She states she was outside for a total of 30 minutes. Both legs still feel weak but are feeling better and she has been able to ambulate with a cane. She has bruising of both knees. She denies any headache, chest pain, shortness of breath, abdominal pain, nausea or vomiting, melena hematochezia, or urinary symptoms. PFS <JOHNNA Hamm - Last Filed: 07/26/24 21:55> [facility] Medical History Diverticulitis Urinary tract infection Hematuria Fixed drug eruption Wears glasses Wears contact lenses Post-menopausal Cancer Thyroid disease Pulmonary embolism History of hiatal hernia History of diverticulitis Gastric reflux History of Holter monitoring History of echocardiogram History of stress test Cardiology follow-up encounter HLD (hyperlipidemia) Bruit of right carotid artery Pruritus of skin History of skin cancer GERD (gastroesophageal reflux disease) Pancreatitis Premature ventricular contraction Premature atrial contraction Right carotid bruit Nonhealing surgical wound Squamous cell carcinoma of left lower leg Leg wound, left Essential hypertension CKD (chronic kidney disease) Asthma Glaucoma Prothrombin gene mutation Hyperhomocystinemia Hypothyroidism Home Medications ?Medication ?Instructions ?Recorded ?Last Taken ?Type timolol maleate 0.5 % eye drops 1 drp EACH EYE [facility] eye health 09/27/15 05/12/19 History vit C 250 mg-vit E 90 mg-zinc 40 1 tab PO DAILY 10/18/21 Unknown History mg-copper 1 [id number] capsule (PreserVision AREDS-2) levothyroxine 88 mcg tablet 88 mcg PO DAILY #90 tabs 01/09/24 Unknown Rx allopurinol 100 mg tablet 100 mg PO DAILY #90 tabs 06/19/24 Unknown Rx hydralazine 10 mg tablet 10 mg PO 4X/DAY High blood 07/07/24 Unknown Rx pressure #180 tabs cyclobenzaprine 5 mg tablet 5 mg PO TID PRN muscle spasm #20 07/10/24 Unknown Rx tabs Allergy/AdvReac Type Severity Reaction Status Date / Time ceramide combination no.1 Allergy Intermediate rash Verified 07/26/24 18:44 (1,3,6-II) (From CeraVe) diltiazem HCl (From Cardizem) Allergy Itching Verified 07/26/24 18:44 losartan Allergy Itching Verified 07/26/24 18:44 SEVERE AND BLISTER miconazole nitrate (From Allergy Laryngospas Verified 07/26/24 18:44 Neosporin AF) ms morphine Allergy Other Verified 07/26/24 18:44 nitrofurantoin (From Allergy Rash Verified 07/26/24 18:44 Macrobid) nitrofurantoin Allergy Rash Verified 07/26/24 18:44 macrocrystalline (From Macrobid) bacitracin AdvReac Other Verified 07/26/24 18:44 codeine AdvReac Chest Verified 07/26/24 18:44 tightness lisinopril AdvReac Other Verified 07/26/24 18:44 loratadine (From Claritin) AdvReac Other Verified 07/26/24 18:44 metoprolol AdvReac fatigue Verified 07/26/24 18:44 Family History Mother Heart disease Father Heart disease Brother Heart disease Hypertension Cancer Surgical History History of bilateral cataract extraction History of cholecystectomy History of colectomy History of total hysterectomy Social History household members: none Smoking Status: Never smoker alcohol intake: never substance use type: does not use caffeine: No what type of physical activity do you participate in: yoga frequency: 3-4 times per week ROS <JOHNNA Hamm - Last Filed: 07/26/24 21:55> ROS ED ROS Narrative Constitutional: Negative for fever, chills, malaise. CVS: Negative for palpitations, chest pain, syncope. Respiratory: Negative for shortness of breath, cough. GI: Negative for abdominal pain, nausea, vomiting, diarrhea, melena, hematochezia. : Negative for dysuria. Neuro: Negative for headache. EXAM <JOHNNA Hamm - Last Filed: 07/26/24 21:55> Physical Exam Narrative Exam Narrative: CONST: Patient sitting in no acute distress. EYES: Normal inspection. ENT: Normal inspection, moist mucous membranes. NECK: Normal inspection. RESP: No respiratory distress, CTAB. CVS: Regular rate and rhythm, no murmur, no gallop. ABD: Soft and nontender, no guarding or rebound, nondistended. SKIN: Color normal, no rash, warm, dry, intact. EXTREMITIES: Bilateral knee contusions and minor soft tissue swelling, able to extend bilaterally. Tender to palpation, no significant ligamentous laxity. No tenderness of hips lower legs ankle or feet. 5/5 strength in hip flexion, knee flexion/extension, DF/PF. Normal sensation. 2+ DP pulses. NEURO: Alert and answering questions appropriately. Face symmetric, cranial nerves II through XII intact, 5/5 upper and lower extremity strength, normal gait. PSYCH: Normal affect. Const Vital Signs: 07/26/24 18:42 07/26/24 19:57 07/26/24 20:41 Temperature 98.2 F Temperature Source Oral Pulse Rate 82 84 Respiratory Rate 16 16 Respiratory Effort Normal Respiratory Pattern Normal Blood Pressure 241/119 H 239/99 H Blood Pressure Mean 159 145 Pulse Ox 99 97 Oxygen Delivery Method Room Air 07/26/24 20:44 07/26/24 21:24 Temperature Temperature Source Pulse Rate 69 82 Respiratory Rate 18 16 Respiratory Effort Respiratory Pattern Blood Pressure 170/105 H 198/116 H Blood Pressure Mean 126 143 Pulse Ox 98 97 Oxygen Delivery Method Room Air Room Air <Dr. Rio Harrell DO - Last Filed: 07/27/24 00:23> Physical Exam Const Vital Signs: 07/26/24 18:42 07/26/24 19:57 07/26/24 20:41 Temperature 98.2 F Temperature Source Oral Pulse Rate 82 84 Respiratory Rate 16 16 Respiratory Effort Normal Respiratory Pattern Normal Blood Pressure 241/119 H 239/99 H Blood Pressure Mean 159 145 Pulse Ox 99 97 Oxygen Delivery Method Room Air 07/26/24 20:44 07/26/24 21:24 Temperature Temperature Source Pulse Rate 69 82 Respiratory Rate 18 16 Respiratory Effort Respiratory Pattern Blood Pressure 170/105 H 198/116 H Blood Pressure Mean 126 143 Pulse Ox 98 97 Oxygen Delivery Method Room Air Room Air [facility] <JOHNNA Hamm - Last Filed: 07/26/24 21:55> [facility] Narrative Medical decision making narrative: 89-year-old female presents with bilateral lower extremity weakness. It started when she was kneeling cleaning her dry vent outside. She feels like symptoms are improved. She is awake and alert no distress. Her blood pressure is elevated at 241/119 with otherwise normal vital signs. She is prescribed hydralazine 10 mg 4 times a day and has only taken it once today around noon. She states this is because she woke up late and then the episode outside occurred and she did not take another dose. She has no headache, chest pain, shortness of breath, or focal neurological symptoms. She reports subjective weakness in both legs which is not present on exam. She has normal MSPs and reflexes. She is able to ambulate independently. CBC is unremarkable. BMP shows normal electrolytes. Her creatinine is 2.16 and it has been slowly trending up over the last year. There is no BONNY. EKG is normal sinus rhythm without acute ischemic changes but troponin is slightly elevated at 58. It was 16 a few weeks ago so this is concerning for endorgan damage from hypertension. She has no chest pain or shortness of breath. She was initially treated with p.o. hydralazine 10 mg upon arrival and most recent manual BP is around 9:25 pm is 198/116. Looks like her baseline blood pressures between 170-180 systolic but with concern for endorgan damage and her running higher than this I feel she needs admitted. I discussed the case with the hospitalist for admission. Lab Data Attestation: I reviewed the patient's lab results. Labs: Laboratory Results - last 24 hr 07/26/24 07/26/24 19:42 19:43 WBC 10.0 RBC 3.95 L Hgb 12.7 Hct 36.8 L MCV 93.2 MCH 32.2 H MCHC 34.5 RDW Std Deviation 47.6 H RDW Coeff of Joaquin 14.2 Plt Count 185 MPV 9.7 Immature Gran % (Auto) 0.400 Neut % (Auto) 80.9 H Lymph % (Auto) 10.1 L Barrow % (Auto) 7.4 Eos % (Auto) 0.7 Baso % (Auto) 0.5 Absolute Neuts (auto) 8.1 H Absolute Lymphs (auto) 1.01 Nucleated RBC % 0 Sodium 136 Potassium 3.6 Chloride 103 Carbon Dioxide 25.0 Anion Gap 8 BUN 34 H Creatinine 2.16 H Estim Creat Clear Calc 16.51 Est GFR (MDRD) Af Amer 28 L Est GFR (MDRD) Non-Af 23 L BUN/Creatinine Ratio 15.7 Glucose 115 H Calcium 10.0 Magnesium 2.3 Total Creatine Kinase 125 Troponin I High Sens 58 H Urine Color Yellow Urine Clarity Clear Urine pH 8.0 Ur Specific Atkins 1.010 Urine Protein 500 H Urine Glucose (UA) Normal Urine Ketones Negative Urine Occult Blood 25 H Urine Nitrite Negative Urine Bilirubin Negative Urine Urobilinogen Normal Ur Leukocyte Esterase Negative Urine RBC 0-5 SEEN Urine WBC 0-5 SEEN Ur Squamous Epith Cells 0 SEEN Urine Bacteria 0 SEEN Urine Mucus 1+ Ur Random Sodium 36 Urine Creatinine 37.20 Radiography Diagnostic Testing: Clinical Impression(s) from Imaging Studies Knee X-Ray 07/26/24 19:02 IMPRESSION: No acute fracture or malalignment. 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 Electronically Signed: Obi Worley MD at 22:29 EST Reading Location ID and State: [place] / [place] Tel , Service support , Knee X-Ray 07/26/24 20:10 IMPRESSION: No acute fracture or malalignment. 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 Electronically Signed: Obi Wroley MD at 22:30 EST Reading Location ID and State: [id number] / [place] Tel , Service support , Chest X-Ray 07/26/24 21:40 IMPRESSION: No acute radiographic abnormalities. Electronically Signed: Obi Worley MD at 22:45 EST Reading Location ID and State: [email or web address] / [place] Tel , Service support , EKG Initial EKG: Attestation: I personally reviewed and interpreted this EKG as follows: Interpretation: Sinus Rhythm and No Acute Injury Pattern Comments: Sinus rhythm with first-degree AV block with PACs Left axis deviation No acute ischemic changes <Dr. Rio Harrell, DO - Last Filed: 07/27/24 00:23> [facility] MDM Narrative Medical decision making narrative: 89-year-old female presents with bilateral lower extremity weakness. Medical decision making narrative: 89-year-old female presents with bilateral lower extremity weakness. It started when she was kneeling cleaning her dry vent outside. She feels like symptoms are improved. She is awake and alert no distress. Her blood pressure is elevated at 241/119 with otherwise normal vital signs. She is prescribed hydralazine 10 mg 4 times a day and has only taken it once today around noon. She states this is because she woke up late and then the episode outside occurred and she did not take another dose. She has no headache, chest pain, shortness of breath, or focal neurological symptoms. She reports subjective weakness in both legs which is not present on exam. She has normal MSPs and reflexes. She is able to ambulate independently. CBC is unremarkable. BMP shows normal electrolytes. Her creatinine is 2.16 and it has been slowly trending up over the last year. There is no BONNY. EKG is normal sinus rhythm without acute ischemic changes but troponin is slightly elevated at 58. It was 16 a few weeks ago so this is concerning for endorgan damage from hypertension. She has no chest pain or shortness of breath. She was initially treated with p.o. hydralazine 10 mg upon arrival and most recent manual BP is around 9:25 pm is 198/116. Looks like her baseline blood pressures between 170-180 systolic but with concern for endorgan damage and her running higher than this I feel she needs admitted. I discussed the case with the hospitalist for admission. ED attending note: 89-year-old female presents with bilateral knee pain. Diffuse weakness. She notes earlier today prior to arrival she was attempting to clean out a dryer vent. She notes when she bent down she felt weak as if she could not get up and she has severe pain in her knees. She notes she called for help but no one would come. Show she crawled around her house to her garage I then finally received help. She notes weakness has improved but still feels slightly weak. She was pain in bilateral knees. She denies any head trauma, syncope, chest pain, abdominal pain. She denies any history of connective tissue diseases. She notes she has whitecoat hypertension and gets nervous since her blood pressure is always elevated despite taking her home blood pressure medication. Exam: No focal cardiopulmonary abnormalities. No murmurs gallops or rubs. She has symmetric pulses in all 4 extremities. She was alert and orient x 3. She had no focal neurologic deficits. She had no signs of incoordination. She had a non-ataxic gait. She had sensation in all 4 extremities. She has strength intact in all 4 extremities. There was bruising noted to bilateral knees. There is a slight abrasion to left knee. But her knees had full flexion and extension. She is able to ambulate with a slightly antalgic gait but otherwise was normal. While I considered aortic pathology or vascular emergency given initial elevated blood pressure, and reported weakness the patient has no chest pain, abdominal pain, distal pulse abdominal masses or bruits, she is symmetric pulses, she has symmetric sensation and strength. She ambualted without difficulty. Low suspicion for aortic dissection or aneurysm. Disposition: The patient for hypertensive emergency for elevated blood pressure and signs of endorgan damage including early troponin and acute kidney injury. I evaluated the patient in conjunction with the [facility]. I agree with his/her statements and above findings. I have personally performed a face to face assessment of the patient and have reviewed the [facility] Note. I performed a substantive portion of the visit including all aspects of the following. I personally saw the patient performed chart review, physical exam, reviewed labs, imaging (if obtained), and formulated a treatment and management plan. This note was generated with [employer] dictation software. It may contain incorrect words, spelling, and punctuation that were not noted in review of the chart prior to signing. Lab Data Labs: Laboratory Results - last 24 hr 07/26/24 07/26/24 19:42 19:43 WBC 10.0 RBC 3.95 L Hgb 12.7 Hct 36.8 L MCV 93.2 MCH 32.2 H MCHC 34.5 RDW Std Deviation 47.6 H RDW Coeff of Joaquin 14.2 Plt Count 185 MPV 9.7 Immature Gran % (Auto) 0.400 Neut % (Auto) 80.9 H Lymph % (Auto) 10.1 L Barrow % (Auto) 7.4 Eos % (Auto) 0.7 Baso % (Auto) 0.5 Absolute Neuts (auto) 8.1 H Absolute Lymphs (auto) 1.01 Nucleated RBC % 0 Sodium 136 Potassium 3.6 Chloride 103 Carbon Dioxide 25.0 Anion Gap 8 BUN 34 H Creatinine 2.16 H Estim Creat Clear Calc 16.51 Est GFR (MDRD) Af Amer 28 L Est GFR (MDRD) Non-Af 23 L BUN/Creatinine Ratio 15.7 Glucose 115 H Calcium 10.0 Magnesium 2.3 Total Creatine Kinase 125 Troponin I High Sens 58 H Urine Color Yellow Urine Clarity Clear Urine pH 8.0 Ur Specific Atkins 1.010 Urine Protein 500 H Urine Glucose (UA) Normal Urine Ketones Negative Urine Occult Blood 25 H Urine Nitrite Negative Urine Bilirubin Negative Urine Urobilinogen Normal Ur Leukocyte Esterase Negative Urine RBC 0-5 SEEN Urine WBC 0-5 SEEN Ur Squamous Epith Cells 0 SEEN Urine Bacteria 0 SEEN Urine Mucus 1+ Ur Random Sodium 36 Urine Creatinine 37.20 Radiography Chest X-Ray - ED: Read by ED Physician Diagnostic Testing: Clinical Impression(s) from Imaging Studies Knee X-Ray 07/26/24 19:02 IMPRESSION: No acute fracture or malalignment. 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 Electronically Signed: Obi Worley MD at 22:29 EST , Knee X-Ray 07/26/24 20:10 IMPRESSION: No acute fracture or malalignment. 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 Electronically Signed: Obi Worley MD at 22:30 EST , Chest X-Ray 07/26/24 21:40 IMPRESSION: No acute radiographic abnormalities. Electronically Signed: Obi Worley MD at 22:45 EST , X-rays of bilateral knees and chest were read and reviewed by myself. X-rays of bilateral knees were negative for acute fracture dislocation by my read. Chest x-ray showed no evidence of cardiomegaly, pneumonia or CHF. Discharge Plan Dx/Rx/DC Orders Clinical Impression: Hypertensive emergency, Chronic hypertension, Complaints of leg weakness, Chronic kidney disease, Elevated troponin Disposition Disposition: Acute Care Hospital [facility] Discharge Date/Time: 07/26/24 22:14
[2024-07-26 19:53] LABS: Bacteria 0 SEEN /hpf (None Seen); Squamous Epithelial Cells - UA 0 SEEN /hpf (5-10)
--- NOTE | 2024-07-26 19:53 | EKG12_ITS ---
Test Reason : DYSRHYTHMIA Blood Pressure : */* mmHG Vent. Rate : 83 BPM Atrial Rate : 83 BPM P-R Int : 210 ms QRS Dur : 84 ms QT Int : 390 ms P-R-T Axes : 89 -56 91 degrees QTcB Int : 458 ms Sinus rhythm with 1st degree A-V block with Premature atrial complexes Left axis deviation Septal infarct (cited on or before 26-May-2013) Abnormal ECG Confirmed by SILVIO DURHAM, JOHN ([id number]), newspaper copy editor TELLY TRINIDAD ([id number]) on 07/29/2024 6:12:03 AM Referred By: Kim Carrasco Confirmed By: JOHN ANGUIANO MD
[2024-07-26 19:54] LABS: Absolute Lymphocyte Count 1.01 X10^3/uL (0.83-4.51); Absolute Neutrophil Count 8.1 X10^3/uL (2.0-7.7); Basophil# 0.05 X10^3/uL; Basophil% 0.5 % (0-1); Eosinophil# 0.07 X10^3/uL; Eosinophils% 0.7 % (0-5); Hematocrit 36.8 % (37-47); Hemoglobin 12.7 g/dL (12.0-15.0); Lymphocyte # 1.01 X10^3/ul (0.83-4.51); Lymphocyte % 10.1 % (19-41); Mean Corp Hgb Conc 34.5 g/dL (32-36); Mean Corpuscular Hgb 32.2 pg (27.0-32.0); Mean Corpuscular Volume 93.2 fL (81-99); Mean Platelet Vol. 9.7 fl (6.2-12.0); Monocyte# 0.74 X10^3/uL; Monocyte% 7.4 % (0-10); NRBC Flagged by Analyzer 0 % (0-5); Neutrophil % 80.9 % (47-70); Platelet Count 185 K/mm3 (150-450); RBC Distribution Width CV 14.2 % (11.6-14.6); RBC Distribution Width SD 47.6 fl (35.1-43.9); Red Blood Count 3.95 M/mm3 (4.2-5.4)
[2024-07-26 19:55] LABS: Color, Urine Yellow (Yellow); Glucose, Dipstick Normal (Normal); Ketone-Dipstick Negative (Negative); Leukocyte Esterase-Dipstick Negative /ul (Negative); Nitrite-Dipstick Negative (Negative); Occult Blood-Urine 25 /ul (Negative); Protein-Dipstick 500 mg/dl (Negative); Urine Bilirubin Dipstick Negative (Negative); Urine Clarity Clear (Clear); Urine Urobilinogen Normal (Normal)
[2024-07-26 20:01] LABS: Mucous, Urine 1+ /hpf (<or=2+); Red Blood Cells-Urine 0-5 SEEN /hpf (0-5); White Blood Cells 0-5 SEEN /hpf (0-5)
[2024-07-26] MEDS: hydrALAZINE 10 MG Tablet PO ×2 (20:04→23:05)
[2024-07-26 20:10] LABS: Anion Gap 8 (5-15); BUN 34 mg/dL (7-18); BUN/Creat Ratio 15.7 RATIO (10-20); Chloride 103 mmol/L (98-107); Creatinine, Serum 2.16 mg/dL (0.55-1.02); EST Glomerular Filtration Rate 23 mL/min (>60); Est Glom Filt Rate - Afr Amer 28 mL/min (>60); Estimated Creatinine Clearance 16.51 ml/min; Glucose 115 mg/dL (74-106); Potassium 3.6 mmol/L (3.5-5.1); Sodium Level 136 mmol/L (136-145)
--- NOTE | 2024-07-26 20:10 | RAD_ITS ---
INDICATION: pain EXAMINATION/TECHNIQUE: X-RAY - LEFT XR Knee Complete 4 Views or More COMPARISON: None. FINDINGS: No acute fracture or malalignment. Mild tricompartmental joint space narrowing and osteophytosis. No joint effusion. The soft tissues are unremarkable. RAD/Knee 4 or More Views IMPRESSION: No acute fracture or malalignment. 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 Electronically Signed: Obi Worley MD at 22:30 EST ,
[2024-07-26 21:09] LABS: Troponin-I HS 58 pg/mL (3.0-54.0)
[2024-07-26] MEDS: Acetaminophen 325 MG Tablet 650 MG PO (21:11)
--- NOTE | 2024-07-26 21:40 | RAD_ITS ---
INDICATION: dyspnea EXAMINATION/TECHNIQUE: X-RAY - XR Chest 1 View COMPARISON: None. FINDINGS: The lungs are clear. Tortuous and calcified thoracic aorta. The heart is not enlarged. No pleural effusion or pneumothorax. Degenerative changes of the thoracic spine. RAD/Chest 1 View (Portable) IMPRESSION: No acute radiographic abnormalities. Electronically Signed: Obi Worley MD at 22:45 EST ,
[2024-07-26] MEDS: hydrALAZINE 20 MG/ML Vial 10 MG IV (21:46)
--- NOTE | 2024-07-26 21:47 | HP.PCM.HOS_ITS ---
HPI - General General Date of Admission: 07/26/24 Date of Service: 07/26/24 Chief Complaint: Weakness, unable to get up. 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, HTN with chart documented white coat syndrome, HLD, GERD, Asthma, CKD stage III unclear subtype per GFR trending but has occasionally had GFR in the upper 20s range stage IV, Hx diverticulitis s/p partial colectomy who presents to the [facility] ED on 07/26/24 with history of reportedly being outside to clean her dryer vent kneeling on the ground to do so and unfortunately having difficulty to get up eventually crawling over to the AC making her way up and toward the house where she had at least 1 step to get inside but when she attempted to do so was very weak given the prolonged timeline and fell backwards, fortunately wearing a very large down coat therefore not injuring herself or causing any trauma or loss of consciousness eventually crawling to her garage entrance to call for help from the passing neighbor likely outside for approximately 30 minutes but and significantly warm clothing fortunately prompting eventual ED evaluation to be cautious as patient noted significant persistent weakness and bruising to both knees as a result. In the ED patient other complaints included mild swelling to the lower lid bilaterally as well as intermittent right ankle swelling over the last week however she notes she goes to bed and when she lays flat she wakes up in the morning it is completely resolved but she notes concerns. She does state that she was chronically anticoagulated following her clots after surgery for approximately 2 years and then taken off. She denies ever having had any VTE following this. Workup in the ED included T98.2, heart 82, BP 241/119, respiratory rate 16, 99% on room air with most recent repeat vitals heart rate 82, BP 198/116, respiratory rate 16, 97% room air, CBC with WBC 10, hemoglobin 12.7, MCV 93.2, platelet 185 with left shift, BMP with BUN/creatinine 3/2.16, GFR 23, glucose 115, troponin 58, urinalysis unremarkable, plain film of bilateral knees upon evaluation with no acute findings preliminary but awaiting final read, EKG SR without acute evidence of ischemia similar to prior. In the ED patient ministered Tylenol 650 mg p.o. x 1 and hydralazine 10 mg IV x 1 as well as p.o. x 1. CXR being obtained upon requested evaluation of patient. FOR[facility]LY [facility] Medical History Diverticulitis Urinary tract infection Hematuria Fixed drug eruption Wears glasses Wears contact lenses Post-menopausal Cancer Thyroid disease Pulmonary embolism History of hiatal hernia History of diverticulitis Gastric reflux History of Holter monitoring History of echocardiogram History of stress test Cardiology follow-up encounter HLD (hyperlipidemia) Bruit of right carotid artery Pruritus of skin History of skin cancer GERD (gastroesophageal reflux disease) Pancreatitis Premature ventricular contraction Premature atrial contraction Right carotid bruit Nonhealing surgical wound Squamous cell carcinoma of left lower leg Leg wound, left Essential hypertension CKD (chronic kidney disease) Asthma Glaucoma Prothrombin gene mutation Hyperhomocystinemia Hypothyroidism Home Medications ?Medication ?Instructions ?Recorded ?Last Taken ?Type timolol maleate 0.5 % eye drops 1 drp EACH EYE [facility] eye health 09/27/15 05/12/19 History vit C 250 mg-vit E 90 mg-zinc 40 1 tab PO DAILY 10/18/21 Unknown History mg-copper 1 [id number] capsule (PreserVision AREDS-2) levothyroxine 88 mcg tablet 88 mcg PO DAILY #90 tabs 01/09/24 Unknown Rx allopurinol 100 mg tablet 100 mg PO DAILY #90 tabs 06/19/24 Unknown Rx hydralazine 10 mg tablet 10 mg PO 4X/DAY High blood 07/07/24 Unknown Rx pressure #180 tabs cyclobenzaprine 5 mg tablet 5 mg PO TID PRN muscle spasm #20 07/10/24 Unknown Rx tabs Allergy/AdvReac Type Severity Reaction Status Date / Time ceramide combination no.1 Allergy Intermediate rash Verified 07/26/24 18:44 (1,3,6-II) (From CeraVe) diltiazem HCl (From Cardizem) Allergy Itching Verified 07/26/24 18:44 losartan Allergy Itching Verified 07/26/24 18:44 SEVERE AND BLISTER miconazole nitrate (From Allergy Laryngospas Verified 07/26/24 18:44 Neosporin AF) ms morphine Allergy Other Verified 07/26/24 18:44 nitrofurantoin (From Allergy Rash Verified 07/26/24 18:44 Macrobid) nitrofurantoin Allergy Rash Verified 07/26/24 18:44 macrocrystalline (From Macrobid) bacitracin AdvReac Other Verified 07/26/24 18:44 codeine AdvReac Chest Verified 07/26/24 18:44 tightness lisinopril AdvReac Other Verified 07/26/24 18:44 loratadine (From Claritin) AdvReac Other Verified 07/26/24 18:44 metoprolol AdvReac fatigue Verified 07/26/24 18:44 Family History Mother Heart disease Father Heart disease Brother Heart disease Hypertension Cancer Surgical History History of bilateral cataract extraction History of cholecystectomy History of colectomy History of total hysterectomy Social History household members: none Smoking Status: Never smoker alcohol intake: never substance use type: does not use caffeine: No what type of physical activity do you participate in: yoga frequency: 3-4 times per week ROS ROS Narrative Admission Review of Systems: CONSTITUTIONAL: No weight loss, fever, chills, + weakness or fatigue. HEENT: Eyes: No visual loss, blurred vision, double vision or yellow sclerae. Ears, Nose, Throat: No hearing loss, sneezing, congestion, runny nose or sore throat. SKIN: No rash or itching, lesions, wounds except + abrasions to bilateral knees, occasional stage ecchymoses. CARDIOVASCULAR: No chest pain, chest pressure or chest discomfort, palpitations, edema, orthopnea, syncopal events. RESPIRATORY: No shortness of breath, cough or sputum, wheezing, hemoptysis. GASTROINTESTINAL: No anorexia, nausea, vomiting or diarrhea, abdominal pain, melena, BRBPR. GENITOURINARY: No dysuria, frequency, urgency or retention. NEUROLOGICAL: No headache, dizziness, syncope, paralysis, ataxia, numbness or tingling in the extremities, focal weakness, change in bowel or bladder control, seizure. MUSCULOSKELETAL: + muscle, back pain, joint pain or stiffness. HEMATOLOGIC: No anemia. + Easy bleeding/bruising. LYMPHATICS: No enlarged nodes. No history of splenectomy. PSYCHIATRIC: No history of depression or anxiety. ENDOCRINOLOGIC: No reports of sweating, cold or heat intolerance. No polyuria or polydipsia. ALLERGIES: + History of asthma. Vital Signs Vital Signs Vital Signs: 07/26/24 18:42 07/26/24 19:57 07/26/24 20:41 Temperature 98.2 F Temperature Source Oral Pulse Rate 82 84 Respiratory Rate 16 16 Respiratory Effort Normal Respiratory Pattern Normal Blood Pressure 241/119 H 239/99 H Blood Pressure Mean 159 145 Pulse Ox 99 97 Oxygen Delivery Method Room Air 07/26/24 20:44 07/26/24 21:24 Temperature Temperature Source Pulse Rate 69 82 Respiratory Rate 18 16 Respiratory Effort Respiratory Pattern Blood Pressure 170/105 H 198/116 H Blood Pressure Mean 126 143 Pulse Ox 98 97 Oxygen Delivery Method Room Air Room Air Weight Weight: 133 lb 8 oz Body Mass Index (BMI) 22.1 Physical Exam Narrative Physical Examination: General: Awake, alert, oriented x 3 and cooperative, seated upright in bed in no apparent distress. Skin: Normal color, normal turgor, no icterus, no cyanosis except primarily abrasions to bilateral knees, occasional stage ecchymoses. HEENT: AT/NC, EOMI, PERRLA, mildly dry MM, no carotid bruits or JVD noted, very minimal lower lid equal bilateral swelling as patient brought concern to this. Lungs: CTA bilaterally, moderate effort, mild decrease BL bases, no rales, ronchi or wheezing. Heart: Regular rate and rhythm; no gallop, rub audible. Abdomen: Soft, NTTP, ND, mildly hyperactive BS, no appreciated HSM. Extremities: No cyanosis, clubbing, no edema including to the ankles, abrasions to bilateral knees Neurological: Patient awake, alert, oriented as noted, cognitive function intact; pupils equally reactive to light and accommodation, cranial nerves gross normal, moving all 4 extremities, no focal deficits, strength moderately global decrease. Psychiatric: Affect appears fatigued otherwise normal, no acute evidence of depressive or anxiety feelings. Results Lab / Micro Data 07/26/24 19:42 07/26/24 19:42 Labs: Laboratory Results - last 24 hr 07/26/24 19:42: WBC 10.0, RBC 3.95 L, Hgb 12.7, Hct 36.8 L, MCV 93.2, MCH 32.2 H , MCHC 34.5, RDW Std Deviation 47.6 H, RDW Coeff of Joaquin 14.2, Plt Count 185, MPV 9.7, Immature Gran % (Auto) 0.400, Neut % (Auto) 80.9 H, Lymph % (Auto) 10.1 L, [place] % (Auto) 7.4, Eos % (Auto) 0.7, Baso % (Auto) 0.5, Absolute Neuts (auto) 8.1 H, Absolute Lymphs (auto) 1.01, Nucleated RBC % 0, Sodium 136, Potassium 3.6, Chloride 103, Carbon Dioxide 25.0, Anion Gap 8, BUN 34 H, Creatinine 2.16 H , Estim Creat Clear Calc 16.51, Est GFR (MDRD) Af Amer 28 L, Est GFR (MDRD) Non- Af 23 L, BUN/Creatinine Ratio 15.7, Glucose 115 H, Calcium 10.0, Troponin I High Sens 58 H, Urine Color Yellow, Urine Clarity Clear, Urine pH 8.0, Ur Specific [place] 1.010, Urine Protein 500 H, Urine Glucose (UA) Normal, Urine Ketones Negative, Urine Occult Blood 25 H, Urine Nitrite Negative, Urine Bilirubin Negative, Urine Urobilinogen Normal, Ur Leukocyte Esterase Negative, Urine RBC 0-5 SEEN, Urine WBC 0-5 SEEN, Ur Squamous Epith Cells 0 SEEN, Urine Bacteria 0 SEEN, Urine Mucus 1+ Assessment & Plan Assessment/Plan (1) Elevated troponin: PLAN: Plan The patient is an 89 y/o F w/ PMHx: Hx VTE (DVT, 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, HTN with chart documented white coat syndrome, HLD, GERD, Asthma, CKD stage III unclear subtype per GFR trending but has occasionally had GFR in the upper 20s range stage IV, Hx diverticulitis s/p partial colectomy who presents to the [facility] ED on 07/26/24 with history of reportedly being outside to clean her dryer vent kneeling on the ground to do so and unfortunately having difficulty to get up eventually crawling over to the making her way up and toward the house where she had at least 1 step to get inside but when she attempted to do so was very weak given the prolonged timeline and fell backwards, fortunately wearing a very large down coat therefore not injuring herself or causing any trauma or loss of consciousness eventually crawling to her garage entrance to call for help from the passing neighbor likely outside for approximately 30 minutes but and significantly warm clothing fortunately prompting eventual ED evaluation to be cautious as patient noted significant persistent weakness and bruising to both knees as a result. #1. Debility, weakness with discomfort to both knees secondary to prolonged down time, possibly multifactorial given age and positioning with adult failure to thrive: Will admit to PCU given mildly elevated troponin, will continue hydration given acute kidney injury on chronic kidney disease as noted from recent labs although could be progressing in disease process, will avoid any nephrotoxic agents, will continue to evaluate cardiac enzymes as noted although suspect demand but if further elevated will investigate as noted, maintain on fall precautions, will obtain creatinine kinase, will trial lidocaine patch to each knee for discomfort, PT/OT/case management consulted for discharge planning. #2. BONNY on Chronic Kidney Disease Stage III, unclear subtype primarily per previous GFR trending although has vacillated and occasionally has been consistent with stage IV but suspect this is likely acute: Unclear etiology, admission BUN/Cr 34/2.16, GFR 23, baseline renal function primarily 1.3-1.5 although has vacillated occasionally, 05/09/2024 creatinine 1.47, 07/07/2024 creatinine 2.03 thus suspect acute kidney injury, will judiciously hydrate and repeat CMP in the AM. Will also obtain FeNa assessment. If not improving will investigate further. Will hold nephrotoxic medication. #3. Indeterminate cardiac enzyme of unclear significance although does chronically have uncontrolled blood pressure from trending from previous as noted: Admission troponin 58, EKG with SR without acute evidence of ischemia with no history of reported chest pain or dyspnea recently, possibly stress- induced given presentation. CXR pending upon requested evaluation. Will place on a monitored bed to assure no acute myocardial infarction with serial cardiac enzymes and EKGs. Magnesium level requested. If enzymes rise further low threshold to obtain echocardiogram and involve cardiology if appropriate. Will maintain on aspirin. #4. Hypertension, potentially HTN Emergency, but patient uncontrolled chronically from trending of blood pressures from prior hospital presentations; however, patient does have documented white coat syndrome thus this certainly could be related: From review of records patient with similar pressures previously, not on a marked amount of regimen, will continue hydralazine and will also add amlodipine given allergies listed given poorly controlled here but will need to be cautious as patient reports a history of whitecoat syndrome thus repeat blood pressures outpatient and if elevated may require additional regimen with will potentially be safer, will have additional as needed IV hydralazine in the interim. From records patient had previously been on metoprolol but has not now listed as an allergy with fatigue as etiology. #5. History of VTE with hyperhomocysteinemia/prothrombin gene mutation: Noted history of previous DVT and PE; however this was reportedly after surgery and single event. Patient is not currently anticoagulated but as noted previously was for approximately 2 years following surgery when she had the VTE. Patient complaining of some mild swelling to the right ankle which corrects when she lays flat and sleeps, low suspicion but to be cautious will obtain dimer. #6. Chronic asthma: Not on any chronic regimen per current list, will have as needed PRN albuterol, HOB, IS parameters. #7. Glaucoma unclear type: We will continue patient home eyedrop regimen. #8. Hypothyroidism: Continue patient on levothyroxine regimen. #9. Gout: We will continue patient allopurinol regimen. #10. GERD: Patient not on any regimen per current list, will have as needed Mylanta. #11. DVT prophylaxis: Heparin. #12. CODE status: Patient HANNAH is her daughter and living will is currently in place. Discussed CODE status at length including difference between FULL code, DNR-CCA and DNR-CC status. Following discussions about the differences in these status, requested Full Code status. Advanced Care Planning Face to Face Time: 16 minutes. Charges/Coding Visit Charges Inpatient E&M: 16101 Init Hosp L3 Procedures Hospitalists Procedures: 42631 Advncd Care Plan 30 Min
[2024-07-26 22:19] LABS: CPK Total, Creatine Kinase 125 U/L (26-192); Magnesium 2.3 mg/dL (1.6-2.6)
[2024-07-26] MEDS: 0.9% Normal Saline (1000mL) 1,000 ML 100 ML IV (23:03)
[2024-07-26] MEDS: Timolol 0.5% 5ML OPTH.BTL 1 DRP EACH EYE (23:03)
[2024-07-26] MEDS: amLODIPine 5 MG Tablet PO (23:05)
[2024-07-26] MEDS: Heparin Injection (Vial) 5,000 UNIT/ML VIAL 5000 UNIT SC (23:05)
[2024-07-26 23:06] LABS: Urine Sodium 36 mmol/L (Not Establ.)
[2024-07-26 23:18] LABS: D-Dimer Quantitative (DVT/PE) 1.19 FEU/ug/m (0.27-0.49)
[2024-07-26 23:22] LABS: Troponin-I HS 79 pg/mL (3.0-54.0)
[2024-07-27] VITALS (15 sets, daily range): BP systolic 146–201; BP diastolic 73–111; PULSE 72–135; RESP 15–18; TEMP 36.7–37; O2SAT 95–98; BMI 21.2
--- NOTE | 2024-07-27 00:08 | VDLE_ITS ---
Reason For Study: RLE Pain RIGHT LEFT GSV is normal. FV is compressible, spontaneous, competent CFV is compressible, spontaneous, competent and demonstrates pulsatile venous flow. and demonstrates pulsatile venous flow. FV is compressible, spontaneous, competent and demonstrates pulsatile venous flow. POP V is compressible, spontaneous, competent and demonstrates pulsatile venous flow. T/P Trunk is compressible. PTV is compressible. RT PerV is compressible. Anechoic Non-vascularized structure noted in Rt Pop Fossa measuring approximately 3.73cm x 0.84cm. Procedure This is a venous duplex using B-mode, color flow and spectral Doppler. Exam performed portable in patient room. The exam was diagnostic. A preliminary report was called and/or faxed to [facility] - [facility]. VL/Venous Duplex US, Unilateral Interpretation Summary Deep veins of the right lower extremity are patent and compressible segmentally . There is no evidence of right lower extremity deep vein thrombosis. Valvular competence jason ears intact within the proximal deep venous system on the right . The right great saphenous vein a ppears patent and compressible segmentally. The left femoral vein is patent and compressible. A n on-vascular, hypoechoic structure is noted in the right popliteal space, measuring 3.73 cm x 0.84 cm. This probably represents a popliteal cyst. Clinical correlation is advised. Pulsatil e flow is noted in the deep venous system bilaterally, which may be indicative of elevated central venous pressure (i.e. congestive heart failure, pulmonary hypertension, etc.). Clinical correla tion is advised. Ordering Physician: Kim Carrasco Referring Physician: Cat Artis Performed By: Arthur Hernandez RVT
[2024-07-27] MEDS: Lidocaine 5% Patch 2 PATCH TOPICAL ×2 (01:07→10:44)
[2024-07-27] MEDS: hydrALAZINE 20 MG/ML Vial 10 MG IV ×2 (01:13→12:14)
[2024-07-27 01:23] LABS: Troponin-I HS 98 pg/mL (3.0-54.0)
[2024-07-27] MEDS: Acetaminophen 325 MG Tablet 650 MG PO ×2 (02:18→21:30)
[2024-07-27] MEDS: LORazepam 0.5 MG Tablet PO (03:16)
[2024-07-27 05:12] LABS: Absolute Lymphocyte Count 1.38 X10^3/uL (0.83-4.51); Basophil# 0.03 X10^3/uL; Basophil% 0.3 % (0-1); Eosinophil# 0.11 X10^3/uL; Eosinophils% 1.2 % (0-5); Hemoglobin 11.5 g/dL (12.0-15.0); Lymphocyte # 1.38 X10^3/ul (0.83-4.51); Lymphocyte % 14.7 % (19-41); Mean Corp Hgb Conc 33.8 g/dL (32-36); Mean Corpuscular Hgb 31.9 pg (27.0-32.0); Mean Corpuscular Volume 94.2 fL (81-99); Mean Platelet Vol. 10.1 fl (6.2-12.0); Monocyte# 0.89 X10^3/uL; Monocyte% 9.5 % (0-10); NRBC Flagged by Analyzer 0 % (0-5); Neutrophil # 6.98 X10^3/uL (2.7-7.7); Neutrophil % 74.1 % (47-70); Platelet Count 183 K/mm3 (150-450); RBC Distribution Width CV 14.3 % (11.6-14.6); RBC Distribution Width SD 47.8 fl (35.1-43.9); Red Blood Count 3.61 M/mm3 (4.2-5.4); White Blood Count 9.4 K/mm3 (4.4-11.0)
[2024-07-27 05:33] LABS: ALB/GLOB Ratio 1.2 RATIO (0.9-2.4); AST(SGOT) 24 U/L (15-37); Alanine Aminotransfer ALT/SGPT 22 U/L (13-56); Albumin, Serum 3.5 g/dL (3.2-5.0); Alkaline Phosphatase 60 U/L (45-117); Anion Gap 10 (5-15); BUN 30 mg/dL (7-18); BUN/Creat Ratio 15.3 RATIO (10-20); Calcium,Total 9.3 mg/dL (8.5-10.1); Chloride 105 mmol/L (98-107); Cholesterol 178 mg/dL (200); Creatinine, Serum 1.96 mg/dL (0.55-1.02); EST Glomerular Filtration Rate 26 mL/min (>60); Est Glom Filt Rate - Afr Amer 31 mL/min (>60); Globulin 2.8 g/dL (2.2-4.2); Glucose 102 mg/dL (74-106); High Density Lipoprotein 62 mg/dL; Potassium 2.9 mmol/L (3.5-5.1); Protein, Total 6.3 g/dL (6.4-8.2); Sodium Level 139 mmol/L (136-145); Triglycerides 86 mg/dL; Troponin-I HS 96 pg/mL (3.0-54.0); Very Low Density Lipoprotein 17 mg/dL (5-40)
[2024-07-27] MEDS: Levothyroxine 88 MCG Tablet PO (06:59)
[2024-07-27] MEDS: Potassium Chloride Oral Tablet 20 MEQ 40 MEQ PO (08:29)
[2024-07-27] MEDS: Heparin Injection (Vial) 5,000 UNIT/ML VIAL 5000 UNIT SC (10:40)
[2024-07-27] MEDS: hydrALAZINE 10 MG Tablet PO ×4 (10:44→21:30)
[2024-07-27] MEDS: Allopurinol 100 MG Tablet PO (10:44)
[2024-07-27] MEDS: amLODIPine 5 MG Tablet PO (10:44)
[2024-07-27] MEDS: 0.9% Saline Lock 10 ML Syringe IV (12:15)
--- NOTE | 2024-07-27 14:17 | PN_ITS ---
Subjective Subjective Patient seen and examined. She was comfortably eating breakfast. She had no active complaints. Said she came in yesterday because she was very weak. She went out to clean her laundry events and felt very weak and had to lay down on the floor. She called for help for about 30 minutes before a neighbor reach today. She was unable to get up on her own so that is why she came into the ED. She denied any fever or chills, palpitations, nausea vomiting or any other symptoms. Review of systems otherwise negative. Her blood pressure was also markedly elevated when she came in. Patient states her blood pressure has always been difficult to control and that she also has a lot of anxiety and she believes she has whitecoat hypertension. He has been on multiple medications for many years with poor control of her blood pressure. Objective Data Objective Data Vital Signs: Vital Signs Temp Pulse Resp BP Pulse Ox O2 Del Method 98.3 F 101 H 16 184/89 H 98 Room Air 07/27/24 10:30 07/27/24 13:27 07/27/24 10:30 07/27/24 13:27 07/27/24 10:30 07/27/24 10:30 Oxygen Delivery Method Room Air Weight: 127 lb 13.89 oz Body Mass Index (BMI) 21.2 Intake & Output: Intake and Output for Last 24 Hours 07/25/24 07/26/24 07/27/24 23:59 23:59 23:59 Intake Total 120 / 120 120 / 120 Output Total 300 / 300 750 / 750 Balance -180 / -180 -630 / -630 Lab / Micro Data 07/27/24 04:58 07/27/24 04:58 Labs: Laboratory Results - last 24 hr 07/26/24 19:42: WBC 10.0, RBC 3.95 L, Hgb 12.7, Hct 36.8 L, MCV 93.2, MCH 32.2 H , MCHC 34.5, RDW Std Deviation 47.6 H, RDW Coeff of Joaquin 14.2, Plt Count 185, MPV 9.7, Immature Gran % (Auto) 0.400, Neut % (Auto) 80.9 H, Lymph % (Auto) 10.1 L, [place] % (Auto) 7.4, Eos % (Auto) 0.7, Baso % (Auto) 0.5, Absolute Neuts (auto) 8.1 H, Absolute Lymphs (auto) 1.01, Nucleated RBC % 0, Sodium 136, Potassium 3.6, Chloride 103, Carbon Dioxide 25.0, Anion Gap 8, BUN 34 H, Creatinine 2.16 H , Estim Creat Clear Calc 16.51, Est GFR (MDRD) Af Amer 28 L, Est GFR (MDRD) Non- Af 23 L, BUN/Creatinine Ratio 15.7, Glucose 115 H, Calcium 10.0, Magnesium 2.3, Total Creatine Kinase 125, Troponin I High Sens 58 H, Urine Color Yellow, Urine Clarity Clear, Urine pH 8.0, Ur Specific Tracy 1.010, Urine Protein 500 H, Urine Glucose (UA) Normal, Urine Ketones Negative, Urine Occult Blood 25 H, Urine Nitrite Negative, Urine Bilirubin Negative, Urine Urobilinogen Normal, Ur Leukocyte Esterase Negative, Urine RBC 0-5 SEEN, Urine WBC 0-5 SEEN, Ur Squamous Epith Cells 0 SEEN, Urine Bacteria 0 SEEN, Urine Mucus 1+ 07/26/24 19:43: Ur Random Sodium 36, Urine Creatinine 37.20 07/26/24 22:56: D-Dimer Quant (PE/DVT) 1.19 H*, Troponin I High Sens 79 H 07/27/24 00:55: Troponin I High Sens 98 H 07/27/24 04:58: WBC 9.4, RBC 3.61 L, Hgb 11.5 L, Hct 34.0 L, MCV 94.2, MCH 31.9, MCHC 33.8, RDW Std Deviation 47.8 H, RDW Coeff of Joaquin 14.3, Plt Count 183, MPV 10.1, Immature Gran % (Auto) 0.200, Neut % (Auto) 74.1 H, Lymph % (Auto) 14.7 L, [place] % (Auto) 9.5, Eos % (Auto) 1.2, Baso % (Auto) 0.3, Absolute Neuts (auto) 7.0, Absolute Lymphs (auto) 1.38, Nucleated RBC % 0, Sodium 139, Potassium 2.9 L , Chloride 105, Carbon Dioxide 24.0, Anion Gap 10, BUN 30 H, Creatinine 1.96 H, Estim Creat Clear Calc 18.20, Est GFR (MDRD) Af Amer 31 L, Est GFR (MDRD) Non-Af 26 L, BUN/Creatinine Ratio 15.3, Glucose 102, Calcium 9.3, Total Bilirubin 0.70, AST 24, ALT 22, Alkaline Phosphatase 60, Troponin I High Sens 96 H, Total Protein 6.3 L, Albumin 3.5, Globulin 2.8, Albumin/Globulin Ratio 1.2, Triglycerides 86, Cholesterol 178, LDL Cholesterol 99, VLDL Cholesterol 17, HDL Cholesterol 62 Radiography Diagnostic Testing: Radiology Impression Knee X-Ray 07/26/24 19:02 IMPRESSION: No acute fracture or malalignment. 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 Electronically Signed: Obi Worley MD at 22:29 EST , Knee X-Ray 07/26/24 20:10 IMPRESSION: No acute fracture or malalignment. 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 Electronically Signed: Obi Worley MD at 22:30 EST , Chest X-Ray 07/26/24 21:40 IMPRESSION: No acute radiographic abnormalities. Electronically Signed: Obi Worley MD at 22:45 EST , Physical Exam Const alert, oriented x3, no apparent distress and well nourished General Appearance: cooperative and well developed HEENT normocephalic, head/scalp atraumatic and moist oral mucous membranes Eyes PERRL and EOMs intact bilaterally Neck no lymphadenopathy and supple Lymph Lymphatic: no lymphadenopathy noted and no lymphedema noted Resp normal respiratory effort, normal air movement and clear to auscultation bilaterally Cardio regular rate, regular rhythm, S1 normal heart sound, S2 normal heart sound and no murmurs GI normal to inspection, nondistended, normoactive bowel sounds, soft to palpation, non-tender and non-distended Extremity normal capillary refill, no clubbing, cyanosis or edema and no calf tenderness General Extremity: no tenderness to palpation of joints or extremities Skin General Skin Exam: no breakdown Neuro CN's II-XII intact bilaterally, no focal motor deficits and no sensory deficits noted Motor Exam: strength 5/5 throughout Psych thought process normal, cooperative and affect normal Appearance: appropriate Assessment & Plan Assessment/Plan (1) Hypertensive emergency: PLAN: Plan #Debility and weakness * Patient admitted after she went out to clean her vents but was unable to get up on her own. Was very weak and had to lay on the floor and call for help. * There is no evidence of infection. CPK not elevated. * She does complain of bilateral knee pain. Lidocaine patch in place. PT OT on board. Fall precautions. * #BONNY on CKD stage III * Creatinine was 2.16 on admission and is down to 1.96. Baseline creatinine is around 1.4. * Hydrate gently with IV fluids and trend. Hold all nephrotoxic meds. #Elevated troponins: * Initial troponin was 58. She did not have any chest pain and EKG did not show any acute ST changes. * Her troponins did trend up to a peak of 98 and came down to 96. However in light of her BONNY on CKD stage IV I do think that may be related to the elevated troponins due to poor clearance. * Will get 2D echo to assess cardiac wall function #Hypokalemia: K is 2.9. Will replace aggressively and trend. #Poorly controlled hypertension * Patient has chronically poorly controlled hypertension. She does have documented whitecoat syndrome so the concern is that this may also be related to that. Patient admits to severe anxiety but states that she is not on any medications for anxiety. * On hydralazine p.o 10 mg 3 times daily. Also on amlodipine 5 mg daily. Will increase this to 10 mg daily. She has listed allergies to Cardizem and metoprolol as well as losartan and lisinopril. * IV hydralazine as needed. 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 This was about 2 years ago when she had surgery so it was a provoked thromboembolism. * With this admission she complained of right ankle swelling. Duplex done was negative for any evidence of DVT. * Currently not anticoagulated. #History of anxiety * Patient admits to always having struggled with anxiety. She says she is not on any oral antianxiety meds * On p.o. Ativan as needed here. To follow-up with her PCP for prescription of antianxiety meds as deemed appropriate. * #Chronic asthma: Not in exacerbation. Breathing treatments bronchodilators. #Glaucoma: On eyedrops #Hypothyroidism: On Synthroid #Gout: On allopurinol #DVT prophylaxis: Heparin Charges/Coding Visit Charges Inpatient E&M: 92500 Subs Hosp L2
[2024-07-27] MEDS: Potassium Chloride 10mEq/100mL 10 MEQ/100 ML IV.SOLN. 100 MEQ IV BOLUS ×4 (16:02→19:48)
[2024-07-27] MEDS: Carvedilol 6.25 MG Tablet PO (16:03)
--- NOTE | 2024-07-27 16:06 | EKG12_ITS ---
Test Reason : AF Blood Pressure : */* mmHG Vent. Rate : 108 BPM Atrial Rate : * BPM P-R Int : * ms QRS Dur : 86 ms QT Int : 340 ms P-R-T Axes : * -52 95 degrees QTcB Int : 455 ms Atrial fibrillation with rapid ventricular response Left axis deviation Minimal voltage criteria for LVH, may be normal variant ( [place] product ) Septal infarct , age undetermined Abnormal ECG When compared with ECG of 26-Jul-2024 20:21, MANUAL COMPARISON REQUIRED DATA IS UNCONFIRMED Confirmed by SILVIO DURHAM, JOHN ([id number]), editorial director TELLY TRINIDAD ([id number]) on 07/28/2024 1:57:04 PM Referred By: Kim Carrasco Confirmed By: JOHN ANGUIANO MD
[2024-07-27] MEDS: Senna/Docusate Sodium 1 Tablet 2 TABLET PO (21:30)
[2024-07-27] MEDS: APIXABAN 2.5 MG TABLET (WCH) PO (21:30)
[2024-07-27] MEDS: Timolol 0.5% 5ML OPTH.BTL 1 DRP EACH EYE (21:31)
[2024-07-28] VITALS (8 sets, daily range): BP systolic 133–180; BP diastolic 76–87; PULSE 69–83; RESP 16–18; TEMP 36.7–36.9; O2SAT 95–97
--- NOTE | 2024-07-28 05:55 | ECHOD_ITS ---
Reason For Study: A. fib/flutter Procedure This was a 2D Doppler, Color Flow transthoracic echocardiogram. Myocardial strain analysis was performed in this exam to aid in the assessment of cardiac function. Exam performed portable in patient room. Left Ventricle Normal LV size. The estimated ejection fraction is 70 %. No evidence for diastolic dysfunction. No regional wall motion abnormalities noted. Right Ventricle Normal RV size. Normal systolic function. Atria The left and right atria are normal. No doppler evidence for ASD. Mitral Valve There is no mitral valve stenosis. Mild (1+) mitral valve insufficiency. Tricuspid Valve There is no tricuspid stenosis. Mild tricuspid valve insufficiency. Pulmonary artery systolic pressure is 55 mmHg. Aortic Valve Trisinus/trileaflet aortic valve. There is no aortic stenosis. No aortic valve insufficiency. Pulmonic Valve There is no pulmonic valvular stenosis. No pulmonic valve insufficiency. Great Vessels Normal aortic root. Pericardium/Pleural No pericardial effusion. MMode/2D Measurements & Calculations LVIDd: 3.4 cm IVSd: 1.1 cm LVOT diam: 2.0 cm LVIDs: 2.1 cm LVPWd: 1.2 cm LVOT area: 3.2 cm2 RVDd: 3.8 cm FS: 37.6 % asc Aorta Diam: 3.3 cm LAV(MOD-sp4): 46.5 ml LVAd ap4: 17.4 cm2 LVLd ap4: 6.7 cm EDV(MOD-sp4): 37.4 ml EDV(sp4-el): 38.4 ml LVAs ap4: 8.1 cm2 LVLs ap4: 5.7 cm ESV(MOD-sp4): 10.1 ml ESV(sp4-el): 9.7 ml EF(MOD-sp4): 73.1 % EF(sp4-el): 74.9 % LVAd ap2: 20.5 cm2 SV(MOD-sp4): 27.3 ml SV(MOD-sp2): 42.6 ml LVLd ap2: 6.5 cm SI(MOD-sp4): 16.8 ml/m2 SI(MOD-sp2): 26.1 ml/m2 EDV(MOD-sp2): 56.2 ml EDV(sp2-el): 57.5 ml LVAs ap2: 10.1 cm2 LVLs ap2: 6.3 cm ESV(MOD-sp2): 13.7 ml ESV(sp2-el): 13.7 ml EF(MOD-sp2): 75.7 % SV(sp4-el): 28.7 ml LA dimension(2D): 3.2 cm LA A4 area: 17.1 cm2 RA A4 area: 16.3 cm2 TAPSE: 2.1 cm Time Measurements MV dec time: 0.24 sec Doppler Measurements & Calculations MV E max jacinto: 82.4 cm/sec Lat Peak E' Jacinto: 7.7 cm/sec Med Peak E' Jacinto: 8.9 cm/sec MV A max jacinto: 80.4 cm/sec E/E' lat: 10.7 E/E' med: 9.3 MV E/A: 1.0 Ao V2 max: 131.2 cm/sec LV V1 max: 111.9 cm/sec MV dec slope: 339.0 cm/sec2 Ao max P.9 mmHg LV V1 max P.0 mmHg Ao V2 mean: 90.5 cm/sec LV V1 mean P.2 mmHg Ao mean P.8 mmHg LV V1 mean: 87.2 cm/sec Ao V2 VTI: 27.1 cm LV V1 VTI: 21.9 cm AV (velocity ratio): 0.81 CRISTIAN(I,D): 2.6 cm2 CRISTIAN(V,D): 2.7 cm2 SV(LVOT): 69.3 ml PA V2 max: 102.3 cm/sec TR max jacinto: 351.5 cm/sec TR max P.4 mmHg ECHO/Echo Complete Interpretation Summary The estimated ejection fraction is 70 %. No evidence for diastolic dysfunction. Mild (1+) mitral valve insufficiency. Ordering Physician: Chaparrita Roberts Referring Physician: Cat Artis Performed By: Es Yepez RDCS
[2024-07-28] MEDS: Acetaminophen 325 MG Tablet 650 MG PO ×2 (05:58→15:54)
[2024-07-28] MEDS: Levothyroxine 88 MCG Tablet PO (05:58)
[2024-07-28 06:04] LABS: Absolute Lymphocyte Count 1.67 X10^3/uL (0.83-4.51); Absolute Neutrophil Count 4.8 X10^3/uL (2.0-7.7); Basophil# 0.03 X10^3/uL; Basophil% 0.4 % (0-1); Eosinophil# 0.14 X10^3/uL; Eosinophils% 1.9 % (0-5); Hematocrit 32.6 % (37-47); Hemoglobin 10.8 g/dL (12.0-15.0); Lymphocyte # 1.67 X10^3/ul (0.83-4.51); Lymphocyte % 22.8 % (19-41); Mean Corp Hgb Conc 33.1 g/dL (32-36); Mean Corpuscular Hgb 31.3 pg (27.0-32.0); Mean Corpuscular Volume 94.5 fL (81-99); Mean Platelet Vol. 11.1 fl (6.2-12.0); Monocyte% 9.5 % (0-10); NRBC Flagged by Analyzer 0 % (0-5); Neutrophil # 4.79 X10^3/uL (2.7-7.7); Neutrophil % 65.3 % (47-70); Platelet Count 205 K/mm3 (150-450); RBC Distribution Width CV 14.6 % (11.6-14.6); RBC Distribution Width SD 49.5 fl (35.1-43.9); Red Blood Count 3.45 M/mm3 (4.2-5.4); White Blood Count 7.3 K/mm3 (4.4-11.0)
[2024-07-28 06:33] LABS: Anion Gap 8 (5-15); BUN 30 mg/dL (7-18); BUN/Creat Ratio 14.1 RATIO (10-20); Calcium,Total 9.1 mg/dL (8.5-10.1); Chloride 104 mmol/L (98-107); Creatinine, Serum 2.13 mg/dL (0.55-1.02); EST Glomerular Filtration Rate 23 mL/min (>60); Est Glom Filt Rate - Afr Amer 28 mL/min (>60); Estimated Creatinine Clearance 16.74 ml/min; Glucose 96 mg/dL (74-106); Potassium 3.7 mmol/L (3.5-5.1); Sodium Level 134 mmol/L (136-145)
[2024-07-28] MEDS: Allopurinol 100 MG Tablet PO (08:28)
[2024-07-28] MEDS: APIXABAN 2.5 MG TABLET (WCH) PO (08:29)
[2024-07-28] MEDS: Carvedilol 6.25 MG Tablet PO ×2 (08:29→15:54)
[2024-07-28] MEDS: hydrALAZINE 10 MG Tablet PO ×3 (08:29→17:48)
[2024-07-28] MEDS: amLODIPine 10 MG Tablet PO (08:29)
--- NOTE | 2024-07-28 09:55 | CASEMGMT ---
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 RN CM introduced self and role at [facility], pt voices understanding and consents to assessment. Pt is A&O x4 and answers all questions appropriately at this time. Pt sitting up in chair in on distress. Care providers, pharmacy, and demographics verified/updated. Strata: 3 Admitting Dx: Adult FTT, AKT, Elevated Trop. PCP: Steff Specialists: Hollis Voting Machine Mechanic [facility], [place] [employer] Prescription Benefit: yes LNOK: Daughter, Eri; GS, Cam Living Arrangements: Pt lives in a 1 level home with 2 steps to enter. ADLs: Pt reports I at baseline. Transportation: Pt drives self and denies concerns with transportation. DME: ww, cane, comfort ht. commode, shower chair, grab bars HHC/SNF: Denies Hx of. Pt states no concerns with going home at time of dc. Pt states no further concerns/needs. CM to follow. Advised pt to ask CM if any further question/concerns/needs arise, voices understanding. Pt Goal: Home Plan: Home, continue with OP therapy at . Kelvin Daniels
--- NOTE | 2024-07-28 13:26 | DS.PCM_ITS ---
Providers Date of Admission: 07/27/24 Date of Discharge: 07/28/24 Primary Care Physician: Dr. Cat Artis MD Reason For Visit: ADULT FTT, AKT, ELEVATED TROP Diagnosis Discharge Diagnosis (1) Hypertensive emergency: Status: Acute Code(s): I16.1 - Hypertensive emergency Medications at Discharge Home Medications timolol maleate 0.5 % eye drops 1 drp EACH EYE [facility] eye [facility] 09/27/15 vit C 250 mg-vit E 90 mg-zinc 40 mg-copper 1 gm-[id number] capsule (PreserVision AREDS-2) 1 tab PO DAILY 10/18/21 levothyroxine 88 mcg tablet 88 mcg PO DAILY #90 tabs 01/09/24 allopurinol 100 mg tablet 100 mg PO DAILY #90 tabs 06/19/24 hydralazine 10 mg tablet 10 mg PO 4X/DAY High blood pressure #180 tabs 07/07/24 amlodipine 10 mg tablet 10 mg PO DAILY #30 tabs 07/28/24 apixaban 5 mg tablet (Eliquis) 2.5 mg (1/2 x 5 mg) PO BID #30 tabs 07/28/24 carvedilol 6.25 mg tablet 6.25 mg PO BIDCM #60 tabs 07/28/24 isosorbide mononitrate 60 mg tablet,extended release 24 hr 60 mg PO DAILY #30 tabs 07/28/24 lidocaine 5 % topical patch 2 patch topical DAILY #15 ea 07/28/24 Hospital Course Procedures 2-D Echocardiogram and - (Chest x-ray/bilateral knee x-rays) Summary of Care Provided Minutes Spent on Discharge: 39 Hospital Course: Mrs. Ramos is an 89-year-old white female who presented to emergency department [facility] 07/26/2024 with a chief complaint of weakness and the inability to get up. Patient was outside cleaning her dryer vent and kneeled to the ground and do so and then had difficulty getting up. She eventually crawled over to the air conditioning make her way to the house and had 1 step to get in but when she attempted to do so she was very weak and fell backwards. She had a large down codon at the time so she did not injure herself and was eventually able to crawl into the garage entrance at which time a neighbor was passing by. She was persistently weak following and bruised both of her knees as a result. Given this she was brought to the emergency department for evaluation. She complained of mild pain in both knees. And some intermittent right ankle swelling and pain. She does complain of some lower extremity swelling that is gone in the morning when she will awakens but worsens throughout the day. She has previous history of VTE and had been on chronic anticoagulation but this was discontinued. Vital signs on presentation showed a temperature of 98.2, heart rate 82, blood pressure was 241/119 with a repeat of 198/116 after treatment, respiratory rate 16 oxygen saturation was 99% on room air. CBC on presentation was overall unremarkable other than a mild left shift with an 80.9% neutrophilia. A D-dimer was obtained and found to be 1.19. Chemistry panel was overall unremarkable with a chronic stable serum creatinine elevation at 2.16 and has remained stable throughout her hospitalization. Her initial troponin was 58 and maxed at 98 and then down trended to 96 prior to discharge. Lipid panel was obtained with an elevated troponin and found to be overtly unremarkable. Her UA was suggestive infection at time of admission however they did not have any dysuria. Patient did have transient A-fib with RVR during her hospital stay. It is suspected that her troponin elevation was likely related to her markedly elevated blood pressure and A-fib with RVR and indicative of subendocardial ischemia related to these entities. Echocardiogram was done on 07/28/2024 and demonstrated an EF of 70% with no diastolic dysfunction and 1+ mitral valve insufficiency. 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 Given her UA was suggestive infection a culture was sent however showed Enterococcus at less than 1000 CFU's per high- power field. She was not on antibiotics during her hospital course. Her A-fib and spontaneously resolved. At the time of developing A-fib she was placed on Coreg 6.25 daily and Eliquis 2.5 mg p.o. twice daily. Dose reduction indicated due to her age and renal dysfunction in the treatment of atrial fibrillation. She has had history of beta-jolly intolerance in the past and metoprolol is listed as an allergy. Thus far she has tolerated carvedilol but I have asked her to follow-up with cardiology. She has not seen cardiology in some time but has followed with them previously and saw Dr. Cavazos. On the a.m. of 07/28/2024 she was feeling well. She did quite well with physical therapy and wants to proceed with her ongoing outpatient physical therapy at [facility] at the time of discharge. Patient's blood pressure medication was uptitrated with the addition of amlodipine and the Coreg as noted above. Medications at discharge in addition to her previous home meds include Eliquis 2.5 mg p.o. twice daily, carvedilol 6.25 mg p.o. twice daily, isosorbide mononitrate 60 mg daily, and amlodipine 10 mg daily. All were sent to pharmacy prior to discharge. I have advised that she follow-up with her primary care physician within the next 1 to 2 weeks and a cardiology appointment was made for her prior to discharge. Discharge diagnoses: New onset A-fib with RVR-now back in sinus rhythm Hypertensive emergency Troponin elevation secondary to the above Generalized weakness/debility Bacteriuria-asymptomatic Glaucoma Hypothyroidism Essential hypertension History of gout History of VTE History of GERD CKD stage IV Prothrombin gene mutation Hyperhomocystinemia Physical Exam Const alert, oriented x3, no apparent distress, average body habitus, no limitations, healthy appearing and well nourished Constitutional Narrative: Elderly, white female, sitting up in a chair at the bedside, appears comfortable, nontoxic, appears younger than stated age General Appearance: cooperative, comfortable, well kempt and well developed Exam Limitations: no limitations HEENT normocephalic, head/scalp atraumatic and moist oral mucous membranes HEENT Narrative: Mild hearing loss, Mallampati 2, no thrush Eyes EOMs intact bilaterally and conjunctivae normal Eyes Narrative: No scleral icterus Neck supple Neck Narrative: Trachea midline, no thyroid enlargement noted Resp normal respiratory effort, no retractions, no use of accessory muscles and clear to auscultation bilaterally Auscultation: Negative for rales, rhonchi or wheezes Cardio regular rate, regular rhythm, S1 normal heart sound, S2 normal heart sound, no murmurs, no rub, no gallops and no clicks GI normal to inspection, nondistended, normoactive bowel sounds, soft to palpation and non-tender Extremity Extremity Narrative: Trace pitting edema lower extremity, no cyanosis or clubbing Skin skin turgor normal, no jaundice, no petechiae and no mottling Skin Narrative: Ecchymosis noted on knees but otherwise skin exam is unremarkable Neuro oriented x3, moves all extremities and no focal motor deficits Speech: speech normal Psych affect normal Psych Narrative: Extremely pleasant, interacts appropriately Weight / BMI Weight Weight: 58 kg Body Mass Index (BMI) 21.2 ABG / Lab / Microbiology Data 07/28/24 05:30 07/28/24 05:30 Laboratory: Laboratory Results - last 24 hr 07/28/24 05:30: WBC 7.3, RBC 3.45 L, Hgb 10.8 L, Hct 32.6 L, MCV 94.5, MCH 31.3, MCHC 33.1, RDW Std Deviation 49.5 H, RDW Coeff of Joaquin 14.6, Plt Count 205, MPV 11.1, Immature Gran % (Auto) 0.100, Neut % (Auto) 65.3, Lymph % (Auto) 22.8, [place] % (Auto) 9.5, Eos % (Auto) 1.9, Baso % (Auto) 0.4, Absolute Neuts (auto) 4.8, Absolute Lymphs (auto) 1.67, Nucleated RBC % 0, Sodium 134 L, Potassium 3.7, Chloride 104, Carbon Dioxide 21.0, Anion Gap 8, BUN 30 H, Creatinine 2.13 H , Estim Creat Clear Calc 16.74, Est GFR (MDRD) Af Amer 28 L, Est GFR (MDRD) Non- Af 23 L, BUN/Creatinine Ratio 14.1, Glucose 96, Calcium 9.1, TSH 4.690 H Radiography Diagnostic Testing: Radiology Impression Echocardiogram 07/28/24 05:55 Interpretation Summary The estimated ejection fraction is 70 %. No evidence for diastolic dysfunction. Mild (1+) mitral valve insufficiency. Ordering Physician: Chaparrita Roberts Referring Physician: Steff, Cat Performed By: Es Yepez RDCS D/C Instructions Discharge Diet: Low fat / Low cholesterol Discharge Activity: Return to Normal Activity DC O2, CPAP, BIPAP Needs Home O2 Discharge instructions: No Meaningful Use Info Meaningful Use Meaningful Use Diagnoses (Choose all that apply): None applicable Ischemic Stroke Statin Dosing Therapy Reference: STATIN DOSE THERAPY REFERENCE: * Patients > 75 years receive moderate or high dose statin therapy. * Patients 75 years or YOUNGER should receive HIGH intensity statin dose unless contraindicated. You will be required to document reason for non-treatment if statin daily dose does not meet guidelines. HIGH DOSE STATIN THERAPY DAILY Atorvastatin > than or = to 40 mg Rosuvastatin > than or = to 20 mg Amlodipine + Atorvastatin > than or = to 2.5/40 mg Ezetimibe + Simvastatin 10/80 mg Simvastatin 80mg Discharge Plan Admission Admit Date/Time: 07/27/24 13:51 Primary Reason for Your Visit: Generalized weakness Attending Provider: Edith Shafer Primary Care Provider: Cat Artis Consulting Providers: Kim Carrasco; Chaparrita Roberts Discharge Orders/Prescriptions Prescriptions: New lidocaine 5 % Adhesive Patch,Medicated 2 patch topical DAILY Qty: 15 0RF Protocol: *Topical Application Instructions APPLICATION INSTRUCTIONS: where pt prefers. carvedilol 6.25 mg Tablet 6.25 mg PO BIDCM Qty: 60 1RF Eliquis 5 mg Tablet 2.5 mg PO BID Qty: 30 1RF amlodipine 10 mg Tablet 10 mg PO DAILY Qty: 30 1RF isosorbide mononitrate 60 mg tablet extended release 24 hr 60 mg PO DAILY Qty: 30 1RF Continued PreserVision AREDS-2 250-90-40-1 mg capsule 1 tab PO DAILY timolol maleate 1 DROP drops 1 drp EACH EYE [facility] Patient Comments: eye health hydralazine 10 mg tablet 10 mg PO 4X/DAY Qty: 180 1RF levothyroxine 88 mcg tablet 88 mcg PO DAILY Qty: 90 3RF allopurinol 100 mg tablet 100 mg PO DAILY Qty: 90 1RF Discontinued cyclobenzaprine 5 mg tablet 5 mg PO TID PRN (Reason: muscle spasm) Qty: 20 0RF Rx Instructions: Watch for signs of sedation. Do not drive while using this medication. Referrals / Follow Up: Harry Cordoba MD [Med Staff - Active Staff] - 08/11/24 1:30 pm (Appointment is with JOHNNA Saeed ) Cat Artis MD [Primary Care Provider] - 07/30/24 11:30 am Disposition Disposition (needs filled in before D/C Order can be placed): Home, Self Care Charges/Coding Visit Charges Inpatient E&M: 92816 Disch Hosp >30min
[2024-07-28] MEDS: Lidocaine 5% Patch 2 PATCH TOPICAL (14:28)
--- NOTE | 2024-07-28 14:40 | CASEMGMT ---
Addendum entered by Regine Munoz 07/28/24 15:47: Hospitalist resent Eliquis script to [facility], LAUREN MAY called and confirmed that script was received. LAUREN MAY in to discuss needs at discharge with patient. LAUREN MAY updated patient regarding Eliquis copay and 30day savings card provided to patient. Patient states she will resume outpatient therapy at [facility] at previously ordered. Patient denies further needs or concerns at discharge. Original Note: LAUREN MAY called [facility] to inquire about Eliquis copay. Per [facility] Pharmacist they did not receive a prescription but he did run through insurance and copay is $284.00. LAUREN MAY updated hospitalist and requested script to be sent again. CM to follow this patient and plan for a safe discharge.
--- NOTE | 2024-07-28 14:53 | PHA.DC_ITS ---
Pharmacy [facility] has performed discharge medication reconciliation and counseling for this patient. 1. AMLODIPINE 10MG PO DAILY 2. CARVEDILOL 6.25MG PO BIDCM 3. APIXABAN 2.5MG PO BID 4. LIDOCAINE 5% 2 PATCHES TOPICAL DAILY The patient's discharge medication list was reviewed for discrepancies and discrepancies were resolved. The patient was counseled on the following discharge medications and changes in medications for homegoing were reviewed. The Reason for Use, instructions for use, and potential side effects were review ed for all new medications. The patient's questions regarding all of their medications were answered. The patient was able to verbally demonstrate an understanding of their discharge medications. Medications at Discharge Home Medications timolol maleate 0.5 % eye drops 1 drp EACH EYE [facility] eye health 09/27/15 vit C 250 mg-vit E 90 mg-zinc 40 mg-copper 1 [id number]-tjvnwq capsule (PreserVision AREDS-2) 1 tab PO DAILY 10/18/21 levothyroxine 88 mcg tablet 88 mcg PO DAILY #90 tabs 01/09/24 allopurinol 100 mg tablet 100 mg PO DAILY #90 tabs 06/19/24 hydralazine 10 mg tablet 10 mg PO 4X/DAY High blood pressure #180 tabs 07/07/24 amlodipine 10 mg tablet 10 mg PO DAILY #30 tabs 07/28/24 apixaban 5 mg tablet (Eliquis) 2.5 mg (1/2 x 5 mg) PO BID #30 tabs 07/28/24 carvedilol 6.25 mg tablet 6.25 mg PO BIDCM #60 tabs 07/28/24 lidocaine 5 % topical patch 2 patch topical DAILY #15 ea 07/28/24
[2024-07-28] MEDS: Isosorbide Mononitrate 60 MG Tablet PO (17:48)
== END 2024-07-28 18:22 | disposition home or self-care (01) | DRG 305 ==
LOC: ED 21:48 → PCU 22:01
PROVIDERS: Physician Assistant; Student in an Organized Health Care Education/Training Program; Admitting Provider Family Medicine; Emergency Provider Emergency Medicine; PCP Internal Medicine; Referring Provider Family Medicine; Visit Provider Internal Medicine
DX: I16.1 Hypertensive emergency (principal); N17.9 Acute kidney failure, unspecified; D68.52 Prothrombin gene mutation; N18.4 Chronic kidney disease, stage 4 (severe); E03.9 Hypothyroidism, unspecified; S80.01XA Contusion of right knee, initial encounter; B96.89 Other specified bacterial agents as the cause of diseases classified elsewhere; Z66 Do not resuscitate; Z51.5 Encounter for palliative care; I12.9 Hypertensive chronic kidney disease with stage 1 through stage 4 chronic kidney disease, or unspecified chronic kidney disease; J45.909 Unspecified asthma, uncomplicated; I48.91 Unspecified atrial fibrillation; E78.5 Hyperlipidemia, unspecified; K21.9 Gastro-esophageal reflux disease without esophagitis; M10.9 Gout, unspecified; F41.9 Anxiety disorder, unspecified; E87.6 Hypokalemia; S80.02XA Contusion of left knee, initial encounter; W19.XXXA Unspecified fall, initial encounter; R53.81 Other malaise; Z86.718 Personal history of other venous thrombosis and embolism; Z90.710 Acquired absence of both cervix and uterus; H40.9 Unspecified glaucoma; R79.83 Abnormal findings of blood amino-acid level
CPT/HCPCS: 36415; 71045; 73564; 80048; 80053; 80061; 81001; 82550; 82570; 83735; 84300; 84443; 84484; 85025; 85379; 93005; 93306; 93971; 94668; 97116; 97140; 97162; 97166; 97535; 99283; A4216

== ENCOUNTER 2024-08-04 20:00 | Emergency (ER) | payer MEDICARE, OTHER, SELFPAY ==
[2024-08-04 20:01] VITALS: BP 130/69; PULSE 66; RESP 16; TEMP 36.8; O2SAT 97; BMI 23.0
--- NOTE | 2024-08-04 20:08 | ED.RN ---
Called for ekg in triage
--- NOTE | 2024-08-04 20:50 | RAD_ITS ---
PROCEDURE: CHEST 1 VIEW (PORTABLE) REASON FOR EXAM: Pain. TECHNIQUE: Frontal view of the chest. COMPARISON: None. FINDINGS: The cardiac and mediastinal contours are normal. Moderate left and small right pleural effusions. RAD/Chest 1 View (Portable) IMPRESSION: Moderate left and small right pleural effusions. Reading Location: [id number]
[2024-08-04 21:35] VITALS: O2SAT 96
--- NOTE | 2024-08-04 21:54 | EKG12_ITS ---
Test Reason : DYSRHYTHMIA Blood Pressure : */* mmHG Vent. Rate : 67 BPM Atrial Rate : 67 BPM P-R Int : 216 ms QRS Dur : 76 ms QT Int : 440 ms P-R-T Axes : 84 -21 102 degrees QTcB Int : 464 ms Sinus rhythm with 1st degree A-V block Septal infarct (cited on or before 26-May-2013) Abnormal ECG Confirmed by TASHA DURHAM, SILVIA ([id number]), multimedia editor SELWYN GARCIA ([id number]) on 08/07/2024 7:10:57 AM Referred By: TB Confirmed By: SILVIA CORDOVA MD
--- NOTE | 2024-08-04 21:54 | RAD_ITS ---
PROCEDURE: HIPS B/L MIN 2 VIEWS W/ PELVIS REASON FOR EXAM: Pain. TECHNIQUE: 2 views of each hip. AP Pelvis. COMPARISON: CT abdomen/pelvis from 04/03/2024. FINDINGS: No acute fracture or dislocation is identified. Mild degenerative changes are present. Visualized soft tissues are unremarkable. RAD/Hips B/L min 2 views w/ Pelvis IMPRESSION: No acute osseous abnormality. Reading Location: [facility]
[2024-08-04 21:55] LABS: Absolute Lymphocyte Count 1.26 X10^3/uL (0.83-4.51); Absolute Neutrophil Count 5.9 X10^3/uL (2.0-7.7); Basophil# 0.04 X10^3/uL; Basophil% 0.5 % (0-1); Eosinophil# 0.23 X10^3/uL; Eosinophils% 2.8 % (0-5); Hematocrit 31.8 % (37-47); Hemoglobin 11.1 g/dL (12.0-15.0); Lymphocyte # 1.26 X10^3/ul (0.83-4.51); Lymphocyte % 15.1 % (19-41); Mean Corp Hgb Conc 34.9 g/dL (32-36); Mean Corpuscular Hgb 32.3 pg (27.0-32.0); Mean Corpuscular Volume 92.4 fL (81-99); Mean Platelet Vol. 9.7 fl (6.2-12.0); Monocyte# 0.87 X10^3/uL; Monocyte% 10.4 % (0-10); NRBC Flagged by Analyzer 0 % (0-5); Neutrophil # 5.89 X10^3/uL (2.7-7.7); Neutrophil % 70.7 % (47-70); Platelet Count 245 K/mm3 (150-450); RBC Distribution Width CV 14.6 % (11.6-14.6); Red Blood Count 3.44 M/mm3 (4.2-5.4); White Blood Count 8.3 K/mm3 (4.4-11.0)
--- NOTE | 2024-08-04 21:56 | EDS_ITS ---
HPI History of Present Illness Chief Complaint: Shortness of Breath Informant: patient and family Narrative Narrative: Patient here with her grandsons for evaluation. Discharged a week ago for 2-day stay reportedly due to elevated blood pressure and findings of A-fib while in the hospital. Placed on 2 additional blood pressure medicines, placed on Eliquis. Prior to hospitalization she had a fall that Sunday she was crawling around her home until somebody helped her. She states she had lower leg issues at that time. She was able to walk when she went home. Since then developed bilateral hip pain worse with lying on it. No additional falls. At some point reports pain in her mid back. She states did not have pain when she left the hospital. Also reports shortness of breath leg swelling and chills. She has been using Tylenol for her pain in her back that was helping today took her Tylenol dose and it did not help. Last dose 6 PM. Denies radicular pain. Prior similar symptoms: No PFSH PFSH Medical History Atrial fibrillation Diverticulitis Urinary tract infection Hematuria Fixed drug eruption Wears glasses Wears contact lenses Post-menopausal Cancer Thyroid disease Pulmonary embolism History of hiatal hernia History of diverticulitis Gastric reflux History of Holter monitoring History of echocardiogram History of stress test Cardiology follow-up encounter HLD (hyperlipidemia) Bruit of right carotid artery Pruritus of skin History of skin cancer GERD (gastroesophageal reflux disease) Pancreatitis Premature ventricular contraction Premature atrial contraction Right carotid bruit Nonhealing surgical wound Squamous cell carcinoma of left lower leg Leg wound, left Essential hypertension CKD (chronic kidney disease) Asthma Glaucoma Prothrombin gene mutation Hyperhomocystinemia Hypothyroidism Home Medications ?Medication ?Instructions ?Recorded ?Last Taken ?Type timolol maleate 0.5 % eye drops 1 drp EACH EYE [facility] eye health 09/27/15 05/12/19 History vit C 250 mg-vit E 90 mg-zinc 40 1 tab PO DAILY Unknown History mg-copper 1 gv-ogqcgf-tpmemt capsule (PreserVision AREDS-2) levothyroxine 88 mcg tablet 88 mcg PO DAILY #90 tabs 0 01/09/24 Unknown Rx allopurinol 100 mg tablet 100 mg PO DAILY #90 tabs Unknown Rx hydralazine 10 mg tablet 10 mg PO 4X/DAY High blood 0 07/07/24 Unknown Rx pressure #180 tabs amlodipine 10 mg tablet 10 mg PO DAILY #30 tabs 07/03 01/23 Unknown Rx apixaban 5 mg tablet (Eliquis) 2.5 mg (12 x 5 mg) PO BID #30 tabs 07/28/24 Unknown Rx carvedilol 6.25 mg tablet 6.25 mg PO BIDCM #60 tabs Unknown Rx isosorbide mononitrate 60 mg 60 mg PO DAILY #30 tabs 0 07/28/24 Unknown Rx tablet,extended release 24 hr furosemide 20 mg tablet (Lasix) 20 mg PO DAILY #5 tabs 08/04/24 Unknown Rx Allergy/AdvReac Type Severity Reaction Status Date / Time ceramide combination no.1 Allergy Intermediate rash Verified 08/04/24 20:04 (1,3,6-II) (From CeraVe) diltiazem HCl (From Cardizem) Allergy Itching Verified 08/04/24 20:04 losartan Allergy Itching Verified 08/04/24 20:04 SEVERE AND BLISTER miconazole nitrate (From Allergy Laryngospas Verified 08/04/24 20:04 Neosporin AF) ms morphine Allergy Other Verified 08/04/24 20:04 nitrofurantoin (From Allergy Rash Verified 08/04/24 20:04 Macrobid) nitrofurantoin Allergy Rash Verified 08/04/24 20:04 macrocrystalline (From Macrobid) bacitracin AdvReac Other Verified 08/04/24 20:04 codeine AdvReac Chest Verified 08/04/24 20:04 tightness lisinopril AdvReac Other Verified 08/04/24 20:04 loratadine (From Claritin) AdvReac Other Verified 08/04/24 20:04 metoprolol AdvReac fatigue Verified 08/04/24 20:04 Family History Mother Heart disease Father Heart disease Brother Heart disease Hypertension Cancer Surgical History History of bilateral cataract extraction History of cholecystectomy History of colectomy History of total hysterectomy Social History household members: none Smoking Status: Never smoker alcohol intake: never substance use type: does not use caffeine: No what type of physical activity do you participate in: yoga frequency: 3-4 times per week ROS ROS ED Constitutional Constitutional ED: Reports chills; Denies fever(s) or sweats ENT ENT ED: Denies sore throat Cardiovascular Cardiovascular: Reports leg edema; Denies chest pain, palpitations or racing heartbeat Respiratory/Chest Respiratory/Chest: Reports dyspnea; Denies cough or dyspnea on exertion Gastrointestinal Gastrointestinal: Denies abdominal pain, diarrhea, nausea or vomiting Genitourinary Genitourinary ED: Denies dysuria, hematuria or urinary frequency Musculoskeletal Musculoskeletal: Reports back pain and extremity pain; Denies neck pain Integumentary Denies rash or wounds Neurologic Neurologic: Denies headache(s), paresthesias or weakness EXAM Physical Exam Const Vital Signs: 08/04/24 20:01 08/04/24 21:33 08/04/24 21:35 Temperature 98.2 F Temperature Source Oral Pulse Rate 66 Respiratory Rate 16 Respiratory Effort Short of Breath Respiratory Depth Normal Respiratory Pattern Normal Blood Pressure 130/69 H Blood Pressure Mean 89 Pulse Ox 97 Oxygen Delivery Method Room Air Room Air Room Air 08/05/24 00:10 Temperature 98.1 F Temperature Source Pulse Rate 87 Respiratory Rate 16 Respiratory Effort Respiratory Depth Respiratory Pattern Blood Pressure 136/85 H Blood Pressure Mean 102 Pulse Ox 100 Oxygen Delivery Method Positive well nourished and well developed General Appearance ED: well developed and NAD HEENT Reports moist mucous membranes normocephalic and atraumatic Eyes General Eye ED: Yes normal appearance of both eyes Neck full ROM Chest Wall Chest: Negative for tenderness Resp normal respiratory effort and normal air movement Effort and Inspection: symmetric chest movement; Negative for respiratory distress Cardio regular rate, regular rhythm and no murmurs Peripheral Pulses: pulses 2+ throughout GI normal to inspection, nondistended, normoactive bowel sounds and non-tender Palpation: Negative for guarding or rebound tenderness present Back/Spine Back/Spine Narrative: Tender palpation midline lower thoracic. No step-offs. Extremity normal to inspection Extremity Narrative: Negative logroll of the lower extremities bilaterally. 1-2+ lower extremity edema. No calf tenderness. General Extremety ED: Yes edema; Negative for tenderness General Extremity: edema Neuro oriented x3 and no sensory deficits noted Sensorium / Orientation: awake and alert Skin no rashes or lesions noted and no wounds MDM MDM MDM Narrative Medical decision making narrative: Interventions / MDM: Differential diagnosis: Pleural effusion, peripheral edema, bilateral hip pain, back pain Diagnosis considered but do not suspect: Vertebral compression fracture CT negative. No cauda equina symptoms. Hip fracture however x-ray negative. CHF however recent echocardiogram EF of 70%. My EKG interpretation: N/A Imaging independently reviewed and interpreted by myself: Bilateral hip x-ray with pelvis 5 views: No fracture noted. Two-view chest x-ray pleural effusion bilaterally. CT thoracic and lumbar spine no compression fractures. Per radiology concerns for disc herniation L4-L5 resulting in canal stenosis with impingement right side. External documents reviewed: Hospitalization from last month noting her A-fib in the hospital. Echocardiogram noted EF of 70%. DVT studies right lower extremity negative. Test considered but not ordered:N/A ED course: Vital signs stable. Patient multiple complaints. Primary complaint is back pain. No trauma however worsening symptoms. Obtain CT scans thoracic and lumbar spine. Planes of bilateral hip pain x-rays ordered. With her dyspnea and chills symptoms, EKG labs and urine ordered for further evaluation. Viral swab sent. Work up x-ray hips negative pleural effusions of the lungs. CT scans per radiology concerns for L4-L5 herniation with canal stenosis with impingement on the right side. Patient denies any radicular pain down her right side she denies any cauda equina symptoms. X-ray chest with pleural effusions. She have peripheral edema. Labs with stable CKD. Stable anemia. She was ambulated with a pulse ox meter at 93%. She had a normal echocardiogram. Patient reports she has follow-up with her PCP since the last admission was told to use compression stockings for her legs. She could not put them on at home per patient. Stable creatinine with pleural effusion peripheral edema will place on a short course of diuretics for which she will start tomorrow. She will follow-up with her PCP to recheck labs and symptoms. Grandson was present discussed looking for radicular symptoms or worsening bilateral leg weakness to return immediately to the ED. All questions were answered. Re-evaluation: stable Disposition discussed with patient/family/significant other: Patient and family Case discussed with consulting clinician: N/A This note was generated with [employer] software. It may contain incorrect words, spelling, and punctuation that were not noted in checking the note before signing. Lab Data Attestation: I reviewed the patient's lab results. Labs: Laboratory Results - last 24 hr 08/04/24 08/04/24 21:42 22:50 WBC 8.3 RBC 3.44 L Hgb 11.1 L Hct 31.8 L MCV 92.4 MCH 32.3 H MCHC 34.9 RDW Std Deviation 48.0 H RDW Coeff of Joaquin 14.6 Plt Count 245 MPV 9.7 Immature Gran % (Auto) 0.500 Neut % (Auto) 70.7 H Lymph % (Auto) 15.1 L [place] % (Auto) 10.4 H Eos % (Auto) 2.8 Baso % (Auto) 0.5 Absolute Neuts (auto) 5.9 Absolute Lymphs (auto) 1.26 Nucleated RBC % 0 Sodium 130 L Potassium 3.9 Chloride 98 Carbon Dioxide 22.0 Anion Gap 10 BUN 36 H Creatinine 2.13 H Estim Creat Clear Calc 16.74 Est GFR (MDRD) Af Amer 28 L Est GFR (MDRD) Non-Af 23 L BUN/Creatinine Ratio 16.9 Glucose 111 H Calcium 9.4 Troponin I High Sens 17 B-Natriuretic Peptide 238.4 H Urine Color Yellow Urine Clarity Clear Urine pH 6.0 Ur Specific [place] 1.015 Urine Protein 500 H Urine Glucose (UA) Normal Urine Ketones Negative Urine Occult Blood 10 H Urine Nitrite Negative Urine Bilirubin Negative Urine Urobilinogen Normal Ur Leukocyte Esterase 25 H Urine RBC 0-5 SEEN Urine WBC 0-5 SEEN Ur Squamous Epith Cells 0 SEEN Urine Bacteria 0 SEEN Urine Mucus 0 SEEN Radiography Diagnostic Testing: Clinical Impression(s) from Imaging Studies Chest X-Ray 08/04/24 20:50 IMPRESSION: Moderate left and small right pleural effusions. Reading Location: [id number] Hip/Pelvis X-Ray 08/04/24 21:54 IMPRESSION: No acute osseous abnormality. Reading Location: [id number] Lumbar Spine CT 08/04/24 22:06 IMPRESSION: 1. No acute osseous abnormality. 2. At L4-L5, diffuse circumferential disc bulge and facet/flavum hypertrophy results in significant severe central canal stenosis. There is a superimposed right foraminal disc extrusion with superior migration resulting in mass effect on the exiting right L4 nerve with severe right neural foraminal narrowing. [id number] left neural foraminal narrowing is identified. 3. Additional findings as above. One or more dose reduction techniques were used (e.g., Automated exposure control, adjustment of the mA and/or kV according to patient size, use of iterative reconstruction technique). Reading Location: [facility] Thoracic Spine CT 08/04/24 22:06 IMPRESSION: 1. No acute fracture. 2. Small bilateral pleural effusions with adjacent atelectasis. 3. Additional findings as above. One or more dose reduction techniques were used (e.g., Automated exposure control, adjustment of the mA and/or kV according to patient size, use of iterative reconstruction technique). Reading Location: [facility] Discharge Plan Triage Chief Complaint: Shortness of Breath Other Complaint: Back ED Provider: Zackary Burkett Dx/Rx/DC Orders Clinical Impression: Back pain, CKD (chronic kidney disease), Pleural effusion, bilateral, Edema, peripheral, Anemia Instructions: ED Back Pain (Acute or Chronic), ED Peripheral Edema, Bilateral, ED Pleural Effusion Prescriptions: New furosemide [Lasix] 20 mg tablet 20 mg PO DAILY Qty: 5 0RF No Action PreserVision AREDS-2 250-90-40-1 mg capsule 1 tab PO DAILY timolol maleate 1 DROP drops 1 drp EACH EYE [facility] Patient Comments: eye health hydralazine 10 mg tablet 10 mg PO 4X/DAY Qty: 180 1RF carvedilol 6.25 mg Tablet 6.25 mg PO BIDCM Qty: 60 1RF Eliquis 5 mg Tablet 2.5 mg PO BID Qty: 30 1RF amlodipine 10 mg Tablet 10 mg PO DAILY Qty: 30 1RF isosorbide mononitrate 60 mg tablet extended release 24 hr 60 mg PO DAILY Qty: 30 1RF levothyroxine 88 mcg tablet 88 mcg PO DAILY Qty: 90 3RF allopurinol 100 mg tablet 100 mg PO DAILY Qty: 90 1RF Primary Care Provider: Cat Artis Referrals: Cat Artis MD [Primary Care Provider] - 1 Week Activity Restrictions/Additional Instructions: CT scan thoracic and lumbar no compression fractures noted. You have L4-L5 hernia however you have no radicular symptoms from this. X-ray notes small pleural effusion bilaterally. Hemoglobin 11 stable from previous. Your creatinine 2.13 stable from previous. You had an echocardiogram in the hospital with a normal ejection fraction of 70%. You are in sinus rhythm on EKG. Continue your home medications. Take Lasix as prescribed starting tomorrow daily. You will urinate more with this. Follow-up your doctor to recheck labs and symptoms. You may use Tylenol up to 1 g every 6 hours as needed for your thoracic back pain. Print Language: Lebanese Disposition Disposition: Home, Self Care Discharge Date/Time: 08/05/24 00:16
--- NOTE | 2024-08-04 22:06 | CT_ITS ---
PROCEDURE: SPINE LUMBAR WITHOUT CONTRAST REASON FOR EXAM: Pain with bilateral leg swelling.. TECHNIQUE: Lumbar spine CT without contrast. COMPARISON: None. FINDINGS: Lumbar vertebral bodies maintain a normal height. There is mild dextroscoliosis of the mid lumbar spine. There is mild disc space narrowing at L4-L5 and L5-S1 with endplate spurring. No acute fracture or subluxation is identified. Bilateral sacroiliac joints are symmetric. Paraspinous musculature is unremarkable. There are small bilateral pleural effusions with adjacent atelectasis. Colonic diverticulosis is identified. Extensive atherosclerotic calcifications are present. Individual levels: T12-L1: No disc herniation, central canal stenosis, or neural foraminal narrowing. Minimal disc bulge is present. L1-L2: Disc bulge with no significant central canal stenosis or neural foraminal narrowing. L2-L3: Disc bulge with no significant central canal stenosis or neural foraminal narrowing. L3-L4: Disc bulge with no significant central canal stenosis or neural foraminal narrowing. L4-L5: Diffuse circumferential disc bulge and facet/flavum hypertrophy results in significant severe central canal stenosis. There is a superimposed right foraminal disc extrusion with superior migration resulting in significant mass effect on the exiting right L4 nerve with severe right neural foraminal narrowing. There is [id number] left neural foraminal narrowing. L5-S1: Disc bulge and mild facet arthropathy with no significant central canal stenosis. Mild bilateral neural foraminal narrowing is present. CT/Spine Lumbar without Contrast IMPRESSION: 1. No acute osseous abnormality. 2. At L4-L5, diffuse circumferential disc bulge and facet/flavum hypertrophy re sults in significant severe central canal stenosis. There is a superimposed right foraminal disc extrusion with superior migration resulting in mass effect on the exiting right L4 nerve with severe right neural foraminal narrowing. [id number] left neural foraminal narrowing is identified. 3. Additional findings as above. One or more dose reduction techniques were used (e.g., Automated exposure contr ol, adjustment of the mA and/or kV according to patient size, use of iterative reconstruction technique). Reading Location: [facility]
--- NOTE | 2024-08-04 22:06 | CT_ITS ---
PROCEDURE: SPINE THORACIC WITHOUT CONTRAS REASON FOR EXAM: Pain with bilateral leg swelling. TECHNIQUE: Thoracic spine CT without intravenous contrast. COMPARISON: None. FINDINGS: Thoracic vertebral bodies maintain a normal height. There is mild levoscoliosis of the upper thoracic spine. Intervertebral disc spacing is relatively preserved. Minimal anterior endplate spurring is identified. There is a small sclerotic focus involving the superior endplate posteriorly of T4 likely related to a bone island. No acute fracture or subluxation is present. No significant central canal stenosis is identified. Paraspinous musculature is unremarkable. Evaluation of the lung parenchyma demonstrates mild biapical scarring. There are small bilateral pleural effusions with adjacent dependent atelectasis. Cardiomegaly is present. Coronary artery calcifications are identified. There are multiple small mediastinal lymph nodes. There are atherosclerotic calcifications of the thoracic aorta. CT/Spine Thoracic without Contras IMPRESSION: 1. No acute fracture. 2. Small bilateral pleural effusions with adjacent atelectasis. 3. Additional findings as above. One or more dose reduction techniques were used (e.g., Automated exposure contr ol, adjustment of the mA and/or kV according to patient size, use of iterative reconstruction technique). Reading Location: [facility]
[2024-08-04 22:10] LABS: Anion Gap 10 (5-15); BUN 36 mg/dL (7-18); BUN/Creat Ratio 16.9 RATIO (10-20); Calcium,Total 9.4 mg/dL (8.5-10.1); Chloride 98 mmol/L (98-107); Creatinine, Serum 2.13 mg/dL (0.55-1.02); EST Glomerular Filtration Rate 23 mL/min (>60); Est Glom Filt Rate - Afr Amer 28 mL/min (>60); Estimated Creatinine Clearance 16.74 ml/min; Glucose 111 mg/dL (74-106); Potassium 3.9 mmol/L (3.5-5.1); Sodium Level 130 mmol/L (136-145); Troponin-I HS 17 pg/mL (3.0-54.0)
[2024-08-04 22:49] LABS: BNP,B-Type NATRIURETIC PEPTIDE 238.4 pg/mL (0-100)
[2024-08-04 23:02] LABS: Bacteria 0 SEEN /hpf (None Seen); Mucous, Urine 0 SEEN /hpf (<or=2+); Squamous Epithelial Cells - UA 0 SEEN /hpf (5-10)
[2024-08-04 23:04] LABS: Color, Urine Yellow (Yellow); Glucose, Dipstick Normal (Normal); Ketone-Dipstick Negative (Negative); Leukocyte Esterase-Dipstick 25 /ul (Negative); Nitrite-Dipstick Negative (Negative); Occult Blood-Urine 10 /ul (Negative); Protein-Dipstick 500 mg/dl (Negative); Specific Gravity, Urine 1.015 (1.002-1.030); Urine Bilirubin Dipstick Negative (Negative); Urine Clarity Clear (Clear); Urine Urobilinogen Normal (Normal)
[2024-08-04 23:11] LABS: Red Blood Cells-Urine 0-5 SEEN /hpf (0-5); White Blood Cells 0-5 SEEN /hpf (0-5)
[2024-08-05 00:10] VITALS: BP 136/85; PULSE 87; RESP 16; TEMP 36.7; O2SAT 100
== END 2024-08-05 00:16 | disposition home or self-care (01) ==
PROVIDERS: Emergency Provider Emergency Medicine; PCP Internal Medicine; Visit Provider Emergency Medicine
DX: J90 Pleural effusion, not elsewhere classified (principal); I48.91 Unspecified atrial fibrillation; M54.6 Pain in thoracic spine; N18.9 Chronic kidney disease, unspecified; R60.0 Localized edema; D63.1 Anemia in chronic kidney disease; I12.9 Hypertensive chronic kidney disease with stage 1 through stage 4 chronic kidney disease, or unspecified chronic kidney disease; Z79.01 Long term (current) use of anticoagulants; Z79.899 Other long term (current) drug therapy
CPT/HCPCS: 94760; 99284; 71045; 72128; 72131; 73521; 80048; 81001; 83880; 84484; 85025; 87631; 93005

== ENCOUNTER 2024-08-07 08:43 | Inpatient (IN) | payer MEDICARE, OTHER, SELFPAY ==
[2024-08-07] VITALS (12 sets, daily range): BP systolic 135–152; BP diastolic 65–80; PULSE 67–78; RESP 14–20; TEMP 36.1–36.8; O2SAT 90–98; BMI 23.8; BMI 23.4
--- NOTE | 2024-08-07 09:34 | RAD_ITS ---
EXAM: XR Chest, 2 Views CLINICAL INDICATION: TECHNIQUE: Frontal and lateral views of the chest. COMPARISON: No relevant prior studies available. FINDINGS: LUNGS AND PLEURAL SPACES: Bibasilar atelectasis or pneumonia. Pulmonary venous congestion. Bilateral pleural effusions. No pneumothorax. HEART: Unremarkable. No cardiomegaly. MEDIASTINUM: Unremarkable. Normal mediastinal contour. BONES/JOINTS: Unremarkable. No acute fracture. RAD/Chest PA and Lateral IMPRESSION: 1. Bibasilar atelectasis or pneumonia. 2. Pulmonary venous congestion. 3. Bilateral pleural effusions. Reading Location[facility]
--- NOTE | 2024-08-07 09:34 | EKG12_ITS ---
Test Reason : Blood Pressure : */* mmHG Vent. Rate : 69 BPM Atrial Rate : 69 BPM P-R Int : 220 ms QRS Dur : 82 ms QT Int : 416 ms P-R-T Axes : 82 -13 106 degrees QTcB Int : 445 ms Sinus rhythm with 1st degree A-V block Septal infarct , age undetermined Abnormal ECG Confirmed by TASHA DURHAM, SILVIA ([id number]), communications editor SELWYN GARCIA ([id number]) on 08/09/2024 7:24:44 AM Referred By: [facility] Confirmed By: SILVIA CORDOVA MD
--- NOTE | 2024-08-07 09:41 | RAD_ITS ---
EXAM: XR Bilateral Hips With Pelvis When Performed, 2 or 3 Views CLINICAL INDICATION: TECHNIQUE: Three or four views of the bilateral hips with pelvis when performed. COMPARISON: No relevant prior studies available. FINDINGS: BONES/JOINTS: Mild degenerative changes of both hip joints. No dislocation. No acute fracture. SOFT TISSUES: Unremarkable. GASTROINTESTINAL TRACT: Fecal retention in the colon consistent with constipation. RAD/Hips B/L min 2 views w/ Pelvis IMPRESSION: 1. No acute fracture. 2. Fecal retention in the colon consistent with constipation. Reading Location[facility]
--- NOTE | 2024-08-07 09:43 | EX.ED.DYSGE1 ---
HPI History of Present Illness Chief Complaint: Weakness Informant: patient Narrative Narrative: Patient is a 89-year-old female with history of hypertension, palpitations, diverticulitis, GERD and CKD presenting for low for her blood pressures, generalized weakness, continued pain in her hips as well as worsening leg swelling and increased shortness of breath. Patient states over the past week she has been more short of breath and she cannot even get into bed without getting winded. She is not able to sleep and is more short of breath when she lays down as well. She has had increased one of her legs. She had fall with mild leg injury last month and since then has had worsening bilateral hip pain. She thinks maybe she has bursitis. She is on appointment to see orthopedics tomorrow. She has been taking Tylenol and using Lidoderm patches started last night with no relief. On Sunday she was seen in the ER for some of the symptoms and was started on a course of Lasix for 5 days. She notes that she has had at least 6 pound weight gain since all this has been going on. She is not making as much urine as she would expect given that she is not on Lasix. She states she continues to drink a lot of fluids because she knows her kidneys are bad. She did have a recent hospitalization for hypertensive urgency at that time had echocardiogram. She is worried that she is on too many medications that she is on hydralazine, Coreg, isosorbide, amlodipine for blood pressure. She states she did not take her morning medications. [facility] Medical History Chronic kidney disease Chronic hypertension Atrial fibrillation Diverticulitis Urinary tract infection Hematuria Fixed drug eruption Wears glasses Wears contact lenses Post-menopausal Cancer Thyroid disease Pulmonary embolism History of hiatal hernia History of diverticulitis Gastric reflux History of Holter monitoring History of echocardiogram History of stress test Cardiology follow-up encounter HLD (hyperlipidemia) Bruit of right carotid artery Pruritus of skin History of skin cancer GERD (gastroesophageal reflux disease) Pancreatitis Premature ventricular contraction Premature atrial contraction Right carotid bruit Nonhealing surgical wound Squamous cell carcinoma of left lower leg Leg wound, left Essential hypertension CKD (chronic kidney disease) Asthma Glaucoma Prothrombin gene mutation Hyperhomocystinemia Hypothyroidism Home Medications ?Medication ?Instructions ?Recorded ?Last Taken ?Type timolol maleate 0.5 % eye drops 1 drp EACH EYE [facility] eye health 09/27/15 05/12/19 History vit C 250 mg-vit E 90 mg-zinc 40 1 tab PO DAILY 10/18/21 Unknown History mg-copper 1 [id number]-ghrzwa capsule (PreserVision AREDS-2) levothyroxine 88 mcg tablet 88 mcg PO DAILY #90 tabs 01/09/24 Unknown Rx allopurinol 100 mg tablet 100 mg PO DAILY #90 tabs 06/19/24 Unknown Rx hydralazine 10 mg tablet 10 mg PO 4X/DAY High blood 07/07/24 Unknown Rx pressure #180 tabs amlodipine 10 mg tablet 10 mg PO DAILY #30 tabs 07/28/24 Unknown Rx apixaban 5 mg tablet (Eliquis) 2.5 mg (1/2 x 5 mg) PO BID #30 tabs 07/28/24 Unknown Rx carvedilol 6.25 mg tablet 6.25 mg PO BIDCM #60 tabs 07/28/24 Unknown Rx isosorbide mononitrate 60 mg 60 mg PO DAILY #30 tabs 07/28/24 Unknown Rx tablet,extended release 24 hr furosemide 20 mg tablet (Lasix) 20 mg PO DAILY #5 tabs 08/04/24 Unknown Rx Allergy/AdvReac Type Severity Reaction Status Date / Time ceramide combination no.1 Allergy Intermediate rash Verified 08/07/24 08:51 (1,3,6-II) (From CeraVe) diltiazem HCl (From Cardizem) Allergy Itching Verified 08/07/24 08:51 losartan Allergy Itching Verified 08/07/24 08:51 SEVERE AND BLISTER miconazole nitrate (From Allergy Laryngospas Verified 08/07/24 08:51 Neosporin AF) ms morphine Allergy Other Verified 08/07/24 08:51 nitrofurantoin (From Allergy Rash Verified 08/07/24 08:51 Macrobid) nitrofurantoin Allergy Rash Verified 08/07/24 08:51 macrocrystalline (From Macrobid) bacitracin AdvReac Other Verified 08/07/24 08:51 codeine AdvReac Chest Verified 08/07/24 08:51 tightness lisinopril AdvReac Other Verified 08/07/24 08:51 loratadine (From Claritin) AdvReac Other Verified 08/07/24 08:51 metoprolol AdvReac fatigue Verified 08/07/24 08:51 Family History Mother Heart disease Father Heart disease Brother Heart disease Hypertension Cancer Surgical History History of bilateral cataract extraction History of cholecystectomy History of colectomy History of total hysterectomy Social History household members: none Smoking Status: Never smoker alcohol intake: never substance use type: does not use caffeine: No what type of physical activity do you participate in: yoga frequency: 3-4 times per week ROS ROS ED Constitutional Constitutional ED: Denies chills or fever(s) ENT ENT ED: Denies sore throat Cardiovascular Cardiovascular: Reports orthopnea; Denies chest pain or palpitations Respiratory/Chest Respiratory/Chest: Reports cough, dyspnea, dyspnea on exertion, orthopnea and sputum Gastrointestinal Gastrointestinal: Reports constipation; Denies nausea or vomiting Genitourinary Genitourinary ED: Denies dysuria or urinary frequency Musculoskeletal Musculoskeletal: Reports back pain and other Details: bilateral hip pain ; Denies arthralgias Integumentary Denies rash Neurologic Neurologic: Reports paresthesias and weakness Hematologic/Lymphatic Hematologic/Lymphatic: Reports easy bleeding, easy bruising and other Details: ON Eliquis EXAM Physical Exam Const Vital Signs: 08/07/24 08:44 08/07/24 11:19 08/07/24 11:20 Temperature 97.0 F L Temperature Source Oral Pulse Rate 78 75 Respiratory Rate 20 H 16 Respiratory Effort Short of Breath Respiratory Pattern Normal Blood Pressure 150/65 H 141/76 H Blood Pressure Mean 93 97 Pulse Ox 90 94 Oxygen Delivery Method Room Air Room Air Positive well nourished and well developed General Appearance ED: well developed HEENT Reports moist mucous membranes Neck supple and no JVD Chest Wall inspection of chest normal and palpation of chest normal Resp Resp Narrative: Mild tachypnea and conversational dyspnea present. No crackles appreciated. Mildly diminished at the bases. Cardio regular rate, regular rhythm and no murmurs GI normal to inspection, nondistended, normoactive bowel sounds and non-tender Palpation: soft; Negative for tender or guarding Back/Spine no CVA tenderness Thoracic Spine / Upper Back: Negative for thoracic spinal tenderness Lumbar Spine / Lower Back: Negative for lumbar spinal tenderness Extremity Extremity Narrative: 2+ pitting edema up to the knees bilaterally. No deformity of the extremities. Pelvis is stable. Mild tenderness to palpation of the bilateral greater trochanters. Nontender to palpation with range of motion of the bilateral hips. General Extremety ED: Yes edema General Extremity: edema Neuro oriented x3 Sensorium / Orientation: alert Motor Exam: general weakness Psych mental status grossly normal Skin no rashes or lesions noted and no wounds MDM MDM MDM Narrative Medical decision making narrative: Patient evaluated for worsening shortness of breath, dyspnea on exertion as well as bilateral hip pain. She was seen in the ER for similar symptoms 3 days ago and prescribed Lasix. She states she has only had as much urine output that she would expect. Denies any new trauma or injury. Does live home alone. Differential includes new onset CHF, nephrotic syndrome, symptomatic anemia, fluid overload, BONNY on CKD, urinary tract infection, electrolyte abnormalities, bursitis, occult pelvic fracture. Patient given dose of fentanyl for pain control. Workup largely stable with hemoglobin of 10.7 which is near her baseline (hemoglobin 11.13 days ago). Platelets are normal as well as her white blood cell count. She does have hyponatremia which is worsening today at 126 (133 days ago and a week before that 134). Kidney function is at her baseline if not mildly improved with a creatinine of 1.81. Chloride also low at 93. CPK is checked because of her continued hip pain and myalgias to ensure she does not have rhabdomyolysis which is normal. BNP is uptrending and now 289 (was 238 on her last ER visit). Urinalysis continues to show significant proteinuria but axis with infection. Chest x-ray viewed by myself as well as radiology shows pulmonary vascular congestion. This questionable basilar axis or pneumonia but given that she does not have a fever or leukocytosis lower suspicion for pneumonia. Viral swab is negative for flu, COVID and RSV. High-sensitivity troponin is normal at 16 oh suspicion for acute ACS. Given that she has not responded to oral Lasix in is having worsening respiratory symptoms will admit for IV diuresis. Exact cause of her fluid overload is not clear however. Low suspicion for pulmonary emboli as a cause of her shortness of breath that she is anticoagulated on Eliquis and had a recent negative venous duplex of the lower extremities. Patient is given IV Lasix 40 mg in the ER. Case discussed with Dr. Arroyo and she will be admitted. History & Record Review Additional record(s) reviewed:: Prior inpatient record (Recent hospitalization/discharge summary) Lab Data Attestation: I reviewed the patient's lab results. Labs: Laboratory Results - last 24 hr 08/07/24 08/07/24 10:10 11:35 WBC 6.7 RBC 3.40 L Hgb 10.7 L Hct 31.1 L MCV 91.5 MCH 31.5 MCHC 34.4 RDW Std Deviation 47.2 H RDW Coeff of Joaquin 14.5 Plt Count 229 MPV 10.3 Immature Gran % (Auto) 0.300 Neut % (Auto) 74.6 H Lymph % (Auto) 12.4 L [place] % (Auto) 9.9 Eos % (Auto) 2.4 Baso % (Auto) 0.4 Absolute Neuts (auto) 5.0 Absolute Lymphs (auto) 0.83 Nucleated RBC % 0 Sodium 126 L Potassium 3.6 Chloride 93 L Carbon Dioxide 21.0 Anion Gap 12 BUN 34 H Creatinine 1.81 H Estim Creat Clear Calc 19.70 Est GFR (MDRD) Af Amer 34 L Est GFR (MDRD) Non-Af 28 L BUN/Creatinine Ratio 18.8 Glucose 94 Calcium 9.3 Total Bilirubin 0.70 AST 33 ALT 39 Alkaline Phosphatase 63 Total Creatine Kinase 118 Troponin I High Sens 16 B-Natriuretic Peptide 289.6 H Total Protein 6.3 L Albumin 3.4 Globulin 2.9 Albumin/Globulin Ratio 1.2 Urine Color Straw Urine Clarity Clear Urine pH 6.0 Ur Specific [place] 1.015 Urine Protein 500 H Urine Glucose (UA) Normal Urine Ketones 5 H Urine Occult Blood 10 H Urine Nitrite Negative Urine Bilirubin Negative Urine Urobilinogen Normal Ur Leukocyte Esterase 25 H Urine RBC 0 SEEN Urine WBC 0-5 SEEN Ur Squamous Epith Cells 0 SEEN Urine Bacteria 0 SEEN Urine Mucus 0 SEEN Radiography Diagnostic Testing: Clinical Impression(s) from Imaging Studies Chest X-Ray 08/07/24 09:34 IMPRESSION: 1. Bibasilar atelectasis or pneumonia. 2. Pulmonary venous congestion. 3. Bilateral pleural effusions. [facility]Pelvis X-[facility] 08/07/24 09:41 IMPRESSION: 1. No acute fracture. 2. Fecal retention in the colon consistent with constipation. Reading Location: [facility] Rhythm Strip Rhythm Strip: Sinus Rhythm Rate: 69 Ectopy: None EKG Initial EKG: Attestation: I personally reviewed and interpreted this EKG as follows: Interpretation: Sinus Rhythm Comments: Normal sinus rhythm at a rate of 69 bpm with first AV block NH interval 220 Normal axis Normal intervals Normal ST segments Prior EKG tracings: available for review Prior: Unchanged Management Discussion w/another healthcare provider: Hospitalist Discharge Plan Triage Chief Complaint: Weakness ED Provider: Magda Zimmer Dx/Rx/DC Orders Clinical Impression: Acute heart failure, CKD (chronic kidney disease), Acute hip pain, bilateral, Debility Primary Care Provider: Cat Artis Disposition Disposition: Acute Care Hospital [facility]
[2024-08-07] MEDS: fentaNYL 100 MCG/2 ML Ampul 50 MCG IV (10:15)
[2024-08-07 10:30] LABS: Absolute Lymphocyte Count 0.83 X10^3/uL (0.83-4.51); Basophil# 0.03 X10^3/uL; Basophil% 0.4 % (0-1); Eosinophil# 0.16 X10^3/uL; Eosinophils% 2.4 % (0-5); Hematocrit 31.1 % (37-47); Hemoglobin 10.7 g/dL (12.0-15.0); Lymphocyte # 0.83 X10^3/ul (0.83-4.51); Lymphocyte % 12.4 % (19-41); Mean Corp Hgb Conc 34.4 g/dL (32-36); Mean Corpuscular Hgb 31.5 pg (27.0-32.0); Mean Corpuscular Volume 91.5 fL (81-99); Mean Platelet Vol. 10.3 fl (6.2-12.0); Monocyte# 0.66 X10^3/uL; Monocyte% 9.9 % (0-10); NRBC Flagged by Analyzer 0 % (0-5); Neutrophil % 74.6 % (47-70); Platelet Count 229 K/mm3 (150-450); RBC Distribution Width CV 14.5 % (11.6-14.6); RBC Distribution Width SD 47.2 fl (35.1-43.9); White Blood Count 6.7 K/mm3 (4.4-11.0)
[2024-08-07 10:58] LABS: BNP,B-Type NATRIURETIC PEPTIDE 289.6 pg/mL (0-100)
[2024-08-07 11:04] LABS: ALB/GLOB Ratio 1.2 RATIO (0.9-2.4); AST(SGOT) 33 U/L (15-37); Alanine Aminotransfer ALT/SGPT 39 U/L (13-56); Albumin, Serum 3.4 g/dL (3.2-5.0); Alkaline Phosphatase 63 U/L (45-117); Anion Gap 12 (5-15); BUN 34 mg/dL (7-18); BUN/Creat Ratio 18.8 RATIO (10-20); Calcium,Total 9.3 mg/dL (8.5-10.1); Chloride 93 mmol/L (98-107); Creatinine, Serum 1.81 mg/dL (0.55-1.02); EST Glomerular Filtration Rate 28 mL/min (>60); Est Glom Filt Rate - Afr Amer 34 mL/min (>60); Globulin 2.9 g/dL (2.2-4.2); Glucose 94 mg/dL (74-106); Potassium 3.6 mmol/L (3.5-5.1); Protein, Total 6.3 g/dL (6.4-8.2); Sodium Level 126 mmol/L (136-145); Troponin-I HS 16 pg/mL (3.0-54.0)
[2024-08-07 11:14] LABS: CPK Total, Creatine Kinase 118 U/L (26-192)
[2024-08-07 11:48] LABS: Bacteria 0 SEEN /hpf (None Seen); Mucous, Urine 0 SEEN /hpf (<or=2+); Red Blood Cells-Urine 0 SEEN /hpf (0-5); Squamous Epithelial Cells - UA 0 SEEN /hpf (5-10)
--- NOTE | 2024-08-07 11:48 | PCM.HP.STD ---
[facility] - General General Date of Admission: 08/07/24 Date of Service: 08/07/24 Chief Complaint: weakness, shortness of breath, lower extremity swelling HPI Narrative BHASKAR FREY, is a 89 F with a pMH as outlined who was admitted via the ED on 08/07/2024 with complaint of shortness of breath as well as lower extremity edema and generalized weakness. She said her symptoms have been going on over the last week prior to admission. She also complained of pain in her hips and her knees. 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 She was discharged home but now comes back with these above-mentioned symptoms. She is wondering she has bursitis in her hips. She has been taking Tylenol and Lidoderm patches for her hip pain without any relief. She was seen in the ED on Sunday please complains of shortness of breath was given oral Lasix and sent home. However states his symptoms have persisted and not improved. She has been drinking fluids because she says she knows she had kidney impairment as well as keep her kidneys flushed. Review of systems otherwise negative. Vitals in the ED were blood pressure 141/76, pulse rate of 75 respirate rate of 16. She was saturating at 94% on room air. CBC showed hemoglobin of 10.7 WBC of 6.7 and platelets of 229. Chemistry showed sodium of 126, potassium of 3.6 and bicarb of 21 with anion gap of 12. Creatinine was 1.81. BNP was 289.6. Chest x-ray showed bibasilar atelectasis or pneumonia and pleural effusions bilaterally as well as pulmonary venous congestion. She has been admitted to be managed for acute exacerbation of heart failure preserved ejection fraction. [facility] Medical History Chronic kidney disease Chronic hypertension Atrial fibrillation Diverticulitis Urinary tract infection Hematuria Fixed drug eruption Wears glasses Wears contact lenses Post-menopausal Cancer Thyroid disease Pulmonary embolism History of hiatal hernia History of diverticulitis Gastric reflux History of Holter monitoring History of echocardiogram History of stress test Cardiology follow-up encounter HLD (hyperlipidemia) Bruit of right carotid artery Pruritus of skin History of skin cancer GERD (gastroesophageal reflux disease) Pancreatitis Premature ventricular contraction Premature atrial contraction Right carotid bruit Nonhealing surgical wound Squamous cell carcinoma of left lower leg Leg wound, left Essential hypertension CKD (chronic kidney disease) Asthma Glaucoma Prothrombin gene mutation Hyperhomocystinemia Hypothyroidism Home Medications ?Medication ?Instructions ?Recorded ?Last Taken ?Type timolol maleate 0.5 % eye drops 1 drp EACH EYE [facility] eye health 09/27/15 05/12/19 History vit C 250 mg-vit E 90 mg-zinc 40 1 tab PO DAILY 10/18/21 Unknown History mg-copper 1 qi-ayryah-vvgjiv capsule (PreserVision AREDS-2) levothyroxine 88 mcg tablet 88 mcg PO DAILY #90 tabs 01/09/24 Unknown Rx allopurinol 100 mg tablet 100 mg PO DAILY #90 tabs 06/19/24 Unknown Rx hydralazine 10 mg tablet 10 mg PO 4X/DAY High blood 07/07/24 Unknown Rx pressure #180 tabs amlodipine 10 mg tablet 10 mg PO DAILY #30 tabs 07/28/24 Unknown Rx apixaban 5 mg tablet (Eliquis) 2.5 mg (1/2 x 5 mg) PO BID #30 tabs 07/28/24 Unknown Rx carvedilol 6.25 mg tablet 6.25 mg PO BIDCM #60 tabs 07/28/24 Unknown Rx isosorbide mononitrate 60 mg 60 mg PO DAILY #30 tabs 07/28/24 Unknown Rx tablet,extended release 24 hr furosemide 20 mg tablet (Lasix) 20 mg PO DAILY #5 tabs 08/04/24 Unknown Rx Allergy/AdvReac Type Severity Reaction Status Date / Time ceramide combination no.1 Allergy Intermediate rash Verified 08/07/24 08:51 (1,3,6-II) (From CeraVe) diltiazem HCl (From Cardizem) Allergy Itching Verified 08/07/24 08:51 losartan Allergy Itching Verified 08/07/24 08:51 SEVERE AND BLISTER miconazole nitrate (From Allergy Laryngospas Verified 08/07/24 08:51 Neosporin AF) ms morphine Allergy Other Verified 08/07/24 08:51 nitrofurantoin (From Allergy Rash Verified 08/07/24 08:51 Macrobid) nitrofurantoin Allergy Rash Verified 08/07/24 08:51 macrocrystalline (From Macrobid) bacitracin AdvReac Other Verified 08/07/24 08:51 codeine AdvReac Chest Verified 08/07/24 08:51 tightness lisinopril AdvReac Other Verified 08/07/24 08:51 loratadine (From Claritin) AdvReac Other Verified 08/07/24 08:51 metoprolol AdvReac fatigue Verified 08/07/24 08:51 Family History Mother Heart disease Father Heart disease Brother Heart disease Hypertension Cancer Surgical History History of bilateral cataract extraction History of cholecystectomy History of colectomy History of total hysterectomy Social History household members: none Smoking Status: Never smoker alcohol intake: never substance use type: does not use caffeine: No what type of physical activity do you participate in: yoga frequency: 3-4 times per week ROS Constitutional Constitutional: Reports fatigue, malaise and weakness; Denies anorexia, chills or fever(s) Eyes Eyes: Denies change in vision ENT HEENT: Denies dysphagia, headache(s), nasal congestion, nasal discharge or sore throat Cardiovascular Cardiovascular: Reports dyspnea on exertion, edema and orthopnea; Denies chest pain, lightheadedness, palpitations, paroxysmal nocturnal dyspnea, rapid heart rate or syncope Respiratory/Chest Respiratory/Chest: Reports dyspnea, shortness of breath at rest and shortness of breath with exertion; Denies cough, productive cough or wheezing Gastrointestinal Gastrointestinal: Denies abdominal pain, constipation, diarrhea, nausea or vomiting Genitourinary Genitourinary: Denies burning urination or dysuria Musculoskeletal Musculoskeletal: Denies joint pain, joint stiffness or joint swelling Neurologic Neurologic: Denies confusion, dizziness, focal weakness, headache(s), seizures or syncope Psychiatric Psychiatric: Denies anxiety or depression Endocrine Endocrinology: Denies change in body appearance Hematologic/Lymphatic Hematologic/Lymphatic: Denies anemia Vital Signs Vital Signs Vital Signs: 08/07/24 08:44 08/07/24 11:19 08/07/24 11:20 Temperature 97.0 F L Temperature Source Oral Pulse Rate 78 75 Respiratory Rate 20 H 16 Respiratory Effort Short of Breath Respiratory Pattern Normal Blood Pressure 150/65 H 141/76 H Blood Pressure Mean 93 97 Pulse Ox 90 94 Oxygen Delivery Method Room Air Room Air Weight Weight: 142 lb 13.753 oz Body Mass Index (BMI) 23.8 Physical Exam Const alert, oriented x3 and no apparent distress Constitutional Narrative: frail General Appearance: cooperative HEENT normocephalic, head/scalp atraumatic, hearing grossly normal bilaterally and moist oral mucous membranes Mouth: oral and palatal mucosa normal Eyes PERRL, EOMs intact bilaterally and conjunctivae normal Neck no lymphadenopathy and supple Resp Resp Narrative: mildly diminished breath sounds bilaterally, no wheezes or crackles. On room air. Cardio regular rate, regular rhythm, S1 normal heart sound, S2 normal heart sound and no murmurs GI normal to inspection, nondistended, normoactive bowel sounds, soft to palpation, non-tender and non-distended Extremity normal to inspection and full ROM Extremity Narrative: bilateral 2+ pitting edema Neuro oriented x3, CN's II-XII intact bilaterally, moves all extremities and no focal motor deficits Sensorium / Orientation: awake and alert Motor Exam: strength 5/5 throughout Psych affect normal Results Lab / Micro Data 08/07/24 10:10 08/07/24 10:10 Labs: Laboratory Results - last 24 hr 08/07/24 10:10: WBC 6.7, RBC 3.40 L, Hgb 10.7 L, Hct 31.1 L, MCV 91.5, MCH 31.5, MCHC 34.4, RDW Std Deviation 47.2 H, RDW Coeff of Joaquin 14.5, Plt Count 229, MPV 10.3, Immature Gran % (Auto) 0.300, Neut % (Auto) 74.6 H, Lymph % (Auto) 12.4 L, [place] % (Auto) 9.9, Eos % (Auto) 2.4, Baso % (Auto) 0.4, Absolute Neuts (auto) 5.0, Absolute Lymphs (auto) 0.83, Nucleated RBC % 0, Sodium 126 L, Potassium 3.6, Chloride 93 L, Carbon Dioxide 21.0, Anion Gap 12, BUN 34 H, Creatinine 1.81 H, Estim Creat Clear Calc 19.70, Est GFR (MDRD) Af Amer 34 L, Est GFR (MDRD) Non-Af 28 L, BUN/Creatinine Ratio 18.8, Glucose 94, Calcium 9.3, Total Bilirubin 0.70, AST 33, ALT 39, Alkaline Phosphatase 63, Total Creatine Kinase 118, Troponin I High Sens 16, B-Natriuretic Peptide 289.6 H, Total Protein 6.3 L, Albumin 3.4, Globulin 2.9, Albumin/Globulin Ratio 1.2 Micro: Microbiology 08/07/24 10:20 Mucosa - Nose SARS-CoV-2, Influenza & RSV (PCR) - Final Imaging Radiology Impression Chest X-Ray 08/07/24 09:34 IMPRESSION: 1. Bibasilar atelectasis or pneumonia. 2. Pulmonary venous congestion. 3. Bilateral pleural effusions. Reading Location: [facility] Hip/Pelvis X-Ray 08/07/24 09:41 IMPRESSION: 1. No acute fracture. 2. Fecal retention in the colon consistent with constipation. Reading Location: [facility] Assessment & Plan Assessment/Plan (1) Acute heart failure: PLAN: Plan #Fluid overload likely due to probable acute heart failure Admitted with complaint of shortness of breath and lower extremity swelling as well as 6 pound weight gain. Chest x-ray showed evidence of pleural effusion and fluid overload BNP around 289. Admit to PCU. She did have a recent 2D echo which showed EF of 70% and did not show any diastolic dysfunction, Will diurese with IV Lasix 40 mg twice daily. Restrict fluids to 1500 cc daily. Breathing treatments bronchodilators. Titrate oxygen as needed to maintain saturation above 90%. Apply Isreal wraps to lower extremities #Bilateral lower extremity edema: Will consider holding amlodipine as it can cause lower extremity edema as well. She is currently being diuresed to help. #Hyponatremia: Sodium is 126. Does have chronic hyponatremia. This may be due to fluid overload. Should improve with Lasix. Check serum osmolality and urine osmolality as well as urine sodium. #Hypertension: On carvedilol. Amlodipine held. #History of PE in the setting of hyperhomocystinemia and prothrombin gene mutation: On Eliquis #History of A-fib: Patient developed A-fib during her most recent admission. On Eliquis 2.5 mg twice daily and carvedilol. #Hypothyroidism: On Synthroid DVT prophylaxis: on eliquis CODE STATUS: Full code Patient counseled extensively about different types of CODE STATUS including full code, DNR CCA and DNR CCA. Patient elects to be full code. Total [id number] time 16 minutes. Charges/Coding Visit Charges Inpatient E&M: 36776 Init Hosp L3 Procedures Hospitalists Procedures: 55821 Advncd Care Plan 30 Min
[2024-08-07 12:03] LABS: Color, Urine Straw (Yellow); Glucose, Dipstick Normal (Normal); Ketone-Dipstick 5 mg/dl (Negative); Leukocyte Esterase-Dipstick 25 /ul (Negative); Nitrite-Dipstick Negative (Negative); Occult Blood-Urine 10 /ul (Negative); Protein-Dipstick 500 mg/dl (Negative); Specific Gravity, Urine 1.015 (1.002-1.030); Urine Bilirubin Dipstick Negative (Negative); Urine Clarity Clear (Clear); Urine Urobilinogen Normal (Normal)
[2024-08-07 12:14] LABS: White Blood Cells 0-5 SEEN /hpf (0-5)
[2024-08-07] MEDS: Furosemide 40 MG/4 ML Vial IV ×2 (12:18→18:25)
[2024-08-07] MEDS: hydrALAZINE 10 MG Tablet PO ×3 (15:03→21:11)
[2024-08-07 15:25] LABS: Troponin-I HS 19 pg/mL (3.0-54.0)
[2024-08-07 16:48] LABS: Troponin-I HS 19 pg/mL (3.0-54.0)
[2024-08-07 17:46] LABS: Osmolality, Serum 278 mOsm/KG (280-301)
[2024-08-07] MEDS: Carvedilol 6.25 MG Tablet PO (18:25)
[2024-08-07 19:54] LABS: Urine Sodium 73 mmol/L (Not Establ.)
[2024-08-07] MEDS: Ipratropium/Albuterol Sulfate 3 ML AMPUL.NEB INHALATION (20:07)
[2024-08-07 21:11] LABS: Osmolality, Urine 248 mOsm/KG
[2024-08-07] MEDS: Acetaminophen 325 MG Tablet 650 MG PO (21:11)
[2024-08-07] MEDS: Senna/Docusate Sodium 1 Tablet PO (21:11)
[2024-08-07] MEDS: Timolol 0.5% 5ML OPTH.BTL 1 DRP EACH EYE (21:12)
[2024-08-07] MEDS: APIXABAN 2.5 MG TABLET (WCH) PO (21:12)
[2024-08-07] MEDS: 0.9% Saline Lock 10 ML Syringe IV (21:13)
[2024-08-08] VITALS (11 sets, daily range): BP systolic 125–147; BP diastolic 67–73; PULSE 63–77; RESP 16; TEMP 36.6–36.9; O2SAT 95–99
[2024-08-08] MEDS: Levothyroxine 88 MCG Tablet PO (05:07)
[2024-08-08 07:07] LABS: Absolute Lymphocyte Count 1.19 X10^3/uL (0.83-4.51); Absolute Neutrophil Count 4.3 X10^3/uL (2.0-7.7); Basophil# 0.03 X10^3/uL; Basophil% 0.4 % (0-1); Eosinophil# 0.18 X10^3/uL; Eosinophils% 2.7 % (0-5); Hematocrit 29.6 % (37-47); Hemoglobin 10.4 g/dL (12.0-15.0); Lymphocyte # 1.19 X10^3/ul (0.83-4.51); Lymphocyte % 17.5 % (19-41); Mean Corp Hgb Conc 35.1 g/dL (32-36); Mean Corpuscular Hgb 32.3 pg (27.0-32.0); Mean Corpuscular Volume 91.9 fL (81-99); Mean Platelet Vol. 10.5 fl (6.2-12.0); Monocyte# 1.03 X10^3/uL; Monocyte% 15.2 % (0-10); NRBC Flagged by Analyzer 0 % (0-5); Neutrophil # 4.33 X10^3/uL (2.7-7.7); Neutrophil % 63.8 % (47-70); Platelet Count 223 K/mm3 (150-450); RBC Distribution Width CV 14.3 % (11.6-14.6); RBC Distribution Width SD 47.2 fl (35.1-43.9); Red Blood Count 3.22 M/mm3 (4.2-5.4); White Blood Count 6.8 K/mm3 (4.4-11.0)
[2024-08-08] MEDS: Ipratropium/Albuterol Sulfate 3 ML AMPUL.NEB INHALATION (07:27)
[2024-08-08 07:51] LABS: Anion Gap 10 (5-15); BUN 35 mg/dL (7-18); BUN/Creat Ratio 17.7 RATIO (10-20); Calcium,Total 9.1 mg/dL (8.5-10.1); Chloride 95 mmol/L (98-107); Creatinine, Serum 1.98 mg/dL (0.55-1.02); EST Glomerular Filtration Rate 25 mL/min (>60); Est Glom Filt Rate - Afr Amer 31 mL/min (>60); Estimated Creatinine Clearance 18.01 ml/min; Glucose 83 mg/dL (74-106); Potassium 3.1 mmol/L (3.5-5.1); Sodium Level 130 mmol/L (136-145)
[2024-08-08] MEDS: Allopurinol 100 MG Tablet PO (09:23)
[2024-08-08] MEDS: APIXABAN 2.5 MG TABLET (WCH) PO ×2 (09:23→20:27)
[2024-08-08] MEDS: Isosorbide Mononitrate 60 MG Tablet PO (09:23)
[2024-08-08] MEDS: Potassium Chloride Oral Tablet 20 MEQ 40 MEQ PO (09:23)
[2024-08-08] MEDS: Carvedilol 6.25 MG Tablet PO (09:24)
[2024-08-08] MEDS: amLODIPine 10 MG Tablet PO (09:24)
[2024-08-08] MEDS: Multivitamin (Healthy Eyes) Capsule 1 CAP PO (09:24)
[2024-08-08] MEDS: hydrALAZINE 10 MG Tablet PO ×2 (09:24→20:26)
[2024-08-08] MEDS: Furosemide 40 MG/4 ML Vial IV ×2 (09:24→17:39)
[2024-08-08] MEDS: Senna/Docusate Sodium 1 Tablet PO (09:25)
--- NOTE | 2024-08-08 11:26 | PN_ITS ---
Subjective Subjective Patient seen and examined. Her daughter was by her bedside. She said she felt much better from yesterday with regards to her breathing. She still did have pain in her lower back and hips. Her daughter is concerned about patient going up and down the stairs leading to her house to get to and from outpatient therapy. She is on room air. Lower extremity swelling has improved. Review of systems is otherwise negative. Objective Data Objective Data Vital Signs: Vital Signs Temp Pulse Resp BP Pulse Ox O2 Del Method O2 Flow Rate 98.1 F 72 16 141/72 H 99 Room Air 2 08/08/24 05:08 08/08/24 09:24 08/08/24 05:08 08/08/24 05:08 08/08/24 05:08 08/08/24 08:26 08/08/24 05:08 Oxygen Flow Rate (L/min) 2 Oxygen Delivery Method Room Air Weight: 140 lb 14.006 oz Body Mass Index (BMI) 23.4 Intake & Output: Intake and Output for Last 24 Hours 08/06/24 08/07/24 08/08/24 23:59 23:59 23:59 Intake Total 540 / 540 100 / 100 Balance 540 / 540 100 / 100 Lab / Micro Data 08/08/24 06:00 08/08/24 06:00 Labs: Laboratory Results - last 24 hr 08/07/24 11:35: Urine Color Straw, Urine Clarity Clear, Urine pH 6.0, Ur Specific [place] 1.015, Urine Protein 500 H, Urine Glucose (UA) Normal, Urine Ketones 5 H, Urine Occult Blood 10 H, Urine Nitrite Negative, Urine Bilirubin Negative, Urine Urobilinogen Normal, Ur Leukocyte Esterase 25 H, Urine RBC 0 SEEN, Urine WBC 0-5 SEEN, Ur Squamous Epith Cells 0 SEEN, Urine Bacteria 0 SEEN, Urine Mucus 0 SEEN 08/07/24 14:45: Troponin I High Sens 08/07/24 16:04: Serum Osmolality 278 L, Troponin I High Sens 08/07/24 18:45: Urine Osmolality 248, Ur Random Sodium 73 08/08/24 06:00: WBC 6.8, RBC 3.22 L, Hgb 10.4 L, Hct 29.6 L, MCV 91.9, MCH 32.3 H, MCHC 35.1, RDW Std Deviation 47.2 H, RDW Coeff of Joaquin 14.3, Plt Count 223, MPV 10.5, Immature Gran % (Auto) 0.400, Neut % (Auto) 63.8, Lymph % (Auto) 17.5 L, [place] % (Auto) 15.2 H, Eos % (Auto) 2.7, Baso % (Auto) 0.4, Absolute Neuts (auto) 4.3, Absolute Lymphs (auto) 1.19, Nucleated RBC % 0, Sodium 130 L, P otassium 3.1 L, Chloride 95 L, Carbon Dioxide 25.0, Anion Gap 10, BUN 35 H, C reatinine 1.98 H, Estim Creat Clear Calc 18.01, Est GFR (MDRD) Af Amer 31 L, Est GFR (MDRD) Non-Af 25 L, BUN/Creatinine Ratio 17.7, Glucose 83, Calcium 9.1 Micro: Microbiology 08/07/24 10:20 Mucosa - Nose SARS-CoV-2, Influenza & RSV (PCR) - Final Rhythm Strip Rhythm Strip: Sinus Rhythm Rate: 69 Ectopy: None Physical Exam Const alert, oriented x3 and no apparent distress Constitutional Narrative: looks much better today General Appearance: cooperative and uncooperative HEENT normocephalic, head/scalp atraumatic, hearing grossly normal bilaterally and moist oral mucous membranes Eyes PERRL, EOMs intact bilaterally and conjunctivae normal Neck no lymphadenopathy and supple Resp Resp Narrative: mildly diminished breath sounds bilaterally, no wheezes or crackles. On room air. Cardio regular rate, regular rhythm, S1 normal heart sound, S2 normal heart sound and no murmurs GI normal to inspection, nondistended, normoactive bowel sounds, soft to palpation, non-tender and non-distended Extremity normal to inspection and full ROM Extremity Narrative: bilateral 2+ pitting edema General Extremity: no tenderness to palpation of joints or extremities Skin General Skin Exam: no breakdown Neuro oriented x3, CN's II-XII intact bilaterally, moves all extremities and no focal motor deficits Sensorium / Orientation: awake and alert Motor Exam: strength 5/5 throughout Psych affect normal Appearance: appropriate Assessment & Plan Assessment/Plan (1) Acute heart failure: PLAN: Plan #Fluid overload likely due to probable acute heart failure * Admitted with complaint of shortness of breath and lower extremity swelling as well as 6 pound weight gain. * Chest x-ray showed evidence of pleural effusion and fluid overload * BNP around 289. * feels much better today. Breathing has improved. She remains on room air. * She did have a recent 2D echo which showed EF of 70% and did not show any diastolic dysfunction. * Continue diuresis with IV lasix 40mg bid. * Restrict fluids to 1500 cc daily. * Breathing treatments with bronchodilators. Titrate oxygen as needed to maintain saturation above 90%. * LE swelling has improved * #Bilateral lower extremity edema: * improving with diuresis. amlodipine held as it can cause lower extremity edema #Hyponatremia: * improving with diuresis, so likely due to fluid overload. * will continue monitoring. * sodium is up to 130 today * #Hypokalemia: K is 3.1. WIll replace and trend. #Hypertension: On carvedilol. Amlodipine held. 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 Was 1.81 yesterday. Baseline Cr is ~ 1.6-1.9. #History of A-fib: * Patient developed A-fib during her most recent admission. * On Eliquis 2.5 mg twice daily and carvedilol. #Hypothyroidism: On Synthroid DVT prophylaxis: on eliquis CODE STATUS: Full code #Disposition: case management on board to help facilitate discharge. Patient is hoping to go home but per daughter, she has to climb several stairs to get into her home and out of her home to go for outpaitnet PT. Awaiting evaluation by PT/OT and their recommendations Charges/Coding Visit Charges Inpatient E&M: 28203 Subs Hosp L2
--- NOTE | 2024-08-08 16:37 | CASEMGMT ---
LAUREN MAY chart review: Patient was admitted 07/27-07/28/24 for hypertension emergency. See assessment from 07/28/24. Patient was discharged to home with Eliquis, resumption of outpatient therapy, and follow-up plans in place. Patient returned to [facility] ED on 08/07/24 for increased weakness and SOB breath. Patient had a 6lbs weight gain and increase swelling in leg. Patient was admitted for acute heart failure and received IV Lasix. LAUREN MAY in to discuss readmission and needs at discharge, daughter at bedside. Patient did well with therapy and did flight of stairs independently and recommending continued outpatient therapy. Patient states she was taking medications as directed and attended her follow-u appt with PCP. Patient states she did reschedule her outpatient therapy. LAUREN MAY discussed suspected heart failure and importance of weigh self daily and following a low sodium diet. Patient voiced understanding and states she will discuss with clock and watch hands painter at follow-up appt on 08/11/24. Patient wishes to discharge home with resumption of outpatient therapy that she will schedule on her own. LAUREN MAY discuss possible need for oxygen at discharge, DME agencies reviewed and patient prefers [employer] but only if she qualifies for home oxygen. Patient and daughter declined further needs or concerns. Green sheet placed on chart for possible oxygen at discharge.
[2024-08-08] MEDS: Timolol 0.5% 5ML OPTH.BTL 1 DRP EACH EYE (17:41)
[2024-08-09] VITALS (9 sets, daily range): BP systolic 124–151; BP diastolic 62–80; PULSE 70–84; RESP 16–18; TEMP 36.4–36.8; O2SAT 93–98
[2024-08-09] MEDS: Acetaminophen 325 MG Tablet 650 MG PO (00:21)
[2024-08-09] MEDS: Levothyroxine 88 MCG Tablet PO (05:43)
[2024-08-09 06:08] LABS: Absolute Lymphocyte Count 1.36 X10^3/uL (0.83-4.51); Absolute Neutrophil Count 4.9 X10^3/uL (2.0-7.7); Basophil# 0.04 X10^3/uL; Basophil% 0.5 % (0-1); Eosinophil# 0.18 X10^3/uL; Eosinophils% 2.3 % (0-5); Hematocrit 28.9 % (37-47); Hemoglobin 10.3 g/dL (12.0-15.0); Lymphocyte # 1.36 X10^3/ul (0.83-4.51); Lymphocyte % 17.4 % (19-41); Mean Corp Hgb Conc 35.6 g/dL (32-36); Mean Corpuscular Hgb 33.1 pg (27.0-32.0); Mean Corpuscular Volume 92.9 fL (81-99); Mean Platelet Vol. 11.2 fl (6.2-12.0); Monocyte# 1.32 X10^3/uL; Monocyte% 16.9 % (0-10); NRBC Flagged by Analyzer 0 % (0-5); Neutrophil # 4.89 X10^3/uL (2.7-7.7); Neutrophil % 62.5 % (47-70); POSITIVE COUNT YES; RBC Distribution Width CV 14.7 % (11.6-14.6); RBC Distribution Width SD 48.9 fl (35.1-43.9); Red Blood Count 3.11 M/mm3 (4.2-5.4); White Blood Count 7.8 K/mm3 (4.4-11.0)
[2024-08-09] MEDS: Ipratropium/Albuterol Sulfate 3 ML AMPUL.NEB INHALATION (06:57)
[2024-08-09 07:10] LABS: Anion Gap 11 (5-15); BUN 37 mg/dL (7-18); Calcium,Total 8.9 mg/dL (8.5-10.1); Chloride 99 mmol/L (98-107); Creatinine, Serum 2.31 mg/dL (0.55-1.02); EST Glomerular Filtration Rate 21 mL/min (>60); Est Glom Filt Rate - Afr Amer 26 mL/min (>60); Estimated Creatinine Clearance 15.44 ml/min; Glucose 96 mg/dL (74-106); Sodium Level 133 mmol/L (136-145)
[2024-08-09] MEDS: Potassium Chloride Oral Tablet 20 MEQ 40 MEQ PO ×2 (09:10→12:58)
[2024-08-09] MEDS: APIXABAN 2.5 MG TABLET (WCH) PO (09:11)
[2024-08-09] MEDS: Multivitamin (Healthy Eyes) Capsule 1 CAP PO (09:11)
[2024-08-09] MEDS: Isosorbide Mononitrate 60 MG Tablet PO (09:11)
[2024-08-09] MEDS: hydrALAZINE 10 MG Tablet PO (09:11)
[2024-08-09] MEDS: Carvedilol 6.25 MG Tablet PO (09:11)
[2024-08-09] MEDS: amLODIPine 10 MG Tablet PO (09:12)
[2024-08-09] MEDS: Allopurinol 100 MG Tablet PO (09:13)
[2024-08-09] MEDS: 0.9% Saline Lock 10 ML Syringe IV (09:51)
[2024-08-09] MEDS: Furosemide 40 MG/4 ML Vial IV (09:51)
[2024-08-09 11:07] LABS: Differential Comment SCANNED; Differential Indicated SCAN CRITERIA MET
[2024-08-09 11:08] LABS: Platelet Estimate ADEQUATE (ADEQ); Platelet Morphology CLUMPED; Red Cell Morphology NORM C+C NORMAL (NORM C&C)
--- NOTE | 2024-08-09 12:15 | DS.PCM_ITS ---
Providers Date of Admission: 08/07/24 Date of Discharge: 08/09/24 Primary Care Physician: Dr. Cat Artis MD Reason For Visit: ACUTE EXACERBATION OFHEART FAILURE Diagnosis Discharge Diagnosis (1) Acute heart failure: Status: Acute Code(s): I50.9 - Heart failure, unspecified Plan #Fluid overload likely due to probable acute heart failure * Admitted with complaint of shortness of breath and lower extremity swelling as well as 6 pound weight gain. * Chest x-ray showed evidence of pleural effusion and fluid overload * BNP around 289. * feels much better today. Breathing has improved. She remains on room air. * She did have a recent 2D echo which showed EF of 70% and did not show any diastolic dysfunction. * Continue diuresis with IV lasix 40mg bid. * Restrict fluids to 1500 cc daily. * Breathing treatments with bronchodilators. Titrate oxygen as needed to maintain saturation above 90%. * LE swelling has improved * #Bilateral lower extremity edema: * improving with diuresis. amlodipine held as it can cause lower extremity edema #Hyponatremia: * improving with diuresis, so likely due to fluid overload. * will continue monitoring. * sodium is up to 130 today * #Hypokalemia: K is 3.1. WIll replace and trend. #Hypertension: On carvedilol. Amlodipine held. 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 Was 1.81 yesterday. Baseline Cr is ~ 1.6-1.9. #History of A-fib: * Patient developed A-fib during her most recent admission. * On Eliquis 2.5 mg twice daily and carvedilol. #Hypothyroidism: On Synthroid DVT prophylaxis: on eliquis CODE STATUS: Full code #Disposition: case management on board to help facilitate discharge. Patient is hoping to go home but per daughter, she has to climb several stairs to get into her home and out of her home to go for outpaitnet PT. Awaiting evaluation by PT/OT and their recommendations Medications at Discharge Home Medications timolol maleate 0.5 % eye drops 1 drp EACH EYE [facility] eye health 09/27/15 vit C 250 mg-vit E 90 mg-zinc 40 mg-copper 1 [id number] capsule (PreserVision AREDS-2) 1 tab PO DAILY supplement 10/18/21 levothyroxine 88 mcg tablet 88 mcg PO DAILY thyroid #90 tabs 01/09/24 allopurinol 100 mg tablet 100 mg PO DAILY gout #90 tabs 06/19/24 hydralazine 10 mg tablet 10 mg PO 4X/DAY High blood pressure #180 tabs 07/07/24 amlodipine 10 mg tablet 10 mg PO DAILY blood pressure #30 tabs 07/28/24 apixaban 5 mg tablet (Eliquis) 2.5 mg (1/2 x 5 mg) PO BID #30 tabs 07/28/24 carvedilol 6.25 mg tablet 6.25 mg PO BIDCM blood pressure #60 tabs 07/28/24 isosorbide mononitrate 60 mg tablet,extended release 24 hr 60 mg PO DAILY heart #30 tabs 07/28/24 furosemide 40 mg tablet (Lasix) 40 mg PO DAILY #30 tabs 08/09/24 potassium chloride 20 mEq tablet,extended release 20 meq PO DAILY #30 tabs 08/09/24 Hospital Course Operations None Procedures None Summary of Care Provided Minutes Spent on Discharge: 45 Hospital Course: BHASKAR FREY, is a 89 F with a pMH as outlined who was admitted via the ED on 08/07/2024 with complaint of shortness of breath as well as lower extremity edema and generalized weakness. She said her symptoms have been going on over the last week prior to admission. She also complained of pain in her hips and her knees. 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 She was discharged home but now comes back with these above-mentioned symptoms. She is wondering she has bursitis in her hips. She has been taking Tylenol and Lidoderm patches for her hip pain without any relief. She was seen in the ED on Sunday please complains of shortness of breath was given oral Lasix and sent home. However states his symptoms have persisted and not improved. She has been drinking fluids because she says she knows she had kidney impairment as well as keep her kidneys flushed. Review of systems otherwise negative. Vitals in the ED were blood pressure 141/76, pulse rate of 75 respirate rate of 16. She was saturating at 94% on room air. CBC showed hemoglobin of 10.7 WBC of 6.7 and platelets of 229. Chemistry showed sodium of 126, potassium of 3.6 and bicarb of 21 with anion gap of 12. Creatinine was 1.81. BNP was 289.6. Chest x-ray showed bibasilar atelectasis or pneumonia and pleural effusions bilaterally as well as pulmonary venous congestion. She was admitted to be managed for acute exacerbation of heart failure preserved ejection fraction. She was diuresed with IV lasix. Her shortness of breath and lower extremity edema improved and she felt much better. She did work with physical therapy and was able to go up and down the stairs with therapy. She was therefore deemed as being able to go home. She was therefore discharged home on 08/09/2024. She was discharged on p.o. Lasix 40 mg daily with p.o. potassium 20 mill equivalent daily. She is follow-up with her primary care doctor within 1 to 2 weeks. Patient seen and examined prior to discharge. She had no complaints. Her daughter was by her bedside. Review of systems otherwise negative. Labs and vitals reviewed. Home medication reviewed and reconciled. Of note, potassium was 3 today and this was aggressively replaced prior to dc. She is to follow up with her PCP within 1 week and is to have repeat BMP to follow up on potassium level. Physical Exam Const alert, oriented x3 and no apparent distress Constitutional Narrative: looks much better today General Appearance: cooperative and comfortable Exam Limitations: no limitations HEENT normocephalic, head/scalp atraumatic, hearing grossly normal bilaterally, moist oral mucous membranes and oropharynx normal Mouth: oral and palatal mucosa normal Eyes PERRL, EOMs intact bilaterally and conjunctivae normal Neck no lymphadenopathy and supple Resp Resp Narrative: mildly diminished breath sounds bilaterally, no wheezes or crackles. On room air. Cardio regular rate, regular rhythm, S1 normal heart sound, S2 normal heart sound and no murmurs GI normal to inspection, nondistended, normoactive bowel sounds, soft to palpation, non-tender and non-distended Extremity normal to inspection and full ROM Extremity Narrative: edema has improved and is now 1+ General Extremity: no tenderness to palpation of joints or extremities Skin no rashes or lesions noted General Skin Exam: no breakdown Neuro oriented x3, CN's II-XII intact bilaterally, moves all extremities and no focal motor deficits Sensorium / Orientation: awake and alert Motor Exam: strength 5/5 throughout Psych affect normal Appearance: appropriate Weight / BMI Weight Weight: 140 lb 14.006 oz Body Mass Index (BMI) 23.4 ABG / Lab / Microbiology Data 08/09/24 05:39 08/09/24 05:39 Laboratory: Laboratory Results - last 24 hr 08/09/24 05:39: WBC 7.8, RBC 3.11 L, Hgb 10.3 L, Hct 28.9 L, MCV 92.9, MCH 33.1 H, MCHC 35.6, RDW Std Deviation 48.9 H, RDW Coeff of Joaquin 14.7 H, Plt Count , MPV 11.2, Immature Gran % (Auto) 0.400, Neut % (Auto) 62.5, Lymph % (Auto) 17.4 L, M [place] % (Auto) 16.9 H, Eos % (Auto) 2.3, Baso % (Auto) 0.5, Absolute Neuts (auto) 4.9, Absolute Lymphs (auto) 1.36, Nucleated RBC % 0, Differential Comment SCANNED, Platelet Estimate ADEQUATE, Plt Morphology Comment CLUMPED, RBC Morphology NORM C+C, Sodium 133 L, Potassium 3.0 L, Chloride 99, Carbon Dioxide 23.0, Anion Gap 11, BUN 37 H, Creatinine 2.31 H, Estim Creat Clear Calc 15.44, E st GFR (MDRD) Af Amer 26 L, Est GFR (MDRD) Non-Af 21 L, BUN/Creatinine Ratio 16.0, Glucose 96, Calcium 8.9 Microbiology: Microbiology 08/07/24 10:20 Mucosa - Nose SARS-CoV-2, Influenza & RSV (PCR) - Final D/C Instructions Discharge Diet: Low fat / Low cholesterol Discharge Activity: Return to Normal Activity Weight Bearing Status: Weight bearing as tolerated Call your doctor if you observe: Fever of 101 or Higher, Shortness of breath, Dizziness, Swelling in the ankles and Chest pain DC O2, CPAP, BIPAP Needs RN Home O2 Qualification: Home O2 Qualification: Is the patient on home oxygen No 08/09/24 10:40 Home O2 Qualification: AT REST 1- Pulse Ox at rest 98 08/09/24 10:40 Home O2 Qualification: WITH AMBULATION 1- Pulse Ox with ambulation 93 08/09/24 10:40 1- Oxygen Flow Rate with 0 08/09/24 10:40 ambulation Home O2 Discharge instructions: No DC home with Oxygen: No Meaningful Use Info Meaningful Use Meaningful Use Diagnoses (Choose all that apply): CHF CHF SEBAS/ARB ordered at discharge?: No Reason SEBAS/ARB not ordered?: Worsening renal disease Documented LVEF (%): 70 Ischemic Stroke Statin Dosing Therapy Reference: STATIN DOSE THERAPY REFERENCE: * Patients > 75 years receive moderate or high dose statin therapy. * Patients 75 years or YOUNGER should receive HIGH intensity statin dose unless contraindicated. You will be required to document reason for non-treatment if statin daily dose does not meet guidelines. HIGH DOSE STATIN THERAPY DAILY Atorvastatin > than or = to 40 mg Rosuvastatin > than or = to 20 mg Amlodipine + Atorvastatin > than or = to 2.5/40 mg Ezetimibe + Simvastatin 10/80 mg Simvastatin 80mg Discharge Plan Admission Admit Date/Time: 08/07/24 11:59 Primary Reason for Your Visit: heart failure exacerbation Attending Provider: Chaparrita Roberts Primary Care Provider: Cat Artis Instructions Patient Instructions: Heart Failure Dc Discharge Orders/Prescriptions Prescriptions: New furosemide [Lasix] 40 mg tablet 40 mg PO DAILY Qty: 30 2RF potassium chloride 20 mEq tablet extended release 20 meq PO DAILY Qty: 30 2RF Continued PreserVision AREDS-2 250-90-40-1 mg capsule 1 tab PO DAILY timolol maleate 1 DROP drops 1 drp EACH EYE [facility] Patient Comments: eye health hydralazine 10 mg tablet 10 mg PO 4X/DAY Qty: 180 1RF carvedilol 6.25 mg Tablet 6.25 mg PO BIDCM Qty: 60 1RF Eliquis 5 mg Tablet 2.5 mg PO BID Qty: 30 1RF amlodipine 10 mg Tablet 10 mg PO DAILY Qty: 30 1RF isosorbide mononitrate 60 mg tablet extended release 24 hr 60 mg PO DAILY Qty: 30 1RF levothyroxine 88 mcg tablet 88 mcg PO DAILY Qty: 90 3RF allopurinol 100 mg tablet 100 mg PO DAILY Qty: 90 1RF Discontinued furosemide [Lasix] 20 mg tablet 20 mg PO DAILY Qty: 5 0RF Referrals / Follow Up: Cat Artis MD [Primary Care Provider] - Within 1 Week Disposition Disposition (needs filled in before D/C Order can be placed): Home, Self Care Charges/Coding Visit Charges Inpatient E&M: 69326 Disch Hosp >30min
== END 2024-08-09 15:00 | disposition home or self-care (01) | DRG 291 ==
LOC: ED 10:18 → PCU 12:13
PROVIDERS: Admitting Provider Student in an Organized Health Care Education/Training Program; Emergency Provider Emergency Medicine; PCP Internal Medicine; Visit Provider Student in an Organized Health Care Education/Training Program
DX: I13.0 Hypertensive heart and chronic kidney disease with heart failure and stage 1 through stage 4 chronic kidney disease, or unspecified chronic kidney disease (principal); I50.31 Acute diastolic (congestive) heart failure; E72.11 Homocystinuria; N18.4 Chronic kidney disease, stage 4 (severe); J90 Pleural effusion, not elsewhere classified; E87.1 Hypo-osmolality and hyponatremia; D68.52 Prothrombin gene mutation; Z66 Do not resuscitate; E03.9 Hypothyroidism, unspecified; I16.0 Hypertensive urgency; I48.91 Unspecified atrial fibrillation; M25.551 Pain in right hip; M25.552 Pain in left hip; M79.10 Myalgia, unspecified site; E78.5 Hyperlipidemia, unspecified; E87.6 Hypokalemia; Z79.01 Long term (current) use of anticoagulants; Z79.890 Hormone replacement therapy; Z90.710 Acquired absence of both cervix and uterus
CPT/HCPCS: 36415; 71045; 71046; 72128; 72131; 73521; 80048; 80053; 81001; 82550; 83880; 83930; 83935; 84300; 84484; 85025; 87631; 93005; 94640; 94760; 97116; 97162; 99252; 99284; 99285; A4216; G0463; J1940

== ENCOUNTER → 2024-08-11 | Outpatient (CLI) | payer MEDICARE, OTHER, SELFPAY ==
[2024-08-11 15:47] LABS: Anion Gap 8 (5-15); BUN 40 mg/dL (7-18); BUN/Creat Ratio 16.7 RATIO (10-20); Chloride 99 mmol/L (98-107); EST Glomerular Filtration Rate 20 mL/min (>60); Est Glom Filt Rate - Afr Amer 25 mL/min (>60); Glucose 138 mg/dL (74-106); Potassium 4.1 mmol/L (3.5-5.1); Sodium Level 135 mmol/L (136-145)
== END | disposition home or self-care (01) ==
LOC: LAB 14:38
PROVIDERS: PCP Internal Medicine; Referring Provider Physician Assistant Medical; Visit Provider Physician Assistant Medical
DX: E87.6 Hypokalemia (principal)
CPT/HCPCS: 36415; 80048

== ENCOUNTER → 2024-08-29 | Outpatient (CLI) | payer MEDICARE, OTHER, SELFPAY | END | disposition home or self-care (01) | LOC: PSN 11:53 | PROVIDERS: PCP Internal Medicine; Referring Provider Physician Assistant Medical; Visit Provider Physician Assistant Medical | DX: R06.00 Dyspnea, unspecified (principal); I48.0 Paroxysmal atrial fibrillation | CPT/HCPCS: 93225; 93226 ==

== ENCOUNTER → 2024-09-16 | Outpatient (CLI) | payer MEDICARE, OTHER, SELFPAY ==
--- NOTE | 2024-09-16 12:36 | RAD_ITS ---
PROCEDURE: RIBS UNI MIN 3V W/PA CHEST 09/16/2024 REASON FOR EXAM: PAIN TECHNIQUE: Four view right rib series to include the PA chest. COMPARISON: PA and lateral chest of 08/07/2024. RAD/Ribs Uni Min 3V w/PA Chest IMPRESSION: Lungs are hyperinflated, but appear clear of acute disease. No pleural effusion or pneumothorax is evident. The cardiomediastinal silhouette is within the normal range for age. No rib fracture is seen. If clinical concern persists, short-term follow-up imaging may be obtained to r ule out a currently occult fracture. Reading Location: [id number]
== END | disposition home or self-care (01) ==
LOC: MTRAD 12:36
PROVIDERS: PCP Internal Medicine; Referring Provider Physician Assistant; Visit Provider Physician Assistant
DX: R07.89 Other chest pain (principal)
CPT/HCPCS: 71101

== ENCOUNTER → 2024-09-19 | Outpatient (CLI) | payer MEDICARE, OTHER, SELFPAY ==
[2024-09-19 11:05] LABS: Anion Gap 12 (5-15); BUN 46 mg/dL (4-19); BUN/Creat Ratio 20.7 RATIO (10-20); Calcium,Total 10.7 mg/dL (7.6-11.0); Carbon Dioxide 24.8 mmol/L (21.0-32.0); Chloride 100 mmol/L (98-108); Creatinine, Serum 2.22 mg/dL (0.70-1.20); EST Glomerular Filtration Rate 21 (>60); Glucose 103 mg/dL (70-99); Potassium 4.1 mmol/L (3.3-5.1); Sodium Level 137 mmol/L (133-145)
== END | disposition home or self-care (01) ==
LOC: MTLAB 08:58
PROVIDERS: PCP Internal Medicine; Referring Provider Physician Assistant Medical; Visit Provider Physician Assistant Medical
DX: E87.6 Hypokalemia (principal)
CPT/HCPCS: 36415; 80048

== ENCOUNTER → 2024-10-27 | Outpatient (CLI) | payer MEDICARE, OTHER, SELFPAY ==
[2024-10-27 11:29] LABS: Anion Gap 11 (5-15); BUN 36 mg/dL (4-19); BUN/Creat Ratio 18.8 RATIO (10-20); Carbon Dioxide 24.2 mmol/L (21.0-32.0); Chloride 104 mmol/L (98-108); Creatinine, Serum 1.92 mg/dL (0.70-1.20); EST Glomerular Filtration Rate 25 (>60); Glucose 99 mg/dL (70-99); Potassium 4.2 mmol/L (3.3-5.1); Sodium Level 140 mmol/L (133-145)
== END | disposition home or self-care (01) ==
LOC: MTLAB 08:52
PROVIDERS: PCP Internal Medicine; Referring Provider Physician Assistant Medical; Visit Provider Physician Assistant Medical
DX: E87.6 Hypokalemia (principal); I10 Essential (primary) hypertension
CPT/HCPCS: 36415; 80048

== ENCOUNTER 2024-11-05 13:30 | Outpatient (RCR) | payer MEDICARE, OTHER, SELFPAY ==
--- NOTE | 2024-10-31 13:32 | HP.PTEVAL ---
Patient's Visit Information Visit Information Visit Information: BHASKAR FREY is a 89 year old F referred to Physical Therapy by Dr. Cat Artis MD with a diagnosis of fatigue, debility. Date of Evaluation: 09/22/24 Physical Therapist: Donis Huerta DPT Visit Plan Frequency: 2x /Week Duration: 6 Weeks Plan: standing B hip strenghtneing, quad and glute strengthening progressive walking program. Subjective Subjective: Pt. is here today for her initial evaluation with diagnosis of debility and fatigue. pt. reports her symptoms have been increasing for a few months to years. Pt. reports overall having difficulty with getting around and with walking. Pt. leach some yoga, but has been overall less active recently. Pt. reports being conserned about her lack of energy and fatigue. She has not been back to the gym much due to this fatigue. Pt. reports no falls or LOB noted. PT. does report having increased BLE weakness. She would like to get back to all of her recreational and household activitites without limitations. Objective Objective: POSTURE: fairly normal posture in stance. No marked abnormalities. PALPATION: distal LE edema, but no pain. NEURO: normal throughout. ROM: Pt. has fairly normal ROM throughout BLEs. Slight tightness in B HS. MMT: RLE: ankle 5/5; knee: ext 4/5, flexion 4/5, hip 4/5 throughout. LLE;ankle 5/5 throughout. knee ext 4/5 throughout; hip 4/5 throughout. GAIT: Pt. has fairly normal gait pattern. Pt. reports no pain, but fatigues rapidly with walking Balance/Special Test Scores Lower Extremity Functional Score: 60 Goals Goal 1:: LTG: pt. to be I with HEP Goal Time Frame: 4-6 Weeks Goal 2:: LTG: Pt. to have 5/5 strength throughout to increase stability. Goal Time Frame: 4-6 Weeks Goal 3:: LTG: pt. to be able to complete 30sec sit to stand rep test with score of 12 Goal Time Frame: 4-6 Weeks Goal 4:: LTG: Pt. to complete 6 MWT with at least 900feet. Goal Time Frame: 4-6 Weeks Rehabilitation Potential Physical Therapy Diagnosis: Pt. has signs and symptoms consistent with fatigue and debility. She would benefit from PT to address her LE strengthen and overall endurance. Rehabilitation Potential: Good Anticipated Interventions Patient/Client Instruction: Educate patient on: Condition, Plan of Care, Risk Factors and Benefits of Fitness Program For the Purpose of:: To improve health and function, To foster healthy habits, To improve decision making, To facilitate caregiver knowledge, To improve self management, To prevent re-injury and To improve ability to perform tasks related to life management Therapeutic Exercise to Include: Strength training, Power training, Endurance training, Balance training, Coordination, Passive ROM and Active ROM For the Purpose of:: To decrease pain, To decrease swelling/inflammation, To increase ROM, To improve nutrient delivery to tissue, To increase oxygenation perfusion, To improve muscle performance and motor function, To improve health of tissue, To decrease soft tissue restriction and To increase flexibility/ROM Text: Thank you for the opportunity to evaluate your patient. For Medicare and Medicare HMO plans, please review the plan of care and approve it. It will need to be FAXED BACK to us at [phone] for Medicare purposes. For Medicare only, by signing this I certify the plan of care. Please let me know if there are questions or concerns regarding this plan of care. Physician Signature: Date:
== END 2024-11-05 19:00 | disposition home or self-care (01) ==
LOC: PT 13:30
PROVIDERS: PCP Internal Medicine; Referring Provider Internal Medicine; Visit Provider Internal Medicine
DX: R53.81 Other malaise (principal); R29.898 Other symptoms and signs involving the musculoskeletal system
CPT/HCPCS: 97110; 97161

== ENCOUNTER 2024-11-20 23:02 | Observation (INO) | payer MEDICARE, OTHER, SELFPAY ==
[2024-11-20 23:02] VITALS: BP 248/107; PULSE 93; RESP 18; TEMP 36.7; O2SAT 99; BMI 24.7
--- NOTE | 2024-11-20 23:12 | EKG12_ITS ---
Test Reason : DYSRHYTHMIA Blood Pressure : */* mmHG Vent. Rate : 76 BPM Atrial Rate : 76 BPM P-R Int : 210 ms QRS Dur : 84 ms QT Int : 394 ms P-R-T Axes : 84 -51 79 degrees QTcB Int : 443 ms Sinus rhythm with 1st degree A-V block Left axis deviation Septal infarct , age undetermined Abnormal ECG Confirmed by SILVIO DURHAM, JOHN ([id number]), managing editor SELWYN GARCIA ([id number]) on 11/25/2024 6:55:19 AM Referred By: TB Confirmed By: JOHN ANGUIANO MD
--- NOTE | 2024-11-20 23:18 | EX.ED.DYSGE1 ---
HPI History of Present Illness Chief Complaint: Hypertension Narrative Narrative: Patient is a 89-year-old female past medical history of atrial fibrillation on Eliquis, hypertension, chronic kidney disease, hyperlipidemia, asthma, glaucoma, hypothyroidism who presented to the emergency department with a chief complaint of high blood pressure for the last week. Patient states that she has noted that for the past week her blood pressure has been running high in the 200s. States that she does not have any symptoms other than she states that she has been periodically feeling like her heart is racing in her chest. Patient states that she been compliant with her medications by missing doses. Patient states that on Sunday she followed up with her tool specialist and they sent her to her primary care physician's office. Patient states that today her blood pressure remained elevated despite taking her blood pressure medication therefore she came here for evaluation management. [facility] Medical History Bilateral hip pain Impacted cerumen, left ear Contusion of right chest wall Chronic kidney disease Chronic hypertension Atrial fibrillation Diverticulitis Urinary tract infection Hematuria Fixed drug eruption Wears glasses Wears contact lenses Post-menopausal Cancer Thyroid disease Pulmonary embolism History of hiatal hernia History of diverticulitis Gastric reflux History of Holter monitoring History of echocardiogram History of stress test Cardiology follow-up encounter HLD (hyperlipidemia) Bruit of right carotid artery Pruritus of skin History of skin cancer GERD (gastroesophageal reflux disease) Pancreatitis Premature ventricular contraction Premature atrial contraction Right carotid bruit Nonhealing surgical wound Squamous cell carcinoma of left lower leg Leg wound, left Essential hypertension CKD (chronic kidney disease) Asthma Glaucoma Prothrombin gene mutation Hyperhomocystinemia Hypothyroidism Home Medications ?Medication ?Instructions ?Recorded ?Last Taken ?Type timolol maleate 0.5 % eye drops 1 drp EACH EYE [facility] eye health 09/27/15 08/06/24 History vit C 250 mg-vit E 90 mg-zinc 40 1 tab PO DAILY supplement 10/18/21 08/06/24 History mg-copper 1 [id number] capsule (PreserVision AREDS-2) levothyroxine 88 mcg tablet 88 mcg PO DAILY thyroid #90 tabs 01/09/24 08/06/24 Rx allopurinol 100 mg tablet 100 mg PO DAILY gout #90 tabs 06/19/24 08/06/24 Rx carvedilol 3.125 mg tablet 3.125 mg PO BID #180 tabs 10/28/24 Unknown Rx isosorbide mononitrate 60 mg 60 mg PO BID heart #60 tabs 11/03/24 Unknown Rx tablet,extended release 24 hr hydralazine 10 mg tablet 10 mg PO BID High blood pressure 11/17/24 Unknown History apixaban 2.5 mg tablet (Eliquis) 2.5 mg PO BID 11/20/24 Unknown History Allergy/AdvReac Type Severity Reaction Status Date / Time ceramide combination no.1 Allergy Intermediate rash Verified 11/20/24 23:03 (1,3,6-II) (From CeraVe) diltiazem HCl (From Cardizem) Allergy Itching Verified 11/20/24 23:03 losartan Allergy Itching Verified 11/20/24 23:03 SEVERE AND BLISTER miconazole nitrate (From Allergy Laryngospas Verified 11/20/24 23:03 Neosporin AF) ms morphine Allergy Other Verified 11/20/24 23:03 nitrofurantoin (From Allergy Rash Verified 11/20/24 23:03 Macrobid) nitrofurantoin Allergy Rash Verified 11/20/24 23:03 macrocrystalline (From Macrobid) bacitracin AdvReac Other Verified 11/20/24 23:03 codeine AdvReac Chest Verified 11/20/24 23:03 tightness lisinopril AdvReac Other Verified 11/20/24 23:03 loratadine (From Claritin) AdvReac Other Verified 11/20/24 23:03 metoprolol AdvReac fatigue Verified 11/20/24 23:03 Family History Mother Heart disease Father Heart disease Brother Heart disease Hypertension Cancer Surgical History History of bilateral cataract extraction History of cholecystectomy History of colectomy History of total hysterectomy Social History household members: none Smoking Status: Never smoker alcohol intake: never substance use type: does not use caffeine: No what type of physical activity do you participate in: yoga frequency: 3-4 times per week ROS ROS ED ROS Narrative Constitutional: Denies fevers, chills, headaches, lightness, dizziness Eyes: Denies change in vision double vision blurry vision Cardiovascular: Complains palpitations as noted above denies chest pain Respiratory: Denies coughing wheezing shortness of breath Abdomen: Denies abdominal pain nausea vomit diarrhea : Denies urinary symptoms Neurological: Denies numbness, weakness, tingling Musculoskeletal: Denies back pain Skin: Denies rashes or lesions EXAM Physical Exam Narrative Exam Narrative: General: Patient lying in bed rest comfortably. In acute distress Head: Atraumatic, normocephalic Eyes: PERRL bilaterally, EOMI bilaterally, no conjunctival injection noted Neck: Soft, supple, trachea midline Cardiovascular: Irregularly irregular rhythm with a regular rate no murmurs gallops rubs noted Respiratory: Clear to auscultation bilaterally Abdomen: Soft, nondistended, nontender to palpation Extremities: +5/5 strength in the bilateral upper and lower extremities, radial pulses +2/4 in the bilateral extremities Neurological: Patient following commands and that she was at [facility] years 2024. NIH of 0 GCS 15 Skin: Warm, dry, intact no rashes or lesions noted Const Vital Signs: 11/20/24 23:02 11/20/24 23:07 11/20/24 23:19 Temperature 98.1 F Temperature Source Oral Pulse Rate 93 Respiratory Rate 18 Respiratory Effort Normal Respiratory Pattern Normal Blood Pressure 248/107 H Blood Pressure Mean 154 Pulse Ox 99 Oxygen Delivery Method Room Air Room Air 11/20/24 23:29 11/21/24 00:38 11/21/24 02:00 Temperature Temperature Source Pulse Rate 75 58 L Respiratory Rate 16 16 Respiratory Effort Respiratory Pattern Blood Pressure 224/110 H 184/75 H 113/62 Blood Pressure Mean 148 111 79 Pulse Ox 97 98 Oxygen Delivery Method Room Air Room Air 11/21/24 03:30 Temperature 97.7 F L Temperature Source Pulse Rate 67 Respiratory Rate 18 Respiratory Effort Respiratory Pattern Blood Pressure 135/77 H Blood Pressure Mean 96 Pulse Ox 99 Oxygen Delivery Method MDM MDM MDM Narrative Medical decision making narrative: Patient is a 89-year-old female who presented to the emergency department chief complaint of hypertension. On the differential diagnosis includes but not limited to essential hypertension, hypertensive emergency, atrial fibrillation which she has a history of, PVCs, hyperthyroidism, hypothyroidism. Once workup is obtained reviewed she will be reevaluated. Patient was hypertensive on monitor we will check a manual pressure. Patient CBC reviewed showed no evidence leukocytosis white blood cell 11.3, hemoglobin 11.8, plate count of 221. Patient sodium was 135, potassium of 4.2, creatinine was 1.89 she has underlying chronic kidney disease. Patient troponin was 18 with a delta troponin noted to be 19. Patient TSH normal at 2.42, free T4 of 1.70 and T3 of 2.3. Patient chest x-ray pending Given that her blood pressure has been running in the 200s for the last several days and she has elevated troponin with palpitations here in the emergency department will discuss case with hospitalist for hypertensive emergency. Discussed case with hospitalist Dr. Saldaña who accept the patient for admission. Patient was agreeable this plan all question concerns answered at bedside. Lab Data Labs: Laboratory Results - last 24 hr 11/20/24 11/21/24 23:20 02:23 WBC 8.3 RBC 3.60 L Hgb 11.8 L Hct 34.6 L MCV 96.1 MCH 32.8 H MCHC 34.1 RDW Std Deviation 51.0 H RDW Coeff of Joaquin 14.6 Plt Count 221 MPV 10.0 Immature Gran % (Auto) 0.100 Neut % (Auto) 67.2 Lymph % (Auto) 19.2 [place] % (Auto) 8.7 Eos % (Auto) 4.2 Baso % (Auto) 0.6 Absolute Neuts (auto) 5.6 Absolute Lymphs (auto) 1.59 Nucleated RBC % 0 Sodium 135 Potassium 4.2 Chloride 101 Carbon Dioxide 21.1 Anion Gap 13 BUN 35 H Creatinine 1.89 H Estim Creat Clear Calc 18.87 L Est GFR (MDRD) Non-Af 25 L BUN/Creatinine Ratio 18.4 Glucose 117 H Calcium 9.7 Troponin T High Sens 18 H Troponin T Hi Sens 2 Hr 19 H TSH 2.420 Free T4 1.70 H Free T3 pg/dL 2.3 Discharge Plan Triage Chief Complaint: Hypertension ED Provider: Seferino Curry Dx/Rx/DC Orders Clinical Impression: Hypertensive emergency Prescriptions: No Action PreserVision AREDS-2 250-90-40-1 mg capsule 1 tab PO DAILY hydralazine 10 mg tablet 10 mg PO BID timolol maleate 1 DROP drops 1 drp EACH EYE [facility] Patient Comments: eye health Eliquis 2.5 mg tablet 2.5 mg PO BID levothyroxine 88 mcg tablet 88 mcg PO DAILY Qty: 90 3RF allopurinol 100 mg tablet 100 mg PO DAILY Qty: 90 1RF carvedilol 3.125 mg tablet 3.125 mg PO BID Qty: 180 3RF Rx Instructions: must administer with a meal/food isosorbide mononitrate 60 mg tablet extended release 24 hr 60 mg PO BID Qty: 60 11RF Primary Care Provider: Cat Artis Referrals: Cat Artis MD [Primary Care Provider] - Print Language: [place] Disposition Disposition: Acute Care Hospital [facility]
[2024-11-20 23:29] VITALS: BP 224/110
[2024-11-20 23:35] LABS: Absolute Lymphocyte Count 1.59 X10^3/uL (0.83-4.51); Absolute Neutrophil Count 5.6 X10^3/uL (2.0-7.7); Basophil# 0.05 X10^3/uL; Basophil% 0.6 % (0-1); Eosinophil# 0.35 X10^3/uL; Eosinophils% 4.2 % (0-5); Hematocrit 34.6 % (37-47); Hemoglobin 11.8 g/dL (12.0-15.0); Lymphocyte # 1.59 X10^3/ul (0.83-4.51); Lymphocyte % 19.2 % (19-41); Mean Corp Hgb Conc 34.1 g/dL (32-36); Mean Corpuscular Hgb 32.8 pg (27.0-32.0); Mean Corpuscular Volume 96.1 fL (81-99); Monocyte# 0.72 X10^3/uL; Monocyte% 8.7 % (0-10); NRBC Flagged by Analyzer 0 % (0-5); Neutrophil # 5.57 X10^3/uL (2.7-7.7); Neutrophil % 67.2 % (47-70); Platelet Count 221 K/mm3 (150-450); RBC Distribution Width CV 14.6 % (11.6-14.6); White Blood Count 8.3 K/mm3 (4.4-11.0)
[2024-11-20] MEDS: cloNIDine HCl 0.2 MG Tablet PO (23:46)
[2024-11-21] VITALS (11 sets, daily range): BP systolic 103–196; BP diastolic 56–103; PULSE 58–75; RESP 14–18; TEMP 36.3–36.6; O2SAT 97–100; BMI 20.1
[2024-11-21 00:18] LABS: Anion Gap 13 (5-15); BUN 35 mg/dL (4-19); BUN/Creat Ratio 18.4 RATIO (10-20); Calcium,Total 9.7 mg/dL (7.6-11.0); Carbon Dioxide 21.1 mmol/L (21.0-32.0); Chloride 101 mmol/L (98-108); Creatinine, Serum 1.89 mg/dL (0.70-1.20); EST Glomerular Filtration Rate 25 (>60); Estimated Creatinine Clearance 18.87 ml/min (50-250); Free T3 2.3 pg/mL (2.18-3.98); Glucose 117 mg/dL (70-99); Potassium 4.2 mmol/L (3.3-5.1); Sodium Level 135 mmol/L (133-145)
[2024-11-21 02:10] LABS: Troponin T High Sensitivity 18 ng/L (<=14)
[2024-11-21 02:42] LABS: Troponin T High Sens 2 HR 19 ng/L (<=14)
--- NOTE | 2024-11-21 03:30 | RAD_ITS ---
PROCEDURE: CHEST PA AND LATERAL 11/21/2024 REASON FOR EXAM: PALPITATIONS TECHNIQUE: Frontal and lateral views of the chest. COMPARISON: 09/16/2024 FINDINGS: The lungs appear clear. Pulmonary vascularity appears within limits. No pleural effusion. The cardiac and mediastinal contours appear within limits. Aortic atherosclerotic changes again noted. The visualized osseous structures appear within limits. RAD/Chest PA and Lateral IMPRESSION: No evidence of acute disease. Reading Location: [id number]
--- NOTE | 2024-11-21 03:45 | PCM.HP.STD ---
[facility] - [facility] General Date of Admission: 11/21/24 Date of Service: 11/21/24 Chief Complaint: Elevated Blood Pressure and Palpitations. HPI Narrative BHASKAR FREY, is a 89 F with a past medical history of essential hypertension; on carvedilol twice daily plus hydralazine twice daily, hypothyroidism; on levothyroxine, CAD; on isosorbide mononitrate twice daily, history of atrial fibrillation; on apixaban, history of PVCs & PACs, history of PE, history of Right carotid artery bruit, history of hyperhomocysteinemia, history of asthma; currently not on treatment, CKD; stage IV, glaucoma; on timolol nightly, gout; on allopurinol, history of diverticulitis, history of squamous cell carcinoma of LLE; s/p excision, history of GERD with hiatal hernia; currently not on treatment and OA; with bilateral hip pain who presents to [facility] ER complaining of elevated blood pressure and palpitations. Ms. Frey reports her symptoms began last week with an elevated blood pressure running above 200 mmHg systolic in spite of taking her antihypertensive medications as prescribed. She states that she does not have any symptoms other than that she feels like her heart is periodically racing in her chest with palpitations. She states she had a follow-up appointment with her hospice nurse on Sunday, November 17, 2024 culminating in her being sent to her PCPs office leaving patient frustrated as this problem has persisted and now worsened. This evening she noted highly elevated blood pressure of ~250 mmHg systolic so she decided to come in for further evaluation and treatment. She admits to heightened anxiety that accompanying her symptoms and was requesting an agent for as needed anxiety control. There was no report of fever, chills, headache, lightheadedness, dizziness, changes in vision, chest pain, shortness of breath, cough, abdominal pain, nausea, vomiting, diarrhea, constipation, dysuria, rash or recent illness. In the ER she was confirmed to have a blood pressure of 248/107 mmHg complicated by Palpitations with the patient responding decisively to 0.2 mg of clonidine orally given by ER physician along with mildly elevated troponin T of 18 ng/L present on admission followed by second troponin T of 19 ng/L likely due to acute cardiac strain and she was then admitted to the PCU for ongoing care for stay that is expected to be less than 2 midnights. [facility] Medical History Bilateral hip pain Impacted cerumen, left ear Contusion of right chest wall Chronic kidney disease Chronic hypertension Atrial fibrillation Diverticulitis Urinary tract infection Hematuria Fixed drug eruption Wears glasses Wears contact lenses Post-menopausal Cancer Thyroid disease Pulmonary embolism History of hiatal hernia History of diverticulitis Gastric reflux History of Holter monitoring History of echocardiogram History of stress test Cardiology follow-up encounter HLD (hyperlipidemia) Bruit of right carotid artery Pruritus of skin History of skin cancer GERD (gastroesophageal reflux disease) Pancreatitis Premature ventricular contraction Premature atrial contraction Right carotid bruit Nonhealing surgical wound Squamous cell carcinoma of left lower leg Leg wound, left Essential hypertension CKD (chronic kidney disease) Asthma Glaucoma Prothrombin gene mutation Hyperhomocystinemia Hypothyroidism Home Medications ?Medication ?Instructions ?Recorded ?Last Taken ?Type timolol maleate 0.5 % eye drops 1 drp EACH EYE [facility] eye health 09/27/15 11/20/24 17:43 History vit C 250 mg-vit E 90 mg-zinc 40 1 tab PO DAILY supplement 10/18/21 11/20/24 18:43 History mg-copper 1 [id number] capsule (PreserVision AREDS-2) levothyroxine 88 mcg tablet 88 mcg PO DAILY thyroid #90 tabs 01/09/24 11/20/24 08:00 Rx allopurinol 100 mg tablet 100 mg PO DAILY gout #90 tabs 06/19/24 11/20/24 18:41 Rx carvedilol 3.125 mg tablet 3.125 mg PO BID #180 tabs 10/28/24 11/20/24 21:42 Rx isosorbide mononitrate 60 mg 60 mg PO BID heart #60 tabs 11/03/24 11/20/24 21:42 Rx tablet,extended release 24 hr hydralazine 10 mg tablet 10 mg PO BID High blood pressure 11/17/24 11/20/24 16:30 History apixaban 2.5 mg tablet (Eliquis) 2.5 mg PO BID 11/20/24 11/20/24 21:30 History Allergy/AdvReac Type Severity Reaction Status Date / Time ceramide combination no.1 Allergy Intermediate rash Verified 11/20/24 23:03 (1,3,6-II) (From CeraVe) diltiazem HCl (From Cardizem) Allergy Itching Verified 11/20/24 23:03 losartan Allergy Itching Verified 11/20/24 23:03 SEVERE AND BLISTER miconazole nitrate (From Allergy Laryngospas Verified 11/20/24 23:03 Neosporin AF) ms morphine Allergy Other Verified 11/20/24 23:03 nitrofurantoin (From Allergy Rash Verified 11/20/24 23:03 Macrobid) nitrofurantoin Allergy Rash Verified 11/20/24 23:03 macrocrystalline (From Macrobid) bacitracin AdvReac Other Verified 11/20/24 23:03 codeine AdvReac Chest Verified 11/20/24 23:03 tightness lisinopril AdvReac Other Verified 11/20/24 23:03 loratadine (From Claritin) AdvReac Other Verified 11/20/24 23:03 metoprolol AdvReac fatigue Verified 11/20/24 23:03 Family History Mother Heart disease Father Heart disease Brother Heart disease Hypertension Cancer Surgical History History of bilateral cataract extraction History of cholecystectomy History of colectomy History of total hysterectomy Social History household members: none Smoking Status: Never smoker alcohol intake: never substance use type: does not use caffeine: No what type of physical activity do you participate in: yoga frequency: 3-4 times per week ROS ROS Narrative Review of Systems: Constitutional: Patient denies fever or chills. Eyes: Patient denies changes in vision or discharge from eyes. ENT: Patient denies runny nose, sore throat or ear pain. Resp: Patient denies shortness of breath or cough. CV: Patient admits to highly elevated blood pressure and palpitations as per HPI. She denies chest pain. GI: Patient denies abdominal pain, nausea, vomiting, diarrhea or constipation. : Patient denies dysuria, hematuria or urinary frequency. MSK: Patient denies arthralgias or myalgias. Skin: Patient denies rash, abscess, wounds or jaundice. Psych: Patient admits to heightened anxiety and accompanying her symptoms but she denies SI or HI. Neuro: Patient denies headache, paresthesias or focal neurologic deficits. Allergy: Patient denies lip swelling, tongue swelling or urticaria. Hematology: Patient admits to easy bleeding and bruisability on apixaban. Endocrinology: Patient denies polyuria, polydipsia, polyphagia or heat/cold intolerance. 14 point ROS otherwise negative except for positives noted above HPI. Vital Signs Vital Signs Vital Signs: 11/20/24 23:02 11/20/24 23:07 11/20/24 23:19 Temperature 98.1 F Temperature Source Oral Pulse Rate 93 Respiratory Rate 18 Respiratory Effort Normal Respiratory Pattern Normal Blood Pressure 248/107 H Blood Pressure Mean 154 Pulse Ox 99 Oxygen Delivery Method Room Air Room Air 11/20/24 23:29 11/21/24 00:38 11/21/24 02:00 Temperature Temperature Source Pulse Rate 75 58 L Respiratory Rate 16 16 Respiratory Effort Respiratory Pattern Blood Pressure 224/110 H 184/75 H 113/62 Blood Pressure Mean 148 111 79 Pulse Ox 97 98 Oxygen Delivery Method Room Air Room Air 11/21/24 03:30 Temperature 97.7 F L Temperature Source Pulse Rate 67 Respiratory Rate 18 Respiratory Effort Respiratory Pattern Blood Pressure 135/77 H Blood Pressure Mean 96 Pulse Ox 99 Oxygen Delivery Method Weight Weight: 148 lb 6 oz Body Mass Index (BMI) 24.7 Physical Exam Const alert, oriented x3, no apparent distress, average body habitus and healthy appearing General Appearance: cooperative HEENT normocephalic, head/scalp atraumatic, hearing grossly normal bilaterally and moist oral mucous membranes Eyes PERRL, EOMs intact bilaterally and conjunctivae normal Neck no lymphadenopathy, supple and no JVD Resp normal respiratory effort, no retractions, no use of accessory muscles and clear to auscultation bilaterally Cardio regular rate and regular rhythm GI normal to inspection, nondistended, normoactive bowel sounds, soft to palpation, non-tender and non-distended Extremity normal to inspection, full ROM and no clubbing, cyanosis or edema Skin Skin Narrative: Patient has no evidence of rash, abscess, wounds or jaundice. Neuro oriented x3, CN's II-XII intact bilaterally, moves all extremities and no focal motor deficits Sensorium / Orientation: awake, alert, oriented to person, oriented to place and oriented to time Speech: speech normal Psych affect normal Results Medical Records Data Attestation: I reviewed the patient's medical records Lab / Micro Data Attestation: I reviewed the patient's lab results. 11/20/24 23:20 11/20/24 23:20 Labs: Laboratory Results - last 24 hr 11/20/24 23:20: WBC 8.3, RBC 3.60 L, Hgb 11.8 L, Hct 34.6 L, MCV 96.1, MCH 32.8 H, MCHC 34.1, RDW Std Deviation 51.0 H, RDW Coeff of Joaquin 14.6, Plt Count 221, MPV 10.0, Immature Gran % (Auto) 0.100, Neut % (Auto) 67.2, Lymph % (Auto) 19.2, [place] % (Auto) 8.7, Eos % (Auto) 4.2, Baso % (Auto) 0.6, Absolute Neuts (auto) 5.6, Absolute Lymphs (auto) 1.59, Nucleated RBC % 0, Sodium 135, Potassium 4.2, Chloride 101, Carbon Dioxide 21.1, Anion Gap 13, BUN 35 H, Creatinine 1.89 H, Estim Creat Clear Calc 18.87 L, Est GFR (MDRD) Non-Af 25 L, BUN/Creatinine Ratio 18.4, Glucose 117 H, Calcium 9.7, Troponin T High Sens 18 H, TSH 2.420, Free T4 1.70 H, Free T3 pg/dL 2.3 11/21/24 02:23: Troponin T Hi Sens 2 Hr 19 H Assessment & Plan Assessment/Plan (1) Hypertensive emergency: (2) Palpitations: (3) Generalized anxiety disorder: (4) Elevated troponin: (5) History of atrial fibrillation: (6) Chronic anticoagulation: PLAN: Plan 1. Hypertensive Emergency; evidenced by initial elevated blood pressure of 248/107 mmHg present on admission in spite of patient already being on carvedilol twice daily and hydralazine twice daily - Admit to PCU under observation status. Maintain home regimen plus give as needed oral clonidine for systolic blood pressure greater than 160 mmHg. Check echocardiogram to evaluate LVEF. Thyroid studies noted to be unremarkable. Finally, we will consult [facility] see this patient on rounds in the a.m. for further recommendations given the recurrence of the severe problem with help appreciated in advance. 2. Palpitations with heightened Generalized Anxiety complicating #1 in the setting of a known history of PVCs & PACs with very mildly elevated troponin likely due to Acute Cardiac Strain also stemming from #1 - Palpitations have resolved with improved blood pressure. Give low-dose oral lorazepam as needed for breakthrough anxiety symptoms. 3. History of atrial fibrillation; on apixaban adding to the medical complexity of #1 & #2 - Maintain apixaban as previous. 4. Hypothyroidism; on levothyroxine - Maintain levothyroxine as before. 5. CAD; on isosorbide mononitrate twice daily - Resume ISMO. 6. History of PE - Noted with patient on apixaban for #3. 7. History of Right carotid artery bruit - Noted. 8. History of hyperhomocysteinemia - Noted. 9. History of asthma; currently not on treatment - Stable with no evidence of acute flare at this time. 10. CKD; stage IV - Stable with serum creatinine of 1.89 mg/dL and BUN of 35 mg/dL with eGFR of 25 mL/min essentially unchanged from baseline. 11. Glaucoma; on timolol nightly - Continue timolol. 12. Gout; on allopurinol - Stable with no evidence of acute flare. Resume allopurinol as previous. 13. History of diverticulitis - Noted with no evidence of recurrence. 14. History of squamous cell carcinoma of LLE; s/p excision - Noted. 15. History of GERD with hiatal hernia; currently not on treatment - Stable. 16. OA; with bilateral hip pain - Give acetaminophen prn as noted above in #1. 17. DVT prophylaxis - Patient already on apixaban for #3 which will be continued. Total time: Approximately (but not less than) 70 minutes. Charges/Coding Visit Charges OBSV E&M: 71069 Observ/hosp same date L2
[2024-11-21] MEDS: cloNIDine HCl 0.2 MG Tablet PO (05:49)
[2024-11-21] MEDS: Levothyroxine 88 MCG Tablet PO (05:49)
[2024-11-21 06:30] LABS: ALB/GLOB Ratio 1.8 RATIO (0.9-2.4); AST(SGOT) 24 U/L (<=31); Alanine Aminotransfer ALT/SGPT 11 U/L (<=34); Albumin, Serum 4.2 g/dL (3.4-4.8); Alkaline Phosphatase 75 U/L (35-104); Anion Gap 11 (5-15); BUN 34 mg/dL (4-19); Calcium,Total 9.9 mg/dL (7.6-11.0); Carbon Dioxide 23.5 mmol/L (21.0-32.0); Chloride 103 mmol/L (98-108); EST Glomerular Filtration Rate 25 (>60); Estimated Creatinine Clearance 18.11 ml/min (50-250); Globulin 2.4 g/dL (2.2-4.2); Glucose 104 mg/dL (70-99); Magnesium 2.5 mg/dL (1.5-2.2); Potassium 3.6 mmol/L (3.3-5.1); Protein, Total 6.6 g/dL (5.9-8.4); Sodium Level 138 mmol/L (133-145); Total Bilirubin 0.25 mg/dL (0.00-1.30)
[2024-11-21 06:50] LABS: Troponin T High Sens 4 HR 20 ng/L (<=14)
[2024-11-21 07:01] LABS: Absolute Lymphocyte Count 1.59 X10^3/uL (0.83-4.51); Absolute Neutrophil Count 4.5 X10^3/uL (2.0-7.7); Basophil# 0.03 X10^3/uL; Basophil% 0.4 % (0-1); Eosinophil# 0.33 X10^3/uL; Eosinophils% 4.7 % (0-5); Hematocrit 34.9 % (37-47); Hemoglobin 11.5 g/dL (12.0-15.0); Lymphocyte # 1.59 X10^3/ul (0.83-4.51); Lymphocyte % 22.6 % (19-41); Mean Corpuscular Volume 97.2 fL (81-99); Monocyte# 0.56 X10^3/uL; NRBC Flagged by Analyzer 0 % (0-5); Neutrophil # 4.51 X10^3/uL (2.7-7.7); Platelet Count 221 K/mm3 (150-450); RBC Distribution Width CV 14.6 % (11.6-14.6); RBC Distribution Width SD 51.3 fl (35.1-43.9); Red Blood Count 3.59 M/mm3 (4.2-5.4)
--- NOTE | 2024-11-21 07:14 | PCM.HOSP.N ---
Hospitalist Note Patient reports she has been having really labile blood pressures. The beta-jolly makes her extremely tired and she is on very low-dose. We will not uptitrate that. I did review her last cardiology note from November 17, 2024 and they continued her medication which included the carvedilol and the isosorbide. A 24-hour blood pressure monitor was recommended but I am unclear if she has had this yet. Her hydralazine was held at that time however she comes in with markedly elevated blood pressures so we will go ahead and restart her hide seen. Patient tells me she does not tolerate beta-jolly well so I hesitate to transition her from carvedilol with isosorbide to labetalol as suggested in her last cardiology note. At this time we will restart her hydralazine with a slight increase in dose from 10 twice daily to 25 3 times daily to see if we can get better control. We did discuss that she would likely not end up with blood pressure at goal at the time of discharge however I would like to see her systolics between 140 and 160 and have her follow-up with cardiology for ongoing titration of her medications as it is documented she has whitecoat syndrome. Will schedule Tylenol 1 g 3 times daily for patient's sacroiliac pain. As long as we get her blood pressures a little more acceptable and her echocardiogram looks okay then we will plan on discharging tomorrow and have her follow-up closely with cardiology.
[2024-11-21] MEDS: Carvedilol 3.125 MG TABLET PO ×2 (08:46→17:33)
[2024-11-21] MEDS: APIXABAN 2.5 MG TABLET (WCH) PO ×2 (08:46→21:00)
[2024-11-21] MEDS: Allopurinol 100 MG Tablet PO (08:46)
[2024-11-21] MEDS: Isosorbide Mononitrate 60 MG Tablet PO ×2 (08:47→20:59)
[2024-11-21] MEDS: Multivitamin (Healthy Eyes) Capsule 1 CAP PO (08:47)
[2024-11-21] MEDS: Acetaminophen 500 MG Tablet 1000 MG PO ×3 (11:39→21:00)
--- NOTE | 2024-11-21 13:04 | CASEMGMT ---
Met with patient to complete [facility] form. [facility] form explained to patient who voiced understanding and signed form. Original form placed in pt?s chart and copy provided to patient. Denice Forrest, Discharge Planning Asst
[2024-11-21 18:31] LABS: Bacteria 0 SEEN /hpf (None Seen); Mucous, Urine 0 SEEN /hpf (<or=2+)
[2024-11-21 18:47] LABS: Color, Urine Yellow (Yellow); Glucose, Dipstick Normal (Normal); Ketone-Dipstick Negative (Negative); Leukocyte Esterase-Dipstick Negative /ul (Negative); Nitrite-Dipstick Negative (Negative); Occult Blood-Urine Negative /ul (Negative); Protein-Dipstick 500 mg/dl (Negative); Urine Bilirubin Dipstick Negative (Negative); Urine Clarity Sl. Cloudy (Clear); Urine Urobilinogen Normal (Normal)
[2024-11-21 19:55] LABS: Red Blood Cells-Urine 0-5 SEEN /hpf (0-5); Squamous Epithelial Cells - UA 0-5 SEEN /hpf (5-10); Transitional Epithelial - Ur 0-5 SEEN /hpf (0-5); White Blood Cells 0-5 SEEN /hpf (0-5)
[2024-11-21] MEDS: Timolol 0.5% 5ML OPTH.BTL 1 DRP EACH EYE (21:00)
[2024-11-22 02:00] VITALS: BP 136/72; PULSE 56; RESP 16; TEMP 36.6; O2SAT 99
[2024-11-22 04:45] VITALS: BMI 20.2
[2024-11-22 05:15] LABS: Hematocrit 29.8 % (37-47); Mean Corp Hgb Conc 33.6 g/dL (32-36); Mean Corpuscular Hgb 32.7 pg (27.0-32.0); Mean Corpuscular Volume 97.4 fL (81-99); Mean Platelet Vol. 10.5 fl (6.2-12.0); Platelet Count 182 K/mm3 (150-450); RBC Distribution Width CV 14.7 % (11.6-14.6); RBC Distribution Width SD 51.5 fl (35.1-43.9); Red Blood Count 3.06 M/mm3 (4.2-5.4); White Blood Count 6.1 K/mm3 (4.4-11.0)
[2024-11-22 05:35] VITALS: BP 146/81; PULSE 65; RESP 16; TEMP 36.6; O2SAT 98
[2024-11-22] MEDS: Levothyroxine 88 MCG Tablet PO (05:35)
[2024-11-22] MEDS: hydrALAZINE 25 MG Tablet PO (05:35)
[2024-11-22] MEDS: Acetaminophen 500 MG Tablet 1000 MG PO (05:35)
[2024-11-22 05:46] LABS: Anion Gap 11 (5-15); BUN 37 mg/dL (4-19); Calcium,Total 9.4 mg/dL (7.6-11.0); Carbon Dioxide 21.2 mmol/L (21.0-32.0); Chloride 101 mmol/L (98-108); EST Glomerular Filtration Rate 21 (>60); Glucose 95 mg/dL (70-99); Potassium 4.1 mmol/L (3.3-5.1); Sodium Level 133 mmol/L (133-145)
--- NOTE | 2024-11-22 08:13 | PCM.DC.SUM ---
Providers Date of Admission: 11/21/24 Date of Discharge: 11/22/24 Primary Care Physician: Dr. Cat Artis MD Reason For Visit: HYPERTENSIVE EMERGENCY AND PALPITATIONS Diagnosis Discharge Diagnosis (1) Hypertensive emergency: Status: Acute Code(s): I16.1 - Hypertensive emergency (2) Palpitations: Status: Acute Code(s): R00.2 - Palpitations (3) Generalized anxiety disorder: Status: Acute Code(s): F41.1 - Generalized anxiety disorder (4) Elevated troponin: Status: Acute Code(s): R79.89 - Other specified abnormal findings of blood chemistry (5) History of atrial fibrillation: Status: Acute Code(s): Z86.79 - Personal history of other diseases of the circulatory system (6) Chronic anticoagulation: Status: Acute Code(s): Z79.01 - continuous 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 (current) use of anticoagulants Medications at Discharge Home Medications timolol maleate 0.5 % eye drops 1 drp EACH EYE [facility] eye health 09/27/15 vit C 250 mg-vit E 90 mg-zinc 40 mg-copper 1 cy-oouahs-awlbzz capsule (PreserVision AREDS-2) 1 tab PO DAILY supplement 10/18/21 levothyroxine 88 mcg tablet 88 mcg PO DAILY thyroid #90 tabs 01/09/24 allopurinol 100 mg tablet 100 mg PO DAILY gout #90 tabs 06/19/24 isosorbide mononitrate 60 mg tablet,extended release 24 hr 60 mg PO BID heart #60 tabs 11/03/24 apixaban 2.5 mg tablet (Eliquis) 2.5 mg PO BID 11/20/24 acetaminophen 500 mg tablet 1,000 mg (2 x 500 mg) PO Q8 #0 tabs 11/22/24 hydralazine 25 mg tablet 25 mg PO TID PRN SBP>150 #90 tabs 11/22/24 labetalol 100 mg tablet 100 mg PO BID #60 tabs 11/22/24 Hospital Course Operations None Procedures EKG and - (Chest x-ray) Summary of Care Provided Minutes Spent on Discharge: 36 Hospital Course: Mrs. Ramos is AN 89-year-old white female who presents emergency department at [facility] on 11/21/2024 for elevated blood pressure and palpitations. Patient has a history of essential hypertension and has been on carvedilol twice daily, hydralazine twice daily and isosorbide mononitrate twice daily. She has a history of atrial fibrillation as well. Patient does have a known history of blood pressure but patient reported that her symptoms coincided with her systolic pressures running at greater than 200 in spite of taking her antihypertensives as prescribed. It does appear that the patient has had ongoing blood pressure issues that she was seen the licensed insurance agent office on the and her primary care physician on the of both time her systolic pressures were greater than 200. It is noted in the licensed insurance agent office documentation that she has a history of whitecoat syndrome however her blood pressure at home had been elevated as well. They continued on her carvedilol and isosorbide but recommended holding her hydralazine and obtaining a 24-hour blood pressure monitor. Is unclear if they have done this yet as the patient was not sure. We did stop her carvedilol and transition to labetalol 100 mg while in the hospital as recommended on her licensed insurance agent note but we did continue the isosorbide as her blood pressures were markedly elevated. We also added an as needed hydralazine. The patient is to check her blood pressure 60 minutes after she takes her morning and evening dose of the labetalol and isosorbide mononitrate and if her systolic pressure is still greater than 150 she is to take the 25 mg grams of hydralazine. In the afternoon independent of the other 2 antihypertensives, she will check her blood pressure as well and again if her blood pressure from a systolic measurement is greater than 150 she will take the hydralazine. She was in sinus rhythm for her hospitalization. Blood pressure at the time of discharge had improved and was 130/72. Hopefully with the as needed hydralazine we will be able to keep her blood pressure from having spikes into the 200s and morning equilibrium. I have asked her to follow-up with cardiology within the next week for reevaluation of her blood pressure. Labetalol may need to be uptitrated. Patient traditionally has not tolerated beta-blockers all that well. Hopefully she will tolerate labetalol better than the previous. Side effect of fatigue is somewhat incapacitating for her. Patient was able to be discharged home with prescription changes as noted above on 11/22/2024. Instructions for her medication regimen were written for her and discussed prior to discharge. Discharge diagnoses: Hypertensive emergency Troponin elevation secondary to markedly elevated blood pressure Chronic normocytic anemia CKD stage IV Paroxysmal atrial fibrillation Essential hypertension History of gout Hypothyroidism Glaucoma History of VTE History of GERD Prothrombin gene mutation Hyperhomocysteinemia Physical Exam Const alert, oriented x3, no apparent distress, average body habitus, healthy appearing and well nourished Constitutional Narrative: Elderly, well-appearing, white female, appears younger than stated age, sitting up in a chair at the bedside, watching television, appears comfortable, nontoxic General Appearance: cooperative, comfortable, well kempt and well developed Exam Limitations: no limitations HEENT normocephalic, head/scalp atraumatic, hearing grossly normal bilaterally and moist oral mucous membranes HEENT Narrative: Mallampati 2, no thrush Eyes conjunctivae normal Eyes Narrative: No scleral icterus Neck supple Neck Narrative: Trachea midline Resp normal respiratory effort, no retractions, no use of accessory muscles and clear to auscultation bilaterally Cardio regular rate, regular rhythm, S1 normal heart sound, S2 normal heart sound, no murmurs, no rub, no gallops and no clicks GI normal to inspection, nondistended, normoactive bowel sounds, soft to palpation and non-tender Extremity no clubbing, cyanosis or edema Extremity Narrative: Pedal and radial pulses are 2+ Skin skin turgor normal, no jaundice, no petechiae and no mottling Neuro oriented x3, moves all extremities and no focal motor deficits Speech: speech normal Psych affect normal Weight / BMI Weight Weight: 55.2 kg Body Mass Index (BMI) 20.2 ABG / Lab / Microbiology Data 11/22/24 04:48 11/22/24 04:48 Laboratory: Laboratory Results - last 24 hr 11/21/24 18:18: Urine Color Yellow, Urine Clarity Sl. Cloudy, Urine pH 6.0, Ur Specific Hume 1.020, Urine Protein 500 H, Urine Glucose (UA) Normal, Urine Ketones Negative, Urine Occult Blood Negative, Urine Nitrite Negative, Urine Bilirubin Negative, Urine Urobilinogen Normal, Ur Leukocyte Esterase Negative, Urine RBC 0-5 SEEN, Urine WBC 0-5 SEEN, Ur Squamous Epith Cells 0-5 SEEN, Ur Transition Epith Cell 0-5 SEEN, Urine Bacteria 0 SEEN, Urine Mucus 0 SEEN 11/22/24 04:48: WBC 6.1, RBC 3.06 L, Hgb 10.0 L, Hct 29.8 L, MCV 97.4, MCH 32.7 H, MCHC 33.6, RDW Std Deviation 51.5 H, RDW Coeff of Joaquin 14.7 H, Plt Count 182, MPV 10.5, Sodium 133, Potassium 4.1, Chloride 101, Carbon Dioxide 21.2, Anion Gap 11, BUN 37 H, Creatinine 2.20 H, Estim Creat Clear Calc 15.70 L, Est GFR (MDRD) Non-Af 21 L, BUN/Creatinine Ratio 17.0, Glucose 95, Calcium 9.4 Radiography Diagnostic Testing: Radiology Impression Chest X-Ray 11/21/24 03:30 IMPRESSION: No evidence of acute disease. Reading Location: [facility] D/C Instructions Discharge Diet: Low fat / Low cholesterol Discharge Activity: Return to Normal Activity DC O2, CPAP, BIPAP Needs Home O2 Discharge instructions: No DC home with Oxygen: No Meaningful Use Info Meaningful Use Meaningful Use Diagnoses (Choose all that apply): None applicable Ischemic Stroke Statin Dosing Therapy Reference: STATIN DOSE THERAPY REFERENCE: * Patients > 75 years receive moderate or high dose statin therapy. * Patients 75 years or YOUNGER should receive HIGH intensity statin dose unless contraindicated. You will be required to document reason for non-treatment if statin daily dose does not meet guidelines. HIGH DOSE STATIN THERAPY DAILY Atorvastatin > than or = to 40 mg Rosuvastatin > than or = to 20 mg Amlodipine + Atorvastatin > than or = to 2.5/40 mg Ezetimibe + Simvastatin 10/80 mg Simvastatin 80mg Discharge Plan Admission Admit Date/Time: 11/21/24 04:27 Primary Reason for Your Visit: Elevated blood pressure Attending Provider: Edith Shafer Primary Care Provider: Cat Artis Consulting Providers: Taye Aaron Instructions Additional Instructions / Restrictions: 1. Take the labetalol in the isosorbide mononitrate in the morning and evening as directed. 60 minutes after you take your blood pressure medication in the morning and the evening take your blood pressure and if your blood pressure is still greater than 150 systolic take 25 mg of hydralazine if it is less than 150 do not take the hydralazine. In the afternoon take your blood pressure when your hydralazine dose would be due and if your systolic number is greater than 150 take 25 mg of hydralazine. Systolic number is the top number of your blood pressure. 2. Please call the licensed insurance agent office on Sunday and get in to be seen for reassessment for your blood pressure as soon as possible 3. We discontinued your carvedilol and transition to labetalol. Hopefully you will experience less fatigue with this. Discharge Orders/Prescriptions Prescriptions: New hydralazine 25 mg Tablet 25 mg PO TID PRN (Reason: SBP>150) Qty: 90 0RF Rx Instructions: Please take your blood pressure as instructed and if your systolic blood pressure is greater than 150 please take one 25 mg tablet acetaminophen 500 mg Tablet 1,000 mg PO Q8 Qty: 0 0RF labetalol 100 mg tablet 100 mg PO BID Qty: 60 0RF Continued PreserVision AREDS-2 250-90-40-1 mg capsule 1 tab PO DAILY timolol maleate 1 DROP drops 1 drp EACH EYE [facility] Patient Comments: eye health Eliquis 2.5 mg tablet 2.5 mg PO BID levothyroxine 88 mcg tablet 88 mcg PO DAILY Qty: 90 3RF allopurinol 100 mg tablet 100 mg PO DAILY Qty: 90 1RF isosorbide mononitrate 60 mg tablet extended release 24 hr 60 mg PO BID Qty: 60 11RF Discontinued carvedilol 3.125 mg tablet 3.125 mg PO BID Qty: 180 3RF Rx Instructions: must administer with a meal/food Referrals / Follow Up: Cat Artis MD [Primary Care Provider] - Within 1 Week Juana Saeed PA [Med Staff - [facility]] - Within 1 Week (Call Sunday to set up an appointment to be seen) Disposition Disposition (needs filled in before D/C Order can be placed): Home, Self Care Charges/Coding Visit Charges Inpatient E&M: 49550 Disch Hosp >30min
[2024-11-22 08:25] VITALS: BP 130/72; PULSE 65; RESP 16; TEMP 36.2; O2SAT 98
[2024-11-22] MEDS: Carvedilol 3.125 MG TABLET PO (09:33)
[2024-11-22] MEDS: Isosorbide Mononitrate 60 MG Tablet PO (09:33)
[2024-11-22] MEDS: Allopurinol 100 MG Tablet PO (09:33)
[2024-11-22] MEDS: Multivitamin (Healthy Eyes) Capsule 1 CAP PO (09:33)
[2024-11-22] MEDS: APIXABAN 2.5 MG TABLET (WCH) PO (09:33)
== END 2024-11-22 11:40 | disposition home or self-care (01) ==
LOC: ED 11-21 03:54 → PCU 11-21 04:18
PROVIDERS: Admitting Provider Internal Medicine; Emergency Provider Emergency Medicine; PCP Internal Medicine; Visit Provider Internal Medicine
DX: I16.1 Hypertensive emergency (principal); N18.4 Chronic kidney disease, stage 4 (severe); I48.0 Paroxysmal atrial fibrillation; I25.10 Atherosclerotic heart disease of native coronary artery without angina pectoris; I12.9 Hypertensive chronic kidney disease with stage 1 through stage 4 chronic kidney disease, or unspecified chronic kidney disease; Z79.890 Hormone replacement therapy; E78.5 Hyperlipidemia, unspecified; F41.1 Generalized anxiety disorder; R79.89 Other specified abnormal findings of blood chemistry; E72.11 Homocystinuria; Z79.01 Long term (current) use of anticoagulants; D68.52 Prothrombin gene mutation; D64.9 Anemia, unspecified; E03.9 Hypothyroidism, unspecified; H40.9 Unspecified glaucoma; J45.909 Unspecified asthma, uncomplicated; K21.9 Gastro-esophageal reflux disease without esophagitis
CPT/HCPCS: 36415; 71046; 80048; 80053; 81001; 83735; 84100; 84439; 84443; 84481; 84484; 85025; 85027; 93005; 97161; 97802; 99221; 99285; A4216; G0378

== ENCOUNTER → 2024-12-08 | Outpatient (CLI) | payer MEDICARE, OTHER, SELFPAY ==
--- NOTE | 2024-12-08 15:03 | RAD_ITS ---
EXAM: Sacroiliac joints, bilateral. Sacrum/coccyx. CLINICAL HISTORY: Pain. COMPARISON: 08/07/2024. TECHNIQUE: Three views. FINDINGS: Moderate arthrosis of the sacroiliac joints. No fracture or dislocation is seen. No lytic or blastic bone lesion is noted. Moderate amount of fecal residue in the large bowels. RAD/S-I Jts 3 or More Views IMPRESSION: Degenerative joint disease. Reading Location: [facility]
== END | disposition home or self-care (01) ==
LOC: RAD 14:56
PROVIDERS: PCP Internal Medicine; Referring Provider Internal Medicine; Visit Provider Internal Medicine
DX: M53.3 Sacrococcygeal disorders, not elsewhere classified (principal); G89.29 Other chronic pain
CPT/HCPCS: 72202

== ENCOUNTER → 2025-02-02 | Outpatient (CLI) | payer MEDICARE, OTHER, SELFPAY ==
[2025-02-02 13:27] LABS: Albumin, Serum 4.3 g/dL (3.4-4.8); Anion Gap 12 (5-15); BUN 41 mg/dL (4-19); BUN/Creat Ratio 21.5 RATIO (10-20); Calcium,Total 10.0 mg/dL (7.6-11.0); Carbon Dioxide 24.5 mmol/L (21.0-32.0); Chloride 101 mmol/L (98-108); Glucose 92 mg/dL (70-99); Potassium 4.3 mmol/L (3.3-5.1)
== END | disposition home or self-care (01) ==
LOC: MTLAB 08:58
PROVIDERS: PCP Internal Medicine; Referring Provider Internal Medicine Nephrology; Visit Provider Internal Medicine Nephrology
DX: N18.32 Chronic kidney disease, stage 3b (principal)
CPT/HCPCS: 36415; 80069

== ENCOUNTER → 2025-03-04 | Outpatient (CLI) | payer MEDICARE, OTHER, SELFPAY | END | disposition home or self-care (01) | LOC: PSN 08:22 | PROVIDERS: PCP Internal Medicine; Referring Provider Physician Assistant Medical; Visit Provider Physician Assistant Medical | DX: R00.1 Bradycardia, unspecified (principal); I48.0 Paroxysmal atrial fibrillation; R00.2 Palpitations; R42 Dizziness and giddiness | CPT/HCPCS: 93225; 93226 ==

== ENCOUNTER → 2025-04-16 | Outpatient (CLI) | payer MEDICARE, OTHER, SELFPAY ==
[2025-04-16 12:13] LABS: Hematocrit 33.0 % (37-47); Hemoglobin 11.0 g/dL (12.0-15.0); Immature Granulocytes Count 0.030 X10^3/uL (0.0-0.0); Mean Corp Hgb Conc 33.3 g/dL (32-36); Mean Corpuscular Volume 97.9 fL (81-99); Mean Platelet Vol. 11.2 fl (6.2-12.0); NRBC Flagged by Analyzer 0 % (0-5); Platelet Count 200 K/mm3 (150-450); RBC Distribution Width CV 15.0 % (11.6-14.6); RBC Distribution Width SD 52.9 fl (35.1-43.9); Red Blood Count 3.37 M/mm3 (4.2-5.4); White Blood Count 9.3 K/mm3 (4.4-11.0)
[2025-04-16 13:09] LABS: Cholesterol 181 mg/dL (<=200); Free T3 2.3 pg/mL (2.18-3.98); Low Density Lipoprotein Calc. 115 mg/dL; Magnesium 2.3 mg/dL (1.5-2.2); Triglycerides 72 mg/dL; Very Low Density Lipoprotein 14 mg/dL (5-40); Vitamin B12 497 pg/mL (180-914); Vitamin D,25 Hydroxy 24.1 ng/mL (30-100); cholesterol:hdl ratio screen 3.52
[2025-04-16 13:24] LABS: AST(SGOT) 24 U/L (<=31); Alanine Aminotransfer ALT/SGPT 16 U/L (<=34); Albumin, Serum 4.3 g/dL (3.4-4.8); Alkaline Phosphatase 93 U/L (35-104); Anion Gap 11 (5-15); BUN 49 mg/dL (4-19); BUN/Creat Ratio 24.8 RATIO (10-20); Calcium,Total 10.1 mg/dL (7.6-11.0); Carbon Dioxide 23.5 mmol/L (21.0-32.0); Chloride 105 mmol/L (98-108); Globulin 2.3 g/dL (2.2-4.2); Glucose 97 mg/dL (70-99); Potassium 5.1 mmol/L (3.3-5.1)
== END | disposition home or self-care (01) ==
LOC: MTLAB 09:10
PROVIDERS: PCP Internal Medicine; Referring Provider Internal Medicine; Visit Provider Internal Medicine
DX: I12.9 Hypertensive chronic kidney disease with stage 1 through stage 4 chronic kidney disease, or unspecified chronic kidney disease (principal); N18.4 Chronic kidney disease, stage 4 (severe); I47.10 Supraventricular tachycardia, unspecified; E03.9 Hypothyroidism, unspecified; E78.5 Hyperlipidemia, unspecified; E55.9 Vitamin D deficiency, unspecified; R73.9 Hyperglycemia, unspecified
CPT/HCPCS: 36415; 80053; 80061; 82306; 82607; 83036; 83735; 84439; 84443; 84481; 85025

== ENCOUNTER → 2025-04-22 | Outpatient (CLI) | payer MEDICARE, OTHER, SELFPAY ==
[2025-04-22 14:06] LABS: Mucous, Urine 0 SEEN /hpf (<or=2+)
[2025-04-22 16:59] LABS: Color, Urine Straw (Yellow); Glucose, Dipstick Normal (Normal); Ketone-Dipstick Negative (Negative); Leukocyte Esterase-Dipstick 500 /ul (Negative); Nitrite-Dipstick Negative (Negative); Occult Blood-Urine 10 /ul (Negative); Protein-Dipstick 100 mg/dl (Negative); Specific Gravity, Urine 1.010 (1.002-1.030); Urine Bilirubin Dipstick Negative (Negative)
[2025-04-22 21:22] LABS: Red Blood Cells-Urine 0-5 SEEN /hpf (0-5); Squamous Epithelial Cells - UA 0-5 SEEN /hpf (5-10); Transitional Epithelial - Ur 0-5 SEEN /hpf (0-5)
== END | disposition home or self-care (01) ==
LOC: MTLAB 14:03
PROVIDERS: PCP Internal Medicine; Referring Provider Internal Medicine; Visit Provider Internal Medicine
DX: R30.0 Dysuria (principal)
CPT/HCPCS: 81001; 87077; 87086; 87088; 87186

== ENCOUNTER → 2025-06-08 | Outpatient (CLI) | payer MEDICARE, OTHER, SELFPAY ==
[2025-06-08 11:16] LABS: Albumin, Serum 4.4 g/dL (3.4-4.8); Anion Gap 10 (5-15); BUN 38 mg/dL (4-19); BUN/Creat Ratio 18.9 RATIO (10-20); Calcium,Total 10.1 mg/dL (7.6-11.0); Carbon Dioxide 24.5 mmol/L (21.0-32.0); Chloride 101 mmol/L (98-108); Glucose 99 mg/dL (70-99); Potassium 4.8 mmol/L (3.3-5.1)
== END | disposition home or self-care (01) ==
LOC: LAB.FUTURE 09:00 → MTLAB 09:00
PROVIDERS: PCP Internal Medicine; Visit Provider Internal Medicine Nephrology
DX: N18.9 Chronic kidney disease, unspecified (principal)
CPT/HCPCS: 36415; 80069